=== PATIENT | male | born 1980 | race Caucasian/White ===

== ENCOUNTER 2017-08-28 11:52 | Emergency (ER) | payer SELFPAY ==
[2017-08-28 11:53] VITALS: BP 143/107; PULSE 115; RESP 20; TEMP 36.5; O2SAT 99; BMI 20.9
--- NOTE | 2017-08-28 12:17 | CT_ITS ---
STUDY: CT FACIAL BONES WITHOUT CONTRAST REASON FOR EXAM: Male, 36 years old. Right-sided facial pain for 3 weeks. No history of injury. RADIATION DOSAGE (If Supplied By Facility): CTDIvol = ( 29.38 ) mGy, DLP = ( 628.26 ) mGycm TECHNIQUE: The patient was scanned in a multi detector CT scanner. Sagittal and coronal images were reconstructed. Individualized dose optimization techniques were used for this CT. COMPARISON: None. FINDINGS: Normal soft tissue structures. Normal orbital lockwood and orbital contents. Normal nasal bones and anterior nasal spine. Normal facial bones. There is no demonstrated fracture. There is mucosal thickening of the left frontal, ethmoids and right maxillary sinuses. The right ostiomeatal complex appears to be occluded. There is hypertrophy of the right middle nasal turbinate. There is mild deviation of the nasal septum to the right side. CT/Sinus/Facial Bone IMPRESSION: Sinus disease as described above. No demonstrated drainable abscess. Electronically Signed: Tato German MD at 13:05 EDT Tel , Service support ,
[2017-08-28] MEDS: morphine 8 MG/ML Syringe SC (12:34)
[2017-08-28] MEDS: carBAMazepine 200 MG Tablet PO (12:34)
[2017-08-28] MEDS: Ketorolac 60 MG/2 ML Vial IM (12:34)
--- NOTE | 2017-08-28 13:54 | ED.VISSUMM ---
- ER Visit Summary Date of Service: 08/28/17 Chief Complaint: [] Right facial pain for years no evaluation History of Present Illness: The patient is a 36 M [] that complaint for years he reports that things got so bad that he actually had a full mouth extraction as there was concern suspect related to his teeth however after doing a full mouth extraction is persisted in having right facial pain he denies trauma, denies history of logic conditions that cause facial pain, trigeminal neuralgia or others, no sinus issues no headache no trauma no fever no cough he takes his hand and basically points to the right maxillary sinus region as the focus of his pain, but again he denies cough runny nose sore throat or fever no change in vision he denies any past history otherwise other than report he had pulmonary blebs that caused pneumothoraces and he had surgery for that Physical Examination: [] And he takes his hand and puts the right over the right maxillary sinus palpation of this area causes some mild discomfort his vital signs are unremarkable he is afebrile he has had no fevers at home his extraocular movements are full his nose seems congested the throat is clear the neck is supple the lungs are clear heart tones are normal the TMs and HEENT exam are entirely unremarkable movement of his head causes no pain his neurologic exam is normal again is cardiac pulmonary GI extremity skin exam normal everything is normal Test Results: [] Emergency Department Course and Treatment: [] His complaints CT maxillofacial was obtained and shows extensive sinusitis see that report no abscess there is also concerned about the right maxillary ostium may be blocked, the patient was treated with Rocephin 1 g IM he will be discharged on Augmentin Mucinex Flonase is given the referral to a primary care physician and also to ENT and return for change in symptoms Treatment Plan: [] Disposition: [] Home stable Impression: [] Right facial pain related to pansinusitis This note was generated with [employer] dictation software. It may contain incorrect words, spelling, and punctuation that were not noted in review of the chart prior to signing ED Disposition - Plan for ED Patient: Chief Complaint: Other, Pain/Inj Referrals: Phillip Vazquez MD [Primary Care Provider] -
--- NOTE | 2017-08-28 13:56 | ED.DEP ---
ED Disposition - Plan for ED Patient: Chief Complaint: Other, Pain/Inj Instructions: Acute Sinusitis Prescriptions: Amox/Clavulanate Tablet [Augmentin Tablet] 875 mg PO Q12H #20 tab Naproxen [Naprosyn] 500 mg PO BID PRN #20 tab Fluticasone Propionate [Flonase Allergy Relief] 15.8 ml NS BID #1 spray.susp Guaifenesin [Mucinex] 1,200 mg PO BID #14 tbmp.12hr Referrals: Phillip Vazquez MD [Primary Care Provider] - Orlando Nunez MD [STAFF PHYSICIAN] -
[2017-08-28 15:19] VITALS: RESP 18
== END 2017-08-28 15:19 | disposition home or self-care (01) ==
PROVIDERS: Emergency Provider Emergency Medicine; Family Provider Family Medicine; PCP Family Medicine
DX: J32.4 Chronic pansinusitis (principal)
CPT/HCPCS: 70486; 96365; 96372; 99283; J7030; A4216

== ENCOUNTER 2018-10-18 18:55 | Emergency (ER) | payer OTHER, SELFPAY ==
[2018-10-18 18:56] VITALS: BP 133/85; PULSE 96; RESP 16; TEMP 36.7; O2SAT 99; BMI 19.3
--- NOTE | 2018-10-18 19:46 | ED.DCSUM_ITS ---
- ER Visit Summary Date of Service: 10/18/18 Chief Complaint: [Insect bites] History of Present Illness: The patient is a 37 M [resents to the emergency department with insect bites that he first noticed 5 days ago. Patient states he was bitten by something while he slept on his right leg he thinks it may be a spider possibly. Initially was a red lump that then kind of popped open. The redness is started to spread. Several days later he got 2 more lesions on his left lower extremity and calf. He denies any fevers although he has had some chills. She has no medical history.] Physical Examination: [HEENT-PERRLA, EOMI. Cranial nerves II through XII grossly intact. TMs clear. Mucous membranes moist. No adenopathy. Cardiovascular-regular rate and rhythm without murmur or ectopy Lungs-clear to auscultation, chest wall stable without crepitus or subcu emphysema Abdomen-normoactive bowel sounds, soft, nontender, no rebound or rigidity, no peritoneal signs. Skin exam-patient has a circular lesion on his right lateral calf as well as 2 circular lesions on his left lower leg with surrounding erythema and central section that is excoriated. Areas are slightly tender to palpation. Patient also has an excoriated area just above the right eyebrow. Extremities-intact ?4, normal range of motion, normal pulses, atraumatic] Test Results: [None indicated] Emergency Department Course and Treatment: [Patient was started on Keflex] Treatment Plan: [Patient will be treated with Keflex and referred to primary care physician for follow-up in 3 to 5 days.] Disposition: [Discharged home in stable condition] Impression: [Infected insect bites/cellulitis] This note was generated with [employer] dictation software. It may contain incorrect words, spelling, and punctuation that were not noted in review of the chart prior to signing ED Disposition - Plan for ED Patient: Referrals: Care Physician,No Primary [Primary Care Provider] -
--- NOTE | 2018-10-18 19:46 | ED.DEP ---
ED Disposition - Plan for ED Patient: Instructions: ED Sting Bite Insect Infec Prescriptions: Cephalexin [Keflex] 500 mg PO Q6 #40 cap Referrals: Care Physician,No Primary [Primary Care Provider] - Hipolito Murcia DO [STAFF PHYSICIAN] - 3-5 Days
--- NOTE | 2018-10-18 19:53 | ED.DEP ---
ED Disposition - Plan for ED Patient: Instructions: ED Sting Bite Insect Infec Prescriptions: Cephalexin [Keflex] 500 mg PO Q6 #40 cap Cephalexin [Keflex] 500 mg PO Q6 #40 cap Referrals: Hipolito Murcia DO [STAFF PHYSICIAN] - 3-5 Days Care Physician,No Primary [Primary Care Provider] -
[2018-10-18] MEDS: Cephalexin 250 MG Capsule 500 MG PO (19:54)
[2018-10-18 19:56] VITALS: PULSE 92; RESP 20; O2SAT 99
--- NOTE | 2018-10-18 19:56 | ED.RN ---
THIS NURSE REVIEWED D/C INSTRUCTIONS WITH PT. PT VERBALIZED UNDERSTANDING OF INSTRUCTIONS. PT DENIES FURTHER NEEDS OR QUESTIONS AT THIS TIME. PT AMBULATES FROM ROOM ON OWN WITHOUT ASSISTANCE FROM STAFF
== END 2018-10-18 19:57 | disposition home or self-care (01) ==
PROVIDERS: Emergency Provider Emergency Medicine
DX: S80.861A Insect bite (nonvenomous), right lower leg, initial encounter (principal); L03.115 Cellulitis of right lower limb; W57.XXXA Bitten or stung by nonvenomous insect and other nonvenomous arthropods, initial encounter
CPT/HCPCS: 99283

== ENCOUNTER 2020-11-22 23:44 | Emergency (ER) | payer MEDICAID, SELFPAY ==
[2020-11-22 23:45] VITALS: BP 129/85; PULSE 105; RESP 16; TEMP 36.3; O2SAT 99; BMI 20.7
--- NOTE | 2020-11-23 00:15 | EKG12_ITS ---
Test Reason : CP Blood Pressure : / mmHG Vent. Rate : 091 BPM Atrial Rate : 091 BPM P-R Int : 146 ms QRS Dur : 096 ms QT Int : 348 ms P-R-T Axes : 074 -11 076 degrees QTc Int : 428 ms Normal sinus rhythm Low voltage QRS Right atrial enlargement Incomplete right bundle branch block Borderline ECG Confirmed by JORGE ADORNO, CHIP ([id number]), film or videotape editor VIRGILIO JAIME ([id number]) on 11/26/2020 1:12:14 PM Referred By: WM Confirmed By:CHIP PATEL MD
--- NOTE | 2020-11-23 00:15 | RAD_ITS ---
STUDY: X-RAY CHEST REASON FOR EXAM: Male, 39 years old. chest pain TECHNIQUE: Single AP portable view of the chest. COMPARISON: 05/20/2017. FINDINGS: The lungs are clear and expanded. There is no demonstrated pleural abnormality. Normal size heart. Normal mediastinum and buzz. Normal visualized pulmonary arteries. Normal visualized aortic arch and descending thoracic aorta. Normal visualized thoracic spine. Normal visualized ribs, clavicles, and shoulders. There is no demonstrated abnormality of the visualized soft tissue structures of the upper abdomen. RAD/Chest 1 View (Portable) IMPRESSION: No acute cardiopulmonary disease. Electronically Signed: Lilly Randle MD at 0:38 EDT , Service support ,
[2020-11-23 00:34] LABS: Absolute Lymphocyte Count 2.22 X10^3/uL (0.83-4.51); Absolute Neutrophil Count 5.9 X10^3/uL (2.0-7.7); Basophil# 0.03 X10^3/uL; Basophil% 0.3 % (0-1); Eosinophils% 2.2 % (0-5); Hemoglobin 14.1 g/dL (13.0-16.5); Lymphocyte # 2.22 X10^3/ul (0.83-4.51); Lymphocyte % 24.8 % (19-41); Mean Corp Hgb Conc 33.6 g/dL (32-36); Mean Corpuscular Hgb 30.6 pg (27.0-32.0); Mean Corpuscular Volume 91.1 fL (80-94); Mean Platelet Vol. 8.5 fl (6.2-12.0); Monocyte# 0.62 X10^3/uL; Monocyte% 6.9 % (0-10); NRBC Flagged by Analyzer 0 % (0-5); Neutrophil # 5.86 X10^3/uL (2.7-7.7); Neutrophil % 65.5 % (47-70); Platelet Count 404 K/mm3 (150-450); RBC Distribution Width CV 13.2 % (11.6-14.6); Red Blood Count 4.61 M/mm3 (4.6-6.2)
[2020-11-23 00:48] LABS: D-Dimer Quantitative (DVT/PE) 0.37 FEU/ug/m (0.27-0.49)
[2020-11-23 00:49] LABS: Anion Gap 6 (5-15); BUN 9 mg/dL (7-18); BUN/Creat Ratio 12.4 RATIO (10-20); Calcium,Total 8.8 mg/dL (8.5-10.1); Chloride 103 mmol/L (98-107); Creatinine, Serum 0.73 mg/dL (0.70-1.30); EST Glomerular Filtration Rate 127 mL/min (>60); Est Glom Filt Rate - Afr Amer 154 mL/min (>60); Glucose 118 mg/dL (74-106); Potassium 3.9 mmol/L (3.5-5.1); Sodium Level 138 mmol/L (136-145); Troponin-I HS < 3.0 pg/mL (3.0-78.5)
[2020-11-23 02:16] VITALS: BP 110/75; PULSE 80; RESP 12; O2SAT 98
--- NOTE | 2020-11-23 06:14 | ED.VIS.CHEST ---
HPI History of Present Illness Chief Complaint: Chest Pain Informant: patient Onset/Context/Timing Onset: Days (2 days) Activity at onset: gradual Timing: Waxes and wanes Quality: Positive for Sharp and Stabbing Location: Left Chest Current Severity: Mild Maximum Severity: Moderate Narrative Narrative: Patient presents secondary to chest pain. For the past day and a half he has had pain in the left upper chest that goes through to the left flank area. Patient's primary concern is for possible pneumothorax as he has had multiple pneumothoraces in the past. He has had bilateral VATS procedures and has not had a pneumothorax since his surgery. [facility] Medical History (Updated 11/24/20 @ 23:[address] Annemarie Wong MD) Pneumothorax Home Medications gabapentin 300 mg PO TID 11/23/20 [History Last Taken Unknown] Allergy/AdvReac Type Severity Reaction Status Date / Time No Known Allergies Allergy Verified 10/18/18 18:57 Social History Smoking Status: Current every day smoker tobacco type: cigarettes ROS ROS ED Constitutional Constitutional ED: Denies chills or fever(s) Eyes Eyes: Denies change in vision ENT ENT ED: Denies sore throat Cardiovascular Cardiovascular: Reports chest pain Respiratory/Chest Respiratory/Chest: Denies cough or dyspnea Gastrointestinal Gastrointestinal: Denies abdominal pain, diarrhea, nausea or vomiting Genitourinary Genitourinary ED: Denies dysuria Musculoskeletal Musculoskeletal: Reports back pain Integumentary Denies rash Neurologic Neurologic: Denies headache(s) or weakness Psychiatric Psychiatric: Denies anxiety or depression Endocrine Endocrinology: Denies polydipsia or polyuria Allergic/Immunologic Allergic/Immunologic ED: Denies urticaria EXAM Physical Exam Const Vital Signs: 11/22/20 23:45 11/23/20 00:45 11/23/20 02:16 Temperature 97.4 F L Temperature Source Temporal Pulse Rate 105 H 80 Respiratory Rate 16 12 Respiratory Effort Non-Labored Blood Pressure 129/85 H 110/75 Blood Pressure Mean 99 Pulse Ox 99 98 Oxygen Delivery Method Room Air Positive well nourished and well developed General Appearance ED: well developed HEENT Reports normocephalic and head/scalp atraumatic Eyes PERRL and EOMs intact bilaterally Neck supple Chest Wall inspection of chest normal and palpation of chest normal Resp normal respiratory effort and clear to auscultation bilaterally Cardio regular rate and regular rhythm GI normal to inspection, nondistended, normoactive bowel sounds Palpation: soft Extremity normal to inspection Neuro oriented x3 and no sensory deficits noted Sensorium / Orientation: alert Motor Exam: strength 5/5 throughout Psych mental status grossly normal Skin no rashes or lesions noted Heart Score History: Slightly/Non-Suspicious ECG: Normal Age: </= 45 years Risk Factors: No Risk Factors Troponin: </= Normal Limit Score: 0 MDM MDM MDM Narrative Medical decision making narrative: Lab work, EKG, chest x-ray obtained. Lab Data Attestation: I reviewed the patient's lab results. Labs: Laboratory Results - last 24 hr 11/23/20 11/23/20 11/23/20 00:22 00:22 00:22 WBC 9.0 RBC 4.61 Hgb 14.1 Hct 42.0 MCV 91.1 MCH 30.6 MCHC 33.6 RDW Std Deviation 44.0 H RDW Coeff of Larisa 13.2 Plt Count 404 MPV 8.5 Immature Gran % (Auto) 0.300 Neut % (Auto) 65.5 Lymph % (Auto) 24.8 Boyd % (Auto) 6.9 Eos % (Auto) 2.2 Baso % (Auto) 0.3 Absolute Neuts (auto) 5.9 Absolute Lymphs (auto) 2.22 Nucleated RBC % 0 D-Dimer Quant (PE/DVT) 0.37 Sodium 138 Potassium 3.9 Chloride 103 Carbon Dioxide 29.0 Anion Gap 6 BUN 9 Creatinine 0.73 Estim Creat Clear Calc 129.90 Est GFR (MDRD) Af Amer 154 Est GFR (MDRD) Non-Af 127 BUN/Creatinine Ratio 12.4 Glucose 118 H Calcium 8.8 Troponin I High Sens < 3.0 L Radiography Chest X-Ray - ED: 1 View, Read by ED Physician and Chronic Changes Diagnostic Testing: Radiology Impression Chest X-Ray 11/23/20 00:15 IMPRESSION: No acute cardiopulmonary disease. Electronically Signed: Lilly Randle MD at 0:38 EDT , Service support , EKG Initial EKG: Attestation: I personally reviewed and interpreted this EKG as follows: Interpretation: Sinus Rhythm (Sinus at 91 with incomplete right bundle. No acute ST change.) Treatment and Re-Evaluation Comments:: Chest x-ray per my interpretation reveals no evidence of pneumothorax. No acute findings noted. Radiologist interpretation is reviewed. EKG and lab work is unremarkable including a negative D-dimer. On repeat evaluation patient is resting comfortably. He is updated with test results and is reassured with this. He is referred to local PCP to establish primary care. Discharge Plan Triage Chief Complaint: Chest Pain ED Provider: Annemarie Wong Dx/Rx/DC Orders Instructions: ED Chest Pain, Noncardiac Prescriptions: No Action gabapentin 300 mg Capsule 300 mg PO TID RF: 0 Primary Care Provider: Care Physician,No Primary Referrals: Tommy Villagomez MD [STAFF PHYSICIAN] - As Needed Care Physician,No Primary [Primary Care Provider] - Disposition Disposition: Home, Self Care Discharge Date/Time: 11/23/20 02:27
== END 2020-11-23 02:27 | disposition home or self-care (01) ==
PROVIDERS: Emergency Provider Emergency Medicine
DX: R07.9 Chest pain, unspecified (principal); F17.210 Nicotine dependence, cigarettes, uncomplicated; Z79.899 Other long term (current) drug therapy
CPT/HCPCS: 71045; 80048; 84484; 85025; 85379; 93005; 99284

== ENCOUNTER 2021-06-04 03:42 | Emergency (ER) | payer MEDICAID, SELFPAY ==
[2021-06-04 03:43] VITALS: BP 135/112; PULSE 105; RESP 18; TEMP 37.6; O2SAT 99; BMI 23.1
--- NOTE | 2021-06-04 03:54 | EDS_ITS ---
HPI History of Present Illness Chief Complaint: Other, Pain/Inj Detail of Chief Complaint: Facial pain worse over the last 3 days Informant: patient Narrative Narrative: Patient presents to the ER with complaint of facial pain that has been going on off and on over the last 7 months. Patient was diagnosed with trigeminal neuralgia by neurologist at [facility] Dr. Velez. Patient on Tegretol as well as amitriptyline. Over the last 3 days has had worsening pain and is having hard time sleeping. He denies trauma to his face. He is edentulous. He denies fever or recent illness. Patient's work-up has included MRA and MRI. Prior similar symptoms: Yes PFSH [facility] Medical History (Updated 06/04/21 @ 03:[address] Kwasi Mccauley, ) Pneumothorax Trigeminal neuralgia Home Medications amitriptyline 50 mg PO DAILY 06/04/21 [History Last Taken Unknown] carbamazepine 200 mg PO BID 06/04/21 [History Last Taken Unknown] hydrocodone-acetaminophen 1 tab PO Q4H PRN PRN 2 Days #10 tablet 06/04/21 [Rx Last Taken Unknown] Allergy/AdvReac Type Severity Reaction Status Date / Time No Known Allergies Allergy Verified 06/04/21 03:47 Social History Smoking Status: Current every day smoker tobacco type: cigarettes ROS ROS ED Constitutional Constitutional ED: Reports systems reviewed and no addt'l complaints, except as documented; Denies body ache(s), change in weight or chills Eyes Eyes: Denies acute decrease in peripheral vision, change in vision, double vision or loss of vision ENT ENT ED: Reports none and other Details: Facial pain ; Denies ear pain, lip swelling, loss taste/smell, neck pain, otalgia or sore throat Cardiovascular Cardiovascular: Reports none; Denies abdominal pain, chest pain with activity, leg edema, lightheadedness, palpitations, rapid heart rate or syncope Respiratory/Chest Respiratory/Chest: Reports none; Denies change in mental status, dry cough, dyspnea, hemoptysis, shortness of breath at rest or shortness of breath with exertion Gastrointestinal Gastrointestinal: Reports none; Denies abdominal pain, change in stool rubi acter, diarrhea, hematemesis, hematochezia, melena, rectal bleeding or vomiting Genitourinary Genitourinary ED: Reports none; Denies abdominal discomfort, anuria, dysuria, genital pain or polyuria Musculoskeletal Musculoskeletal: Reports none; Denies arthralgias, back pain, difficulty walking, extremity pain, muscle weakness or myalgias Integumentary Reports none; Denies abscess or rash Neurologic Neurologic: Reports none; Denies abnormal gait, confusion, focal weakness, frequent falls, headache(s), loss of vision, numbness, paresthesias, radicular pain, vertigo or weakness Psychiatric Psychiatric: Reports systems reviewed and no addt'l complaints, except as documented and none; Denies behavioral changes, confusion, difficulty co ncentrating, hallucinations, suicidal ideation, tactile hallucinations or visual hallucinations Endocrine Endocrinology: Denies none, cold intolerance, excessive sweating, fatigue or heat intolerance Hematologic/Lymphatic Hematologic/Lymphatic: Reports none; Denies anemia, easy bleeding or easy bruising Allergic/Immunologic Allergic/Immunologic ED: Denies as per HPI, none, lip swelling, mouth swelling, throat swelling, tongue swelling or hives EXAM Physical Exam Const Vital Signs: 06/04/21 03:43 06/04/21 03:48 Temperature 99.6 F H Temperature Source Oral Pulse Rate 105 H Respiratory Rate 18 Respiratory Effort Normal Respiratory Pattern Normal Blood Pressure 135/112 H Blood Pressure Mean 119 Pulse Ox 99 Oxygen Delivery Method Room Air Positive well nourished and well developed General Appearance ED: well developed and NAD HEENT Reports TM's clear and moist mucous membranes HEENT Narrative: Patient has diffuse tenderness palpation of the right face as well as the left face over the area of the facial nerve. Patient is edentulous. No facial erythema or cellulitis noted. normocephalic and atraumatic; Negative for trauma or tenderness Tympanic Membrane ED: Yes TM's clear Eyes PERRL and EOMs intact bilaterally General Eye ED: Negative for pale conjunctiva or scleral icterus Neck no lymphadenopathy, supple and no JVD General: Negative for tenderness Chest Wall inspection of chest normal and palpation of chest normal Chest: Negative for tenderness Resp normal respiratory effort and clear to auscultation bilaterally Effort and Inspection: Negative for respiratory distress or pain with movement Auscultation: Negative for rhonchi, wheezes or diminished lung sounds Cardio regular rate, regular rhythm, S1 normal heart sound, S2 normal heart sound and no murmurs Peripheral Pulses: pulses 2+ throughout GI normal to inspection, nondistended, normoactive bowel sounds, soft to palpation, non-tender, non-distended and no masses Back/Spine no CVA tenderness and no thoracic nor lumbar tenderness Extremity normal to inspection General Extremety ED: Negative for edema General Extremity: Negative for edema Neuro oriented x3, CN's II-XII intact bilaterally, no sensory deficits noted and gait normal Sensorium / Orientation: awake, alert, oriented to person, oriented to place and oriented to time Motor Exam: strength 5/5 throughout and strength abnormal Psych mental status grossly normal Skin no rashes or lesions noted and no wounds MDM MDM MDM Narrative Medical decision making narrative: Patient was given a shot of Toradol as well as a milligram of Dilaudid IM. He will be given a prescription for [place] for pain. Patient advised to follow-up with his neurologist and I will also refer him to pain management. Discharge Plan Triage Chief Complaint: Other, Pain/Inj ED Provider: Kwasi Mccauley Dx/Rx/DC Orders Clinical Impression: Acute facial pain, History of trigeminal neuralgia Instructions: ED Trigeminal Neuralgia Prescriptions: New hydrocodone-acetaminophen [hydrocodone-acetaminophen] 1 TABLET tablet 1 tab PO Q4H PRN PRN (Reason: Pain) 2 Days Qty: 10 RF: 0 No Action carbamazepine 100 mg tablet extended release 12 hr 200 mg PO BID RF: 0 amitriptyline 50 mg tablet 50 mg PO DAILY RF: 0 Primary Care Provider: Care Physician,No Primary Referrals: Andres Urrutia MD [STAFF PHYSICIAN] - 3-5 Days Care Physician,No Primary [Primary Care Provider] - Disposition Disposition: Home, Self Care
[2021-06-04] MEDS: HYDROmorphone 1 MG/ML Syringe IM ×2 (04:00→04:55)
[2021-06-04] MEDS: Ketorolac 60 MG/2 ML Vial IM (04:02)
== END 2021-06-04 05:17 | disposition home or self-care (01) ==
LOC: ED 04:22
PROVIDERS: Emergency Provider Emergency Medicine; Visit Provider Emergency Medicine
DX: R51.9 Headache, unspecified (principal); G50.0 Trigeminal neuralgia; F17.210 Nicotine dependence, cigarettes, uncomplicated; Z79.899 Other long term (current) drug therapy
CPT/HCPCS: 96372; 99282; A4216

== ENCOUNTER 2022-02-11 16:30 | Outpatient (RCR) | payer MEDICAID, SELFPAY ==
--- NOTE | 2021-12-28 18:00 | HP.PTEVAL_ITS ---
Patient's Visit Information ANAMIKA JUAREZ is a 41 year old M referred to Physical Therapy by Dr. Kylah Mckeon MD with a diagnosis of LBP. Date of Evaluation: 12/28/21 Physical Therapist: Stefanie Sheikh PT, Cert MDT - Visit Plan Frequency: 2x /Week Duration: 4-6 Weeks Plan: HEP INSTRUCTION. POSTURE CORRECTION/STRENGTHENING, INSTRUCTION IN APPROPRIATE BODY MECHANICS AND ACTIVITY MODIFICATIONS. DLS STARTING WITH A NEUTRAL SPINE PROGRESSING ROM TOLERATED. SHLOMO LE ROM, STRETCHING AND STRENGTHENING. 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 Disability: NO. Present symptoms: NO SYMPTOMS CURRENTLY. RECENTLY HAD LBP AND LLE INTERMITTENT PAIN. Present since: ABOUT 3 WKS AGO. Pain Scale: UP TO 8-9/10 PAIN LEADING TO ED VISIT A FEW WKS AGO. Currently: 0/10. Commenced as a result of: JUST STARTED HURTING AT WORK FOR NO APPARENT REASON AND KEPT GETTING WORSE. Symptoms at onset: LOW BACK PAIN. Worse: NOTHING. Better: N/A. Disturbed sleep: NO. Previous history/Previous treatment: NO BACK SURGERY. NO GRACE'S. NO PHYSICAL THERAPY. ABOUT 15 YEARS AGO DID GO TO [facility] FOR ABOUT 3 VISITS AND SX'S RESOLVED. Treatment this episode: WENT TO ED AND REC'D STEROID AND MUSCLE RELAXER. WAS BETTER WITHIN A FEW DAYS AND GONE WITHIN A WEEK. Coughing/sneezing/straining: NO. Gait: NORMAL. Bowel or Bladder Dysfunction: NO. Accidents: NO. Unexplained weight loss: NO. Imaging: RECENT LUMBAR X-RAYS THAT PATIENT REPORTS DR. MCKEON SAID SHOWED SOME PELVIC SHIFT BUT OTHERWISE NORMAL. PMH/Recent major surgery: SMOKER. TRIGEMINAL NEURALGIA - SPEECH CONSULT PENDING. SX FOR COLLAPSED LUNG - MOST RECENT 2017 OR 2018. SHLOMO HERNIA REPAIRS. H/O MULTIPLE FX'S - PATIENT NOT SPECIFIC. - Objective Sitting/Standing Posture: POOR. VERT SLOUCHED. FH. RS'S. DECREASED LUMBAR LORDOSIS BUT NO RELEVENT LATERAL SHIFT. INCREASED KYPHOSIS. Active Correction of posture: NE. Other Observations: INDEP GAIT AND TRANSFERS. Sensory deficit: SHLOMO LE LIGHT TOUCH SENSATION IS GROSSLY INTACT AND SYMMETRICAL. ROM deficit: TIGHT SHLOMO HIP FLEXORS, HS'S AND GASTROC SOLEUS COMPLEX'S. Motor deficit: SHLOMO LE'S 5/5 WITH MMT'ING. Dural Signs: NEGATIVE SHLOMO LE'S. Lumbar mvmt loss: flex - NIL. ext - MIN. R SG - NIL. L SG - NIL. Core strength: POOR. Palpation: NO ACUTE TENDERNESS. TREATMENT: NEUROMUSCULAR REEDUCATION - RETRAINING OF MVMT AND POSTURE FOR SITTING, LYING AND STANDING ACTIVITIES. - Balance/Special Test Scores Oswestry Low Back Score: 0 - Goals Goal 1:: PT CONSULT AND HOME INSTRUCTIONS FOR BACK CARE Goal Time Frame: 4-6 Weeks Goal 2:: IMPROVE CORE STRENGTH Goal Time Frame: 4-6 Weeks Goal 3:: INDEP HEP Goal Time Frame: 4-6 Weeks - Anticipated Interventions Patient/Client Instruction: Educate patient on: Condition, Plan of Care, Risk Factors For the Purpose of:: To improve self management Therapeutic Exercise to Include: Strength training, Body mechanics, Postural training, Flexibilty training, Dynamic Lumbar Stabilization For the Purpose of:: To improve muscle performance and motor function, To improve ability of physical actions for home/community/work/leisure Thank you for the opportunity to evaluate your patient. For Medicare and Medicare HMO plans, please review the plan of care and approve it. It will need to be FAXED BACK to us at [phone] for Medicare purposes. For Medicare only, by signing this I certify the plan of care. Please let me know if there are questions or concerns regarding this plan of care. Physician Signature: Date:
--- NOTE | 2022-02-11 16:52 | HP.PTDCSUM ---
It has been my pleasure to treat ANAMIKA JUAREZ referred by Dr. Kylah Mckeon MD, with the diagnosis of LBP for a total of 8 visit(s). Discharge Date: 02/11/22 Please see the following information for a summary of their discharge status. Subjective: Patient doing well % Improvement: 50 Objective/Function: POSTURE: mild forward posture. GAIT: reciprocal pattern. MMT: 5/5. LUMBAR ROM: flexion/extension/side glides WNL Goal 1:: PT CONSULT AND HOME INSTRUCTIONS FOR BACK CARE Goal Progress: Goal Met Goal 2:: IMPROVE CORE STRENGTH Goal Progress: Goal Met Goal 3:: INDEP HEP Goal Progress: Goal Met Plan: D/C Discharge Comments: HEP If there are questions or concerns regarding this patient's physical therapy, please feel free to call me at [phone]. Thank you for the referral of this patient. Sincerely, Derrek oK, PT, Cert MDT, OCS Balance/Gait/Functional tests - Balance/Special Test Scores Oswestry Low Back Score: 0
== END 2022-02-11 19:00 | disposition home or self-care (01) ==
LOC: PT 16:30
PROVIDERS: PCP Internal Medicine; Referring Provider Internal Medicine; Visit Provider Internal Medicine
DX: M54.50 Low back pain, unspecified (principal); G50.0 Trigeminal neuralgia
CPT/HCPCS: 97110; 97112; 97162; 97530

== ENCOUNTER → 2022-07-05 | Outpatient (CLI) | payer MEDICAID, SELFPAY ==
[2022-07-05 12:11] LABS: Erythrocyte Sedimentation Rate 15 mm/hr (0-20)
[2022-07-05 12:13] LABS: Absolute Lymphocyte Count 2.05 X10^3/uL (0.83-4.51); Absolute Neutrophil Count 4.4 X10^3/uL (2.0-7.7); Basophil# 0.04 X10^3/uL; Basophil% 0.5 % (0-1); Eosinophil# 0.24 X10^3/uL; Eosinophils% 3.2 % (0-5); Hematocrit 46.9 % (40-54); Hemoglobin 16.3 g/dL (13.0-16.5); Lymphocyte # 2.05 X10^3/ul (0.83-4.51); Lymphocyte % 27.1 % (19-41); Mean Corp Hgb Conc 34.8 g/dL (32-36); Mean Corpuscular Hgb 33.2 pg (27.0-32.0); Mean Corpuscular Volume 95.5 fL (80-94); Mean Platelet Vol. 9.7 fl (6.2-12.0); Monocyte# 0.77 X10^3/uL; Monocyte% 10.2 % (0-10); NRBC Flagged by Analyzer 0 % (0-5); Neutrophil % 58.2 % (47-70); Platelet Count 357 K/mm3 (150-450); RBC Distribution Width CV 12.6 % (11.6-14.6); RBC Distribution Width SD 44.7 fl (35.1-43.9); Red Blood Count 4.91 M/mm3 (4.6-6.2); White Blood Count 7.6 K/mm3 (4.4-11.0)
[2022-07-05 12:28] LABS: AST(SGOT) 16 U/L (15-37); Alanine Aminotransfer ALT/SGPT 31 U/L (16-61); Albumin, Serum 3.7 g/dL (3.2-5.0); Alkaline Phosphatase 56 U/L (45-117); Anion Gap 8 (5-15); BUN 7 mg/dL (7-18); Calcium,Total 9.2 mg/dL (8.5-10.1); Chloride 105 mmol/L (98-107); Cholesterol 240 mg/dL (200); Creatinine, Serum 0.78 mg/dL (0.70-1.30); EST Glomerular Filtration Rate 116 mL/min (>60); Est Glom Filt Rate - Afr Amer 141 mL/min (>60); Globulin 3.6 g/dL (2.2-4.2); Glucose 94 mg/dL (74-106); High Density Lipoprotein 40 mg/dL; Potassium 3.9 mmol/L (3.5-5.1); Protein, Total 7.3 g/dL (6.4-8.2); Sodium Level 138 mmol/L (136-145); Triglycerides 195 mg/dL; Very Low Density Lipoprotein 39 mg/dL (5-40)
== END | disposition home or self-care (01) ==
PROVIDERS: PCP Internal Medicine; Referring Provider Internal Medicine; Visit Provider Internal Medicine
DX: Z13.6 Encounter for screening for cardiovascular disorders (principal); R51.9 Headache, unspecified
CPT/HCPCS: 36415; 80053; 80061; 85025; 85652

== ENCOUNTER 2022-09-20 07:25 | Emergency (ER) | payer MEDICAID, SELFPAY ==
[2022-09-20 07:26] VITALS: BP 143/103; PULSE 64; RESP 18; TEMP 36.6; O2SAT 100; BMI 23.6
--- NOTE | 2022-09-20 07:47 | EDS_ITS ---
HPI History of Present Illness Chief Complaint: Headache Narrative Narrative: 41-year-old male with history of migraine presenting with headache. He states it started yesterday and he felt more like it was a tension headache and he felt a strain in his muscles in his neck. He had his significant other of his neck and shoulders and he states that headache pain did start to ease up and he was pain-free at about 430 this morning. When he got up to drink coffee he noted the headache returned. It was more severe. He now has light sensitivity. He denies sound sensitivity. Denies any head trauma. Patient has had imaging of his brain in the past which includes MRI and MRA. He notes that these were been normal. Patient does have a history of trigeminal neuralgia as well. He is not complaining of facial pain today. [facility] Medical History Bone fracture Headache, migraine History of pneumonia Pneumothorax Trigeminal neuralgia Home Medications TENS units #1 ea 12/16/21 [Rx Last Taken Unknown] arm brace (Wrist Brace) #1 ea 12/16/21 [Rx Last Taken Unknown] atorvastatin 10 mg tablet (Lipitor) 10 mg PO QHS #30 tabs 07/05/22 [Rx Last Taken Unknown] Allergy/AdvReac Type Severity Reaction Status Date / Time No Known Allergies Allergy Verified 09/20/22 07:25 Family History Mother Arthritis Heart disease Hypertension Severe allergy Grandmother Colon cancer Surgical History H/O hernia repair History of lung surgery History of tonsillectomy Social History household members: spouse current occupational status: employed current occupation: works at [employer] Smoking Status: Current every day smoker tobacco type: cigarettes Electronic Cigarette Use: not used alcohol intake: current alcohol intake frequency: holidays/special occasions only Alcohol type: wine and hard liquor substance use type: does not use what type of physical activity do you participate in: none do you feel safe at home: Yes ROS ROS ED Constitutional Constitutional ED: Denies chills, fever(s) or sweats Eyes Eyes: Denies blurry vision or change in vision ENT ENT ED: Denies ear pain or sore throat Cardiovascular Cardiovascular: Denies chest pain, palpitations or racing heartbeat Respiratory/Chest Respiratory/Chest: Denies cough, dyspnea or sputum Gastrointestinal Gastrointestinal: Denies abdominal pain, constipation, diarrhea, nausea or vomiting Genitourinary Genitourinary ED: Denies dysuria, hematuria or urinary frequency Musculoskeletal Musculoskeletal: Denies arthralgias, myalgias or neck pain Integumentary Denies abscess, Abrasions or rash Neurologic Neurologic: Reports headache(s); Denies paresthesias or weakness Psychiatric Psychiatric: Denies anxiety, depression, suicidal ideation or suicidal thoughts Endocrine Endocrinology: Denies polydipsia or polyuria EXAM Physical Exam Const Vital Signs: 09/20/22 07:26 Temperature 97.8 F Temperature Source Temporal Pulse Rate 64 Respiratory Rate 18 Blood Pressure 143/103 H Blood Pressure Mean 116 Pulse Ox 100 Oxygen Delivery Method Room Air Positive well nourished General Appearance ED: NAD; Negative for pallor HEENT Reports normocephalic Eyes PERRL and EOMs intact bilaterally Neck no lymphadenopathy and supple Neck Narrative: Left-sided tenderness to palpation in the left paraspinal musculature of the cervical spine. no midline deformity or step-off. Resp normal respiratory effort Effort and Inspection: Negative for retractions Cardio regular rate and regular rhythm Neuro oriented x3 and CN's II-XII intact bilaterally Sensorium / Orientation: awake and alert Speech: speech normal Motor Exam: strength 5/5 throughout Psych mental status grossly normal Skin General Skin Exam: Negative for jaundice or pallor MDM MDM MDM Narrative Medical decision making narrative: Patient presenting with headache. He has history of migraine headaches. He had imaging in the past. No bleeding is edematous today. Patient was given Reglan, Benadryl, Toradol. Was given a liter normal saline. Will reevaluate. 9:32 AM the patient was reevaluated. He states he feels much better. He request to be discharged home. Return precautions were discussed. Impression: 1. Headache Discharge Plan Triage Chief Complaint: Headache ED Provider: Juan David Vicente Dx/Rx/DC Orders Instructions: ED Headache Unspecified Prescriptions: No Action (DME) TENS units Device See Rx Instructions .Route Qty: 1 0RF Rx Instructions: As directed (DME) Wrist Brace Misc See Rx Instructions .Route Qty: 1 0RF Rx Instructions: As directed atorvastatin [Lipitor] 10 mg tablet 10 mg PO QHS Qty: 30 5RF Primary Care Provider: Kylah Mckeon Referrals: Kylah Mckeon MD [Primary Care Provider] - Disposition Disposition: Home, Self Care
[2022-09-20] MEDS: 0.9% Normal Saline 1,000 ML 999 ML IV (08:02)
[2022-09-20] MEDS: DiphenhydrAMINE 50 MG/ML Syringe 25 MG IV (08:02)
[2022-09-20] MEDS: Metoclopramide 10 MG/2 ML Vial IV (08:03)
[2022-09-20] MEDS: Ketorolac 15 MG/ML Vial IV (08:04)
[2022-09-20 09:30] VITALS: RESP 14
== END 2022-09-20 09:53 | disposition home or self-care (01) ==
PROVIDERS: Emergency Provider Student in an Organized Health Care Education/Training Program; PCP Internal Medicine; Visit Provider Student in an Organized Health Care Education/Training Program
DX: R51.9 Headache, unspecified (principal); F17.210 Nicotine dependence, cigarettes, uncomplicated
CPT/HCPCS: 99282; J7030; A4216

== ENCOUNTER 2022-10-08 14:00 | Emergency (ER) | payer MEDICAID, SELFPAY ==
[2022-10-08 14:01] VITALS: BP 143/102; PULSE 84; RESP 16; TEMP 37; O2SAT 97; BMI 50.8
--- NOTE | 2022-10-08 14:15 | RAD_ITS ---
STUDY: X-RAY CHEST REASON FOR EXAM: Male, 41 years old. Shortness of breath and cough for several days. TECHNIQUE: PA and lateral views of the chest. COMPARISON: Comparison is made with prior study November 23, 2020. FINDINGS: Hyperinflation. Stable mild increased markings at the lung apices suggestive of scarring. There is no demonstrated pleural abnormality. Normal size heart. Normal mediastinum and buzz. Normal visualized pulmonary arteries. Normal visualized aortic arch and descending thoracic aorta. Normal visualized thoracic spine. Normal visualized ribs, clavicles, and shoulders. There is no demonstrated abnormality of the visualized soft tissue structures of the upper abdomen. RAD/Chest PA and Lateral IMPRESSION: No acute abnormality is seen. Electronically Signed: Bertram Sánchez MD at 15:02 EDT ,
--- NOTE | 2022-10-08 14:16 | EKG12_ITS ---
Test Reason : CP/SOB Blood Pressure : / mmHG Vent. Rate : 077 BPM Atrial Rate : 077 BPM P-R Int : 142 ms QRS Dur : 102 ms QT Int : 384 ms P-R-T Axes : 068 034 048 degrees QTc Int : 434 ms Normal sinus rhythm Incomplete right bundle branch block Borderline ECG Confirmed by SYDNEE ADORNO, ROSALIND ([id number]), graphic editor POLLY HAWTHORNE ([id number]) on 10/11/2022 10:30:20 AM Referred By: CRISTOFER Confirmed By:ROSALIND RANDHAWA MD
--- NOTE | 2022-10-08 14:16 | ED.VIS.DYS ---
HPI History of Present Illness Chief Complaint: Shortness of Breath Narrative Narrative: 41-year-old male, smoker, presents with 3 to 4 days of shortness of breath, coughing, with white phlegm production. He states he has been more short of breath over the last few days. He is having chest pain after coughing. He is concerned because he has had history of 4 pneumothoraces with surgery at [facility] for his multiple pneumothoraces. He wants to make sure that he does not have another one. He denies any fevers or chills, no nausea or vomiting, no other symptoms except for maybe decreased appetite according to his . [facility] Medical History Abrasion of right thumb Bone fracture Cellulitis of right thumb Headache, migraine History of pneumonia Pneumothorax Trigeminal neuralgia Home Medications TENS units #1 ea 12/16/21 [Rx Last Taken Unknown] atorvastatin 10 mg tablet (Lipitor) 10 mg PO QHS #30 tabs 07/05/22 [Rx Last Taken Unknown] Ventolin HFA 90 mcg/actuation aerosol inhaler (albuterol sulfate) 1 - 2 puff inhalation Q4H PRN PRN Wheezing #18 grams 10/08/22 [Rx Last Taken Unknown] Allergy/AdvReac Type Severity Reaction Status Date / Time No Known Allergies Allergy Verified 10/08/22 14:03 Family History Mother Arthritis Heart disease Hypertension Severe allergy Grandmother Colon cancer Surgical History H/O hernia repair History of lung surgery History of tonsillectomy Social History household members: spouse current occupational status: employed current occupation: works at [employer] Smoking Status: Current every day smoker tobacco type: cigarettes Electronic Cigarette Use: not used alcohol intake: current alcohol intake frequency: holidays/special occasions only Alcohol type: wine and hard liquor substance use type: does not use what type of physical activity do you participate in: none do you feel safe at home: Yes ROS ROS ED ROS Narrative Constitutional: No fever, no chills. HEENT: No sore throat. No neck pain. No loss of vision. No rhinorrhea. Cardiovascular: Chest soreness/chest pain. No palpitations. No pedal edema. Respiratory: Positive cough, positive shortness of breath. Abdominal: No abdominal pain. No nausea. No vomiting. Genitourinary: No dysuria. No hematuria. Musculoskeletal: No myalgias. No arthralgias. Neurologic: No headaches. No dizziness. No lightheadedness. Skin: No rash. No change in color. Psychiatric: No depression. No anxiety. EXAM Physical Exam Narrative Exam Narrative: Afebrile. Vital signs noted. HEENT: Normocephalic. Atraumatic. PERRL, EOMI. Neck soft and supple. No point tenderness or step off. Cardiovascular: Regular rate and rhythm. No murmurs, rubs, or gallops appreciated. Respiratory: No tachypnea. Lungs clear to auscultation bilaterally. Equal breath sounds auscultated bilaterally. No accessory muscle use. Gastrointestinal: Abdomen soft, nontender, with normoactive bowel sounds. No rebound or guarding. Neurological: Awake. Alert. Nonfocal, nonlateralizing. Skin: No rash. Normal color. No pallor. Musculoskeletal: No pedal edema. Full range of motion extremities. Const Vital Signs: 10/08/22 14:01 10/08/22 14:31 Temperature 98.6 F Temperature Source Temporal Pulse Rate 84 Respiratory Rate 16 Respiratory Effort Short of Breath Respiratory Depth Normal Respiratory Pattern Normal Blood Pressure 143/102 H Blood Pressure Mean 115 Pulse Ox 97 Oxygen Delivery Method Room Air Room Air MDM MDM MDM Narrative Medical decision making narrative: His pulse ox is 97% on room air without evidence of hypoxia. I have lower suspicion for pneumothorax as he has equal breath sounds, and a normal pulse ox. Smoking cessation was discussed. However, to help rule out pneumothorax, two-view chest x-ray will be obtained and interpreted by myself. I will obtain basic laboratory work to look for signs of anemia as a cause to his shortness of breath over the last few days, but this is less likely because he denies any bleeding diathesis. I will check his electrolytes as well. I have lower suspicion for pulmonary embolism as he is not tachycardic and is essentially PERC negative. EKG was obtained and interpreted by myself independently which demonstrates normal sinus rhythm at 77 bpm without ectopy or acute ST changes. No STEMI. I reviewed his laboratory work and he has a normal white count of 8.4, hemoglobin slightly hemoconcentrated at 17.8 with a normal hematocrit of 49.3. Platelet count normal at 253. He may be slightly dehydrated with a sodium of 132 and potassium low at 3.1 which was replaced orally with 60 mEq. Glucose is appropriately elevated at 122 with a normal anion gap of 9. High-sensitivity troponin is 3. I do feel that this is greater than a 6-hour troponin. Of most significance, my interpretation of his two-view chest x-ray shows no acute process, no pneumonia or pneumothorax. I do not feel that antibiotics are indicated. Smoking cessation was discussed with the patient. I do not feel that he requires admission, he had been bolused normal saline 1 L intravenously. He was written a prescription for an albuterol inhaler to use 1 to 2 puffs every 4-6 hours as needed for shortness of breath. At this point in time, I feel he be discharged safely home with follow-up. Return instructions to the emergency department were reviewed. Disposition is discharged home in stable condition. History & Record Review Discussion w/independent historian: Patient Additional record(s) reviewed:: Prior ED visit Lab Data Attestation: I reviewed the patient's lab results. Labs: Laboratory Results - last 24 hr 10/08/22 10/08/22 14:25 14:25 WBC 8.4 RBC 5.38 Hgb 17.8 H Hct 49.3 MCV 91.6 MCH 33.1 H MCHC 36.1 H RDW Std Deviation 44.5 H RDW Coeff of Larisa 13.2 Plt Count 253 MPV 9.0 Immature Gran % (Auto) 0.400 Neut % (Auto) 65.9 Lymph % (Auto) 19.8 [place] % (Auto) 12.9 H Eos % (Auto) 0.5 Baso % (Auto) 0.5 Absolute Neuts (auto) 5.5 Absolute Lymphs (auto) 1.66 Nucleated RBC % 0 Sodium 132 L Potassium 3.1 L Chloride 101 Carbon Dioxide 22.0 Anion Gap 9 BUN 9 Creatinine 0.76 Estim Creat Clear Calc 136.23 Est GFR (MDRD) Af Amer 145 Est GFR (MDRD) Non-Af 120 BUN/Creatinine Ratio 11.9 Glucose 122 H Calcium 9.3 Troponin I High Sens 3 Radiography Diagnostic Testing: Clinical Impression(s) from Imaging Studies Chest X-Ray 10/08/22 14:15 IMPRESSION: No acute abnormality is seen. Electronically Signed: Bertram Sánchez MD at 15:02 EDT , Discharge Plan Triage Chief Complaint: Shortness of Breath ED Provider: Shaq Arrieta Dx/Rx/DC Orders Clinical Impression: SOB (shortness of breath), Bronchitis, Chest pain, Hypokalemia Instructions: ED Bronchitis, No Antibiotic (Adult), ED Chest Pain, Uncertain Cause, ED Dyspnea, ED Hypokalemia Prescriptions: New albuterol sulfate [Ventolin HFA] 90 mcg/actuation HFA aerosol inhaler 1 - 2 puff inhalation Q4H PRN PRN (Reason: Wheezing) Qty: 18 0RF No Action (DME) TENS units Device See Rx Instructions .Route Qty: 1 0RF Rx Instructions: As directed atorvastatin [Lipitor] 10 mg tablet 10 mg PO QHS Qty: 30 5RF Primary Care Provider: Kylah Mckeon Referrals: Kylah Mckeon MD [Primary Care Provider] - As soon as possible Activity Restrictions/Additional Instructions: Stop smoking. Use your albuterol inhaler every 4-6 hours 1 to 2 puffs inhaled as needed for shortness of breath. Return with new or worsening symptoms. Disposition Disposition: Home, Self Care
[2022-10-08] MEDS: 0.9% Normal Saline 1,000 ML 999 ML IV (14:34)
[2022-10-08 14:36] LABS: Absolute Lymphocyte Count 1.66 X10^3/uL (0.83-4.51); Absolute Neutrophil Count 5.5 X10^3/uL (2.0-7.7); Basophil# 0.04 X10^3/uL; Basophil% 0.5 % (0-1); Eosinophil# 0.04 X10^3/uL; Eosinophils% 0.5 % (0-5); Hematocrit 49.3 % (40-54); Hemoglobin 17.8 g/dL (13.0-16.5); Lymphocyte # 1.66 X10^3/ul (0.83-4.51); Lymphocyte % 19.8 % (19-41); Mean Corp Hgb Conc 36.1 g/dL (32-36); Mean Corpuscular Hgb 33.1 pg (27.0-32.0); Mean Corpuscular Volume 91.6 fL (80-94); Monocyte# 1.08 X10^3/uL; Monocyte% 12.9 % (0-10); NRBC Flagged by Analyzer 0 % (0-5); Neutrophil # 5.54 X10^3/uL (2.7-7.7); Neutrophil % 65.9 % (47-70); Platelet Count 253 K/mm3 (150-450); RBC Distribution Width CV 13.2 % (11.6-14.6); RBC Distribution Width SD 44.5 fl (35.1-43.9); Red Blood Count 5.38 M/mm3 (4.6-6.2); White Blood Count 8.4 K/mm3 (4.4-11.0)
[2022-10-08 14:52] LABS: Anion Gap 9 (5-15); BUN 9 mg/dL (7-18); BUN/Creat Ratio 11.9 RATIO (10-20); Calcium,Total 9.3 mg/dL (8.5-10.1); Chloride 101 mmol/L (98-107); Creatinine, Serum 0.76 mg/dL (0.70-1.30); EST Glomerular Filtration Rate 120 mL/min (>60); Est Glom Filt Rate - Afr Amer 145 mL/min (>60); Estimated Creatinine Clearance 136.23 ml/min; Glucose 122 mg/dL (74-106); Potassium 3.1 mmol/L (3.5-5.1); Sodium Level 132 mmol/L (136-145); Troponin-I HS 3 pg/mL (3.0-78.0)
[2022-10-08 15:01] VITALS: BP 137/94
[2022-10-08] MEDS: Potassium Chloride Oral Tablet 20 MEQ 60 MEQ PO (15:53)
== END 2022-10-08 16:00 | disposition home or self-care (01) ==
PROVIDERS: Emergency Provider Emergency Medicine; PCP Internal Medicine; Visit Provider Emergency Medicine
DX: J40 Bronchitis, not specified as acute or chronic (principal); E87.6 Hypokalemia; R06.02 Shortness of breath; R07.9 Chest pain, unspecified; G50.0 Trigeminal neuralgia; F17.210 Nicotine dependence, cigarettes, uncomplicated; Z79.899 Other long term (current) drug therapy
CPT/HCPCS: 71046; 80048; 84484; 85025; 93005; 96360; 99285; J7030; A4216

== ENCOUNTER 2023-05-20 08:46 | Emergency (ER) | payer SELFPAY ==
[2023-05-20 08:48] VITALS: BP 156/97; PULSE 70; RESP 14; TEMP 36.8; O2SAT 100; BMI 29.2
--- NOTE | 2023-05-20 09:22 | CT_ITS ---
EXAM: CT ABDOMEN AND PELVIS WITH INTRAVENOUS CONTRAST CLINICAL INDICATION: LLQ pain TECHNIQUE: Helically acquired images were obtained of the abdomen and pelvis with intravenous contrast. This CT exam was performed using one or more of the following dose reduction techniques: automated exposure control, adjustment of the mA and/or kV according to patient size, and/or use of iterative reconstruction technique. CONTRAST: IV 100mL Isovue-300 RADIATION DOSE: CTDIvol = 11.72 mGy, DLP = 888.29 mGy-cm COMPARISON: No relevant prior studies available. FINDINGS: LOWER THORAX: Unremarkable. Lung bases are clear. No cardiomegaly. No significant pericardial effusion. ABDOMEN: LIVER: Small nonenhancing hypodense lesion underneath the surface of segment 4 of the liver is too small to confirm cystic or solid. A much smaller nonenhancing hypodense lesion near the anterior surface of segment 4 of the liver is also too small to confirm cystic or solid. GALLBLADDER AND BILE DUCTS: Unremarkable. No calcified gallstones. No gallbladder distention or wall edema. No intra- or extrahepatic biliary ductal dilation. PANCREAS: Unremarkable. No focal cystic or solid mass. SPLEEN: Unremarkable. Normal size without focal cystic or solid mass. ADRENALS: Unremarkable. No nodules. KIDNEYS AND URETERS: Unremarkable. Normal renal size and position. No hydronephrosis. STOMACH AND BOWEL: Unremarkable. No stomach or bowel distention. No focal inflammatory change. PELVIS: APPENDIX: Normal. BLADDER: Unremarkable. REPRODUCTIVE: Unremarkable as visualized. No mass. ABDOMEN and PELVIS: INTRAPERITONEAL SPACE: Unremarkable. No ascites or other fluid collection. No free air. BONES/JOINTS: Bilateral L5 pars defects without associated spondylolisthesis. No lytic or blastic lesions. SOFT TISSUES: Unremarkable. No discrete abdominal or pelvic wall hernia. VASCULATURE: Unremarkable. Abdominal aorta is non-dilated. LYMPH NODES: Unremarkable. No enlarged lymph nodes. CT/Abdomen/Pelvis W IV Cont ONLY IMPRESSION: 1. No CT evidence of acute abnormality in the abdomen and pelvis. 2. 2 small hypodense lesions in segment 4 the liver are too small to confirm cystic or solid. ACR White Paper guidelines (Jackson, et al. JACR 2017; 14(11):5502-9440.) suggest the following. For patients with a low risk of malignancy, no further follow-up is necessary. For patients with high risk of malignancy (known malignancy with a propensity to metastasize to the liver, cirrhosis, and/or other hepatic risk factors), recommend follow-up abdominal CT or MR in 6 months. 3. 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 Electronically Signed: Shaq Cifuentes MD at 10:10 EST ,
--- NOTE | 2023-05-20 09:23 | EDS_ITS ---
HPI History of Present Illness Chief Complaint: Abd Pain Informant: patient Narrative Narrative: Patient presents with left lower quadrant and some left flank pain. Patient states that he is been ill for about a week. He has had all of it. He has had a cough had a sore throat he had nausea vomiting diarrhea muscle aches and fevers. His significant other was diagnosed with influenza A so he figured that is what was causing it. He states he felt like he was getting better but then last night he started to get pain on the left flank and left lower quadrant. No change in nausea. His last vomiting episode was last night. Diarrhea is improving somewhat. Never had blood in vomitus or stool. No history of kidney stones. No known diverticulitis. Nothing really makes symptoms better or worse. He has had bilateral hernias but he has no inguinal pain or swelling. [facility] Medical History Abrasion of right thumb Bone fracture Cellulitis of right thumb Headache, migraine History of pneumonia Pneumothorax Trigeminal neuralgia Home Medications TENS units #1 ea 12/16/21 [Rx Last Taken Unknown] atorvastatin 10 mg tablet (Lipitor) 10 mg PO QHS #30 tabs 07/05/22 [Rx Last Taken Unknown] Ventolin HFA 90 mcg/actuation aerosol inhaler (albuterol sulfate) 1 - 2 puff i nhalation Q4H PRN PRN Wheezing #18 grams 10/08/22 [Rx Last Taken Unknown] dicyclomine 20 mg tablet 20 mg PO TID PRN abdominal pain #14 tabs 05/20/23 [Rx Last Taken Unknown] ondansetron 4 mg disintegrating tablet 4 mg PO Q8H PRN PRN Nausea #10 tabs 05/20/23 [Rx Last Taken Unknown] Allergy/AdvReac Type Severity Reaction Status Date / Time No Known Allergies Allergy Verified 05/20/23 08:47 Family History Mother Arthritis Heart disease Hypertension Severe allergy Grandmother Colon cancer Surgical History H/O hernia repair History of lung surgery History of tonsillectomy Social History household members: spouse current occupational status: employed current occupation: works at [employer] Smoking Status: Current every day smoker tobacco type: cigarettes Electronic Cigarette Use: not used alcohol intake: current alcohol intake frequency: holidays/special occasions only Alcohol type: wine and hard liquor substance use type: does not use what type of physical activity do you participate in: none do you feel safe at home: Yes ROS ROS ED ROS Narrative A complete review of systems was performed and is negative except as documented in the history of present illness. Some specific details below. Constitutional: Subjective fevers recently. EYE: No visual complaints or pain. ENT: No difficulty swallowing. He had a sore throat but that is gone. CV: No chest pain or palpitations. Respiratory: No dyspnea. But he did have a lot of nonproductive coughing. That is also improving. He does not feel short of breath. GI: Please see history of present illness. : No frequency dysuria or hematuria. He does note that his urine is darker but does not think it had blood. Musculoskeletal: No recent trauma. No pains. Skin: No rash. Nondiaphoretic. Neuro: No weakness or numbness. Endocrine: No polyuria or polydipsia. EXAM Physical Exam Narrative Exam Narrative: CONSTITUTIONAL: Patient is nontoxic in appearance. The patient looks comfortable. HEENT: No notable trauma. Mucous membranes dry I. No sinus tenderness. No exudate EYES: No icterus CARDIOVASCULAR: Regular rate. Regular rhythm. No notable murmur. No JVD. RESPIRATORY: No respiratory distress. Breathing is unlabored. No wheezes. No rhonchi. No rales. No pain with a deep breath. Patient has had pneumothoraces before but has normal exam. He did have pleurodesis on both sides. GASTROINTESTINAL: Not distended. Bowel sounds are normal. Minimal tenderness on the left lower quadrant and slight left CVA tenderness. GENITOURINARY: No tenderness over the bladder. Mild left-sided CVA tenderness. No rash or skin changes MUSCULOSKELETAL: Atraumatic. No peripheral edema. No cord. No tenderness along the deep venous system. No asymmetry. NEUROLOGICAL: Patient is alert and appropriate. No focal deficit noted. SKIN: No noted rashes. No diaphoresis. PSYCHIATRIC: Patient is calm. Mood is appropriate. Const Vital Signs: 05/20/23 08:48 05/20/23 11:39 Temperature 98.3 F Temperature Source Temporal Pulse Rate 70 59 L Respiratory Rate 14 16 Blood Pressure 156/97 H 128/86 H Blood Pressure Mean 116 100 Pulse Ox 100 98 Oxygen Delivery Method Room Air Room Air MDM MDM MDM Narrative Medical decision making narrative: My independent interpretation of the CT of the abdomen shows no acute intra- abdominal process. Appendix is seen retrocecal without inflammation. Final reading does show some other changes but these appear more to be chronic and not related to his acute complaints. There was no CT evidence of acute abnormality. Patient's CBC is normal other than mildly high hemoglobin that might be due to a bit of hemoconcentration. Patient's electrolytes show some mildly low potassium we will replace that orally here. We discussed dietary changes to help. Patient's glucose is mildly high at 124 but this should self-correct. Patient's urine is normal. Patient is feeling better. His viral studies were negative. But his significant other had influenza A and he has had symptoms for a week. I think this is likely related to this. This should resolve. I will write for some Zofran and Bentyl to be used as a as needed basis. We discussed reasons to return. Lab Data Attestation: I reviewed the patient's lab results. Labs: Laboratory Results - last 24 hr 05/20/23 05/20/23 09:25 10:20 WBC 6.2 RBC 4.89 Hgb 16.7 H Hct 45.3 MCV 92.6 MCH 34.2 H MCHC 36.9 H RDW Std Deviation 43.8 RDW Coeff of Larisa 12.7 Plt Count 189 MPV 10.3 Immature Gran % (Auto) 0.500 Neut % (Auto) 65.6 Lymph % (Auto) 25.2 [place] % (Auto) 7.0 Eos % (Auto) 1.5 Baso % (Auto) 0.2 Absolute Neuts (auto) 4.1 Absolute Lymphs (auto) 1.56 Nucleated RBC % 0 Sodium 138 Potassium 3.0 L Chloride 102 Carbon Dioxide 26.0 Anion Gap 10 BUN 8 Creatinine 0.58 L Estim Creat Clear Calc 144.32 Est GFR (MDRD) Af Amer 195 Est GFR (MDRD) Non-Af 161 BUN/Creatinine Ratio 13.7 Glucose 124 H Calcium 8.2 L Urine Color Yellow Urine Clarity Clear Urine pH 8.0 Ur Specific [place] 1.010 Urine Protein 15 H Urine Glucose (UA) Normal Urine Ketones Negative Urine Occult Blood 10 H Urine Nitrite Negative Urine Bilirubin Negative Urine Urobilinogen 1 H Ur Leukocyte Esterase 25 H Urine RBC 0-5 SEEN Urine WBC 0-5 SEEN Ur Squamous Epith Cells 0 SEEN Urine Bacteria 0 SEEN Urine Mucus 0 SEEN Radiography Diagnostic Testing: Clinical Impression(s) from Imaging Studies Abdomen/Pelvis CT 05/20/23 09:22 IMPRESSION: 1. No CT evidence of acute abnormality in the abdomen and pelvis. 2. 2 small hypodense lesions in segment 4 the liver are too small to confirm cystic or solid. ACR White Paper guidelines (Jackson, et al. JACR 2017; 14(11):8228-4196.) suggest the following. For patients with a low risk of malignancy, no further follow-up is necessary. For patients with high risk of malignancy (known malignancy with a propensity to metastasize to the liver, cirrhosis, and/or other hepatic risk factors), recommend follow-up abdominal CT or MR in 6 months. 3. 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 Electronically Signed: Shaq Cifuentes MD at 10:10 EST , Discharge Plan Triage Chief Complaint: Abd Pain ED Provider: Gurdeep Andrade Dx/Rx/DC Orders Clinical Impression: Influenza-like illness, Exposure to influenza, Abdominal pain Instructions: ED Abdominal Pain Unkn Cause Male... Prescriptions: New dicyclomine 20 mg tablet 20 mg PO TID PRN (Reason: abdominal pain) Qty: 14 0RF ondansetron [ondansetron] 4 mg tablet,disintegrating 4 mg PO Q8H PRN PRN (Reason: Nausea) Qty: 10 0RF No Action (DME) TENS units Device See Rx Instructions .Route Qty: 1 0RF Rx Instructions: As directed albuterol sulfate [Ventolin HFA] 90 mcg/actuation HFA aerosol inhaler 1 - 2 puff inhalation Q4H PRN PRN (Reason: Wheezing) Qty: 18 0RF atorvastatin [Lipitor] 10 mg tablet 10 mg PO QHS Qty: 30 5RF Primary Care Provider: Kylah Mckeon Referrals: Kylah Mckeon MD [Primary Care Provider] - 3-5 Days if not improving Disposition Disposition: Home, Self Care
[2023-05-20] MEDS: 0.9% Normal Saline (1000mL) 1,000 ML 1000 ML IV (09:32)
[2023-05-20] MEDS: Ondansetron 4 MG/2 ML Vial IV (09:32)
--- OUTSIDE RECORDS SUMMARY | 2023-05-20 09:42 | XMS RPT_ITS | CCD ---
Author Name Unknown Address [address] [place] [address] Organization [facility] Care Team Providers Care Sand Cutter Name Role Phone ERI, DIANNA Tijerina Unavailable Unavailable ERI, DIANNA Tijerina Unavailable Unavailable ERI, DAINNA Tijerina Unavailable Unavailable [facility] Unavailable Unavailable ERI, DIANNA Tijerina Unavailable Unavailable [facility] Unavailable Unavailable ERI, DIANNA BURNHAM Unavailable Unavaila ANNEMARIE Ward Unavailable Unav ailable ERI, DIANNA BURNHAM Unavailable Unavaila ble ERI, DIANNA BURNHAM Unavailable Unavaila ble ERI, DIANNA BURNHAM Unavailable Unavaila ble PHYSICIAN, NONE Primary Care Physician Annemarie Rowan Primary Care Provider Unavailable Primary Care Provider UnavailELBERT Miller Referring Unavailable Medications Current Medications Medication Drug Class(es) Dates Sig (Normalized) Sig (Original) acetaminophen 325 mg oral tablet (2 sources) Start: 05-28-2017 End: 07-28-2022 take 2 tablets by mouth every six hours acetaminophen (TYLENOL) 325 mg tablet Take 2 tablets by mouth every 6 hours. 0 05/28/2017 07/28/2022 Discontinued Completed/Discontinued Medications Medication Drug Class(es) Dates Sig (Normalized) Sig (Original) [id number] 200 actuat albuterol 0.09 mg/actuat metered dose inhaler (1 source) beta2-Adrenergic Agonist Start: 02-22-2023 take 2 puff(s) by inhalation every four hours as needed for wheezing albuterol HFA (PROVENTIL HFA, VENTOLIN HFA) 90 mcg/actuation inhaler Indications: Wheeze Inhale 2 Puffs as instructed every 4 hours as needed for wheezing/shortnes s of breath. 1 Each 0 02/22/2023 Active Problems Active Problems Problem Classification Problem Date Documented Da te Episodic/Chronic Diseases of mouth; excluding dental (1 source) Oral lesion; Translations: [Unspecified lesions of oral mucosa] Episodic Headache; including migraine (10 sources) Chronic cluster headache; Translations: [Chronic cluster headache, intractable] Onset: 09-24-2020 09-24-2020 Chronic Influenza (1 source) Influenza-like illness; Translations: [Influenza due to unidentified influenza virus with other respiratory manifestations] Episodic Other lower respiratory disease (1 source) Cough; Translations: [Acute cough] Episodic Other upper respiratory infections (1 source) Chronic sinusitis; Translations: [Chronic sinusitis, unspecified] Chronic Pleurisy; pneumothorax; pulmonary collapse (7 sources) Pneumothorax, unspecified; Translations: [Secondary spontaneous pneumothorax] Onset: 06-09-2017 11-25-2015 Episodic Spondylosis; intervertebral disc disorders; other back problems (2 sources) Backache; Translations: [Dorsalgia, unspecified] Onset: 12-14-2021 Episodic Unclassified (1 source) Unknown / UNK(Unknown) Onset: 05-20-2017 Viral infection (1 source) Viral disease; Translations: [Viral infection, unspecified] Episodic Past or Other Problems Problem Classification Problem Date Documented Da te Episodic/Chronic Headache; including migraine (10 sources) Trigeminal autonomic cephalalgia; 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), not intractable] Onset: 09-24-2020 09-24-2020 Episodic Other aftercare (1 source) Encounter for follow-up examination after completed treatment for conditions other than malignant neoplasm; Translations: [Encounter for follow-up examination after completed treatment for conditions other than malignant neoplasm] Onset: 06-09-2017 Episodic Other nervous system disorders (5 sources) Trigeminal neuralgia; Translations: [Trigeminal neuralgia] Onset: 09-24-2020 09-24-2020 Episodic Other nervous system disorders (5 sources) Atypical facial pain; Translations: [Atypical facial pain] Onset: 09-24-2020 09-24-2020 Episodic Other nervous system disorders (5 sources) Trigeminal nerve disorder; Translations: [Disorder of trigeminal nerve, unspecified] Onset: 10-30-2020 10-30-2020 Episodic Other nervous system disorders (5 sources) Right trigeminal neuralgia; Translations: [Trigeminal neuralgia] Onset: 12-16-2021 12-16-2021 Episodic Pleurisy; pneumothorax; pulmonary collapse (1 source) Pleurisy; pneumothorax; pulmonary collapse Onset: 05-20-2017 Results Test Name Value Interpretation Reference Range Facil ity Vital Signs Date Time Vital Sign Value Performing Clinician Facility 08-03-2022 13:49-0400 Body temperature 98.1 [degF] Elbert King VIRTUAL REALITY SPECIALIST.DRIVER RETRAINING INSTRUCTOR Work Phone: [facility] 08-03-2022 13:49-0400 Body weight 76.93 kg Elbert King VIRTUAL REALITY SPECIALIST.DRIVER RETRAINING INSTRUCTOR Work Phone: [facility] 08-03-2022 13:49-0400 Diastolic blood pressure 68 mm[Hg] Elbert King VIRTUAL REALITY SPECIALIST.DRIVER RETRAINING INSTRUCTOR Work Phone: [facility] 08-03-2022 13:49-0400 Heart rate 89 /min Elbert King VIRTUAL REALITY SPECIALIST.DRIVER RETRAINING INSTRUCTOR Work Phone: [facility] 08-03-2022 13:49-0400 Respiratory rate 18 /min Elbert King VIRTUAL REALITY SPECIALIST.DRIVER RETRAINING INSTRUCTOR Work Phone: [facility] 08-03-2022 13:49-0400 SaO2% (BldA) [Mass fraction] 97 % Elbert King VIRTUAL REALITY SPECIALIST.DRIVER RETRAINING INSTRUCTOR Work Phone: [facility] 08-03-2022 13:49-0400 Systolic blood pressure 112 mm[Hg] Elbert Galdamez VIRTUAL REALITY SPECIALIST.DRIVER RETRAINING INSTRUCTOR Work Phone: [facility] 07-28-2022 07:15-0500 Body temperature 100 [degF] Orlando Ryan MD Work Phone: [facility] 07-28-2022 07:15-0500 Body weight 77.56 kg Orlando Ryan MD Work Phone: [facility] 07-28-2022 07:15-0500 Diastolic blood pressure 80 mm[Hg] Orlando Ryan MD Work Phone: [facility] 07-28-2022 07:15-0500 Heart rate 93 /min Orlando Ryan MD Work Phone: [facility] 03-08-2023 07:15-0500 Respiratory rate 18 /min Orlando Ryan MD Work Phone: [facility] 07-28-2022 07:15-0500 SaO2% (BldA) [Mass fraction] 97 % Orlando Ryan MD Work Phone: [facility] 07-28-2022 07:15-0500 Systolic blood pressure 122 mm[Hg] Orlando Ryan MD Work Phone: [facility] 01-12-2022 07:41-0400 Body temperature 97.39 [degF] Valeriano Pendlebury VIRTUAL REALITY SPECIALIST.DRIVER RETRAINING INSTRUCTOR Work Phone: [facility] 01-12-2022 07:41-0400 Body weight 75.48 kg Valeriano Pendlejennifer VIRTUAL REALITY SPECIALIST.DRIVER RETRAINING INSTRUCTOR Work Phone: [facility] 01-12-2022 07:41-0400 Diastolic blood pressure 62 mm[Hg] Valeriano Pendlebury VIRTUAL REALITY SPECIALIST.DRIVER RETRAINING INSTRUCTOR Work Phone: [facility] 01-12-2022 07:41-0400 Heart rate 84 /min Valeriano Pendlebury VIRTUAL REALITY SPECIALIST.DRIVER RETRAINING INSTRUCTOR Work Phone: [facility] 01-12-2022 07:41-0400 Respiratory rate 16 /min Valeriano Pendlebury VIRTUAL REALITY SPECIALIST.DRIVER RETRAINING INSTRUCTOR Work Phone: [facility] 01-12-2022 07:41-0400 SaO2% (BldA) [Mass fraction] 99 % Valeriano Pendlejennifer VIRTUAL REALITY SPECIALIST.DRIVER RETRAINING INSTRUCTOR Work Phone: [facility] 01-12-2022 07:41-0400 Systolic blood pressure 108 mm[Hg] Valeriano Pendlebury VIRTUAL REALITY SPECIALIST.DRIVER RETRAINING INSTRUCTOR Work Phone: [facility] 12-14-2021 10:34-0400 Diastolic blood pressure 89 mm[Hg] SOFY SALAZAR DO [facility] 12-14-2021 10:34-0400 Heart rate 60 /min SOFY SALAZAR DO [facility] 12-14-2021 10:34-0400 Mean blood pressure 106 mm[Hg] SOFY SALAZAR DO [facility] 12-14-2021 10:34-0400 Respiratory rate 16 /min SOFY SALAZAR DO [facility] 12-14-2021 10:34-0400 Systolic blood pressure 139 mm[Hg] SOFY SALAZAR DO [facility] 12-14-2021 09:04-0400 Body temperature 97.7 [degF] SOFY SALAZAR DO [facility] 12-14-2021 09:04-0400 Body weight 68.2 kg SOFY SALAZAR DO [facility] 12-14-2021 09:04-0400 Diastolic blood pressure 91 mm[Hg] SOFY SALAZAR DO [facility] 12-14-2021 09:04-0400 Heart rate 75 /min SOFY SALAZAR DO [facility] 12-14-2021 09:04-0400 Mean blood pressure 111 mm[Hg] SOFY SALAZAR DO [facility] 12-14-2021 09:04-0400 Respiratory rate 18 /min SOFY SALAZAR DO [facility] 12-14-2021 09:04-0400 Systolic blood pressure 150 mm[Hg] SOFY SALAZAR DO [facility] Encounters Encounter Date Encounter Type Care Provider Facility Start: 02-24-2023 Telephone encounter Elbert aldana APRN.DRIVER RETRAINING INSTRUCTOR Work Phone: [facility] Care Procedures Date Procedure Procedure Detail Performing Clinician Start: 08-03-2022 Radiologic exam ches t 2 views Elbert Galdamez APRN.DRIVER RETRAINING INSTRUCTOR Work Phone: Start: 08-27-2020 Adult depression screening assessment Valeriano Burnett APRN.DRIVER RETRAINING INSTRUCTOR Work Phone: Plan of Treatment Date Care Activity Detail Author Start: 01-21-2023 Influenza vaccination Influenza Vaccine (#1) [facility] Start: 07-28-2022 End: 08-11-2022 Influenza virus A and B RNA and SARS-CoV-2 (COVID-19) N gene panel - Respiratory specimen by SAUL with probe detection COVID WITH FLUA+B, ROUTINE Microbiology Routine Influenza-like illness Expected: 07/28/2022, Expires: 08/11/[address] [facility] Work Phone: Payers Date Payer Category Payer Medicaid [id number] 2020 Medicaid [id number] Social History Date Type Detail Facility Start: 08-27-2020 Tobacco smoking status Heavy t obacco smoker (finding) [facility] Sex Assigned At Male [facility] Start: 01-12-2022 [facility] Work Phone: History of tobacco use Cigarette Smoker [facility] Work Phone: Start: 04-30-2020 End: 01-12-2022 Cigarettes smoked current (pack per day) - Reported 0.5 [facility] Start: 01-12-2022 Tobacco use and exposure Former smokeless tobacco user [facility] Work Phone: End: 08-22-2015 History of tobacco use User of smokeless tobacco [facility] Work Phone: Start: 01-12-2022 End: 02-22-2023 Alcohol intake Current drinker of alcohol (finding) [facility] Start: 11-25-2015 History SDOH Alcohol Comment occassional [facility] Start: 1980 Sex Assigned At Not on file [facility] Start: 01-02-2022 End: 01-12-2022 Exposure to SARS-CoV-2 (event) Yes [facility] Work Phone: Start: 04-30-2020 End: 02-22-2023 Tobacco use panel [facility] National Score (1-10 0), lower number is lower risk Not on file [facility] Functional Status Date Assessment Result Facility 12-14-2021 Functional Status Independent [place] [facility] whiting [facility] 12-14-2021 Functional Status Standard Safet y ID band on, Call device within reach, Bed in low position, Wheels locked, Upper/Half-Length side-rails up, Phone within reach, personal items within reach, Bedside Cart Locked, Visitor at bedside [facility] Mental Status Date Assessment Result Facility 12-14-2021 Mental Status Orientation Oriented x 4 [facility] 12-14-2021 Mental Status [facility] Clinical Notes 05-20-2017 to 02-24-2023 Telephone Encounter - Mariluz Howard MA - 02/24/2023 11:48 AM EDTTelephone Encounter - Elbert Galdamez APRN.CNP - 02/24/2023 11:07 AM EDTJomarleny Galdamez APRN.CNP - 08/03/2022 2:56 PM EDT Note Date & Type Note Facility 02-24-2023 Miscellaneous Notes Pt was notified of the results. Pt verbalized understanding. Mariluz Howard MA Message sent, if needs any additional paperwork needs to see pcp. Patient calls to report that his employer needs an actual return to work date on the letter that was given to patient in for illness on 02/22/2023 . Patient is asking to return on Tuesday02/28/23 and asking for date to be added to letter and uploaded to . Johana Eugene RN documented in this encounter [facility] 02-22-2023 Note HNO ID: [id number] Author: Elbert Galdamez APRN.DRIVER RETRAINING INSTRUCTOR Service: ? Author Type: Nurse Practitioner Type: Progress Notes Filed: 02/22/2023 2:06 PM Note Text: Subjective HPI HPI Vincenzo Dove is a 42 year old male who presents today for CC of cough, congestion, sob, runny nose, body aches. This started 2 days ago. Has tried otc medication for relief. Symptoms are worsened by nothing. Risk factors no known sick exposures. smoker. .Patient presents with: Cough: Congestion, SOB, chills, runny nose, body aches x 2days PAST MEDICAL HISTORY Diagnosis Date History of lung surgery 05/24/2017 right VATS surgery with resection of apical blebs, right upper lobe, mechanical pleurodesis, and insertion pain ball. Hyperlipidemia Pneumothorax Trigeminal neuralgia PAST SURGICAL HISTORY Procedure Laterality Date INGUINAL HERNIA REPAIR HX THORACOSCOPY SURG W PLEURODESIS Left 10/29/2015 L VATS with bleb resection, AND mechanical pleurodesis at [facility] by Dr. Garcia THORACOSCOPY SURG W PLEURODESIS Right 05/24/2017 surgery with resection of apical blebs, right upper lobe, mechanical pleurodesis, and insertion pain ball. ALLERGIES Patient has no known allergies. MEDICATIONS atorvastatin (LIPITOR) 10 mg tablet Take 10 mg by mouth once daily. predniSONE (DELTASONE) 20 mg tablet Take 2 tablets by mouth once daily for 5 days. albuterol HFA (PROVENTIL HFA, VENTOLIN HFA) 90 mcg/actuation inhaler Inhale 2 Puffs as instructed every 4 hours as needed for wheezing/shortness of breath. lamoTRIgine orally disintegrating (LAMICTAL ODT) 50 mg disintegrating tablet Take 50 mg by mouth twice daily. (Patient not taking: Reported on 02/22/2023) FAMILY HISTORY Problem Relation Age of Onset Diabetes Other Social History Tobacco Use Smoking status: Every Day Packs/day: .5 Types: Cigarettes Smokeless tobacco: Former Quit date: 08/22/2015 Substance Use Topics Alcohol use: Yes Comment: occassional Drug use: No Review of Systems Constitutional: Negative for fever. HENT: Positive for congestion and sore throat. Negative for ear pain and nosebleeds. Respiratory: Positive for cough and sputum production. Negative for shortness of breath and wheezing. Cardiovascular: Negative for chest pain. Gastrointestinal: Negative for diarrhea and vomiting. Musculoskeletal: Negative for neck pain. Skin: Negative for itching and rash. Objective Blood pressure 136/83, pulse 83, temperature 36.8 ?C (98.3 ?F), resp. rate 22, weight 74.7 kg (164 lb 9.6 oz), SpO2 99 %. Physical Exam Constitutional: General: He is not in acute distress. Appearance: He is not toxic-appearing or diaphoretic. HENT: Head: Normocephalic and atraumatic. Cardiovascular: Rate and Rhythm: Normal rate and regular rhythm. Heart sounds: Normal heart sounds, S1 normal and S2 normal. Pulmonary: Effort: Pulmonary effort is normal. Breath sounds: Wheezing (scattered bilat) and rhonchi (scattered bilat) present. No decreased breath sounds or rales. Lymphadenopathy: Cervical: No cervical adenopathy. Right cervical: No superficial cervical adenopathy. Left cervical: No superficial cervical adenopathy. Neurological: Mental Status: He is alert and oriented to person, place, and time. Gait: Gait is intact. ASSESSMENT/PLAN: 1. URI, acute - ICD9: 465.9, ICD10: J06.9 (primary diagnosis) - Discussed viral etiology and rationale for treatment. - Symptomatic treatment with prn analgesia - Supportive care with fluids and rest - Follow up in 3-5 days if symptoms persist or sooner if worsening of symptoms - COVID AND INFLUENZA A/B NAAT, ROUTINE 2. Wheeze - ICD9: 786.07, ICD10: R06.2 - XR CHEST 2V FRONTAL/LAT IMPRESSION: Overall findings unchanged. Dictated by : STEPHEN OCONNOR MD - PREDNISONE 20 MG TABLET - ALBUTEROL SULFATE HFA 90 MCG/ACTUATION AEROSOL INHALER Elbert Galdamez APRN.[facility] 02-22-2023 Note HNO ID: [id number] Author: Dolores Gonzalez RT(R) Service: Radiology Author Type: Technologist Type: Progress Notes Filed: 02/22/2023 12:51 PM Note Text: Radiology Service Progress Note PATIENT NAME: Vincenzo Dove DATE OF SERVICE: February 22, 2023 TIME: 12:44 PM PATIENT IDENTITY VERIFICATION COMPLETED USING TWO (2) IDENTIFIERS: Name and Date of confirmed by patient verbally. FALL SCREENING: Has the patient had 2 falls in the last year or 1 fall with injury or currently using an Ambulatory Assistive Device (Walker, Cane, Wheelchair, Crutches, etc.)? No PATIENT GENDER DATA: Male PATIENT RELEVANT IMPLANT DATA REVIEWED: Yes RADIOLOGY DEPARTMENT: General X-ray: Exam(s) Completed: Chest X-Ray PERIPHERAL IV DATA: Not applicable SIGNED BY: Dolores Gonzalez RT(R) February 22, 2023 12:44 PM [facility] 08-03-2022 Note HNO ID: [id number] Author: Elbert Galdamez APRN.DRIVER RETRAINING INSTRUCTOR Service: ? Author Type: Nurse Practitioner Type: Progress Notes Filed: 08/03/2022 2:58 PM Note Text: Subjective HPI HPI Vincenzo Dove is a 41 year old male who presents today for CC of cough, congestion, sob. This started over 1 week ago/tx pos for covid. Has tried otc medication for relief. Symptoms are worsened by nothing. Risk factors hx of copd, multiple pneumothorax. smoker. .Patient presents with: Cough: Chest congestion, + Covid Dx 07/28/2022. PAST MEDICAL HISTORY Diagnosis Date History of lung surgery 05/24/2017 right VATS surgery with resection of apical blebs, right upper lobe, mechanical pleurodesis, and insertion pain ball. Hyperlipidemia Pneumothorax Trigeminal neuralgia PAST SURGICAL HISTORY Procedure Laterality Date INGUINAL HERNIA REPAIR HX THORACOSCOPY SURG W PLEURODESIS Left 10/29/2015 L VATS with bleb resection, AND mechanical pleurodesis at [facility] by Dr. Garcia THORACOSCOPY SURG W PLEURODESIS Right 05/24/2017 surgery with resection of apical blebs, right upper lobe, mechanical pleurodesis, and insertion pain ball. ALLERGIES Patient has no known allergies. MEDICATIONS lamoTRIgine orally disintegrating (LAMICTAL ODT) 50 mg disintegrating tablet Take 50 mg by mouth twice daily. atorvastatin (LIPITOR) 10 mg tablet Take 10 mg by mouth once daily. doxycycline monohydrate 100 mg tablet Take 1 tablet by mouth twice daily for 7 days. FAMILY HISTORY Problem Relation Age of Onset Diabetes Other Social History Tobacco Use Smoking status: Every Day Packs/day: 0.50 Types: Cigarettes Smokeless tobacco: Former Quit date: 08/22/2015 Substance Use Topics Alcohol use: Yes Comment: occassional Drug use: No Review of Systems Constitutional: Negative for fever. HENT: Positive for congestion. Negative for ear pain, nosebleeds and sore throat. Respiratory: Positive for cough and shortness of breath. Negative for wheezing. Cardiovascular: Negative for chest pain. Musculoskeletal: Negative for neck pain. Objective Blood pressure 112/68, pulse 89, temperature 36.7 ?C (98.1 ?F), temperature source Tympanic, resp. rate 18, weight 76.9 kg (169 lb 9.6 oz), SpO2 97 %. Physical Exam Constitutional: General: He is not in acute distress. Appearance: He is not toxic-appearing or diaphoretic. HENT: Head: Normocephalic and atraumatic. Cardiovascular: Rate and Rhythm: Normal rate and regular rhythm. Heart sounds: Normal heart sounds, S1 normal and S2 normal. Pulmonary: Effort: Pulmonary effort is normal. Tachypnea (slight) present. Breath sounds: Normal breath sounds. No decreased breath sounds, wheezing, rhonchi or rales. Lymphadenopathy: Cervical: No cervical adenopathy. Right cervical: No superficial cervical adenopathy. Left cervical: No superficial cervical adenopathy. Neurological: Mental Status: He is alert and oriented to person, place, and time. Gait: Gait is intact. ASSESSMENT/PLAN: 1. Sinobronchitis - ICD9: 473.9, 490, ICD10: J32.9, J40 (primary diagnosis) - Will begin treatment with as per antibiotic as written, see orders - Supportive care with plenty of fluids, rest, and analgesia prn. - Follow up in 3-5 days if symptoms persist or worsen. - DOXYCYCLINE MONOHYDRATE 100 MG TABLET 2. Acute cough - ICD9: 786.2, ICD10: R05.1 Xray neg - XR CHEST 2V FRONTAL/LAT IMPRESSION: Hyperinflation/COPD. No acute findings in the chest. Dictated by : MD Elbert CABRERA APRN.[facility] 08-03-2022 Note HNO ID: [id number] Author: Dolores Gonzalez RT(R) Service: Radiology Author Type: Technologist Type: Progress Notes Filed: 08/03/2022 2:33 PM Note Text: Radiology Service Progress Note PATIENT NAME: Vincenzo Dove DATE OF SERVICE: August 03, 2022 TIME: 2:19 PM PATIENT IDENTITY VERIFICATION COMPLETED USING TWO (2) IDENTIFIERS: Name and Date of confirmed by patient verbally. FALL SCREENING: Has the patient had 2 falls in the last year or 1 fall with injury or currently using an Ambulatory Assistive Device (Walker, Cane, Wheelchair, Crutches, etc.)? No PATIENT GENDER DATA: Male PATIENT RELEVANT IMPLANT DATA REVIEWED: Yes RADIOLOGY DEPARTMENT: General X-ray: Exam(s) Completed: Chest X-Ray PERIPHERAL IV DATA: Not applicable SIGNED BY: Dolores Gonzalez, RT(R) August 03, 2022 2:19 PM [facility] 08-03-2022 History of Present illness Narrative Subjective HPI HPI Vincenzo Dove is a 41 year old male who presents today for CC of cough, congestion, sob. This started over 1 week ago/tx pos for covid. Has tried otc medication for relief. Symptoms are worsened by nothing. Risk factors hx of copd, multiple pneumothorax. smoker. .Patient presents with: Cough: Chest congestion, + Covid Dx 07/28/2022. PAST MEDICAL HISTORY Diagnosis Date History of lung surgery 05/24/2017 right VATS surgery with resection of apical blebs, right upper lobe, mechanical pleurodesis, and insertion pain ball. Hyperlipidemia Pneumothorax Trigeminal neuralgia PAST SURGICAL HISTORY Procedure Laterality Date INGUINAL HERNIA REPAIR HX THORACOSCOPY SURG W PLEURODESIS Left 10/29/2015 L VATS with bleb resection, & mechanical pleurodesis at [facility] by Dr. Garcia THORACOSCOPY SURG W PLEURODESIS Right 05/24/2017 surgery with resection of apical blebs, right upper lobe, mechanical pleurodesis, and insertion pain ball. ALLERGIES Patient has no known allergies. MEDICATIONS lamoTRIgine orally disintegrating (LAMICTAL ODT) 50 mg disintegrating tablet Take 50 mg by mouth twice daily. atorvastatin (LIPITOR) 10 mg tablet Take 10 mg by mouth once daily. doxycycline monohydrate 100 mg tablet Take 1 tablet by mouth twice daily for 7 days. FAMILY HISTORY Problem Relation Age of Onset Diabetes Other Social History Tobacco Use Smoking status: Every Day Packs/day: 0.50 Types: Cigarettes Smokeless tobacco: Former Quit date: 08/22/2015 Substance Use Topics Alcohol use: Yes Comment: occassional Drug use: No Review of Systems Constitutional: Negative for fever. HENT: Positive for congestion. Negative for ear pain, nosebleeds and sore throat. Respiratory: Positive for cough and shortness of breath. Negative for wheezing. Cardiovascular: Negative for chest pain. Musculoskeletal: Negative for neck pain. Objective Blood pressure 112/68, pulse 89, temperature 36.7 C (98.1 F), temperature source Tympanic, resp. rate 18, weight 76.9 kg (169 lb 9.6 oz), SpO2 97 %. Physical Exam Constitutional: General: He is not in acute distress. Appearance: He is not toxic-appearing or diaphoretic. HENT: Head: Normocephalic and atraumatic. Cardiovascular: Rate and Rhythm: Normal rate and regular rhythm. Heart sounds: Normal heart sounds, S1 normal and S2 normal. Pulmonary: Effort: Pulmonary effort is normal. Tachypnea (slight) present. Breath sounds: Normal breath sounds. No decreased breath sounds, wheezing, rhonchi or rales. Lymphadenopathy: Cervical: No cervical adenopathy. Right cervical: No superficial cervical adenopathy. Left cervical: No superficial cervical adenopathy. Neurological: Mental Status: He is alert and oriented to person, place, and time. Gait: Gait is intact. ASSESSMENT/PLAN: 1. Sinobronchitis - ICD9: 473.9, 490, ICD10: J32.9, J40 (primary diagnosis) - Will begin treatment with as per antibiotic as written, see orders - Supportive care with plenty of fluids, rest, and analgesia prn. - Follow up in 3-5 days if symptoms persist or worsen. - DOXYCYCLINE MONOHYDRATE 100 MG TABLET 2. Acute cough - ICD9: 786.2, ICD10: R05.1 Xray neg - XR CHEST 2V FRONTAL/LAT IMPRESSION: Hyperinflation/COPD. No acute findings in the chest. Dictated by : MD Elbert CABRERA APRN.DRIVER [employer]INING [employer]STRUCTOR documented in this encounter [facility] 07-29-2022 Miscellaneous Notes Patient notified and verbalized understanding of instructions given.Migdalia Howard LPN You tested positive for COVID-19. Follow the CDC guidelines for isolation: 1. Everyone, regardless of vaccination status, should stay home for 5 days. 2. If you have no symptoms or your symptoms are resolving after 5 days, you can leave your house. 3. Continue to wear a mask around others for 5 additional days. If you have a fever, continue to stay home until your fever resolves, even if it is longer than 5 days. documented in this encounter [facility] 07-28-2022 Note HNO ID: [id number] Author: Orlando Ryan MD Service: ? Author Type: Physician Type: Progress Notes Filed: 07/28/2022 7:41 AM Note Text: Patient presents with: Cough: Congestion, ST, APARICIO, bodyaches, chills, fever x last night HPI: Feeling sick since last night. Positive symptoms: Cough, Nasal Congestion, Rhinorrhea, Fever, Chills, Headache, Nausea, Vomiting, Body Aches, Diarrhea, little Sore throat Negative symptoms: , OTC: aspirin. Prescription medications changed last month. He has not started liptor yet. PAST MEDICAL HISTORY Diagnosis Date History of lung surgery 05/24/2017 right VATS surgery with resection of apical blebs, right upper lobe, mechanical pleurodesis, and insertion pain ball. Pneumothorax Trigeminal neuralgia MEDICATIONS: Current Outpatient Medications Medication Sig lamoTRIgine orally disintegrating (LAMICTAL ODT) 50 mg disintegrating tablet Take 50 mg by mouth twice daily. atorvastatin (LIPITOR) 10 mg tablet Take 10 mg by mouth once daily. No current facility-administered medications for this visit. ALLERGIES: ALLERGIES No Known Allergies VITALS: BP 122/80 Pulse 93 Temp 37.8 ?C (100 ?F) Resp 18 Wt 77.6 kg (171 lb) SpO2 97% BMI 24.54 kg/m? PHYSICAL EXAM: GEN: ill appearing HEENT: PERRL, EOMI, conjunctiva clear Ears: canals clear. TMs without erythema, bulge, or effusion Sinuses: non-tender frontal sinus, non-tender maxillary sinuses, chronic right trigeminal pain Throat: moist mucous membranes, mild erythema, no exudate; 4mm raised lesion left soft palate near the tonsillar pillars Neck: supple, no thyromegaly, no lymphadenopathy HEART: regular rate and rhythm, no murmurs LUNGS: clear to auscultation, no wheezes or crackles, no increased WOB ABD: Soft, non-distended, non-tender, no masses ASSESSMENT/PLAN: 1. Influenza-like illness - ICD9: 487.1, ICD10: J11.1 (primary diagnosis) - suspect viral syndrome, differential includes COVID-19. - Discussed supportive care treatment with home isolation, rest, cold medicine, and analgesia. - Red flags to seek further treatment include chest pain, shortness of breath, and lethargy; in the ER if severe. - COVID WITH FLUA+B, ROUTINE 2. Oral lesion - ICD9: 528.9, ICD10: K13.70 Acute lesion from vomiting or illness vs neoplasm or lymphoid aggregate. Advised to have the lesion rechecked once feeling better; he expresses understanding. Orlando Ryan MD [facility] 07-28-2022 History of Present illness Narrative Patient presents with: Cough: Congestion, ST, APARICIO, bodyaches, chills, fever x last night HPI: Feeling sick since last night. Positive symptoms: Cough, Nasal Congestion, Rhinorrhea, Fever, Chills, Headache, Nausea, Vomiting, Body Aches, Diarrhea, little Sore throat Negative symptoms: , OTC: aspirin. Prescription medications changed last month. He has not started liptor yet. PAST MEDICAL HISTORY Diagnosis Date History of lung surgery 05/24/2017 right VATS surgery with resection of apical blebs, right upper lobe, mechanical pleurodesis, and insertion pain ball. Pneumothorax Trigeminal neuralgia MEDICATIONS: Current Outpatient Medications Medication Sig lamoTRIgine orally disintegrating (LAMICTAL ODT) 50 mg disintegrating tablet Take 50 mg by mouth twice daily. atorvastatin (LIPITOR) 10 mg tablet Take 10 mg by mouth once daily. No current facility-administered medications for this visit. ALLERGIES: ALLERGIES No Known Allergies VITALS: BP 122/80 Pulse 93 Temp 37.8 C (100 F) Resp 18 Wt 77.6 kg (171 lb) SpO2 97% BMI 24.54 kg/m PHYSICAL EXAM: GEN: ill appearing HEENT: PERRL, EOMI, conjunctiva clear Ears: canals clear. TMs without erythema, bulge, or effusion Sinuses: non-tender frontal sinus, non-tender maxillary sinuses, chronic right trigeminal pain Throat: moist mucous membranes, mild erythema, no exudate; 4mm raised lesion left soft palate near the tonsillar pillars Neck: supple, no thyromegaly, no lymphadenopathy HEART: regular rate and rhythm, no murmurs LUNGS: clear to auscultation, no wheezes or crackles, no increased WOB ABD: Soft, non-distended, non-tender, no masses ASSESSMENT/PLAN: 1. Influenza-like illness - ICD9: 487.1, ICD10: J11.1 (primary diagnosis) - suspect viral syndrome, differential includes COVID-19. - Discussed supportive care treatment with home isolation, rest, cold medicine, and analgesia. - Red flags to seek further treatment include chest pain, shortness of breath, and lethargy; in the ER if severe. - COVID WITH FLUA+B, ROUTINE 2. Oral lesion - ICD9: 528.9, ICD10: K13.70 Acute lesion from vomiting or illness vs neoplasm or lymphoid aggregate. Advised to have the lesion rechecked once feeling better; he expresses understanding. Orlando Ryan MD documented in this encounter [facility] 01-12-2022 Instructions Valeriano Burnett APRN.[facility] - 01/12/2022 7:51 AM EDT How to Manage Common Symptoms Associated with COVID for Adults Fever- Fever is a temperature over 100.4 F and can occur when the body is fighting an infection. To help treat a fever: Drink plenty of fluids and stay well hydrated. Eat small amounts of easy to digest food. Rest. Your body needs rest to recover, but getting up and moving around the house frequently is a good idea. You should try to continue doing your normal daily activities (bathing, toileting, grooming, cooking), though you will probably feel tired, and need to rest often. Avoid any heavy activity or exercise, as this will increase your body temperature. Dress in light clothing and stay covered in a light sheet. Keep the room temperature cool. Take a slightly warm (not cold or cool) bath, or apply damp washcloths to the forehead and wrists. Cough- Cough is a common symptom associated with COVID and can be bothersome. To help treat a cough: Stay well hydrated. Try warm water or tea with lemon and/or honey to help soothe the cough. Use a humidifier to add moisture to the air. Try a product with menthol, like a cough drop or a rub for your chest such as Vicks, which can help reduce cough. Try cough drops. Avoid smoking and other strong odors or perfumes. Try breathing exercises to keep your lungs open and clear. Take a big deep breath through your nose and hold for 5 seconds before slowly releasing. Repeat frequently, while you are awake. Congestion- Runny nose or nasal congestion can occur with COVID. Treatment can help relieve symptoms: Try OTC nasal saline spray, or nasal saline rinse to relieve mucus congestion. Nasal strips can help keep nasal passages open, to increase airflow. Elevating your head with an extra pillow in bed can help reduce congestion. Using a humidifier can increase moisture in the air, and make breathing easier. Sore Throat- Another common symptom with COVID, can be managed at home by: Stay well hydrated. Gargle with salt water - mix teaspoon salt with 1 cup of warm water and gargle. This helps to loosen mucus in the back of the throat and may reduce discomfort. Try ice chips, popsicles or lozenges to soothe the throat. Nausea/Vomiting/Diarrhea- These are common symptoms, and staying hydrated is most important. If you are nauseous or vomiting, start with small sips of water every 10-15 minutes and increase as tolerated. You can try sucking an ice cube too. If tolerating, you can try pedialyte or Gatorade, or flat sprite or reid-paulino. Start slowly and increase as you are able to. Instead of meals, try smaller, more frequent snacks. Try eating bland foods like crackers, toast, rice, and applesauce. Avoid spicy, greasy or fried foods and dairy containing foods. Even if you aren't feeling hungry due to lack of smell or taste, it is important to try to take in some food when you are able. After drinking and eating, rest in an upright position for up to two hours as needed to help decrease nauseous feelings. Try closing your eyes, avoid moving and watching TV. Avoid strong odors that can make you feel more nauseated. When to seek emergency medical attention Look for emergency warning signs for COVID-19. If having any of these symptoms, seek emergency medical care immediately: Trouble breathing Persistent pain or pressure in the chest New confusion Inability to wake or stay awake Bluish lips or face *This list is not all possible symptoms. Please call your medical provider for any other symptoms that are severe or concerning to you. documented in this encounter [facility] 01-12-2022 History of Present illness Narrative Subjective HPI Nontoxic-appearing male presents urgent care chief complaint COVID-19 concerns. Patient states he woke up this morning with headache chills cough respiratory congestion nasal congestion fatigue. 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 He has been in close contact with these individuals. States he has not had COVID-19 in the last 90 days. Denies any OTC medications. Denies any fevers productive cough chest pain shortness of breath pleuritic pain hemoptysis nausea vomiting abdominal pain or rashes. Past medical history prescription medication use allergies reviewed. .Patient presents with: Head Congestion: cough and bodyaches x this am PAST MEDICAL HISTORY Diagnosis Date History of lung surgery 05/24/2017 right VATS surgery with resection of apical blebs, right upper lobe, mechanical pleurodesis, and insertion pain ball. Pneumothorax PAST SURGICAL HISTORY Procedure Laterality Date INGUINAL HERNIA REPAIR HX THORACOSCOPY SURG W PLEURODESIS Left 10/29/2015 L VATS with bleb resection, & mechanical pleurodesis at [facility] by Dr. Garcia THORACOSCOPY SURG W PLEURODESIS Right 05/24/2017 surgery with resection of apical blebs, right upper lobe, mechanical pleurodesis, and insertion pain ball. ALLERGIES Patient has no known allergies. MEDICATIONS baclofen (LIORESAL) 10 mg tablet Take 1 tablet by mouth three times daily as needed (trigeminal neuralgia). (Patient not taking: Reported on 01/12/2022) carBAMazepine XR (TEGRETOL XR) 100 mg 12 hr tablet Take 2 tablets by mouth twice daily. (Patient not taking: Reported on 01/12/2022) amitriptyline (ELAVIL) 50 mg tablet Take 1 tablet by mouth daily at bedtime. (Patient not taking: Reported on 01/12/2022) Omeprazole 20 mg TbEC 1 tab daily while taking Indomethacin. (Patient not taking: Reported on 01/12/2022) acetaminophen (TYLENOL) 325 mg tablet Take 2 tablets by mouth every 6 hours. FAMILY HISTORY Problem Relation Age of Onset Diabetes Other Social History Tobacco Use Smoking status: Every Day Packs/day: 0.50 Types: Cigarettes Smokeless tobacco: Former Quit date: 08/22/2015 Substance Use Topics Alcohol use: Yes Comment: occassional Drug use: No BP 108/62 Pulse 84 Temp 36.3 C (97.4 F) Resp 16 Wt 75.5 kg (166 lb 6.4 oz) SpO2 99% BMI 23.88 kg/m Review of Systems Constitutional: Positive for chills and malaise/fatigue. Negative for fever. HENT: Positive for congestion. Negative for ear discharge, ear pain, sinus pain and sore throat. Eyes: Negative for blurred vision, pain, discharge and redness. Respiratory: Positive for cough. Negative for hemoptysis, sputum production, shortness of breath, wheezing and stridor. Cardiovascular: Negative for chest pain. Gastrointestinal: Negative for abdominal pain, diarrhea, nausea and vomiting. Musculoskeletal: Positive for myalgias. Skin: Negative for itching and rash. Neurological: Positive for headaches. Negative for dizziness. Objective Physical Exam Constitutional: General: He is not in acute distress. Appearance: He is not diaphoretic. HENT: Head: Normocephalic. Nose: Congestion present. Mouth/Throat: Mouth: Mucous membranes are moist. Pharynx: Oropharynx is clear. No oropharyngeal exudate or posterior oropharyngeal erythema. Eyes: Conjunctiva/sclera: Conjunctivae normal. Pupils: Pupils are equal, round, and reactive to light. Cardiovascular: Rate and Rhythm: Normal rate and regular rhythm. Heart sounds: Normal heart sounds. Pulmonary: Effort: Pulmonary effort is normal. No tachypnea, accessory muscle usage or respiratory distress. Breath sounds: Normal breath sounds. No stridor. No wheezing, rhonchi or rales. Abdominal: Palpations: Abdomen is soft. Tenderness: There is no abdominal tenderness. Musculoskeletal: Cervical back: Normal range of motion and neck supple. No rigidity or tenderness. Lymphadenopathy: Cervical: No cervical adenopathy. Skin: General: Skin is warm and dry. Neurological: Mental Status: He is alert and oriented to person, place, and time. ASSESSMENT/PLAN: 1. Viral illness - ICD9: 079.99, ICD10: B34.9 - COVID WITH FLUA+B, ROUTINE COVID-19 test ordered. Results pending. Alternative diagnosis discussed. Home quarantine recommended work note provided. Patient was educated on supportive therapies. Patient will follow up with primary care provider as needed. Patient was instructed to immediately proceed to emergency room for any new, worsening, or symptoms lasting longer than anticipated. The patient's clinical presentation is otherwise unremarkable at this time. Based on exam and clinical finding, the patient is stable for discharge. Plan of care was discussed with patient. Patient verbalizes understanding and agrees to plan of care. This note was generated using [employer] software. It may contain errors in wording, punctuation, or spelling. Valeriano Burnett APRN.RAJANI documented in this encounter [facility] 12-14-2021 Hospital Discharge instructions Patient Education 12/14/2021 10:02:43 Back and Neck Pain, General General Neck and Back Pain Both neck and back pain are usually caused by injury to the muscles or ligaments of the spine. Sometimes the disks that separate each bone of the spine may cause pain by pressing on a nearby nerve. Back and neck pain may appear after a sudden twisting or bending force (such as in a car accident), or sometimes after a simple awkward movement. In either case, muscle spasm is often present and adds to the pain. Acute neck and back pain usually gets better in 1 to 2 weeks. Pain related to disk disease, arthritis in the spinal joints or spinal stenosis (narrowing of the spinal canal) can become chronic and last for months or years. Back and neck pain are common problems. Most people feel better in 1 or 2 weeks, and most of the rest in 1 to 2 months. Most people can remain active. People have and describe pain differently. Pain can be sharp, stabbing, shooting, aching, cramping, or burning Movement, standing, bending, lifting, sitting, or walking may worsen the pain Pain can be localized to one spot or area, or it can be more generalized Pain can spread or radiate upwards, downwards, to the front, or go down your arms Muscle spasm may occur. Most of the time mechanical problems with the muscles or spine cause the pain. it is usually caused by an injury, whether known or not, to the muscles or ligaments. While illnesses can cause back pain, it is usually not caused by a serious illness. Pain is usually related to physical activity, whether sports, exercise, work, or normal activity. Sometimes it can occur without an identifiable cause. This can happen simply by stretching or moving wrong, without noting pain at the time. Other causes include: Overexertion, lifting, pushing, pulling incorrectly or too aggressively. Sudden twisting, bending or stretching from an accident (car or fall), or accidental movement. Poor posture Poor conditioning, lack of regular exercise Spinal disc disease or arthritis Stress , or illness like appendicitis, bladder or kidney infection, pelvic infections Home care For neck pain: Use a comfortable pillow that supports the head and keeps the spine in a neutral position. The position of the head should not be tilted forward or backward. When in bed, try to find a position of comfort. A firm mattress is best. Try lying flat on your back with pillows under your knees. You can also try lying on your side with your knees bent up towards your chest and a pillow between your knees. At first, do not try to stretch out the sore spots. If there is a strain, it is not like the good soreness you get after exercising without an injury. In this case, stretching may make it worse. Don't sit for long periods, as in long car rides or other travel. This puts more stress on the lower back than standing or walking. During the first 24 to 72 hours after an injury, apply an ice pack to the painful area for 20 minutes and then remove it for 20 minutes over a period of 60 to 90 minutes or several times a day. You can alternate ice and heat therapies. Talk with your healthcare provider about the best treatment for your back or neck pain. As a safety precaution, do not use a heating pad at bedtime. Sleeping with a heating pad can lead to skin gonzalez or tissue damage. Therapeutic massage can help relax the back and neck muscles without stretching them. Be aware of safe lifting methods and do not lift anything over 15 pounds until all the pain is gone. Medicines Talk to your healthcare provider before using medicine, especially if you have other medical problems or are taking other medicines. You may use [id number] medicine to control pain, unless another pain medicine was prescribed. If you have chronic conditions like diabetes, liver or kidney disease, stomach ulcers, gastrointestinal bleeding, or are taking blood thinner medicines. Be careful if you are given pain medicines, narcotics, or medicine for muscle spasm. They can cause drowsiness, and can affect your coordination, reflexes, and judgment. Do not drive or operate heavy machinery. Follow-up care Follow up with your healthcare provider, or as advised. Physical therapy or further tests may be needed. If X-rays were taken, you will be notified of any new findings that may affect your care. Call 911 Call 911 if any of the following occur: Trouble breathing Confusion Very drowsy or trouble awakening Fainting or loss of consciousness Rapid or very slow heart rate Loss of bowel or bladder control When to seek medical advice Call your healthcare provider right away if any of these occur: Pain becomes worse or spreads into your arms or legs Weakness, numbness or pain in one or both arms or legs Numbness in the groin area Difficulty walking Fever of 100.4 F (38 C) or higher, or as directed by your healthcare provider [id number] [employer]. [address] [place] [address]. All rights reserved. This information is not intended as a substitute for professional medical care. Always follow your healthcare professional's instructions. Follow Up Care 12/14/2021 08:56:22 With:PATRICIA SARAVIA DO Address: [address] [facility] [place] [address] [phone] When:2-4 days With:Follow up with primary care provider Address:Unknown When:2-4 days [facility] 12-14-2021 Note Discharge Instructions Thank you for allowing [facility] to assist you with your healthcare needs. The following is important discharge information regarding your hospital visit. Diagnosis from Today's Visit Back pain, Back pain Back pain What to Do Next Instructions from Your Care Team Discharge Return to Work, School, or Sports - Ordered -- 12/14/21, 12/16/21, May return to: work, 12/14/21 10:24:00 EDT Post Acute Orders No qualifying data available. You Need to Schedule the Following Appointments Follow Up with PATRICIA SARAVIA DO When Within 2-4 days Where: [address] [facility] [place] [address] [phone] Follow Up with Follow up with primary care provider When Within 2-4 days Allergies NKA Medications Please ask your primary doctor or pharmacist before taking any other medication not listed, including over the counter drugs, herbal medications, vitamins and or supplements as they may interact with your home medications. What How Much When Why Instructions Last Dose New acetaminophen-hydrocodone ([place] 325- 5 mg oral tablet) 1 tab(s) by mouth Every 6 hours as needed for for pain Back pain Duration: 2 Days Printed Prescription New methylPREDNISolone (Medrol Dosepak 4 mg oral tablet) 1 Packet(s) by mouth Once a day Duration: 6 Days as directed on package labeling Printed Prescription New tiZANidine (tiZANidine 2 mg oral capsule) 1 cap by mouth Three (3) times a day as needed for as needed for muscle spasm Duration: 5 Days Printed Prescription Please take this list to your next doctor s visit. Bring all medications you take, including over the counter medications, herbals and other supplements with you to your doctor s visit. Patients and families are reminded to discard old lists and to update any records with all medication providers or retail pharmacies. Education Materials General Neck and Back Pain Both neck and back pain are usually caused by injury to the muscles or ligaments of the spine. Sometimes the disks that separate each bone of the spine may cause pain by pressing on a nearby nerve. Back and neck pain may appear after a sudden twisting or bending force (such as in a car accident), or sometimes after a simple awkward movement. In either case, muscle spasm is often present and adds to the pain. Acute neck and back pain usually gets better in 1 to 2 weeks. Pain related to disk disease, arthritis in the spinal joints or spinal stenosis (narrowing of the spinal canal) can become chronic and last for months or years. Back and neck pain are common problems. Most people feel better in 1 or 2 weeks, and most of the rest in 1 to 2 months. Most people can remain active. People have and describe pain differently. Pain can be sharp, stabbing, shooting, aching, cramping, or burning Movement, standing, bending, lifting, sitting, or walking may worsen the pain Pain can be localized to one spot or area, or it can be more generalized Pain can spread or radiate upwards, downwards, to the front, or go down your arms Muscle spasm may occur. Most of the time mechanical problems with the muscles or spine cause the pain. it is usually caused by an injury, whether known or not, to the muscles or ligaments. While illnesses can cause back pain, it is usually not caused by a serious illness. Pain is usually related to physical activity, whether sports, exercise, work, or normal activity. Sometimes it can occur without an identifiable cause. This can happen simply by stretching or moving wrong, without noting pain at the time. Other causes include: Overexertion, lifting, pushing, pulling incorrectly or too aggressively. Sudden twisting, bending or stretching from an accident (car or fall), or accidental movement. Poor posture Poor conditioning, lack of regular exercise Spinal disc disease or arthritis Stress , or illness like appendicitis, bladder or kidney infection, pelvic infections Home care For neck pain: Use a comfortable pillow that supports the head and keeps the spine in a neutral position. The position of the head should not be tilted forward or backward. When in bed, try to find a position of comfort. A firm mattress is best. Try lying flat on your back with pillows under your knees. You can also try lying on your side with your knees bent up towards your chest and a pillow between your knees. At first, do not try to stretch out the sore spots. If there is a strain, it is not like the good soreness you get after exercising without an injury. In this case, stretching may make it worse. Don't sit for long periods, as in long car rides or other travel. This puts more stress on the lower back than standing or walking. During the first 24 to 72 hours after an injury, apply an ice pack to the painful area for 20 minutes and then remove it for 20 minutes over a period of 60 to 90 minutes or several times a day. You can alternate ice and heat therapies. Talk with your healthcare provider about the best treatment for your back or neck pain. As a safety precaution, do not use a heating pad at bedtime. Sleeping with a heating pad can lead to skin gonzalez or tissue damage. Therapeutic massage can help relax the back and neck muscles without stretching them. Be aware of safe lifting methods and do not lift anything over 15 pounds until all the pain is gone. Medicines Talk to your healthcare provider before using medicine, especially if you have other medical problems or are taking other medicines. You may use [id number] medicine to control pain, unless another pain medicine was prescribed. If you have chronic conditions like diabetes, liver or kidney disease, stomach ulcers, gastrointestinal bleeding, or are taking blood thinner medicines. Be careful if you are given pain medicines, narcotics, or medicine for muscle spasm. They can cause drowsiness, and can affect your coordination, reflexes, and judgment. Do not drive or operate heavy machinery. Follow-up care Follow up with your healthcare provider, or as advised. Physical therapy or further tests may be needed. If X-rays were taken, you will be notified of any new findings that may affect your care. Call 911 Call 911 if any of the following occur: Trouble breathing Confusion Very drowsy or trouble awakening Fainting or loss of consciousness Rapid or very slow heart rate Loss of bowel or bladder control When to seek medical advice Call your healthcare provider right away if any of these occur: Pain becomes worse or spreads into your arms or legs Weakness, numbness or pain in one or both arms or legs Numbness in the groin area Difficulty walking Fever of 100.4 F (38 C) or higher, or as directed by your healthcare provider 1133-4389 [employer]. [address] [place] [address]. All rights reserved. This information is not intended as a substitute for professional medical care. Always follow your healthcare professional's instructions. Additional Information VACCINATE! IT SAVES LIVES! Members of the community who have not yet received the COVID-19 vaccine and would like to receive it can visit one of [facility] vaccine clinics. There are many vaccine clinic locations within the [facility]. For locations and available times, please visit [email or web address]. It is important to note that some COVID mobile vaccine clinics are held outdoors and may be canceled in rainy or stormy conditions. To learn more about pediatric vaccinations (ages 5-11), we invite you to visit the [facility] webpage. [email or web address] [email or web address] [email or web address] To learn more about the COVID-19 vaccine, we invite you to visit the [facility] website for a list of frequently asked questions. [email or web address] [email or web address] [facility] Patient Portal Access Instructions: Stay connected with your healthcare team and access your personal medical information anytime with the [facility] Patient Portal. If you would like a full copy of your medical records please contact the [facility] Medical Records Department Tuesday through Tuesday between 8a.m. and 4:30p.m. Please follow the directions below to access the portal: 1.Access the email account you provided upon registration to the [facility].2.Look for an invitation email from [facility].3.Open the email and access the invitation link: Accept Invitation to [facility]4.Fill in the required nowak to create your account. Sign into [email or web address] with your username and password that you created in the above steps to stay up to date. You can then view a summary of results, a summary of your visits, and the ability to download your summaries to your computer or send the information securely to a physician. Remember that your healthcare information is confidential, so carefully consider who you will allow to register on the [facility] Patient Portal for access to your information. You can also access the [facility] Patient Portal on the [employer]Stage johnnie. Simply click on Health Records under Health Data and then click on the [facility] logo. HOW TO SAFELY DISPOSE OF PRESCRIPTION MEDICATIONS Please use one of the following methods to safely dispose of your unused medications. 1.Use a drug disposal kit: the drug disposal pouch allows you to safely discard your old and unused drugs. Ask your nurse to give you one when you are discharged.2.Visit a local take-back location: Many local pharmacies and police departments have programs that collect old and unwanted prescription drugs. Call your local pharmacy or go to http://wildcraft.EnergyChest/5W2Qk8o to find one close to you.3.Make use of household items: Use cat litter or old coffee grounds to dispose medications if other options are not available. Mix your drugs with these household products, seal them in an airtight container and throw it into the garbage. Call [facility]: [phone] to be sure your drugs can be disposed of in this way. Some medicines may require a different approach.4.Never flush your medications down the toilet. IF YOU HAVE BEEN PRESCRIBED AN OPIOIDS FOR PAIN If you have been prescribed an opioid (such as hydrocodone, oxycodone or morphine), it is critical to understand the possible side effects and risks of opioid pain medications. Even when taken as directed, opioids can have several side effects including: Tolerance, meaning you might need to take more of a medication for the same pain relief. Nausea, vomiting and/or constipation. Sleepiness, dizziness, dry mouth, confusion, depression or itching. Physical dependence, meaning you have withdrawal symptoms when a medication is stopped ? this can develop within a few days. KNOW YOUR RESPONSIBILITIES It is important to know exactly how much and how often to take the opioid pain medications you are prescribed. Never take opioids in higher amounts or more often than prescribed. Do not combine opioids with alcohol or other drugs that cause drowsiness, such as benzodiazepines, also known as benzos, including diazepam and alprazolam, muscle relaxants or sleep aids. Never sell or share prescription opioids. This is illegal. Store opioids in a secure place and out of reach of others (including children, family, friends and visitors). The last page(s) of this document has been signed and retained as a CHART COPY Signatures Patient Education Materials Back and Neck Pain, General Medication Leaflets My discharge plan and instructions have been reviewed and explained to me and ILARRY MORRIS E understand my current condition and have read and understand these discharge instructions. I have received a written copy of the plan/instructions. If I have questions, I am aware that I should contact my doctor. 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 Alignment elsewhere is normal. Mild facet arthropathy at L4-5. No significant disc space narrowing or spondylosis throughout the lumbar spine. Symmetric normal SI joints. No obvious sacral lesion. IMPRESSION: Chronic L5 spondylolysis with minimal L4-5 anterolisthesis. No acute process. Interpreted by: Aleksandar Barrera MD Preliminary Report By: Aleksandar Barrera MD Electronically signed By Aleksandar Barrera MD Dictated Date: 12/14/2021 10:08:50 AM Prelim Date: 12/14/2021 10:10:21 AM Sign Date: 12/14/2021 10:10:21 AM Ordering Provider: SOFY SALAZAR [facility] 12-14-2021 Note ORIGINAL EXAMINATION: AP lateral obliques 5 XRAY VIEWS OF THE LUMBAR SPINE12/14/2021 9:49 am COMPARISON: None HISTORY: ORDERING SYSTEM PROVIDED HISTORY: Reason for Exam: BACK PAIN FINDINGS: There are chronic bilateral L5 pars defects with minimal L5-S1 anterolisthesis without disc space narrowing. Alignment elsewhere is normal. Mild facet arthropathy at L4-5. No significant disc space narrowing or spondylosis throughout the lumbar spine. Symmetric normal SI joints. No obvious sacral lesion. IMPRESSION: Chronic L5 spondylolysis with minimal L4-5 anterolisthesis. No acute process. Interpreted by: Aleksandar Barrera MD Preliminary Report By: Aleksandar Barrera MD Electronically signed By Aleksandar Barrera MD Dictated Date: 12/14/2021 10:08:50 AM Prelim Date: 12/14/2021 10:10:21 AM Sign Date: 12/14/2021 10:10:21 AM Ordering Provider: SOFY SALAZAR [facility] documented as of this encounter (statuses as of 01/12/2022) [facility]12[facility] History of Past illness Narrative* Problem Noted Date Resolved Date Spontaneous pneumothorax 05/20/2017 018 documented as of this encounter (statuses as of 07/28/2022) [facility]12[facility] History of Past illness Narrative* Problem Noted Date Resolved Date Spontaneous pneumothorax 05/20/2017 018 documented as of this encounter (statuses as of 07/29/2022) [facility] History of Past illness Narrative* Problem Noted Date Resolved Date Spontaneous pneumothorax 05/20/2017 018 documented as of this encounter (statuses as of 08/03/2022) [facility] History of Past illness Narrative* Problem Noted Date Diagnosed Date Resolved Date Spontaneous pneumothorax 05/20/201710/2017 documented as of this encounter (statuses as of 02/25/2023) [facility] No data available for this section [facility] Evaluation note* Diagnosis Viral illness- Primary Unspecified viral infection, in conditions classified elsewhere and of unspecified site [facility] this [facility] Diagnosis Influenza-like illness- Primary Influenza with other respiratory manifestations Oral lesion Other and unspecified diseases of the oral soft tissues [facility] Diagnosis Sinobronchitis- Primary Unspecified sinusitis (chronic) Acute cough documented in this encounter [facility] Summary Purpose Family History No Family History Records FoundNo Family History Records FoundNo Family History Records FoundNo Family History Records Found Advance Directives No Advanced Directives Records FoundNo Advanced Directives Records FoundNo Advanced Directives Records FoundNo Advanced Directives Records Found Health Concerns Infection Onset Date Last Indicated Resolved Time COVID-19 Rule-Out 07/28/2022 07/28/2022 Infection Onset Date Last Indicated Resolved Time COVID-19 Confirmed 07/28/2022 07/28/2022 Additional Source Comments (unrecognized sect ion and content) No Status Records FoundNo Status Records FoundNo Status Records FoundNo Status Records Found INFORMATION SOURCE (unrecogn ized section and content) DATE CREATED AUTHOR AUTHOR'S ORGANIZ ATION 11/14/2017 [facility] DATE CREATED AUTHOR AUTHOR'S ORGANIZ ATION 01/15/2022 [facility] ([place]) DATE CREATED AUTHOR AUTHOR'S ORGANIZ ATION 02/26/2023 [facility]unes Care Team (unrecognized sect ion and content) Care Team Personnel Name: PHYSICIAN, NONE Position: Physician Member Role: Primary Care Physician Care Team Related Persons Name: CARO DOVE Address: Home [address] [place] [address] Source Comments (unrecognize d section and content) In the event this informatio n is protected by the Federal Confidentiality of Alcohol and Drug Abuse Patient Records regulations: The Federal rules restrict any use of the information to criminally investigate or prosecute any alcohol or drug abuse patient.[facility] the event this information is protected by the Federal Confidentiality of Alcohol and Drug Abuse Patient Records regulations: The Federal rules restrict any use of the information to criminally investigate or prosecute any alcohol or drug abuse patient.[facility] the event this information is protected by the Federal Confidentiality of Alcohol and Drug Abuse Patient Records regulations: The Federal rules restrict any use of the information to criminally investigate or prosecute any alcohol or drug abuse patient.[facility] the event this information is protected by the Federal Confidentiality of Alcohol and Drug Abuse Patient Records regulations: The Federal rules restrict any use of the information to criminally investigate or prosecute any alcohol or drug abuse patient.[facility] the event this information is protected by the Federal Confidentiality of Alcohol and Drug Abuse Patient Records regulations: The Federal rules restrict any use of the information to criminally investigate or prosecute any alcohol or drug abuse patient.[facility] Reason for Visit (unrecogniz ed section and content) Reason Comments Cough Congestion, ST, APARICIO, bodyaches, chills, fever x last night Reason Comments Results Reason Comments Cough Chest congestion, + Covid Dx 07/28/2022. Reason Comments Return To Work Letter Care Teams (unrecognized sec tion and content) FOR RECORDS PERTAINING TO PATIENTS WHO ARE OR HAVE BEEN ENROLLED IN A CHEMICAL DEPENDENCY/SUBSTANCEABUSE PROGRAM, SOME INFORMATION MAY BE OMITTED. This clinical summary was aggregated from multiple sources. Caution should be exercised in using it in the provision of clinical care. This summary normalizes information from multiple sources, and as a consequence, information in this document may materially change the coding, format and clinical context of patient data. In addition, data may be omitted in some cases. CLINICAL DECISIONS SHOULD BE BASED ON THE PRIMARY CLINICAL RECORDS. [employer] [facility]. provides no warranty or guarantee of the accuracy or completeness of information in this document.
[2023-05-20 09:45] LABS: Absolute Lymphocyte Count 1.56 X10^3/uL (0.83-4.51); Absolute Neutrophil Count 4.1 X10^3/uL (2.0-7.7); Basophil# 0.01 X10^3/uL; Basophil% 0.2 % (0-1); Eosinophil# 0.09 X10^3/uL; Eosinophils% 1.5 % (0-5); Hematocrit 45.3 % (40-54); Hemoglobin 16.7 g/dL (13.0-16.5); Lymphocyte # 1.56 X10^3/ul (0.83-4.51); Lymphocyte % 25.2 % (19-41); Mean Corp Hgb Conc 36.9 g/dL (32-36); Mean Corpuscular Hgb 34.2 pg (27.0-32.0); Mean Corpuscular Volume 92.6 fL (80-94); Mean Platelet Vol. 10.3 fl (6.2-12.0); Monocyte# 0.43 X10^3/uL; NRBC Flagged by Analyzer 0 % (0-5); Neutrophil # 4.06 X10^3/uL (2.7-7.7); Neutrophil % 65.6 % (47-70); Platelet Count 189 K/mm3 (150-450); RBC Distribution Width CV 12.7 % (11.6-14.6); RBC Distribution Width SD 43.8 fl (35.1-43.9); Red Blood Count 4.89 M/mm3 (4.6-6.2); White Blood Count 6.2 K/mm3 (4.4-11.0)
[2023-05-20 09:53] LABS: Anion Gap 10 (5-15); BUN 8 mg/dL (7-18); BUN/Creat Ratio 13.7 RATIO (10-20); Calcium,Total 8.2 mg/dL (8.5-10.1); Chloride 102 mmol/L (98-107); Creatinine, Serum 0.58 mg/dL (0.70-1.30); EST Glomerular Filtration Rate 161 mL/min (>60); Est Glom Filt Rate - Afr Amer 195 mL/min (>60); Estimated Creatinine Clearance 144.32 ml/min; Glucose 124 mg/dL (74-106); Sodium Level 138 mmol/L (136-145)
[2023-05-20 10:22] LABS: Bacteria 0 SEEN /hpf (None Seen); Mucous, Urine 0 SEEN /hpf (<or=2+); Squamous Epithelial Cells - UA 0 SEEN /hpf (0-5)
[2023-05-20 10:24] LABS: Color, Urine Yellow (Yellow); Glucose, Dipstick Normal (Normal); Ketone-Dipstick Negative (Negative); Leukocyte Esterase-Dipstick 25 /ul (Negative); Nitrite-Dipstick Negative (Negative); Occult Blood-Urine 10 /ul (Negative); Protein-Dipstick 15 mg/dl (Negative); Urine Bilirubin Dipstick Negative (Negative); Urine Clarity Clear (Clear); Urine Urobilinogen 1 mg/dl (Normal)
[2023-05-20 10:33] LABS: Red Blood Cells-Urine 0-5 SEEN /hpf (0-5); White Blood Cells 0-5 SEEN /hpf (0-5)
[2023-05-20 11:39] VITALS: BP 128/86; PULSE 59; RESP 16; O2SAT 98
[2023-05-20 12:21] VITALS: BP 128/86; PULSE 59; RESP 16; O2SAT 98
[2023-05-20] MEDS: Potassium Chloride Oral Tablet 20 MEQ 40 MEQ PO (12:34)
[2023-05-20] MEDS: Dicyclomine 10 MG Capsule 20 MG PO (12:34)
== END 2023-05-20 12:37 | disposition home or self-care (01) ==
PROVIDERS: Emergency Provider Emergency Medicine; PCP Internal Medicine; Visit Provider Emergency Medicine
DX: Z20.828 Contact with and (suspected) exposure to other viral communicable diseases (principal); R11.0 Nausea; F17.210 Nicotine dependence, cigarettes, uncomplicated; R10.9 Unspecified abdominal pain; E87.6 Hypokalemia
CPT/HCPCS: 74177; 80048; 81001; 85025; 87631; 96361; 96374; 99283; J7030; Q9967; A4216; J2405

== ENCOUNTER 2024-03-19 02:58 | Emergency (ER) | payer SELFPAY ==
[2024-03-19 02:58] VITALS: BP 164/97; PULSE 80; RESP 22; TEMP 36.7; O2SAT 99; BMI 23.2
--- NOTE | 2024-03-19 03:03 | EDS_ITS ---
HPI History of Present Illness Chief Complaint: Other, Pain/Inj Detail of Chief Complaint: I think I broke my ribs Informant: patient Onset/Context/Timing Onset: Yesterday Context: Sudden Onset Timing: Continuous Quality: Pain Location: Left seventh, eighth and ninth rib anterior axillary line to posterior axil Current Severity: Mild Maximum Severity: Severe Worsened by: Breathing, movement and palpation Relieved by: Nothing Associated Symptoms Associated Symptoms: Nothing Narrative Narrative: Patient is a 43-year-old male with past medical history of fractured ribs and spontaneous pneumothorax right and left. Patient had a VATS procedure in the remote past. Patient denies fever, chills night sweats. Patient states he awoke from sleep on the floor and thinks he broke his ribs on the left. He presents because of increasing pain and shortness of breath because he cannot take a deep breath. He denies leg pain, swelling discoloration. He denies history of VTE. He has no risk factors for VTE. There is no history to his knowledge of direct or indirect trauma. He denies fever, chills night sweats. He is a smoker. He does have a cough. It hurts to cough. He has not noted a rash or any bruising. Prior similar symptoms: Yes (Fractured ribs. He denies history of osteogenesis imperfecta) Recent Illness/Hospitalization: No PFSH PFSH Medical History Cellulitis of right thumb Abrasion of right thumb History of pneumonia Bone fracture Headache, migraine Trigeminal neuralgia Pneumothorax Home Medications ?Medication ?Instructions ?Recorded ?Last Taken ?Type TENS units #1 ea 12/16/21 Unknown Rx naproxen 500 mg tablet 500 mg PO BID #14 tabs 03/19/24 Unknown Rx Allergy/AdvReac Type Severity Reaction Status Date / Time No Known Allergies Allergy Verified 05/20/23 08:47 Family History Mother Arthritis Heart disease Hypertension Severe allergy Grandmother Colon cancer Surgical History History of lung surgery H/O hernia repair History of tonsillectomy Social History household members: spouse current occupational status: employed current occupation: works at [employer] Smoking Status: Current every day smoker tobacco type: cigarettes Electronic Cigarette Use: not used alcohol intake: current alcohol intake frequency: holidays/special occasions only Alcohol type: wine and hard liquor substance use type: does not use what type of physical activity do you participate in: none do you feel safe at home: Yes ROS ROS ED Constitutional Constitutional ED: Denies chills, fever(s) or subjective ENT ENT ED: Denies ear pain, rhinorrhea or sore throat Cardiovascular Cardiovascular: Reports chest pain; Denies orthopnea, palpitations, paroxysmal nocturnal dyspnea or racing heartbeat Respiratory/Chest Respiratory/Chest: Reports cough, dyspnea and dyspnea on exertion; Denies orthopnea, paroxysmal nocturnal dyspnea or sputum Gastrointestinal Gastrointestinal: Denies abdominal pain, melena, nausea or vomiting Genitourinary Genitourinary ED: Denies dysuria, hematuria or urinary frequency Musculoskeletal Musculoskeletal: Denies arthralgias, back pain, myalgias or neck pain Integumentary Denies rash Hematologic/Lymphatic Hematologic/Lymphatic: Reports systems reviewed and no addt'l complaints, except as documented EXAM Physical Exam Const Vital Signs: 03/19/24 02:58 03/19/24 03:02 Temperature 98.0 F Temperature Source Oral Pulse Rate 80 Respiratory Rate 22 H Respiratory Effort Normal Non-Labored Respiratory Pattern Normal Blood Pressure 164/97 H Blood Pressure Mean 119 Pulse Ox 99 Oxygen Delivery Method Room Air Positive well nourished, well developed and unkempt Constitutional Narrative: Patient appears uncomfortable. General Appearance ED: unkempt and well developed; Negative for cyanotic, diaphoretic or pallor HEENT Reports moist mucous membranes HEENT Narrative: Head is atraumatic normocephalic. Ears normal. Nares patent. Posterior pharynx is normal. Eyes PERRL and EOMs intact bilaterally General Eye ED: Negative for pale conjunctiva or scleral icterus Neck no lymphadenopathy, supple and no JVD Chest Wall inspection of chest normal and palpation of chest normal Chest Narrative: Patient complains of pain left anterior axillary line over ribs 7 8 and possibly 9. Resp normal respiratory effort and clear to auscultation bilaterally Effort and Inspection: pain with movement; Negative for retractions Auscultation: Negative for rales, rhonchi, wheezes or diminished lung sounds Cardio regular rate, regular rhythm, S1 normal heart sound, S2 normal heart sound and no murmurs GI normal to inspection, nondistended, normoactive bowel sounds, non-tender, non- distended and no masses; Negative for hepatosplenomegaly Back/Spine no CVA tenderness Thoracic Spine / Upper Back: Negative for thoracic spinal tenderness Lumbar Spine / Lower Back: Negative for lumbar spinal tenderness Extremity normal to inspection Extremity Narrative: There is no asymmetry, swelling, discoloration, leg vein distention, palpable cords or tenderness along the distribution of the deep venous system. Neuro oriented x3, CN's II-XII intact bilaterally and no sensory deficits noted Sensorium / Orientation: alert Motor Exam: strength 5/5 throughout Psych mental status grossly normal Appearance: unkempt Skin no rashes or lesions noted and no wounds General Skin Exam: Negative for jaundice or pallor MDM MDM MDM Narrative Medical decision making narrative: Patient is a 43-year-old male who is a smoker. Differential diagnosis would be muscular pain, spontaneous pneumothorax, pathologic rib fractures, pleurisy, pneumonia. History is not consistent with pulmonary embolus. At this point will obtain chest x-ray to assess for pneumothorax, infiltrate and pathologic fracture of the ribs. Vital signs were remarkable for elevated blood pressure and he is not tachypneic on my exam however respiratory rate was reported at 22. He is not hypoxic. Radiography Chest X-Ray - ED: 2 View and Read by ED Physician (Independently reviewed interpreted by me as negative for pneumothorax, hemothorax, fractured ribs. Cardiac silhouette and size normal. Hilum is normal. The dorsal vertebral bodies reveal spurring and compression at multiple levels. Age indeterminant. Most likely chronic.) Treatment and Re-Evaluation :: Patient was informed of chest x-ray results. Treatment is NSAIDs (he has no contraindication) and ice ice. Discharge Plan Triage Chief Complaint: Other, Pain/Inj ED Provider: Roger Perez Dx/Rx/DC Orders Clinical Impression: Left-sided chest wall pain, Degenerative joint disease of thoracic spine Instructions: ED Degenerative Disk Disease, ED Chest Wall Strain Prescriptions: New naproxen 500 mg tablet 500 mg PO BID Qty: 14 0RF No Action (DME) TENS units Device See Rx Instructions .Route Qty: 1 0RF Rx Instructions: As directed Primary Care Provider: Kylah Mckeon Referrals: Kylah Mckeon MD [Primary Care Provider] - 3-5 Days if not improving Print Language: French Disposition Disposition: Home, Self Care
[2024-03-19] MEDS: Naproxen 500 MG Tablet PO (03:05)
--- OUTSIDE RECORDS SUMMARY | 2024-03-19 03:12 | XMS RPT_ITS | CCD ---
Author Organization [facility] Care Team Providers Care Diabetes Physician Name Role Phone ERIDIANNA Unavailable Unavailable ERI, DIANNA Tijerina Unavailable Unavailable ERI, DIANNA Tijerina Unavailable Unavailable IMCA Unavailable Unavailable ERI, DIANNA Tijerina Unavailable Unavailable IMCA Unavailable Unavailable ERI, DIANNA ONEIL Unavailable Unavaila ble ANNEMARIE POPE Unavailable Unav ailable ERI, DIANNA ONEIL Unavailable Unavaila ble ERI, DIANNA ONEIL Unavailable Unavaila ble ERI, DIANNA ONEIL Unavailable Unavaila ble PHYSICIAN, NONE Primary Care Physician UnavailAnnemarie Bourne Primary Care Provider Unavailable Primary Care Provider Unavailabl ELBERT aBrone Referring Unavailable Unavailable Primary Care Provider Unavailtiara e Medications Current Medications Medication Drug Class(es) Dates Sig (Normalized) Sig (Original) acetaminophen 325 mg oral tablet (2 sources) Start: 8 End: 3 take 2 tablets by mouth every six hours acetaminophen (TYLENOL) 325 mg tablet Take 2 tablets by mouth every 6 hours. 0 05/28/2017 07/28/2022 Discontinued Comment on above: Take 2 tablets by [facility] every 6 hours. acetaminophen 325 mg / HYDROcodone bitartrate 5 mg oral tablet (1 source) Opioid Agonist Start: 2 End: 2 take 1 tablet by mouth every six hours as needed for pain Mcdonald 325- 5 mg oral tablet Dose = 1 tab(s), Oral, q6h, PRN for pain, X 2 day(s), # 8 tab(s), 0 Refill(s), Back pain, 68.2 Start Date: 12/14/21 Stop Date: 12/16/21 Status: Ordered amitriptyline hydrochloride 50 mg oral tablet (2 sources) Tricyclic Antidepressant Start: 1 End: 3 take 1 tablet by mouth once daily at bedtime amitriptyline (ELAVIL) 50 mg tablet Take 1 tablet by mouth daily at bedtime. 30 tablet 11 03/20/2021 07/28/2022 Discontinued Comment on above: Take 1 tablet by shaquille th daily at bedtime. atorvastatin 10 mg oral tablet (6 sources) HMG-CoA Reductase Inhibitor take 1 tablet by mouth once daily atorvastatin (LIPITOR) 10 mg tablet Take 10 mg by mouth once daily. Active Comment on above: Take 10 mg by mouth once daily. baclofen 10 mg oral tablet (1 source) gamma-Aminobutyric Acid-ergic Agonist Start: 2 End: 3 take 1 tablet by mouth every eight hours as needed baclofen (LIORESAL) 10 mg tablet Take 1 tablet by mouth three times daily as needed (trigeminal neuralgia). 90 tablet 5 06/18/2021 06/18/2022 Active Comment on above: Take 1 tablet by shaquille th three times daily as needed (trigeminal neuralgia). 12 hr carBAMazepine 100 mg extended release oral tablet (2 sources) Mood Stabilizer Start: 1 End: 3 take 2 tablets by mouth twice daily carBAMazepine XR (TEGRETOL XR) 100 mg 12 hr tablet Take 2 tablets by mouth twice daily. 120 tablet 11 05/07/2021 07/28/2022 Discontinued Comment on above: Take 2 tablets by [facility] twice daily. doxycycline monohydrate 100 mg oral tablet (1 source) Tetracycline-class Drug Start: 3 End: 3 take 1 tablet by mouth twice daily doxycycline monohydrate 100 mg tablet Indications: Sinobronchitis Take 1 tablet by mouth twice daily for 7 days. 14 tablet 0 08/03/2022 08/10/2022 Active Comment on above: Take 1 tablet by [place] twice daily for 7 days. lamoTRIgine 50 mg disintegrating oral tablet (6 sources) Mood Stabilizer, Anti-epileptic Agent take 1 tablet by mouth twice daily lamoTRIgine orally disintegrating (LAMICTAL ODT) 50 mg disintegrating tablet Take 50 mg by mouth twice daily. Active Comment on above: Take 50 mg by mouth twice daily. methylPREDNISolone 4 mg oral tablet (1 source) Corticosteroid Start: 2 End: 2 Medrol Dosepak 4 mg oral tablet 1 packet(s), Oral, qDay, as directed on package labeling, X 6 day(s), # 21 tab(s), 0 Refill(s), 12/20/21 10:02:00 EDT Start Date: 12/14/21 Stop Date: 12/20/21 Status: Ordered omeprazole 20 mg delayed release oral tablet (2 sources) Proton Pump Inhibitor Start: 1 End: 3 Omeprazole 20 mg TbEC 1 tab daily while taking Indomethacin. 15 tablet 1 09/24/2020 07/28/2022 Discontinued Comment on above: 1 tab daily while ta rudolph Indomethacin. predniSONE 20 mg oral tablet (1 source) Start: 3 End: 3 take 2 tablets by mouth once daily predniSONE (DELTASONE) 20 mg tablet Indications: Wheeze Take 2 tablets by mouth once daily for 5 days. 10 tablet 0 02/22/2023 02/27/2023 Active Comment on above: Take 2 tablets by [facility] once daily for 5 days. tiZANidine 2 mg oral capsule (1 source) Central alpha-2 Adrenergic Agonist Start: 2 End: 2 tiZANidine 2 mg oral capsule Dose : 2 mg = 1 cap(s), Oral, TID, PRN as needed for muscle spasm, # 15 cap(s), 0 Refill(s) Start Date: 12/14/21 Stop Date: 12/19/21 Status: Ordered Completed/Discontinued Medications Medication Drug Class(es) Dates Sig (Normalized) Sig (Original) [id number] 200 actuat albuterol 0.09 mg/actuat metered dose inhaler (1 source) beta2-Adrenergic Agonist Start: 02-22-2023 take 2 puff(s) by inhalation every four hours as needed for wheezing albuterol HFA (PROVENTIL HFA, VENTOLIN HFA) 90 mcg/actuation inhaler Indications: Wheeze Inhale 2 Puffs as instructed every 4 hours as needed for wheezing/shortnes s of breath. 1 Each 0 02/22/2023 Active Comment on above: Inhale 2 Puffs as in structed every 4 hours as needed for wheezing/shortness of breath. Problems Active Problems Problem Classification Problem Date Documented Da te Episodic/Chronic Diseases of mouth; excluding dental (1 source) Oral lesion; Translations: [Unspecified lesions of oral mucosa] Episodic Headache; including migraine (14 sources) Chronic cluster headache; Translations: [Chronic cluster headache, intractable] Onset: 09-24-2020 09-24-2020 Chronic Influenza (1 source) Influenza-like illness; Translations: [Influenza due to unidentified influenza virus with other respiratory manifestations] Episodic Other lower respiratory disease (1 source) Cough; Translations: [Acute cough] Episodic Other upper respiratory infections (1 source) Chronic sinusitis; Translations: [Chronic sinusitis, unspecified] Chronic Pleurisy; pneumothorax; pulmonary collapse (11 sources) Pneumothorax, unspecified; Translations: [Secondary spontaneous pneumothorax] Onset: 05-20-2017 Resolved: 05-28-2017 11-25-2015 Episodic Spondylosis; intervertebral disc disorders; other back problems (2 sources) Backache; Translations: [Dorsalgia, unspecified] Onset: 12-14-2021 Episodic Unclassified (1 source) Unknown / UNK(Unknown) Onset: 05-20-2017 Viral infection (1 source) Viral disease; Translations: [Viral infection, unspecified] Episodic Past or Other Problems Problem Classification Problem Date Documented Da te Episodic/Chronic Headache; including migraine (14 sources) Trigeminal autonomic cephalalgia; 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), not intractable] Onset: 09-24-2020 09-24-2020 Episodic Other aftercare (1 source) Encounter for follow-up examination after completed treatment for conditions other than malignant neoplasm; Translations: [Encounter for follow-up examination after completed treatment for conditions other than malignant neoplasm] Onset: 06-09-2017 Episodic Other nervous system disorders (7 sources) Trigeminal neuralgia; Translations: [Trigeminal neuralgia] Onset: 09-24-2020 09-24-2020 Episodic Other nervous system disorders (7 sources) Atypical facial pain; Translations: [Atypical facial pain] Onset: 09-24-2020 09-24-2020 Episodic Other nervous system disorders (7 sources) Trigeminal nerve disorder; Translations: [Disorder of trigeminal nerve, unspecified] Onset: 10-30-2020 10-30-2020 Episodic Other nervous system disorders (7 sources) Right trigeminal neuralgia; Translations: [Trigeminal neuralgia] Onset: 05-07-2021 05-07-2021 Episodic Pleurisy; pneumothorax; pulmonary collapse (1 source) Pleurisy; pneumothorax; pulmonary collapse Onset: 05-20-2017 Results Test Name Value Interpretation Reference Range Facility [facility] ANAMIKA JUAREZ ([id number]) 1980 M Date Time Provider Department 02/24/[address] [facility] During your visit today, we recorded the following information about you: Johana Eugene RN 02/24/2023 9:00 AM Signed Patient calls to report that his employer needs an actual return to work date on the letter that was given to patient in for illness on 02/22/2023 . Patient is asking to return on Tuesday02/28/23 and asking for date to be added to letter and uploaded to . KIRILL Meyer Jonathan, APRN.[facility] 02/24/2023 11:07 AM Signed Message sent, if needs any additional paperwork needs to see pcp. Lucinda Perez MA 02/24/2023 11:49 AM Signed Pt was notified of the results. Pt verbalized understanding. Lucinda Preez MA Allergies As of Date: 02/24/2023 (No Known Allergies) Date Reviewed: 02/22/2023 Reviewed by: Elbert Galdamez APRN.[facility] - Fully Assessed Reason for Visit: Return To Work Letter [[id number]] Prescriptions as of 02/24/2023 - predniSONE (DELTASONE) 20 mg tablet Take 2 tablets by mouth once daily for 5 days. - albuterol HFA (PROVENTIL HFA, VENTOLIN HFA) 90 mcg/actuation inhaler Inhale 2 Puffs as instructed every 4 hours as needed for wheezing/shortness of breath. - lamoTRIgine orally disintegrating (LAMICTAL ODT) 50 mg disintegrating tablet Take 50 mg by mouth twice daily. - atorvastatin (LIPITOR) 10 mg tablet Take 10 mg by mouth once daily. 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 During your visit today, we recorded the following information about you: Temperature Pulse Respiration Blood pressure 98.3 degrees 83/minute 22/minute 136/83 Weight 74.7 kg Elbert Galdamez APRN.[employer] 02/22/2023 2:06 PM Signed Subjective HPI HPI Anamika Bridgette Juarez is a 42 year old male who [...] with bleb resection, AND mechanical pleurodesis at [facility] by Dr. Hwang THORACOSCOPY SURG W PLEURODESIS Right 05/24/2017 surgery [...] HFA 90 MCG/ACTUATION AEROSOL INHALER Elbert Galdamez APRN.[employer] WORK[employer] Allergies As of Date: 02/22/2023 (No Known Allergies) Date Reviewed: 02/22/2023 Reviewed by: Elbert Galdamez APRN.[employer] - Fully Assessed Reason for Visit: Cough [28] Cmt: Congestion, SOB, chills, runny nose, body aches x 2days Primary Visit Diagnosis:URI, acute [J06.9] Other Visit Diagnosis:Wheeze [R06.2] Order(s):XR CHEST 2V FRONTAL/LAT [[id number]] Order #: [id number]. #:[id number] 1-CCF predniSONE (DELTASONE) 20 mg tabletTake 2 tablets by mouth once daily for 5 days.Disp: 10 tabletRfl: 0 albuterol HFA (PROVENTIL HFA, VENTOLIN HFA) 90 mcg/actuation inhalerInhale 2 Puffs as instructed every 4 hours as needed for wheezing/shortness of breath.Disp: 1 EachRfl: 0 COVID AND INFLUENZA A/B NAAT, ROUTINE [SQCOVFLU] Order #: [id number] (more content not included)... Normal [facility] FLUABV + SARS-CoV-2 Pnl Resp SAUL+prbon 02-22-2023 Influenza virus A and B RNA and SARS-CoV-2 (COVID-19) N gene panel SAUL+probe (Resp) COVID 19 RESULT: Not detected The method used is RT-PCR or an equivalent NAAT method. Reference Range (the expected result in uninfected individuals): Not detected INFLUENZA A PCR: Not detected INFLUENZA B PCR: Not detected Normal [facility] Comment on above: Performed By: #### 9 [id number] #### [facility] CLIA [id number] [address] [place] [address] [facility] XR CHEST 2V FRONTAL/LATon XR CHEST 2V FRONTAL/LAT * * *Final Report* * * DATE OF EXAM: Feb 22 2023 12:51PM WOX [id number] - XR CHEST 2V FRONTAL/LAT / PROCEDURE REASON: Wheeze * * * * Physician Interpretation * * * * EXAMINATION: CHEST RADIOGRAPH (2 VIEW FRONTAL and LATERAL) CLINICAL HISTORY: Wheeze MQ: XC2_6 EXAM DATE/TIME: 02/22/2023 12:51 PM COMPARISON: Chest x-ray on 08/03/2022 RESULT: Lines, tubes, and devices: None. Lungs and pleura: The lungs are overexpanded. Reticular opacities in the left upper lung appear unchanged. No consolidation. No lung mass. No pleural effusion. No pneumothorax. Cardiomediastinal silhouette: Normal cardiomediastinal silhouette. Bones and soft tissues: The spine shows degenerative changes. IMPRESSION: Overall findings unchanged. Dramatic Director: PSCB Transcribe Date/Time: Feb 22 2023 12:51P Dictated by : STEPHEN OCONNOR MD This examination was interpreted and the report reviewed and electronically signed by: STEPHEN OCONNOR MD on Feb 22 2023 12:52PM EST [id number] Normal [facility] XR Chest PA and Lateralon IMPRESSION: Overall findings unchanged. Dramatic Director: ANGEL Transcribe Date/Time: Feb 22 2023 12:51P Dictated by : STEPHEN OCONNOR MD This examination was interpreted and the report reviewed and electronically signed by: STEPHEN OCONNOR MD on Feb 22 2023 12:52PM [facility] DIVISION OF RADIOLOGY * * *Final Report* * * DATE OF EXAM: Feb 22 2023 12:51PM WOX 5291 - XR CHEST 2V FRONTAL/LAT / PROCEDURE REASON: Wheeze * * * * Physician Interpretation * * * * EXAMINATION: CHEST RADIOGRAPH (2 VIEW FRONTAL & LATERAL) CLINICAL HISTORY: Wheeze MQ: XC2_6 EXAM DATE/TIME: 02/22/2023 12:51 PM COMPARISON: Chest x-ray on 08/03/2022 RESULT: Lines, tubes, and devices: None. Lungs and pleura: The lungs are overexpanded. Reticular opacities in the left upper lung appear unchanged. No consolidation. No lung mass. No pleural effusion. No pneumothorax. Cardiomediastinal silhouette: Normal cardiomediastinal silhouette. Bones and soft tissues: The spine shows degenerative changes. DIVISION OF RADIOLOGY Provider, [facility] - 02/22/2023 * * *Final Report* * * DATE OF EXAM: Feb 22 2023 12:51PM WOX 5291 - XR CHEST 2V FRONTAL/LAT / PROCEDURE REASON: Wheeze * * * * Physician Interpretation * * * * EXAMINATION: CHEST RADIOGRAPH (2 VIEW FRONTAL & LATERAL) CLINICAL HISTORY: Wheeze MQ: XC2_6 EXAM DATE/TIME: 02/22/2023 12:51 PM COMPARISON: Chest x-ray on 08/03/2022 RESULT: Lines, tubes, and devices: None. Lungs and pleura: The lungs are overexpanded. Reticular opacities in the left upper lung appear unchanged. No consolidation. No lung mass. No pleural effusion. No pneumothorax. Cardiomediastinal silhouette: Normal cardiomediastinal silhouette. Bones and soft tissues: The spine shows degenerative changes. IMPRESSION IMPRESSION: Overall findings unchanged. Dramatic Director: [facility] Transcribe Date/Time: Feb 22 2023 12:51P Dictated by : STEPHEN OCONNOR MD This examination was interpreted and the report reviewed and electronically signed by: STEPHEN OCONNOR MD on Feb 22 2023 12:52PM EST [facility] Radiology Study observation (narrative) [facility] XR Chest PA and LateralOrder ed By: Ccf Provider on 02-22-2023 [facility] CNOVon 08-03-2022 CNOV Office Visit (UCWSTR ) LARRYANAMIKA Angeles ([id number]) 1980 M Date Time Provider Department 08/03/22 1:45 PM ELBERT GALDAMEZ [facility] During your visit today, we recorded the following information about you: Temperature Pulse Respiration Blood pressure 98.1 degrees 89/minute 18/minute 112/68 Weight 76.9 kg Elbert Galdamez APRN.[employer]LE [employer] WORKER 08/03/2022 2:58 PM Signed Subjective HPI HPI Anamika Bridgette Juarez is a 41 year old male who [...] with bleb resection, AND mechanical pleurodesis at [facility] by Dr. Hwang THORACOSCOPY SURG W PLEURODESIS Right 05/24/2017 surgery [...] the chest. Dictated by : MD Elbert CABRERA, ASSISTANT ART DIRECTOR.BOTTLE LINE WORKER Allergies As of Date: 08/03/2022 (No Known Allergies) Date Reviewed: 08/03/2022 Reviewed by: Elbert Galdamez APRN.[employer] - Fully Assessed Reason for Visit: Cough [28] Cmt: Chest congestion, + Covid Dx 07/28/2022. Primary Visit Diagnosis:Sinobronchitis [J32.9, J40] Other Visit Diagnosis:Acute cough [R05.1] Order(s):XR CHEST 2V FRONTAL/LAT [[id number]] Order #: [id number]. #:[id number] 1-CCF doxycycline monohydrate 100 mg tabletTake 1 tablet by mouth twice daily for 7 days.Disp: 14 tabletRfl: 0 Prescriptions as of 08/03/2022 - doxycycline monohydrate 100 mg tablet Take 1 tablet by mouth twice daily for 7 days. - lamoTRIgine orally disintegrating (LAMICTAL ODT) 50 mg disintegrating tablet Take 50 mg by mouth twice daily. - atorvastatin (LIPITOR) 10 mg tablet Take 10 mg by mouth once daily. Meds Comments as of 05/20/2017: Patient is current not taking any medications Problem List As Of Date 08/03/2022 Noted Resolved Pneumothorax [J93.9] Spontaneous pneumothorax [J93.83] 05/20/2017 05/28/2017 Intractable chronic cluster headache [G44.021] 09/24/2020 Hemicrania c (more content not included)... Normal [facility] XR CHEST 2V FRONTAL/LATon XR CHEST 2V FRONTAL/LAT * * *Final Report* * * DATE OF EXAM: Aug 03 2022 2:33PM WOX 5291 - XR CHEST 2V FRONTAL/LAT / PROCEDURE REASON: Acute cough * * * * Physician Interpretation * * * * CHEST X-RAY CLINICAL HISTORY: Acute cough TECHNIQUE: Upright frontal and lateral views. COMPARISON: 06/09/2017 RESULT: Heart/mediastinum: Within normal limits. Lungs/pleura: Hyperinflation. Lungs are clear. No pleural fluid. Bones/soft tissues: Unremarkable. Lines/tubes/devices: None visualized. IMPRESSION: Hyperinflation/COPD. No acute findings in the chest. Dramatic Director: ANGEL Transcribe Date/Time: Aug 03 2022 2:41P Dictated by : RODOLFO CASTELAN MD This examination was interpreted and the report reviewed and electronically signed by: RODOLFO CASTELAN MD on Aug 03 2022 2:42PM EST [id number] Normal [facility] XR Chest PA and Lateralon IMPRESSION: Hyperinflation/COPD. No acute findings in the chest. Dramatic Director: PSCB Transcribe Date/Time: Aug 03 2022 2:41P Dictated by : RODOLFO CASTELAN MD This examination was interpreted and the report reviewed and electronically signed by: RODOLFO CASTELAN MD on Aug 03 2022 2:42PM EST DIVISION OF RADIOLOGY * * *Final Report* * * DATE OF EXAM: Aug 03 2022 2:33PM WOX 5291 - XR CHEST 2V FRONTAL/LAT / PROCEDURE REASON: Acute cough * * * * Physician Interpretation * * * * CHEST X-RAY CLINICAL HISTORY: Acute cough TECHNIQUE: Upright frontal and lateral views. COMPARISON: 06/09/2017 RESULT: Heart/mediastinum: Within normal limits. Lungs/pleura: Hyperinflation. Lungs are clear. No pleural fluid. Bones/soft tissues: Unremarkable. Lines/tubes/devices: None visualized. DIVISION OF RADIOLOGY Provider, [facility] - 08/03/2022 * * *Final Report* * * DATE OF EXAM: Aug 03 2022 2:33PM WOX 5291 - XR CHEST 2V FRONTAL/LAT / PROCEDURE REASON: Acute cough * * * * Physician Interpretation * * * * CHEST X-RAY CLINICAL HISTORY: Acute cough TECHNIQUE: Upright frontal and lateral views. COMPARISON: 06/09/2017 RESULT: Heart/mediastinum: Within normal limits. Lungs/pleura: Hyperinflation. Lungs are clear. No pleural fluid. Bones/soft tissues: Unremarkable. Lines/tubes/devices: None visualized. IMPRESSION IMPRESSION: Hyperinflation/COPD. No acute findings in the chest. Dramatic Director: PSCB Transcribe Date/Time: Aug 03 2022 2:41P Dictated by : RODOLFO CASTELAN MD This examination was interpreted and the report reviewed and electronically signed by: RODOLFO CASTELAN MD on Aug 03 2022 2:42PM EST [facility] Radiology Study observation (narrative) [facility] XR Chest PA and LateralOrder ed By: Ccf Provider on 08-03-2022 [facility] RAJANINon 07-29-2022 KRISTIN Telephone (UCWSTR) ANAMIKA JUAREZ ([id number]) 1980 M Date Time Provider Department 07/29/22 ELBERT GALDAMEZ During your visit today, we recorded the following information about you: Elbert Galdamez APRN.BOTTLE LINE WORKER 07/29/2022 8:12 AM Signed You tested positive for COVID-19. Follow the [...] if it is longer than 5 days. Migdalia Howard LPN 07/29/2022 8:50 AM Signed Patient notified and verbalized understanding of instructions given.Migdalia Howard LPN Allergies As of Date: 07/29/2022 (No Known Allergies) Date Reviewed: 07/28/2022 Reviewed by: Beckie Torres MA - Fully Assessed Reason for Visit: Results [95] Prescriptions as of 07/29/2022 - lamoTRIgine orally disintegrating (LAMICTAL ODT) 50 mg disintegrating tablet Take 50 mg by mouth twice daily. - atorvastatin (LIPITOR) 10 mg tablet Take 10 mg by mouth once daily. 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 During your visit today, we recorded the following information about you: Temperature Pulse Respiration Blood pressure 100 degrees 93/minute 18/minute 122/80 Weight 77.6 kg Orlando May MD 07/28/2022 7:41 AM Signed Patient presents with: Cough: Congestion, ST, APARICIO, [...] once feeling better; he expresses understanding. Orlando May MD Allergies As of Date: 07/28/2022 (No Known Allergies) Date Reviewed: 07/28/2022 Reviewed by: Beckie Torres MA - Fully Assessed Reason for Visit: Cough [28] Cmt: Congestion, ST, APARICIO, bodyaches, chills, fever x last night Primary Visit Diagnosis:Influenza-like illness [J11.1] Other Visit Diagnosis:Oral lesion [K13.70] Order(s):COVID WITH FLUA+B, ROUTINE [SQCOVFLU] Order #: [id number] FUTURE COVID WITH FLUA+B, ROUTINE [SQCOVFLU] Order #: [id number]. #:[id number] Prescriptions as of 07/28/2022 - lamoTRIgine orally disintegrating (LAMICTAL ODT) 50 mg disintegrating tablet Take 50 mg by mouth twice daily. - atorvastatin (LIPITOR) 10 mg tablet Take 10 mg by mouth once daily. 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] 09/24/2020 Chronic daily headache [R51.9] 09/24/2020 Trigeminal neuralgia [G50.0] 09/24/2020 Atypical facial pain [G50.1] 09/24/2020 Trigeminal neuropathy [G50.9] 10/30/2020 Trigeminal neuralgia of right side of face [G50*05/07/2021 Medications Discontinued During This Encounter Prescriptions - Omeprazole 20 mg TbEC (Discontinued) Reported on 01/12/2022 - carBAMazepine XR (TEGRETOL XR) 100 mg 12 hr tablet (Discontinued) Reported on 01/12/2022 - amitriptyline (ELAVIL) 50 mg tablet (Discontinued) Reported on 01/12/2022 - acetaminophen (TYLENOL) 325 mg tablet (Discontinued) Take 2 tablets by mouth every 6 hours. Letter Text Encounter Status:Closed by ORLANDO MAY on 07/28/22 Normal [facility] FLUABV + SARS-CoV-2 Pnl Resp SAUL+prbon 07-28-2022 Influenza virus A and B RNA and SARS-CoV-2 (COVID-19) N gene panel SAUL+probe (Resp) COVID 19 RESULT: Detected The method used is RT-PCR or an equivalent NAAT method. Reference Range (the expected result in uninfected individuals): Not detected INFLUENZA A PCR: Not detected INFLUENZA B PCR: Not detected Abnormal [facility] Comment on above: Performed By: #### 9 5422-2 #### [facility] CLIA [id number] [address] [address] [place] XR SPINE LUMBOSACRAL MINIMUM 4 VIEWSon 12-14-2021 XR SPINE LUMBOSACRAL MINIMUM 4 VIEWS ORIGINAL EXAMINATION: AP lateral obliques 5 XRAY [...] 12/14/2021 10:10:21 AM Ordering Provider: SOFY SALAZAR [facility] (MD) XR TOES GREAT 3 VIEWS RIGHTo n 01-16-2021 XR TOES GREAT 3 VIEWS RIGHT ORIGINAL EXAMINATION: THREE XRAY VIEWS OF THE RIGHT TOE(S) 01/15/2021 11:07 pm COMPARISON: None. HISTORY: ORDERING SYSTEM PROVIDED HISTORY: Reason for Exam: pain. Patient kicked wall today. FINDINGS: Nondisplaced fracture at the medial base of the 1st proximal phalanx with intra-articular extension. Remaining osseous structures and joint spaces are intact. Mild soft tissue swelling at the fracture site. No radiopaque foreign body. IMPRESSION: Nondisplaced fracture at the medial base of the 1st proximal phalanx with intra-articular extension. I have personally reviewed the images of this examination and agree with the resident's findings and interpretation. Interpreted by: Claude De La Vega Preliminary Report By: Huseyin Gallardo Electronically signed By Claude De La Vega Dictated Date: 01/15/2021 11:11:24 PM Prelim Date: 01/15/2021 11:13:11 PM Sign Date: 01/16/2021 12:07:56 AM Ordering Provider: DWAINE BOWENS [facility] (MD) CHEST 2 VIEWSon 06-09-2017 CHEST 2 VIEWS Performed at [place] APPROVED BY: Robby Olvera MD EXAMINATION: CHEST RADIOGRAPH (2 VIEW FRONTAL & LATERAL) Clinical History: Follow-up right-sided pneumothorax.M: XC2_3Comparison: 05/28/2017 at 1357. RESULT: Lines, tubes, and devices: None. Lungs and pleura: The lungs are clear. No infiltrates, effusions, or pneumothorax. Surgical suture line seen in the right lung apex. Cardiomediastinal silhouette: Normal cardiomediastinal silhouette. Other: No significant additional findings. IMPRESSION: The lungs are now clear with no pneumothorax. Normal [facility] CNCOon 06-09-2017 CNCO Letter Text Dianna Hwang [facility] [place], [place] [address]Ijncs: [facility].orgJanuar y 2017 Re: Anamika Juarez : 1980 To Whom It May Concern:This letter is to certify that Mr. Juarez has been under my professional careand may return to work on 06/12/17 with the following restrictions:Lightduty only 5-10 lbs lifting for the next 4 weeks.If you have further questions regarding this patient's health status, pleasecontact my office at [phone].Best Regards,Dianna Hwang MD(Signed electronically to expedite mailing) [facility] CNOVon 06-09-2017 CNOV Office Visit (AGVASACC) ANAMIKA JUAREZ ([id number]) 1980 MDate Time Provider Department06/09/17 1:00 PM DIANNA HWANG During your visit today, we recorded the following information about you: Pulse Respiration Blood pressure Weight 76/minute 16/minute 120/68 68.9 kg Height 1.778 Jose Hwang MD 06/09/2017 2:05 PM SignedMorrkaleb Juarez is a 36 year old male here for postoperative follow-up after aright VATS with bleb resection and mechanical pleurodesis performed May for 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 Disp: 28tablet Rfl: 0acetaminophen (TYLENOL) 325 mg tablet Take 2 tablets by mouth every 6 hours.Disp: Rfl:No current facility-administered medications for this visit.ALLERGIESNo Known AllergiesBP 120/68 Pulse 76 Resp 16 Ht 5' 10ANDquot; (1.78m) Wt 152 lb (68.9kg) SpO2 99% BMI 21.81 kg/(m2).PHYSICAL EXAM:Well-developed well-nourished very thin male in no acute distress. Chest tubesite suture was removed in the office today. The other small incisions arehealing well.Chest x-ray performed prior to the visit shows good expansion of the right lungand resolution of the postoperative changes. Overall looks good at this point.ASSESSMENT:ImprovingPLAN :May lift 5-10 pounds with the right upper extremity. May lift whatever iscomfortable with the left upper extremity. Was given a return to work slip onlight duty less than 10 pounds for an additional 4 weeks beginning Tuesday06/12/17. He was advised not to fly for another 4 weeks.FOLLOW UP:As needed.Mariaa Matias Provider: ANNEMARIE POPE [[id number]]Allergies As of Date: 06/09/2017(No Known Allergies)Date Reviewed: 06/09/2017Reviewed by: Dianna Hwang - Fully AssessedReason for Visit: Post Op [174] Cmt: 05/24/17 Rt vats with mechanichal pleurodesis. /chest xray done todayPrimary Visit Diagnosis:Pneumothorax, unspecified type [J93.9]Order(s):oxyCODONE-acet aminophen (PERCOCET) 5-325 mg tabletTake 1 tablet by mouth every 6 hours as needed (acute postoperative pain J93.12) for up to 7 days.Disp: 28 tabletRfl: 0Prescriptions as of 06/09/2017 Sig: IBUPROFEN 200 MG TABLET Take 400 mg by mouth every 6 * OXYCODONE-ACETAMINOPHEN 5 MG-* Take 1 tablet by mouth every * ACETAMINOPHEN 325 MG TABLET Take 2 tablets by mouth every*Medication notes this encounter ACETAMINOPHEN 325 MG TABLET >> Jamar Belle LPN 06/09/2017 1:33 PM >> JAMAR BELLE LPN [facility] Jun 09, 2017 1:33 PM Not takingProblem List As Of Date 06/09/2017 Noted Resolved Pneumothorax [J93.9] Spontaneous pneumothorax [J93.83] INVALID FOR*05/28/2017Prescriptions ordered this encounter Disp Refills Start End OXYCODONE-ACETAMINOPHEN 5 MG-325 MG * 28 t* 0 06/09/2017 06/16/2017 Class: Print RX Route: ORAL Sig: Take 1 tablet by mouth every 6 hours as needed (acute postoperative pain J93.12) for up to 7 days.Medications Discontinued During This Encounter oxyCODONE IR (ROXICODONE) 5 mg immed* 05/28/2017 06/09/2017 Class: Historical Med Sig: Disc: Course of therapy completed oxyCODONE-acetaminophen (PERCOCET) 5* 05/31/2017 06/09/2017 Class: Historical Med Sig: Disc: Reason for discontinue is not on file.Disposition: Return as needed.Follow-up and Disposition History RecordedLetter TextEncounter Number: [id number] Status:Closed by DIANNA HWANG MD on 06/09/17 [facility] PROGRESSon 06-09-2017 PROGRESS HNO ID: [id number] thor: Dianna Kunzervice: (none)Author Type: PhysicianType: Progress NotesFiled: 06/09/2017 2:05 PMNote Text:Anamika Juarez is a 36 year old male here for postoperative follow-upafter a right VATS with bleb resection and mechanical pleurodesisperformed May 24, 2017 for recurrent spontaneous pneumothorax on theright in a cigarette smoker.HPI:The patient continues to have some pain and multiple complaints asexpected. Overall though he is improving.MEDICATIONS:Current Outpatient Prescriptions:ibuprofen (MOTRIN) 200 mg tablet Take 400 mg by mouth every 6 hours asneeded. Disp: Rfl:oxyCODONE-acetaminophen (PERCOCET) 5-325 mg tablet Take 1 tablet by mouthevery 6 hours as needed (acute postoperative pain J93.12) for up to 7days. Disp: 28 tablet Rfl: 0acetaminophen (TYLENOL) 325 mg tablet Take 2 tablets by mouth every 6hours. Disp: Rfl:No current facility-administered medications for this visit.ALLERGIESNo Known AllergiesBP 120/68 Pulse 76 Resp 16 Ht 5' 10 (1.78m) Wt 152 lb (68.9kg) SpO2 99% BMI 21.81 kg/(m2).PHYSICAL EXAM:Well-developed well-nourished very thin male in no acute distress. Chesttube site suture was removed in the office today. The other smallincisions are healing well.Chest x-ray performed prior to the visit shows good expansion of the rightlung and resolution of the postoperative changes. Overall looks good atthis point.ASSESSMENT:ImprovingPLAN :May lift 5-10 pounds with the right upper extremity. May lift whatever iscomfortable with the left upper extremity. Was given a return to workslip on light duty less than 10 pounds for an additional 4 weeks beginningSunday 06/12/17. He was advised not to fly for another 4 weeks.FOLLOW UP:As needed.Dianna Hwang MD [facility] Jackelyn 06-06-2017 KRISTIN Telephone (NUZHAT) ANAMIKA JUAREZ ([id number]) 1980 MDate Time Provider Department06/06/17 DIANNA HWANG During your visit today, we recorded the following information about you:David ChanJOANA 06/06/2017 10:02 AM SignedLeft message for Mr. Juarez to have CXR 1 hour prior to his 06/09/18 postoperative visit.Allergies As of Date: 06/06/2017(No Known Allergies)Date Reviewed: 05/27/2017Reviewed by: An WilkesRn) KIRILL Bailey - Fully AssessedReason for Visit: Orders [681]Primary Visit Diagnosis:Secondary spontaneous pneumothorax [J93.12] Other Visit Diagnosis:S/P lung surgery, follow-up exam [Z09]Order(s):XR CHEST 2V FRONTAL/LAT [1343144] Order #: [id number] FUTUREPrescriptions as of 06/06/2017 Sig: ACETAMINOPHEN 325 MG TABLET Take 2 tablets by mouth every*Problem List As Of Date 06/06/2017 Noted Resolved Pneumothorax [J93.9] Spontaneous pneumothorax [J93.83] INVALID FOR*05/28/2017Encounter Number: [id number] Status:Closed by DIANNA HWANG MD on 06/06/17 Normal [facility] ALLIED HEALTHon 05-28-2017 ALLIED HEALTH HNO ID: [id number] thor: Caro WilkesRn) IRIS Haqueervice: Home Care ServicesAuthor Type: Registered NurseType: Allied HealthFiled: 05/30/2017 2:13 PMNote Text:ADVANCE AGENT NOTESERVICE DATE: 05/30/2017SERVICE TIME: 2:13 PMDischarge:Aware of Discharge home 05/28/17Physician order placed for Home Care ServicesHome Care Agency: [facility] VNSStart of care date: 05/31 or 06/01/17Patient/Family agree to discharge plan: [facility] VNS for skilled careSIGNATURE: Caro Haque RN PATIENT NAME: Anamika JuarezDATE: May 30, 2017 : 2:13 PM Normal [facility] CHEST 1 VIEWon 05-28-2017 CHEST 1 VIEW Performed at [place] APPROVED BY: Alexey Merino MD EXAMINATION: CHEST RADIOGRAPH (SINGLE VIEW AP OR PA) Clinical History: Chest tube removalM: XC1_3Comparison: Previous studies with the most recent performed earlier today RESULT: Lines, tubes, and devices: Interval removal of previously noted right-sided thoracostomy tube. Lungs and pleura: No pneumothorax. Surgical sutures again seen at each lung apex. Again noted is ill-defined opacity at the left lung base suspicious for pneumonia or atelectasis. Persistent lucency projecting over the periphery of the mid right lung which may be related to soft tissue emphysema secondary to the thoracostomy tube. Cardiomediastinal silhouette: Normal cardiomediastinal silhouette. Other: None IMPRESSION: No pneumothorax following right chest tube removal. Otherwise, no significant change. Normal [facility] CHEST 1 VIEW Performed at [place] APPROVED BY: Fidencio Akers MD EXAMINATION: CHEST RADIOGRAPH (SINGLE VIEW AP OR PA) Clinical History: Spontaneous pneumothoraxM: XC1_3Comparison: 05/27/2017 RESULT: Lines, tubes, and devices: Right thoracostomy tube is stable. Lungs and pleura: There is no evidence for pneumothorax. Surgical sutures are noted at both lung apices. There is continued ill-defined opacity at left base which could represent infiltrate or atelectasis. This has remained relatively stable. Cardiomediastinal silhouette: Normal cardiomediastinal silhouette. Other: IMPRESSION: Stable infiltrate or atelectasis at the left base. No evidence for pneumothorax. Normal [facility] CNDSon 05-28-2017 CNDS HNO ID: [id number] thor: Dianna Kunzervice: Thoracic SurgeryAuthor Type: PhysicianType: Discharge SummariesFiled: 05/30/2017 9:51 AMNote Text:DISCHARGE SUMMARYPATIENT NAME: Anamika Juarez ADMISSION DATE: 05/20/2017MRN: [id number] DISCHARGE DATE: 05/28/2017Attending Physician: Dianna Saabeasmedina for Hospitalization:Principal Problem (Resolved): Spontaneous pneumothoraxActive Problems: * No active hospital problems. *Operations During Hospitalization: Right VATSProcedures During Hospitalization: No procedures performedHospital Course:Active Problems: * No active hospital problems. *Labs and Procedures Pending at Discharge: Pathology Results (Blebectomy)Consulting Teams During Hospitalization: NonePatient Condition @ Discharge: GoodDischarge Disposition: Home/Self CareInformation Provided to Patient:no heavy lifting >15lbs, May shower, may leave wound open to airDischarge Medications: There are no discharge medications for thispatient.Future Appointments:Follow Up with PCP: Annette Bejarano Up with Dr. Hwang in 2 weeks.TIME OF CARE: Discharge Management: I personally spent greater than 30minutes involved in the discharge management of this patient.SIGNATURE: Kiel Bell MD PAGER: [phone]: May 28, 2017TIME: 10:09 AMNoted. Radha covering at the time. [facility] PROGRESSon 05-28-2017 PROGRESS HNO ID: [id number] thor: Kiel (Res) Luciervice: Thoracic SurgeryAuthor Type: ResidentType: Progress NotesFiled: 05/28/2017 8:58 AMNote Text: Attes tation signed by Thad Garcia at 06/16/2017 5:12 PMAttending NoteI evaluated the patient and personally participated in the cabezas components. Iagree with the resident's findings and plan as documented and have discussedthe case and management of the patient's care with the resident.Signature: Thad Garcia MDDate: 06/16/2017Time: 5:12 PM Thoracic Surgery Progress NoteSERVICE DATE: 05/28/2017SUBJECTIVESUBJECTIVE:F eeling well, no new issuesDenies N/V/CP/SOBDiet: DIET REGULAROBJECTIVEOBJECTIVE:Maria Elena ls:Temp (24hrs), Av.7 ?C (98 ?F), Min:36.4 ?C (97.5 ?F), Max:36.9 ?C(98.5 ?F)BP 131/81 Pulse 73 Temp 36.7 ?C (98.1 ?F) (Oral) Resp 18 Ht 177.8cm (5' 10 ) Wt 68 kg (150 lb) SpO2 100% BMI 21.52 kg/m2O2 Therapy: Room AirIANDO:Date 05/27/17699 - 05/28/17 0659 05/28/17699 - 05/29/17 0659Shift 1696-9516 5698-5208 5670-7884 24 Hour Total 0915-4878 [id number] 24 Hour TotalINTAKE Shift TotalOUTPUT Urine 330 271 8003 Void (ml) 884 645 6403 Chest Tube 5 15 20 Chest Tube Output (Chest Tube 05/24/17 1410 Right Lateral Pleural 32 FrTube #1) 5 15 20 # of BMs Number of BMs 1 x 1 x Shift Total 405 715 1120Weight (kg) 68 68 68 68 68 68 68 68MEDICATIONSCurrent Facility-Administered Medications:bupivacaine (PF) (SENSORCAINE MPF) 0.25 % (2.5 mg/mL) 675 mg in empty bagTotal Volume (ON-Q) reservoir 270 mL INJECTION(UNSPECIFIED PARENTERALROUTES) CONTINUOUSoxyCODONE IR 5-10 mg tab(s) (ROXICODONE) 5-10 mg ORAL q 4 H PRNHYDROmorphone 0.5 mg injection (DILAUDID) 0.5 mg INTRAVENOUS q 4 H PRNsenna-docusate 8.6-50 mg 1 tablet (SENNA-S) 1 tablet ORAL BIDpolyethylene glycol 3350 17 g packet (MIRALAX, GLYCOLAX) 17 g ORAL DAILYenoxaparin 40 mg injection (LOVENOX) 40 mg SUBCUTANEOUS q 24 HRacetaminophen 650 mg tab(s) (TYLENOL) 650 mg ORAL q 6 Hondansetron 4 mg tab(s) (ZOFRAN) 4 mg ORAL q 6 H PRNOrondansetron (PF) 4 mg injection (ZOFRAN) 4 mg INTRAVENOUS q 6 H PRNLabs:Recent Labs 05/26/1803NA 139 137K 3.5 3.5CHLOR 105 105CO2 25 28BUN 10 13CREAT 0.49* 0.42*GLUC 97 104*ANION 13 8CA 8.2* 7.9*MG -- 1.8P -- 3.0WBC 9.80* 9.11*HB 11.9* 11.6*HCT 34.7* 34.7*PLT 358 289Exam:GENERAL: No distress, AlertNEURO: AANDOx3, CN II-XII grossly intactHEENT: normocephalic, atraumaticLUNGS: Unlabored breathing O2 Therapy: Room Air, Right CT to WS No Leak,Inc c/d/iCARDIAC: Regular rate and rhythm as aboveABDOMEN: Soft, non-tender, non-distendedEXTREMITIES: QUINTANILLA, No deformities, No edemaSKIN: Skin color, texture, turgor normal, No rashes or lesionsASSESSMENT AND PLAN:Active Hospital Problems Diagnosis Date Noted- Spontaneous pneumothorax 05/20/201736 year old male s/p Right VATS, Blebectomy, Pleurodesis for recurrentspontaneous PTX on 05/24/17?- pain control- reg diet- CXR stable- R CT to WS, will d/c and recheck CXR in 4-5 hrs- possible DC home today if rpt CXR stableAssessment and plan discussed with attending: Dr. JoeATURE: Kiel Bell MD PATIENT NAME: Anamika JuarezDATE: May 28, 2017 : 6:22 AM Pager: [phone] [facility] ALLIED HEALTHon 05-27-2017 ALLIED HEALTH HNO ID: [id number] thor: Bri Zurita Office CoordService: (none)Author Type: (none)Type: Allied HealthFiled: 05/27/2017 2:02 PMNote Text:ADVANCE AGENT NOTESERVICE DATE: 05/27/2017SERVICE TIME: 1401Referral:Home Care referral received by: Niko continue to follow for physician ordersSIGNATURE: Bri Zurita Office Coord PATIENT NAME: Anamika JuarezDATE: May 27, 2017 : 2:01 PM Normal [facility] Basic Panelon 05-27-2017 Creatinine 0.49 mg/dL Low 0.67-1.17 [facility] Comment on above: Performed By: #### P 8 ####[facility] [place], [place] [address] Glucose mass conc 97 mg/dL Normal 70-99 [facility] Comment on above: Performed By: #### P 8 ####[facility] [place], [place] [address] Anion gap 13 mmol/L Normal 8-16 [facility] Comment on above: Performed By: #### P 8 ####[address] [address] CO2 25 mmol/L Normal 21-32 [facility] Comment on above: Performed By: #### P 8 ####[address] [address] Urea nitrogen 10 mg/dL Normal 7-18 [facility] Comment on above: Performed By: #### P 8 ####[address] [address] Calcium 8.2 mg/dL Low 8.5-10.1 [facility] Comment on above: Performed By: #### P 8 ####[address] [address] Chloride 105 mmol/L Normal 98-107 [facility] Comment on above: Performed By: #### P 8 ####[address] [address] Potassium molar conc 3.5 mmol/L Normal 3.5-5.1 [facility] Comment on above: Performed By: #### P 8 ####[address] [address] Sodium 139 mmol/L Normal 136-145 [facility] Comment on above: Performed By: #### P 8 ####[address] [address] CASE MANAGEMon 05-27-2017 CASE MANAGEM HNO ID: [id number] thor: Nneka WilkesRn) IRIS Urbinaervice: Care ManagementAuthor Type: Registered NurseType: Care Mgt Progress NoteFiled: 05/27/2017 1:04 PMNote Text:CARE MANAGEMENT PROGRESS NOTESERVICE DATE: 05/27/2017SERVICE TIME: 1:03 PM LOS: 7 daysNotes reviewed. Patient s/p R VATS POD #3. CT to H2O seal. Discharge planis for patient to return home when medically stable. [facility] referral made.SIGNATURE: Nneka Urbina RN PATIENT NAME: Anamika JuarezDATE: May 27, 2017 : 1:03 PM PAGER/CONTACT #: [phone] Normal [facility] CHEST 1 VIEWon 05-27-2017 CHEST 1 VIEW Performed at [place] APPROVED BY: Robby Olvera MD EXAMINATION: CHEST RADIOGRAPH (SINGLE VIEW AP OR PA) Clinical History: Follow-up right-sided chest tube.M: XC1_3Comparison: 05/26/2017 at 0600 RESULT: Lines, tubes, and devices: Right-sided chest tube seen along the lateral and apical region of the right chest. quality assurance monitor leads. Lungs and pleura: No residual right-sided pneumothorax or pleural effusion. Suspected atelectasis at the left lung base. Cardiomediastinal silhouette: Normal cardiomediastinal silhouette. Other: None. IMPRESSION: Right-sided chest tube. No residual pneumothorax. Density at the left lung base most likely represents atelectasis. Recommend attention to this area on follow-up chest x-rays to assess for resolution and rule out the possibility of developing pneumonia. Normal [facility] Hemogram/Diffon 05-27-2017 Abs Immature Grans 0.05 thou/cmm Normal 0.00-0.05 [facility] Comment on above: Performed By: #### C BCD1 ####[place] [address] Abs. Baso 0.02 thou/cmm Normal 0.01-0.08 [facility] Comment on above: Performed By: #### C BCD1 ####[place] [address] Abs. Mingo 1.01 thou/cmm High 0.30-0.82 [facility] Comment on above: Performed By: #### C BCD1 ####[facility] [place] [address] Abs. Neut 6.63 thou/cmm High 1.78-5.38 [facility] Comment on above: Performed By: #### C BCD1 ####[place] [address] Basophils/100 WBC Auto (Bld) 0.2 % Normal [facility] Comment on above: Performed By: #### C BCD1 ####[place] [address] Eosinophils 0.14 thou/cmm Normal 0.04-0.54 [facility] Comment on above: Performed By: #### C BCD1 ####[place] [address] Eosinophils/100 leukocytes 1.4 % Normal [facility] Comment on above: Performed By: #### C BCD1 ####[place] [address] Erythrocyte distribution width Auto Ratio (RBC) 12.8 % Normal 11.6-14.4 [facility] Comment on above: Performed By: #### C BCD1 ####[place] [address] Erythrocytes (RBC) 3.94 mil/cmm Low 4.63-6.08 [facility] Comment on above: Performed By: #### C BCD1 ####[place] [address] Hematocrit (HCT) 34.7 % Low 40.1-51.0 [facility] Comment on above: Performed By: #### C BCD1 ####[place] [address] Hemoglobin mass conc (Bld) 11.9 g/dL Low 13.7-17.5 [facility] Comment on above: Performed By: #### C BCD1 ####[place] [address] Immature Grans 0.50 % Normal [facility] Comment on above: Performed By: #### C BCD1 ####[facility] [place], [place] [address] Lymphocytes 1.95 thou/cmm Normal 0.84-2.85 [facility] Comment on above: Performed By: #### C BCD1 ####[facility] [place], [place] [address] Lymphocytes/100 leukocytes 19.9 % Normal [facility] Comment on above: Performed By: #### C BCD1 ####[facility] [place], [place] [address] MCH 30.2 pg Normal 25.7-32.2 [facility] Comment on above: Performed By: #### C BCD1 ####[address] [address] MCHC mass conc (RBC) 34.3 % Normal 32.3-36.5 [facility] Comment on above: Performed By: #### C BCD1 ####[address] [address] MCV 88.1 fL Normal 83.2-95.6 [facility] Comment on above: Performed By: #### C BCD1 ####[address] [address] Monocytes/100 leukocytes 10.3 % Normal [facility] Comment on above: Performed By: #### C BCD1 ####[address] [address] Platelet mean volume (PMV) 9.8 fL Normal 8.7-12.0 [facility] Comment on above: Performed By: #### C BCD1 ####[address] [address] Platelets 358 thou/cmm Normal 141-365 [facility] Comment on above: Performed By: #### C BCD1 ####[address] [address] RDW SD 40.9 fl Normal 36.1-45.8 [facility] Comment on above: Performed By: #### C BCD1 ####[address], [place] [address] Seg Neutrophil 67.7 % Normal [facility] Comment on above: Performed By: #### C BCD1 ####[facility] [place], [place] [address] WBC (Leukocytes) 9.80 thou/cmm High 4.23-9.07 [facility] Comment on above: Performed By: #### C BCD1 ####[address] [address] MDRD GFRon 05-27-2017 eGFR (non-black) mL/min/{1.73_m2} Normal >60mL/m in/1 .73m2 [facility] Comment on above: Result Comment: If t he patient is , multiply the result by 1.210. Performed By: #### G FR ####[address] [address] NURSING PROGon 05-27-2017 NURSING PROG HNO ID: [id number] thor: An (Rn) Lynn, IRIService: (none)Author Type: Registered NurseType: Nursing Progress NoteFiled: 05/27/2017 12:43 AMNote Text: Nursing Progress NotePatient Name: Anamika JuarezMRN: [id number] Location: [place] [address]/[place] [address]* ___Spoke with surgical services asst (pager [phone]) regarding pain ball order. Hestated that it will be addressed in the morning upon rounds. No new ordersat this time.This note was completed by: An Bailey RN Normal [facility] PROGRESSon 05-27-2017 PROGRESS HNO ID: [id number] thor: Dianna Kunzervice: Thoracic SurgeryAuthor Type: PhysicianType: Progress NotesFiled: 05/27/2017 10:31 AMNote Text:MEDICAL STUDENT PROGRESS NOTESURGICAL SERVICESSERVICE DATE: 05/27/2017SERVICE TIME: 0650Attending Note This note was generated by a MEDICAL STUDENT working under the supervisionof an Attending Physician and is not authenticated until addended andcosigned by the Attending Physician at the beginning of this note.POD #3SUBJECTIVECHIEF COMPLAINT: Recurrent right spontaneous pneumothoraxINTERVAL HISTORY OF PRESENT ILLNESS: 36 year old male with rightspontaneous pneumothorax underwent resection of right upper lobe apicalblebs on 05/24.Today, he states his pain is well controlled with the addition ofdilaudid. He states he has some pain when breathing deep and has beentolerating his diet. He denies fevers, chills, nausea, vomiting,abdominal pain.MEDICATIONS:Current hospital medications:oxyCODONE IR 5-10 mg tab(s) (ROXICODONE) 5-10 mg ORAL q 4 H PRNHYDROmorphone 0.5 mg injection (DILAUDID) 0.5 mg INTRAVENOUS q 4 H PRNsenna-docusate 8.6-50 mg 1 tablet (SENNA-S) 1 tablet ORAL BIDpolyethylene glycol 3350 17 g packet (MIRALAX, GLYCOLAX) 17 g ORAL DAILYenoxaparin 40 mg injection (LOVENOX) 40 mg SUBCUTANEOUS q 24 HRacetaminophen 650 mg tab(s) (TYLENOL) 650 mg ORAL q 6 Hondansetron 4 mg tab(s) (ZOFRAN) 4 mg ORAL q 6 H PRNondansetron (PF) 4 mg injection (ZOFRAN) 4 mg INTRAVENOUS q 6 H PRNOBJECTIVEPHYSICAL EXAM:BP 117/76 Pulse 79 Temp 36.7 ?C (98.1 ?F) (Oral) Resp 16 Ht 177.8cm (5' 10 ) Wt 68 kg (150 lb) SpO2 97% BMI 21.52 kg/m2Body mass index is 21.52 kg/(m2).GENERAL: Alert, no distress, cooperativeLUNGS: Lungs clear to auscultation, Good diaphragmatic excursionCARDIAC: Normal S1 and S2; no rubs, murmurs, or gallopsABDOMEN: Abdomen soft, non-tender, BS normal, No masses or organomegalyWOUND: Clean, dry and intactThe remainder of the physical exam is noncontributory.DATA:Diagnosti c tests reviewed for today's visit:WBC (thou/cmm)Date Value05/27/2017 9.80 (H)RBC (mil/cmm)Date Value05/27/2017 3.94 (L)Hemoglobin (g/dL)Date Value08/27/2015 14.7HGB (g/dL)Date Value05/27/2017 11.9 (L)Hematocrit (%)Date Value05/27/2017 34.7 (L)MCV (fl)Date Value05/27/2017 88.1MCH (pg)Date Value05/27/2017 30.2MCHC (%)Date Value05/27/2017 34.3Platelet Count (thou/cmm)Date Value05/27/2017 358MPV (fl)Date Value05/27/2017 9.8Glucose (mg/dL)Date Value05/27/2017 97BUN (mg/dL)Date Value05/27/2017 10Creatinine (mg/dL)Date Value05/27/2017 0.49 (L)Sodium (mEq/L)Date Value05/27/2017 139Potassium (mEq/L)Date Value05/27/2017 3.5Chloride (mEq/L)Date Value05/27/2017 105CO2 (mEq/L)Date Value05/27/2017 25Calcium (mg/dL)Date Value05/27/2017 8.2 (L)Intake/Output Detail ReportDate 05/25/17 07 - 05/26/17 0659 05/26/17 07 - 05/27/17 0659 700 - 05/28/17 0659Shift 8229-6666 4214-5105 3717-4436 Total 7370-7035 4554-3906 2300-0659Total 9399-3979 3385-6886 1977-1395 TotalINTAKE PO 620 005 551 7032 120 120 IV 200 475 675 Shift Total 820 2646 929 7435 120 120OUTPUT Urine 650 081 50 6494 700 700 Chest Tube 10 20 10 40 40 0 5 45 Shift Total 660 697 51 8764 740 0 5 745NET 160 180 320 660 -620 0 -5 -625ASSESSMENT AND PLAN:36 year old male with right spontaneous pneumothorax underwent resectionof right upper lobe apical blebs on 05/24.Patient is tolerating diet, his chest tube does not appear to have anyleaks-followup CXR-continue chest tube-incentive spirometry, out of bed as tolerated-pain controlFoley: No Continued Need For Benson CatheterizationDVT Prophylaxis: With Lovenox and Intermittent pneumatic compressiondevice (IPCD)Reason for Continuing Antibiotics: There is no need to continueantibioticsSIGNATURE: Ap Spence Ms PATIENT NAME: Anamika JuarezDATE: May 27, 2017 : 6:54 AM PAGER/CONTACT #: [phone] and noted.P-chest tube to waterseal today. Normal [facility] PROGRESS HNO ID: [id number] thor: Dianna Kunzervice: Thoracic SurgeryAuthor Type: PhysicianType: Progress NotesFiled: 05/27/2017 10:33 AMNote Text:Thoracic Surgery Progress NoteSERVICE DATE: 05/27/2017SUBJECTIVESUBJECTIVE:N AEON, pain unchanged, no SOBDenies N/V/CP/SOBDiet: DIET REGULAROBJECTIVEOBJECTIVE:Maria Elena ls:Temp (24hrs), Av.8 ?C (98.2 ?F), Min:36.4 ?C (97.5 ?F), Max:37.2 ?C(99 ?F)BP 117/76 Pulse 79 Temp 36.7 ?C (98.1 ?F) (Oral) Resp 16 Ht 177.8cm (5' 10 ) Wt 68 kg (150 lb) SpO2 97% BMI 21.52 kg/m2O2 Therapy: Room AirIANDO:Date 05/26/17699 - 05/27/17 0659 05/27/17 07 - 05/28/17 0659Shift 4563-4014 0587-0556 1123-3815 24 Hour Total 6572-9819 2796-83684791-8069 24 Hour TotalINTAKE PO 120 120 PO 120 120 Shift Total 120 120OUTPUT Urine 700 700 Void (ml) 700 700 Urine Incontinence/Not Saved 1 x 1 x Chest Tube 40 0 5 45 Chest Tube Output (Chest Tube 05/24/17 1410 Right Lateral Pleural 32 FrTube #1) 40 0 5 45 Shift Total 740 0 5 745Weight (kg) 68 68 68 68 68 68 68 68MEDICATIONSCurrent Facility-Administered Medications:oxyCODONE IR 5-10 mg tab(s) (ROXICODONE) 5-10 mg ORAL q 4 H PRNHYDROmorphone 0.5 mg injection (DILAUDID) 0.5 mg INTRAVENOUS q 4 H PRNsenna-docusate 8.6-50 mg 1 tablet (SENNA-S) 1 tablet ORAL BIDpolyethylene glycol 3350 17 g packet (MIRALAX, GLYCOLAX) 17 g ORAL DAILYenoxaparin 40 mg injection (LOVENOX) 40 mg SUBCUTANEOUS q 24 HRacetaminophen 650 mg tab(s) (TYLENOL) 650 mg ORAL q 6 Hondansetron 4 mg tab(s) (ZOFRAN) 4 mg ORAL q 6 H PRNOrondansetron (PF) 4 mg injection (ZOFRAN) 4 mg INTRAVENOUS q 6 H PRNLabs:Recent Labs 05/26/180352121NA -- 137 135* -- --K -- 3.5 3.7 -- --CHLOR -- 105 105 -- --CO2 -- 28 26 -- --BUN -- 13 7 -- --CREAT -- 0.42* 0.30* -- --GLUC -- 104* 130* -- --ANION -- 8 8 -- --CA -- 7.9* 7.9* -- --MG -- 1.8 2.0 -- --P -- 3.0 3.3 -- --WBC 9.80* 9.11* 8.89 < > --HB 11.9* 11.6* 11.4* < > --HCT 34.7* 34.7* 33.5* < > --PLT 358 289 291 < > --INR -- -- -- -- 0.96< > = values in this interval not displayed.Exam:GENERAL: No distress, AlertNEURO: AANDOx3, CN II-XII grossly intactHEENT: normocephalic, atraumaticLUNGS: Unlabored breathing O2 Therapy: Room Air, Right CT to -20sxn, noleakCARDIAC: Regular rate and rhythm as aboveABDOMEN: Soft, non-tender, non-distendedEXTREMITIES: QUINTANILLA, No deformities, No edemaSKIN: Skin color, texture, turgor normal, No rashes or lesionsASSESSMENT AND PLAN:Active Hospital Problems Diagnosis Date Noted- Spontaneous pneumothorax 05/20/201736 year old male s/p Right VATS, Blebectomy, Pleurodesis for recurrentspontaneous PTX- pain control- reg diet- follow up am CXR- cont right CT to sxn, no leak --> may place to today?Assessment and plan discussed with attending: Dr. HerediaATURE: Kiel Bell MD PATIENT NAME: Anamika JuarezDATE: May 27, 2017 : 6:09 AM Pager: [phone] seen, labs, cxr, and careplan reviewed with residentsP-OK for chest tube to waterseal today/ Plans for weekend and possdischarge d/w patient. Normal [facility] Basic Panelon 05-26-2017 Creatinine 0.42 mg/dL Low 0.67-1.17 [facility] Comment on above: Performed By: #### G FR ####[facility] [place] [address] Glucose mass conc 104 mg/dL High 70-99 [facility] Comment on above: Performed By: #### G FR ####[facility] [place] [address] Anion gap 8 mmol/L Normal 8-16 [facility] Comment on above: Performed By: #### G FR ####[facility] [place] [address] Calcium 7.9 mg/dL Low 8.5-10.1 [facility] Comment on above: Performed By: #### G FR ####[facility] [place], [place] [address] CO2 28 mmol/L Normal 21-32 [facility] Comment on above: Performed By: #### G FR ####[facility] [place], [place] [address] Urea nitrogen 13 mg/dL Normal 7-18 [facility] Comment on above: Performed By: #### G FR ####[facility] [place], [place] [address] Chloride 105 mmol/L Normal 98-107 [facility] Comment on above: Performed By: #### G FR ####[facility] [place], [place] [address] Potassium molar conc 3.5 mmol/L Normal 3.5-5.1 [facility] Comment on above: Performed By: #### G FR ####[facility] [place], [place] [address] Sodium 137 mmol/L Normal 136-145 [facility] Comment on above: Performed By: #### G FR ####[facility] [place], [place] [address] CASE MANAGEMon 05-26-2017 CASE MANAGEM HNO ID: [id number] thor: Nneka (Rn) IRIS Chavezervice: Care ManagementAuthor Type: Registered NurseType: Care Mgt Progress NoteFiled: 05/26/2017 9:11 AMNote Text:Recently started new job but not covered by insurance at this time,ineligible for Medicaid per [facility], approved at $4.00 per dc meds byCSW, cont. to follow for possible dc needs. Normal [facility] CHEST 1 VIEWon 05-26-2017 CHEST 1 VIEW Performed at [place] APPROVED BY: CLAY STEINBERG MD EXAMINATION: CHEST RADIOGRAPH (SINGLE VIEW AP OR PA) Clinical History: Shortness of breathM: XC1_3Comparison: 05/25/2017 RESULT: Lines, tubes, and devices: Right thoracostomy tube is in stable position with the tip at the right apex. Lungs and pleura: Suture lines are present within the upper lungs on both sides. No pneumothorax identified. No airspace consolidation or pleural effusion. Mild elevation of left hemidiaphragm. Cardiomediastinal silhouette: Normal cardiomediastinal silhouette. IMPRESSION:Right thoracostomy tube is in stable position without pneumothorax. Mild elevation of the left hemidiaphragm. Lungs appear clear. Normal [facility] Hemogram/Diffon 05-26-2017 Abs Immature Grans 0.05 thou/cmm Normal 0.00-0.05 [facility] Comment on above: Performed By: #### G FR ####[facility] [place] [address] Abs. Baso 0.01 thou/cmm Normal 0.01-0.08 [facility] Comment on above: Performed By: #### G FR ####[place] [address] Abs. Mingo 0.81 thou/cmm Normal 0.30-0.82 [facility] Comment on above: Performed By: #### G FR ####[place] [address] Abs. Neut 6.16 thou/cmm High 1.78-5.38 [facility] Comment on above: Performed By: #### G FR ####[place] [address] Basophils/100 WBC Auto (Bld) 0.1 % Normal [facility] Comment on above: Performed By: #### G FR ####[place] [address] Eosinophils 0.14 thou/cmm Normal 0.04-0.54 [facility] Comment on above: Performed By: #### G FR ####[place] [address] Eosinophils/100 leukocytes 1.5 % Normal [facility] Comment on above: Performed By: #### G FR ####[place] [address] Erythrocyte distribution width Auto Ratio (RBC) 13.1 % Normal 11.6-14.4 [facility] Comment on above: Performed By: #### G FR ####[address], [place] [address] Erythrocytes (RBC) 3.83 mil/cmm Low 4.63-6.08 [facility] Comment on above: Performed By: #### G FR ####[facility] [place] [address] Hematocrit (HCT) 34.7 % Low 40.1-51.0 [facility] Comment on above: Performed By: #### G FR ####[facility] [place] [address] Hemoglobin mass conc (Bld) 11.6 g/dL Low 13.7-17.5 [facility] Comment on above: Performed By: #### G FR ####[place] [address] Immature Grans 0.50 % Normal [facility] Comment on above: Performed By: #### G FR ####[place] [address] Lymphocytes 1.95 thou/cmm Normal 0.84-2.85 [facility] Comment on above: Performed By: #### G FR ####[address] [address] Lymphocytes/100 leukocytes 21.4 % Normal [facility] Comment on above: Performed By: #### G FR ####[place] [address] MCH 30.3 pg Normal 25.7-32.2 [facility] Comment on above: Performed By: #### G FR ####[place] [address] MCHC mass conc (RBC) 33.4 % Normal 32.3-36.5 [facility] Comment on above: Performed By: #### G FR ####[place] [address] MCV 90.6 fL Normal 83.2-95.6 [facility] Comment on above: Performed By: #### G FR ####[address] [address] Monocytes/100 leukocytes 8.9 % Normal [facility] Comment on above: Performed By: #### G FR ####[facility] [place], [place] [address] Platelet mean volume (PMV) 9.4 fL Normal 8.7-12.0 [facility] Comment on above: Performed By: #### G FR ####[facility] [place], [place] [address] Platelets 289 thou/cmm Normal 141-365 [facility] Comment on above: Performed By: #### G FR ####[facility] [place], [place] [address] RDW SD 42.7 fl Normal 36.1-45.8 [facility] Comment on above: Performed By: #### G FR ####[address] [address] Seg Neutrophil 67.6 % Normal [facility] Comment on above: Performed By: #### G FR ####[address] [address] WBC (Leukocytes) 9.11 thou/cmm High 4.23-9.07 [facility] Comment on above: Performed By: #### G FR ####[address] [address] MDRD GFRon 05-26-2017 eGFR (non-black) mL/min/{1.73_m2} Normal >60mL/m in/1 .73m2 [facility] Comment on above: Result Comment: If t he patient is , multiply the result by 1.210. Performed By: #### G FR ####[address] [address] Magnesium Bloodon 05-26-2017 Magnesium 1.8 mg/dL Normal 1.6-2.6 [facility] Comment on above: Performed By: #### G FR ####[address] [address] PROGRESSon 05-26-2017 PROGRESS HNO ID: [id number] thor: Dianna Kunzervice: Vascular SurgeryAuthor Type: PhysicianType: Progress NotesFiled: 05/26/2017 3:23 PMNote Text:Thoracic Surgery Progress NoteSERVICE DATE: 05/26/2017SUBJECTIVESUBJECTIVE:P atient complais of pain at his surgical site, however it is tolerable.Using incentive spirometer.Denies N/V/CP/SOBDiet: DIET REGULAROBJECTIVEOBJECTIVE:Maria Elena ls:Temp (24hrs), Av.7 ?C (98 ?F), Min:36.4 ?C (97.5 ?F), Max:36.8 ?C(98.2 ?F)BP 131/79 Pulse 87 Temp (P) 36.4 ?C (97.5 ?F) Resp 18 Ht 177.8 cm(5' 10 ) Wt 68 kg (150 lb) SpO2 100% BMI 21.52 kg/m2O2 Therapy: Nasal CannulaIANDO:Date 05/25/17 0700 - 05/26/17 0659 05/26/17 0700 - 05/27/17 0659Shift 4376-8148 2660-4578 8542-1601 24 Hour Total 0038-7372 9009-91017772-5342 24 Hour TotalINTAKE PO 620 038 556 3805 PO 620 300 835 0357 IV 200 475 675 D5 0.45%NS 350 350 Cefazolin IV 200 125 325 Shift Total 820 1075 360 2255OUTPUT Urine 650 615 16 1381 Void (ml) 650 757 27 7908 Chest Tube 10 20 10 40 Chest Tube Output (Chest Tube 05/24/17 1410 Right Lateral Pleural 32 FrTube #1) 10 20 10 40 Shift Total 660 895 40 1595Weight (kg) 68 68 68 68 68 68 68 68MEDICATIONSCurrent Facility-Administered Medications:senna-docusate 8.6-50 mg 1 tablet (SENNA-S) 1 tablet ORAL BIDpolyethylene glycol 3350 17 g packet (MIRALAX, GLYCOLAX) 17 g ORAL DAILYenoxaparin 40 mg injection (LOVENOX) 40 mg SUBCUTANEOUS q 24 HRHYDROmorphone 0.5-1 mg injection (DILAUDID) 0.5-1 mg INTRAVENOUS q 3 H PRNoxyCODONE IR 5-10 mg tab(s) (ROXICODONE) 5-10 mg ORAL q 6 H PRNacetaminophen 650 mg tab(s) (TYLENOL) 650 mg ORAL q 6 Hondansetron 4 mg tab(s) (ZOFRAN) 4 mg ORAL q 6 H PRNOrondansetron (PF) 4 mg injection (ZOFRAN) 4 mg INTRAVENOUS q 6 H PRNLabs:Recent Labs 05/25/1804NA 137 135* --K 3.5 3.7 --CHLOR 105 105 --CO2 28 26 --BUN 13 7 --CREAT 0.42* 0.30* --GLUC 104* 130* --ANION 8 8 --CA 7.9* 7.9* --MG 1.8 2.0 --P 3.0 3.3 --WBC 9.11* 8.89 --HB 11.6* 11.4* --HCT 34.7* 33.5* --PLT 289 291 --INR -- -- 0.96Exam:GENERAL: No distress, AlertNEURO: AANDOx3, CN II-XII grossly intactHEENT: normocephalic, atraumaticLUNGS: Unlabored breathing O2 Therapy: Nasal Cannula, Right CT -20, +airleak however now intermittent. Output serosangCARDIAC: Regular rate and rhythm as aboveABDOMEN: Soft, non-tender, non-distendedEXTREMITIES: QUINTANILLA, No deformities, No edemaSKIN: Skin color, texture, turgor normal, No rashes or lesionsASSESSMENT AND PLAN:Active Hospital Problems Diagnosis Date Noted- Spontaneous pneumothorax 05/20/201736 year old male recurrent right spontaneous PTX- Regular diet- chest tube to -20 suction- follow up chest XR- Possible transfer to the floor todayAssessment and plan discussed with attending: Dr. Annia Dodge MDGeneral Surgery PGY-4January 2017 8:52 [facility] #: Pager: [phone] seen, cxr , data, and labs reviewed with residentAs well as careplan. Air leak notably decreased. OK forDec suction to 15cm H2O and transfer to 4200. Normal [facility] PROGRESS HNO ID: [id number] thor: Dianna Kunzervice: Thoracic SurgeryAuthor Type: PhysicianType: Progress NotesFiled: 05/26/2017 3:26 PMNote Text:MEDICAL STUDENT PROGRESS NOTESURGICAL SERVICESSERVICE DATE: 05/26/2017SERVICE TIME: 619Attending Note This note was generated by a MEDICAL STUDENT working under the supervisionof an Attending Physician and is not authenticated until addended andcosigned by the Attending Physician at the beginning of this note.POD #2SUBJECTIVECHIEF COMPLAINT: Recurrent right spontaneous pneumothoraxINTERVAL HISTORY OF PRESENT ILLNESS: 36 year old male with rightspontaneous pneumothorax underwent resection of right upper lobe apicalblebs on 05/24.Today, he complains of 8/10 pain in his right chest. He states he hasbeen tolerating his diet, and has been passing gas. He states he has someshortness of breath that he attributes to the pain from deep breathing.He denies being out of bed. He denies fevers, chills, cough, nausea,vomiting, abdominal pain.MEDICATIONS:Current hospital medications:senna-docusate 8.6-50 mg 1 tablet (SENNA-S) 1 tablet ORAL BIDpolyethylene glycol 3350 17 g packet (MIRALAX, GLYCOLAX) 17 g ORAL DAILYenoxaparin 40 mg injection (LOVENOX) 40 mg SUBCUTANEOUS q 24 HRHYDROmorphone 0.5-1 mg injection (DILAUDID) 0.5-1 mg INTRAVENOUS q 3 H PRNoxyCODONE IR 5-10 mg tab(s) (ROXICODONE) 5-10 mg ORAL q 6 H PRNacetaminophen 650 mg tab(s) (TYLENOL) 650 mg ORAL q 6 Hondansetron 4 mg tab(s) (ZOFRAN) 4 mg ORAL q 6 H PRNondansetron (PF) 4 mg injection (ZOFRAN) 4 mg INTRAVENOUS q 6 H PRNOBJECTIVEPHYSICAL EXAM:BP 131/79 Pulse 60 Temp 36.7 ?C (98.1 ?F) Resp 16 Ht 177.8 cm (5'10 ) Wt 68 kg (150 lb) SpO2 96% BMI 21.52 kg/m2Body mass index is 21.52 kg/(m2).GENERAL: Mild DistressLUNGS: Lungs clear to auscultation, Good diaphragmatic excursionCARDIAC: Normal S1 and S2; no rubs, murmurs, or gallopsABDOMEN: Abdomen soft, non-tender, BS normal, No masses or organomegalyWOUND: Clean, dry and intactThe remainder of the physical exam is noncontributory.DATA:Diagnosti c tests reviewed for today's visit:WBC (thou/cmm)Date Value05/26/2017 9.11 (H)RBC (mil/cmm)Date Value05/26/2017 3.83 (L)Hemoglobin (g/dL)Date Value08/27/2015 14.7HGB (g/dL)Date Value05/26/2017 11.6 (L)Hematocrit (%)Date Value05/26/2017 34.7 (L)MCV (fl)Date Value05/26/2017 90.6MCH (pg)Date Value05/26/2017 30.3MCHC (%)Date Value05/26/2017 33.4Platelet Count (thou/cmm)Date Value05/26/2017 289MPV (fl)Date Value05/26/2017 9.4Glucose (mg/dL)Date Value05/26/2017 104 (H)BUN (mg/dL)Date Value05/26/2017 13Creatinine (mg/dL)Date Value05/26/2017 0.42 (L)Sodium (mEq/L)Date Value05/26/2017 137Potassium (mEq/L)Date Value05/26/2017 3.5Chloride (mEq/L)Date Value05/26/2017 105CO2 (mEq/L)Date Value05/26/2017 28Calcium (mg/dL)Date Value05/26/2017 7.9 (L)Intake/Output Detail ReportDate 05/24/17 07 - 05/25/17 0659 05/25/17 07 - 05/26/17 0659 700 - 05/27/17 0659Shift 8817-9855 3364-5842 2825-4038 Total 3718-6683 4994-9763 2300-0659Total 0017-3626 9396-1250 0094-0907 TotalINTAKE PO 380 149 4538 620 050 762 4277 IV 908 908 200 475 675 Shift Total 460 1708 2168 820 1075 360 2255OUTPUT Urine 500 1050 1550 650 227 23 6015 Chest Tube 80 45 125 10 20 10 40 Shift Total 580 1095 1675 660 895 40 1595NET -120 613 493 160 180 320 660ASSESSMENT AND PLAN:36 year old male with right spontaneous pneumothorax underwent resectionof right upper lobe apical blebs on 05/24.Patient is tolerating regular diet. Vitals stable. Lungs clear toauscultation.-follow up CXR-pain control-incentive spirometry, out of bed as tolerated-transfer to floor when appropriateFoley: No Continued Need For Benson CatheterizationDVT Prophylaxis: With Lovenox and Intermittent pneumatic compressiondevice (IPCD)Reason for Continuing Antibiotics: There is no need to continueantibioticsSIGNATURE: Ap Spence Ms PATIENT NAME: Anamika JuarezDATE: May 26, 2017 : 6:27 AM PAGER/CONTACT #: [phone]. See also my /resid progress note. Normal [facility] Phosphorus Bloodon 8 Phosphate 3.0 mg/dL Normal 2.5-4.9 [facility] Comment on above: Performed By: #### G FR ####[facility] [place], [place] [address] Basic Panelon 05-25-2017 Creatinine 0.30 mg/dL Low 0.67-1.17 [facility] Comment on above: Performed By: #### G FR ####[facility] [place], [place] [address] Calcium 7.9 mg/dL Low 8.5-10.1 [facility] Comment on above: Performed By: #### G FR ####[facility] [place], [place] [address] Glucose mass conc 130 mg/dL High 70-99 [facility] Comment on above: Performed By: #### G FR ####[facility] [place], [place] [address] Urea nitrogen 7 mg/dL Normal 7-18 [facility] Comment on above: Performed By: #### G FR ####[facility] [place], [place] [address] Anion gap 8 mmol/L Normal 8-16 [facility] Comment on above: Performed By: #### G FR ####[facility] [place], [place] [address] CO2 26 mmol/L Normal 21-32 [facility] Comment on above: Performed By: #### G FR ####[facility] [place], [place] [address] Chloride 105 mmol/L Normal 98-107 [facility] Comment on above: Performed By: #### G FR ####[facility] [place], [place] [address] Potassium molar conc 3.7 mmol/L Normal 3.5-5.1 [facility] Comment on above: Performed By: #### G FR ####[facility] [place], [place] [address] Sodium 135 mmol/L Low 136-145 [facility] Comment on above: Performed By: #### G FR ####[facility] [place], [place] [address] CHEST SINGLE VIEWon 05-25-19 18 CHEST SINGLE VIEW Performed at [place] APPROVED BY: Medardo Cui MD EXAMINATION: CHEST RADIOGRAPH (SINGLE VIEW AP OR PA) Clinical History: Spontaneous pneumothorax.M: XC1_3Comparison: 05/24/2017 RESULT: Lines, tubes, and devices: Right apical chest tube is unchanged in position. Multiple leads and wires overlie the chest. Lungs and pleura: There is no confluent infiltrate, pneumothorax, or pleural effusion. Suture lines are present within the bilateral lung apical regions. Cardiomediastinal silhouette: Normal cardiomediastinal silhouette. Other: No acute bony abnormalities seen. IMPRESSION: Stable positioning right-sided chest tube without radiographic evidence of pneumothorax. Normal [facility] Hemogram/Diffon 05-25-2017 Abs Immature Grans 0.03 thou/cmm Normal 0.00-0.05 [facility] Comment on above: Performed By: #### P 8 ####[facility] [place] [address] Abs. Baso 0.01 thou/cmm Normal 0.01-0.08 [facility] Comment on above: Performed By: #### P 8 ####[facility] [place] [address] Abs. Mingo 0.68 thou/cmm Normal 0.30-0.82 [facility] Comment on above: Performed By: #### P 8 ####[place] [address] Abs. Neut 6.60 thou/cmm High 1.78-5.38 [facility] Comment on above: Performed By: #### P 8 ####[place] [address] Basophils/100 WBC Auto (Bld) 0.1 % Normal [facility] Comment on above: Performed By: #### P 8 ####[place] [address] Eosinophils 0.03 thou/cmm Low 0.04-0.54 [facility] Comment on above: Performed By: #### P 8 ####[place] [address] Eosinophils/100 leukocytes 0.3 % Normal [facility] Comment on above: Performed By: #### P 8 ####[place] [address] Erythrocyte distribution width Auto Ratio (RBC) 12.8 % Normal 11.6-14.4 [facility] [facility] Comment on above: Performed By: #### P 8 ####[place] [address] Erythrocytes (RBC) 3.70 mil/cmm Low 4.63-6.08 [facility] Comment on above: Performed By: #### P 8 ####[place] [address] Hematocrit (HCT) 33.5 % Low 40.1-51.0 [facility] Comment on above: Performed By: #### P 8 ####[facility] [place] [address] Hemoglobin mass conc (Bld) 11.4 g/dL Low 13.7-17.5 [facility] Comment on above: Performed By: #### P 8 ####[place] [address] Immature Grans 0.30 % Normal [facility] Comment on above: Performed By: #### P 8 ####[place] [address] Lymphocytes 1.56 thou/cmm Normal 0.84-2.85 [facility] Comment on above: Performed By: #### P 8 ####[place] [address] Lymphocytes/100 leukocytes 17.5 % Normal [facility] Comment on above: Performed By: #### P 8 ####[place] [address] MCH 30.8 pg Normal 25.7-32.2 [facility] Comment on above: Performed By: #### P 8 ####[place] [address] MCHC mass conc (RBC) 34.0 % Normal 32.3-36.5 [facility] Comment on above: Performed By: #### P 8 ####[place] [address] MCV 90.5 fL Normal 83.2-95.6 [facility] Comment on above: Performed By: #### P 8 ####[place] [address] Monocytes/100 leukocytes 7.6 % Normal [facility] Comment on above: Performed By: #### P 8 ####[place] [address] Platelet mean volume (PMV) 9.8 fL Normal 8.7-12.0 [facility] Comment on above: Performed By: #### P 8 ####[facility] [place], [place] [address] Platelets 291 thou/cmm Normal 141-365 [facility] Comment on above: Performed By: #### P 8 ####[facility] [place], [place] [address] RDW SD 42.2 fl Normal 36.1-45.8 [facility] Comment on above: Performed By: #### P 8 ####[address] [address] Seg Neutrophil 74.2 % Normal [facility] Comment on above: Performed By: #### P 8 ####[address] [address] WBC (Leukocytes) 8.89 thou/cmm Normal 4.23-9.07 [facility] Comment on above: Performed By: #### P 8 ####[address] [address] MDRD GFRon 05-25-2017 eGFR (non-black) mL/min/{1.73_m2} Normal >60mL/m in/1 .73m2 [facility] Comment on above: Result Comment: If t he patient is , multiply the result by 1.210. Performed By: #### G FR ####[address] [address] Magnesium Bloodon 05-25-2017 Magnesium 2.0 mg/dL Normal 1.6-2.6 [facility] Comment on above: Performed By: #### G FR ####[address] [address] PROGRESSon 05-25-2017 PROGRESS HNO ID: [id number] thor: Dianna Kunzervice: Vascular SurgeryAuthor Type: PhysicianType: Progress NotesFiled: 05/25/2017 9:45 AMNote Text:Thoracic Surgery Progress NoteSERVICE DATE: [id number]:Antonio martinez developed air leak from his right chest tube overnight withcrepitus per nursing notes. Air leak is present however crepitus seems tohave resolved. Patient tolerating clear liquids. Pain controlled.Denies N/V/CP/SOBDiet: DIET REGULAROBJECTIVEOBJECTIVE:Maria Elena ls:Temp (24hrs), Av.8 ?C (98.2 ?F), Min:36.5 ?C (97.7 ?F), Max:37 ?C(98.6 ?F)BP 131/79 Pulse (!) 49 Temp 36.5 ?C (97.7 ?F) Resp 12 Ht 177.8 cm(5' 10 ) Wt 68 kg (150 lb) SpO2 98% BMI 21.52 kg/m2O2 Therapy: Nasal CannulaIANDO:Date 05/24/17 07 - 05/25/17 0659 05/25/17 07 - 05/26/17 0659Shift 8989-5829 5627-2545 1277-9638 24 Hour Total 0017-0165 [id number] 24 Hour TotalINTAKE PO 617 299 0302 PO 443 958 8334 IV 908 908 D5 0.45%NS 908 908 Shift Total 460 1708 2168OUTPUT Urine 500 1050 1550 Void (ml) 500 1050 1550 Chest Tube 80 45 125 Chest Tube Output (Chest Tube 05/24/17 1410 Right Lateral Pleural 32 FrTube #1) 80 45 125 Shift Total 580 1095 1675Weight (kg) 68 68 68 68 68 68 68 68MEDICATIONSCurrent Facility-Administered Medications:senna-docusate 8.6-50 mg 1 tablet (SENNA-S) 1 tablet ORAL BIDpolyethylene glycol 3350 17 g packet (MIRALAX, GLYCOLAX) 17 g ORAL DAILYenoxaparin 40 mg injection (LOVENOX) 40 mg SUBCUTANEOUS q 24 HRdextrose 5% in NaCl 0.45% iv infusion 90 mL/hr INTRAVENOUS CONTINUOUSceFAZolin 2 g in dextrose (iso-osmotic) 100 mL (ANCEF, KEFZOL) 2 gINTRAVENOUS q 6 HRketorolac 15 mg injection (TORADOL) 15 mg INTRAVENOUS q 6 HHYDROmorphone 0.5-1 mg injection (DILAUDID) 0.5-1 mg INTRAVENOUS q 3 H PRNoxyCODONE IR 5-10 mg tab(s) (ROXICODONE) 5-10 mg ORAL q 6 H PRNacetaminophen 650 mg tab(s) (TYLENOL) 650 mg ORAL q 6 Hondansetron 4 mg tab(s) (ZOFRAN) 4 mg ORAL q 6 H PRNOrondansetron (PF) 4 mg injection (ZOFRAN) 4 mg INTRAVENOUS q 6 H PRNLabs:Recent Labs 9 05/24/1803NA 135* -- 137K 3.7 -- 3.8CHLOR 105 -- 107CO2 26 -- 27BUN 7 -- 12CREAT 0.30* -- 0.58*GLUC 130* -- 100*ANION 8 -- 7*CA 7.9* -- 8.1*MG 2.0 -- --P 3.3 -- --WBC 8.89 -- 5.36HB 11.4* -- 12.0*HCT 33.5* -- 35.9*PLT 291 -- 233INR -- 0.96 --Exam:GENERAL: No distress, AlertNEURO: AANDOx3, CN II-XII grossly intactHEENT: normocephalic, atraumaticLUNGS: Unlabored breathing O2 Therapy: Nasal Cannula, Right CT -20, +airleak. Output serosangCARDIAC: Regular rate and rhythm as aboveABDOMEN: Soft, non-tender, non-distendedEXTREMITIES: QUINTANILLA, No deformities, No edemaSKIN: Skin color, texture, turgor normal, No rashes or lesionsASSESSMENT AND PLAN:Active Hospital Problems Diagnosis Date Noted- Spontaneous pneumothorax 05/20/201736 year old male recurrent right spontaneous PTX- Advance to regular diet- discontinue arterial line- chest tube to -20 suction- follow up chest XR- Patient to remain in CVICU today for continued close monitoringAssessment and plan discussed with attending: Dr. Annia Dodge MDGeneral Surgery PGY-4January 2017 9:44 [facility] #: Pager: [phone] my note of today. Case and careplan reviewed w resident today. Normal [facility] PROGRESS HNO ID: [id number] thor: Dianna Kunzervice: Thoracic SurgeryAuthor Type: PhysicianType: Progress NotesFiled: 05/25/2017 8:11 AMNote Text:Patient seen, cxr and labs reviewed.Has large air leak not present at end of case or on arrival toCVICU. CXR shows lung up.A-stable w air leakP-keep in unit and on suction. Start diet and lovenox. Normal [facility] Phosphorus Bloodon 8 Phosphate 3.3 mg/dL Normal 2.5-4.9 [facility] Comment on above: Performed By: #### G FR ####[facility] [place] [address] SOCIAL WORKon 05-25-2017 SOCIAL WORK HNO ID: [id number] thor: Tana Suresh (Sw)ice: Social WorkAuthor Type: Social WorkerType: Social WorkFiled: 05/25/2017 4:37 PMNote Text:SOCIAL WORK CONSULT NOTESERVICE DATE: 05/25/2017SERVICE TIME: 4:32 PMReferred by: Care ManagerReason for visit:Medication IssuesLiving Arrangement: HomeLives With: SpouseFinancial Resources: Employed: Recently started a new jobPrimary Contact:Extended Emergency Contact InformationPrimary Emergency Contact: Ronn Juarez Zcgmmrjt: SpouseSupportive: Yes, Unable to assess at this timeOther Important Patient Contacts: NoneHealth Insurance: NoneMorris Larry is a 36 year old male who was referred re: self pay status.Met with pt. 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 Will approve 30 days of d/c meds at $4.00 charge per med thruoutpt. pharmacy.Outcome/Recommendatio ns:Indigent Medications AssistanceTime spent (minutes): 15SIGNATURE: JOSE Ware PATIENT NAME: Anamika JuarezDATE: May 25, 2017 : 4:32 PM PAGER/CONTACT#: [phone] Normal [facility] ANES Justyna 05-24-2017 ANES POST HNO ID: [id number] thor: Ab Caoervice: AnesthesiologyAuthor Type: PhysicianType: Anesthesia PostOpFiled: 05/25/2017 11:02 AMNote Text:POST ANESTHESIA EVALUATION NOTESERVICE DATE: 05/25/2017SERVICE TIME: 11:00 AMDOB: 1980Vitals: 511 017 300 [id number]: 37 ?C (98.6 ?F) 37 ?C (98.6 ?F) 36.6 ?C (97.9 ?F) 36.5 ?C (97.7 ?F) 090608 457088 191510 313274Fpgkrzcc BP 1: 122/70 130/75 121/70 142/85BP: 723975 681788 863750 182390Cnqex: (!) 48 (!) 59 (!) 49 61 982751 027633 760486 761744Rxdh: 15 19 12 24 717607 498335 468152 180541DxK3: 100% 100% 98% 97%Validated Vital Signs: YesPOST ANES STATUS: PACU/ICU Patient Condition: StableNeurological Status: Awake AND alert.Pulmonary Status: Breathing comfortably on supplemental oxygen.Airway Control: Returned to baseline unsupported.Cardiovascular Status: StablePain: Adequately controlledPostoperative Nausea/Vomiting: No significant post operative nausea orvomitingPostoperative Hydration Status: Adequate.Anesthetic Complications: NoneRecommendation: Continue current plan of careOther Remarks:SIGNATURE: Ab Valencia MD PATIENT NAME: Anamika AtwoodDATE: May 25, 2017 : 11:00 AM PAGER/CONTACT #: [facility] ANES PREOPon 05-24-2017 ANES PREOP HNO ID: [id number] thor: Ab Caoervice: AnesthesiologyAuthor Type: PhysicianType: Anesthesia PreOpFiled: 05/24/2017 11:48 AMNote Text: ANESTHESIOLOGY DAY OF SURGERY NOTESERVICE DATE: 05/24/2017SERVICE TIME: 11:47 AMDOB: 1980Procedure(s) (LRB):VIDEO ASSISTED THORASCOPIC PLICATION OF DIAPHRAGM (N/A)THORACOTOMY RESECTION BLEBS (N/A)Surgeon(s):Dianna Morsetimdidier body mass index is 21.52 kg/(m2) as calculated from thefollowing: Height as of this encounter: 177.8 cm (5' 10 ). Weight as of this encounter: 68 kg (150 lb).Most recent hematocrit and potassium results:Hematocrit 35.9 05/24/2017Potassium 3.8 05/24/2017ANES DOS/PREOP NOTE:Vitals: [id number]: 119/77 124/80 125/81 131/79Pulse: 73 60 (!) 55 66Resp: 18 18 18 16Temp: 36.4 ?C (97.5 ?F) 36.6 ?C (97.9 ?F) 36.7 ?C (98.1 ?F) 36.9 ?C (98.4?F)TempSrc: Oral Oral Oral Temporal ArterySpO2: 96% 99% 99% 98%Weight:Height:ACTIVE PROBLEM LISTPneumothoraxSpontaneous PneumothoraxPAST MEDICAL HISTORYDiagnosis Date- PneumothoraxPAST SURGICAL HISTORYProcedure Laterality Date- INGUINAL HERNIA REPAIR HX- THORACOSCOPY SURG W PLEURODESIS Left 10/29/2015 L VATS with bleb resection, AND mechanical [facility] at [facility] by HISTORYProblem Relation Age of Onset- DiabetesSocial History:Social HistorySubstance Use Topics- Smoking status: Former Smoker Packs/day: 0.50 Types: Cigarettes- Smokeless tobacco: Former User Quit date: 08/22/2015- Alcohol use Yes Comment: occassionalNo current facility-administered medications on file prior to encounter.No current outpatient prescriptions on file prior to encounter.Current Facility-Administered Medications:[MAR Hold due to Transfer] dextrose 5% in NaCl 0.45% iv infusion 75 mL/hrINTRAVENOUS CONTINUOUS Thad Garcia Last Rate: 75 mL/hr at 05/24/179901 75 mL/hr at 05/24/17 0001[MAR Hold due to Transfer] oxyCODONE IR 5-10 mg tab(s) (ROXICODONE) 5-10mg ORAL q 6 H PRN Sweta (Res) Shi 10 mg at 05/24/17 0639[MAR Hold due to Transfer] acetaminophen 650 mg tab(s) (TYLENOL) 650 mgORAL q 6 H Swtea (Res) Shi 650 mg at 05/24/17 0638[MAR Hold due to Transfer] HYDROmorphone 0.2-0.5 mg injection (DILAUDID)0.2-0.5 mg INTRAVENOUS q 3 H PRN Sweta (Res) Shi 0.5 mg at05/24/17 1042[MAR Hold due to Transfer] ondansetron 4 mg tab(s) (ZOFRAN) 4 mg ORAL q 6H PRN Kiel (Res) IbrahimOr[MAR Hold due to Transfer] ondansetron (PF) 4 mg injection (ZOFRAN) 4 mgINTRAVENOUS q 6 H PRN Kiel (Res) Bell[MAR Hold due to Transfer] docusate sodium 100 mg cap(s) (COLACE) 100 mgORAL BID Kiel (Res) Bell 100 mg at 05/24/17 1043Allergies: ALLERGIESNo Known AllergiesDOS EXAM: Adequate NPO Status: YesAnesthetic Risks, Benefits, Alternatives, Personnel and Consent Discussed:YesPatient agrees to proceed: YesPrevious Anesthesia: No history of adverse eventAirway Assessment: MP 1; Neck ROM: Full ROM without neurologic symptoms;Airway Evaluation: No significant abnormalitiesSymptoms of Sleep Apnea: Male genderDentition: EdentulousAdditional Physical Exam:Lungs: Patient health status unchanged since recent history and physical.See history and physical for exam findings.Cardiac: Patient health status unchanged since recent history andphysical. See history and physical for exam findings.Additional Pertinent Findings: N/ABlood Products: Will accept Blood/Blood ProductsAnesthetic Plan: GeneralAnesthetic Monitoring: Standard ASA Monitors and Invasive HemodynamicMonitoring Arterial linePain Management Plan: Parenteral or OralASA Class: 3Other Medical Problems: Type and screen with negative antibodiesChronic Beta Eyal medication administered within 24 hours: N/AI have interviewed and examined the patient. I have reviewed the medicalrecord and/or the pre-anesthesia evaluation, pertinent labs, and testresults.Significant changes in the patient's condition since the History andPhysical, not otherwise documented in primary service progress notes: NoThis contains updated information obtained within 48 hours ofSurgery/Procedure.SIGNATURE: Ab Valencia MD PATIENT NAME: Anamika JuarezDATE: May 24, 2017 : 11:47 AM CSN: [id number] [facility] BRIEF OP NOTon 05-24-2017 BRIEF OP NOT HNO ID: [id number] thor: Dianna Kunzervice: Vascular SurgeryAuthor Type: PhysicianType: Brief Op NoteFiled: 05/24/2017 4:36 PMNote Text:BRIEF OPERATIVE / PROCEDURE NOTELOG ID: [id number]/Procedure Date: 05/24/2017Incision/Procedure Start Time: 1:33 PMIncision Close/Procedure End Time:Surgeon(s)/Proceduralist( s) and Mica Plate Layer Hand(s):Surgeon(s) and Role: * Dianna Hwang - Primary * Niharika (Jerrell Dodge - Resident - AssistingSurgical Mica Plate Layer Hand: ROEL Ramachandran Sarocedure(s): Right VATS with bleb resection RULobe and mechanicalpleurodesis;Insertio n pain-ballAnesthesia: GeneralFindings: Small area of concentrated blebs at right upper lobe apexEstimated Blood Loss: <50 mlsSpecimens: Apical bleb right upper lobeComplications: NonePre-Op/Pre-Procedure Diagnosis: Recurrent spontaneous pneumothoraxPost-Op/Post-Proce dure Diagnosis: Recurrent spontaneous pneumothorax[J93.83]SIGNATURE: Niharika Dodge MD PATIENT NAME: Anamika JuarezDATE: May 24, 2017 : 2:42 PM PAGER/CONTACT #: [phone] [facility] Basic Panelon 05-24-2017 Creatinine 0.58 mg/dL Low 0.67-1.17 [facility] Comment on above: Performed By: #### P 8 ####[place] [address] Anion gap 7 mmol/L Low 8-16 [facility] Comment on above: Performed By: #### P 8 ####[facility] [place] [address] CO2 27 mmol/L Normal 21-32 [facility] Comment on above: Performed By: #### P 8 ####[place] [address] Glucose mass conc 100 mg/dL High 70-99 [facility] Comment on above: Performed By: #### P 8 ####[place] [address] Urea nitrogen 12 mg/dL Normal 7-18 [facility] Comment on above: Performed By: #### P 8 ####[place] [address] Calcium 8.1 mg/dL Low 8.5-10.1 [facility] Comment on above: Performed By: #### P 8 ####[place] [address] Chloride 107 mmol/L Normal 98-107 [facility] Comment on above: Performed By: #### P 8 ####[place] [address] Potassium molar conc 3.8 mmol/L Normal 3.5-5.1 [facility] Comment on above: Performed By: #### P 8 ####[place] [address] Sodium 137 mmol/L Normal 136-145 [facility] Comment on above: Performed By: #### P 8 ####[place] [address] CASE MGT INIT VIRIDIANAon 2017 CASE MGT INIT VIRIDIANA HNO ID: [id number]: Sandra (Rn) IRIS Torreservice: Care ManagementAuthor Type: Registered NurseType: Pati Mgt Initial AssessmentFiled: 05/24/2017 10:54 AMNote Text:CARE MANAGEMENT: ASSESSMENT AND DISCHARGE PLANSERVICE DATE: 05/24/2017SERVICE TIME: 10:43 [facility]PR[facility]GR[facility] CARE PHYSICIAN:Annemarei River, ODPhone: FLCHPADES STATUS: InpatientPOTENTIAL DISCHARGE PLANSHomeTo Be DeterminedPatient/Representati ve Stated Goals: homeHealth Insurance: NoneLiving Arrangement: HomeLives With: SpouseFinancial Resources: UnemployedPrimary Contact:Extended Emergency Contact InformationPrimary Emergency Contact: Ronn Juarez Ypjjuwzy: SpouseSupportive: YesOther Important Patient Contacts: NoneCAREGIVER ASSESSMENT:Caregiver is ready, willing and able to meet the patient's needs asrecommended by the inter-professional team? No Caregiver NeededPatient's transition needs and plan for meeting these needs: tbdDoes the patient have an acute stroke diagnosis, or has the patient had astroke during this admission? NoADVANCE DIRECTIVES:Does Patient Have Advance Directives? N/ADoes Patient Have Concerns About Advance Directives? NoPRIOR TO ADMISSION:Baseline Mental Status: Alert AND Oriented, Person, Place , Time andSituationFunctional Status: IndependentDoes Patient Currently Receive Any Community Services or Home Care? NoneEquipment Prior to Admission: NoneHEALTH:Health Issues Impacting Discharge Plan: NoneHealth Literacy Issues: NoPSYCHOSOCIAL:Is the Patient Psychosocially Complex? NoFamily/Patient Understanding of Illness/Diagnosis: yesMedication Adherence:Do you forget to take your medications? I do not forget to take mymedicationHave you ever stopped taking medications because you felt worse? None ofthe timeHave you ever taken less of your medication than what was prescribed byyour doctor? None of the timeIn the past 3 months, have you had issues obtaining one or more of yourmedications? None of the timeAre you interested in bedside delivery of your medications? NoFood Concerns:In the Last Month, Have You had Trouble Getting Food? No trouble gettingfoodDuring the Last Month, Have You Worried Whether Your Food Would Run OutBefore You Had Enough Money to Buy More? NoPsychosocial Needs: NoneUTILIZATION:Last Admission Date: noneIs this Within the Past 30 days? NoHas the Patient Been in a Senior Living Facility in the Past 30 days? NoFREEDOM OF CHOICE EXPLAINED:N/ANASTACIO COMMUNICATION:Dr. 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 Probable VATS this week. Noinsurance coverage. I spoke with Lisa from [employer]. She states pt willbe ineligible for Medicaid. SW consulted for indigent medsSIGNATURE: Sandra Torres RN PATIENT NAME: Anamika JuarezDATE: May 24, 2017 : 10:43 AM PAGER/CONTACT #: [phone] Normal [facility] CHEST SINGLE VIEWon 05-24-19 CHEST SINGLE VIEW Performed at [place] APPROVED BY: Valeriano Mata MD EXAMINATION: CHEST RADIOGRAPH (SINGLE VIEW AP OR PA) Clinical History: Follow-up spontaneous pneumothorax.M: XC1_3Comparison: Daily prior chest radiographs. RESULT: Lines, tubes, and devices: Multiple EKG leads overlie the chest. A right-sided pleural drain has been replaced by a thoracostomy tube. The thoracostomy tube extends along the lateral right upper lung terminating at the medial lung apex. Lungs and pleura: There is a suture line at the medial right lung apex. This appears new. There is a suture line redemonstrated at the medial left lung apex. There is no definitive pneumothorax. There is cephalization of pulmonary blood flow. There is no parenchymal consolidation. There is no sizable pleural effusion. Cardiomediastinal silhouette: Stable midline cardiac and mediastinal silhouette. Other: None. IMPRESSION: New right-sided thoracostomy tube without evidence of pneumothorax. A wet reading is made available at time of dictation as requested. Normal [facility] CHEST SINGLE VIEW Performed at [place] APPROVED BY: Medardo Cui MD EXAMINATION: CHEST RADIOGRAPH (SINGLE VIEW AP OR PA) Clinical History: Spontaneous pneumothorax.M: XC1_3Comparison: 05/23/2017 RESULT: Lines, tubes, and devices: Small-caliber bore right-sided chest tube unchanged. Lungs and pleura: No consolidation. No lung mass. No sizable pleural effusion. No current pneumothorax identified radiographically. Surgical staple line left lung apex. Cardiomediastinal silhouette: Normal cardiomediastinal silhouette. Other: No acute bony abnormality is seen. IMPRESSION: Stable positioning right-sided chest tube. No radiographic evidence of pneumothorax currently. Normal [facility] Hemogram/Diffon 05-24-2017 Abs Immature Grans 0.01 thou/cmm Normal 0.00-0.05 [facility] Comment on above: Performed By: #### P 8 ####[place] [address] Abs. Baso 0.01 thou/cmm Normal 0.01-0.08 [facility] Comment on above: Result Comment: Smea r scanned; tech agrees with automated differential Performed By: #### P 8 ####[place] [address] Abs. Mingo 0.38 thou/cmm Normal 0.30-0.82 [facility] Comment on above: Performed By: #### P 8 ####[place] [address] Abs. Neut 3.11 thou/cmm Normal 1.78-5.38 [facility] Comment on above: Performed By: #### P 8 ####[place] [address] Basophils/100 WBC Auto (Bld) 0.2 % Normal [facility] Comment on above: Performed By: #### P 8 ####[place] [address] Eosinophils 0.27 thou/cmm Normal 0.04-0.54 [facility] Comment on above: Performed By: #### P 8 ####[place] [address] Eosinophils/100 leukocytes 5.0 % Normal [facility] Comment on above: Performed By: #### P 8 ####[place] [address] Immature Grans 0.20 % Normal [facility] Comment on above: Performed By: #### P 8 ####[place] [address] Lymphocytes 1.58 thou/cmm Normal 0.84-2.85 [facility] Comment on above: Performed By: #### P 8 ####[address] [place] [address] Lymphocytes/100 leukocytes 29.5 % Normal [facility] Comment on above: Performed By: #### P 8 ####[facility] [place] [address] Monocytes/100 leukocytes 7.1 % Normal [facility] Comment on above: Performed By: #### P 8 ####[facility] [place] [address] Seg Neutrophil 58.0 % Normal [facility] Comment on above: Performed By: #### P 8 ####[place] [address] Erythrocyte distribution width Auto Ratio (RBC) 12.8 % Normal 11.6-14.4 [facility] Comment on above: Performed By: #### P 8 ####[place] [address] Erythrocytes (RBC) 3.97 mil/cmm Low 4.63-6.08 [facility] Comment on above: Performed By: #### P 8 ####[place] [address] Hematocrit (HCT) 35.9 % Low 40.1-51.0 [facility] Comment on above: Performed By: #### P 8 ####[place] [address] Hemoglobin mass conc (Bld) 12.0 g/dL Low 13.7-17.5 [facility] Comment on above: Performed By: #### P 8 ####[place] [address] MCH 30.2 pg Normal 25.7-32.2 [facility] Comment on above: Performed By: #### P 8 ####[place] [address] MCHC mass conc (RBC) 33.4 % Normal 32.3-36.5 [facility] Comment on above: Performed By: #### P 8 ####[place] [address] MCV 90.4 fL Normal 83.2-95.6 [facility] Comment on above: Performed By: #### P 8 ####[facility] [place], [place] [address] Platelet mean volume (PMV) 9.9 fL Normal 8.7-12.0 [facility] Comment on above: Performed By: #### P 8 ####[facility] [place], [place] [address] Platelets 233 thou/cmm Normal 141-365 [facility] Comment on above: Performed By: #### P 8 ####[facility] [place], [place] [address] RDW SD 42.8 fl Normal 36.1-45.8 [facility] Comment on above: Performed By: #### P 8 ####[facility] [place], [place] [address] WBC (Leukocytes) 5.36 thou/cmm Normal 4.23-9.07 [facility] Comment on above: Performed By: #### P 8 ####[address] [address] MDRD GFRon 05-24-2017 eGFR (non-black) mL/min/{1.73_m2} Normal >60mL/m in/1 .73m2 [facility] Comment on above: Result Comment: If t he patient is , multiply the result by 1.210. Performed By: #### P 8 ####[address] [address] NURSING PROGon 05-24-2017 NURSING PROG HNO ID: [id number] thor: Matilda (Rn) IRIS Oliveiraervice: NursingAuthor Type: Registered NurseType: Nursing Progress NoteFiled: 05/24/2017 8:20 PMNote Text:On doing rounds with shift boss nurse on checking chest tube noted airleak louder and more pronounced. Patient had just sat on dise of bed withassistance of assistant manager to void 500 cc. And the went back to bed.Checked site. Positive crepititous which wasnot present earlier. Residentpaged and notified Normal [facility] OPERATIVE NOon 05-24-2017 OPERATIVE NO HNO ID: [id number] thor: Dianna Oneil Joaquinaervice: Thoracic SurgeryAuthor Type: PhysicianType: Operative ReportFiled: 05/25/2017 5:35 PMNote Text:[facility] - Operative ReportSURGEON: Dianna CHEKO HwangATIENT NAME: ANAMIKA JUAREZMRN: [id number] CSN: [id number] OF SURGERY: 05/24/2017DATE OF : 1980 SEX/AGE: M/36PATIENT TYPE: I HOSP SVC: ORCA LOCATION: [id number] signed by accident.DATE OF SURGERY: 05/24/2017SURGEON: CHEKO MatiasREOPERATIVE DIAGNOSIS: Recurrent pneumothorax on the right.POSTOPERATIVE DIAGNOSIS: Recurrent pneumothorax on the right with somescarred apical blebs noted.OPERATION PERFORMED: Right video-assisted thoracoscopic surgery withresection of apical blebs, right upper lobe, mechanical pleurodesis, andinsertion pain ball.CO-SURGEON: Heather Dodge, General Surgery resident.CORPORATE COUNSELOR: Salas Duffy SA.ANESTHESIA: General endotracheal with a dual-lumen endotracheal tube.INDICATIONS AND FINDINGS: This patient is a 36-year-old male whoapparently presented down in the [place] area with recurrent shortness ofbreath and right shoulder pain. He had a small drainage catheter placedin [place] apparently and was transferred here for further management.Ultimately, the patient's right lung did re-expand, air leak hadgradually sealed. This was the patient's, at least, second occurrenceon the right side and he wished to pursue surgical treatment at thistime. He underwent preoperative evaluation and preparation while in thehospital and was taken to Surgery today for this.Findings at the time of surgery showed the patient to have some apicalblebs noted with some scarring. The fissures were incomplete. He didhave significant pigment in the surface of the lungs consistent with hislongstanding history of cigarette smoking. At the conclusion of theprocedure, the staple lines were intact, and good mechanical pleurodesishad been achieved on the parietal pleura and the visceral pleura,concentrating on the upper 2/3rd of the chest and lung.DETAILS OF PROCEDURE: The patient was brought to the operating room andplaced on the operative table in supine position. Intravenous access wasobtained. Intra-arterial access was obtained. General endotrachealanesthesia was induced with double-lumen endotracheal tube. OnceAnesthesia was satisfied with their lines, tubes, and monitors, thepatient was placed in left lateral decubitus position with the right sideup. All the usual positioning and padding precautions were taken. Thesmall drainage catheter from [place] was removed by cutting the suturesand removing it intact. The right chest was prepped and draped insurgical fashion. After the surgical time-out, a camera port was placedin the usual fashion in the usual location for my VATS case. It wascarried out with a 10-blade knife and a Bovie unit. The parietal pleurawas entered. The lung became atelectatic, though not completely. Theanterior and posterior working incisions were then placed under directvisual control from within based on the internal anatomy and the plannedsurgery. After placing the anterior and posterior working incisions, saji grasped the upper lobe, explored, and were able to identify blebs.A couple of firings of a 45-purple loaded covBoyibangen stapler was used toexcisethe apex of RUL. The final remnant was taken with a 30 vascular.It was submitted for permanent section. We explored the superior segmentof the lower lobe as well. No other blebs or notable bullae were found.We then used 2 Bovie pads; 1 thru the anterior and 1 thru the posterior,to carry out an aggressive mechanical pleurodesis over the upper 1/2 to2/3rd of the parietal pleura and the upper lobe, and limited portions ofthe superior segment lower lobe and middle lobe. After completing themechanical pleurodesis, both on the visceral pleura and parietalpleura--the Bovie pads were removed. Again, checked our staple lines andeverything was intact with no bleeding. There was no significantbleeding from our anterior and posterior working incisions. The soakercatheters for the pain ball were then positioned in the usual manner inthe usual fashion through the posterior working incision. The cameraport was moved to the anterior working incision. The camera port wasconverted to a chest tube site. A single 32-Persian chest tube was thenplaced apically posteriorly under direct visual control from within. Theright lung was re-expanded. The camera was removed. The manager technical sales cathetersfor the pain ball were secured to the skin with facing Steri-Strips and2-0 silk. These were later primed and connected to the pain ball. Chesttube was secured to the skin with heavy Tevdek suture and connected towater-seal suction drainage device. The anterior and posterior workingincisions were irrigated and closed in layers with absorbable suture.Dermabond was placed. The patient was returned to the supine position.The patient was then awakened, extubated at Anesthesia's discretion, andtransferred to the CVICU after correct sponge, needle, and instrumentcount. Little to no air leak at conclusion of procedure.Dianna Hwang, [facility] ENIDardiothoracic SurgeryPS:modlD: 05/24/2017 15:44:30T: 05/25/2017 00:03:06Job #: [id number] [facility] PROGRESSon 05-24-2017 PROGRESS HNO ID: [id number] thor: Dianna Kunzervice: Thoracic SurgeryAuthor Type: PhysicianType: Progress NotesFiled: 05/24/2017 10:47 AMNote Text:Thoracic Surgery Progress NoteSERVICE DATE: 05/24/2017SUBJECTIVESUBJECTIVE:N AEON, pain control improving, no SOBDenies N/V/CP/SOBDiet: DIET NPOOBJECTIVEOBJECTIVE:Vitals:T emp (24hrs), Av.6 ?C (97.8 ?F), Min:36.4 ?C (97.5 ?F), Max:36.8 ?C(98.2 ?F)BP 124/80 Pulse 60 Temp 36.6 ?C (97.9 ?F) (Oral) Resp 18 Ht 177.8cm (5' 10 ) Wt 68 kg (150 lb) SpO2 99% BMI 21.52 kg/m2O2 Therapy: Room AirIANDO:Date 05/23/17699 - 05/24/1765805/24/17699 - 05/25/17 0659Shift 8003-0700 0155-7323 4006-5201 24 Hour Total 5077-5893 [id number] 24 Hour TotalINTAKE Shift TotalOUTPUT # of BMs Number of BMs 1 x 1 x Shift TotalWeight (kg) 68 68 68 68 68 68 68 68MEDICATIONSCurrent Facility-Administered Medications:dextrose 5% in NaCl 0.45% iv infusion 75 mL/hr INTRAVENOUS CONTINUOUSoxyCODONE IR 5-10 mg tab(s) (ROXICODONE) 5-10 mg ORAL q 6 H PRNacetaminophen 650 mg tab(s) (TYLENOL) 650 mg ORAL q 6 HHYDROmorphone 0.2-0.5 mg injection (DILAUDID) 0.2-0.5 mg INTRAVENOUS q 3 HPRNondansetron 4 mg tab(s) (ZOFRAN) 4 mg ORAL q 6 H PRNOrondansetron (PF) 4 mg injection (ZOFRAN) 4 mg INTRAVENOUS q 6 H PRNdocusate sodium 100 mg cap(s) (COLACE) 100 mg ORAL BIDenoxaparin 40 mg injection (LOVENOX) 40 mg SUBCUTANEOUS DAILYLabs:Recent Labs 0 300NA 137 136K 3.8 3.9CHLOR 107 103CO2 27 25BUN 12 15CREAT 0.58* 0.61*GLUC 100* 89ANION 7* 12CA 8.1* 8.1*WBC 5.36 5.22HB 12.0* 11.8*HCT 35.9* 34.7*PLT 233 229Exam:GENERAL: No distress, AlertNEURO: AANDOx3, CN II-XII grossly intactHEENT: normocephalic, atraumaticLUNGS: Unlabored breathing O2 Therapy: Room Air, Right CT -20, no leakCARDIAC: Regular rate and rhythm as aboveABDOMEN: Soft, non-tender, non-distendedEXTREMITIES: QUINTANILLA, No deformities, No edemaSKIN: Skin color, texture, turgor normal, No rashes or lesionsASSESSMENT AND PLAN:Active Hospital Problems Diagnosis Date Noted- Spontaneous pneumothorax 05/20/201736 year old male recurrent right spontaneous PTX- NPO/IVF pending discussion with Dr Hwang regarding Surgery- CXR stable yesterday, pending this morningAssessment and plan discussed with attending: Dr. KunzIGNATURE: Kiel Bell MD PATIENT NAME: Anamika JuarezDATE: May 24, 2017 : 6:26 AM Pager: [phone] seen, cxr reviewed, and situation d/w patient andFamily. Patient wishes to proceed with surgical treatment at this timeas this is 2nd occurrence on R.I have discussed the benefits, risks, indications and alternatives to R VATS, blebresection, and mechanical pleurodesis withPatient and family. He had the same on left October 2015 and isFamiliar with it. Again advised to quit smoking permanently.Surgical Discussion: I have discussed the benefits, risks, indications,and alternatives to surgery with the patient. Risks discussed include butare not limited to infection, bleeding, cardiac dysrhythmias, myocardialinfarction, blood clots, pulmonary emboli, prolonged air, blood or fluidrequiring reoperation, pneumonia, wound complications, wound infection,rarely , and uncommonly blood transfusion with associated risks ofAIDS or Hepatitis. Expected OR, ICU, hospitalization, and home recoverytimes were discussed. Normal [facility] Protimeon 05-24-2017 INR Coag RelTime (PPP) 0.96 {INR} Normal [facility] Comment on above: Result Comment: Roberto dard Therapy 2.0-3.0High Dose 2.5-3.5 Performed By: #### P 8 ####[place] [address] Prothrombin time (PT) Coag time (PPP) 10.5 s Normal 9.3-11.9 [facility] Comment on above: Performed By: #### P 8 ####[place] [address] Surgical Tissue Examon 05-24 Surgical Tissue Exam Test performed at [place] [address]NAME: ANAMIKA JUAREZ [id number] REQUESTING: DIANNA HWANG M.D.FINAL DIAGNOSIS:WEDGE BIOPSY OF RIGHT UPPER LOBE OF LUNG - BENIGN LUNG PARENCHYMA WITHSUBPLEURAL EMPHYSEMATOUS BLEBS. ASSOCIATED CHRONIC PLEURITIS WITHSUBPLEURAL FIBROSIS. FOREIGN BODY GIANT CELL GRANULOMAS.OPERATIVE PROCEDURE: Video assisted thorascopic plication of diaphragm, Thoracotomyresection blebsCLINICAL INFORMATION: Recurrent spontaneous pneumothoraxGROSS DESCRIPTION:Apical bleb right upper lobeReceived in formalin labeled apical bleb, right upper lobe, is a wedgeof lung parenchyma with one stapled margin measuring 8.0 x 3.0 x 2.0cm. The specimen weighs 6 gm. The pleural surface shows slightadhesion and a valenzuela to pink pigmentation. The beckie are removed andthe specimen is serially sectioned to reveal several smooth-wallparenchymal cysts ranging in size from 0.5 to 1.0 cm in greatestdimension. The parenchyma surrounding the cyst appears slightlyconsolidated. No other gross abnormalities are seen. No involvementby neoplasm is present. Legal Recruiter sections are submitted asfollows: 1-5 - sections of parenchyma with cysts; 6 - random crosssection. ARH:brian LAFLEUR M.D.(Electronic signature on file)Signed out: 05/30/2017 14:03PRINTED: 05/30/2017 Page 1 of 1 Normal [facility] Comment on above: Performed By: #### S URG ####[place] [address] Type and Screenon 05-24-2017 ABO group A Normal [facility] Comment on above: Performed By: #### P 8 ####[place] [address] Antibody Screen Negative Normal [facility] Comment on above: Performed By: #### P 8 ####[place] [address] Comment See Below [facility] Comment on above: Result Comment: Scre en &/or Xmatch expires in 3 days at 12 midnight. Redrawpatient at that time. Performed By: #### P 8 ####[place] [address] RH Type Positive Normal [facility] Comment on above: Performed By: #### P 8 ####[place] [address] Basic Panelon 05-23-2017 Creatinine 0.61 mg/dL Low 0.67-1.17 [facility] Comment on above: Performed By: #### P 8 ####[place] [address] Anion gap 12 mmol/L Normal 8-16 [facility] Comment on above: Performed By: #### P 8 ####[facility] [place] [address] CO2 25 mmol/L Normal 21-32 [facility] Comment on above: Performed By: #### P 8 ####[facility] [place], [place] [address] Glucose mass conc 89 mg/dL Normal 70-99 [facility] Comment on above: Performed By: #### P 8 ####[facility] [place] [address] Urea nitrogen 15 mg/dL Normal 7-18 [facility] Comment on above: Performed By: #### P 8 ####[facility] [place] [address] Calcium 8.1 mg/dL Low 8.5-10.1 [facility] Comment on above: Performed By: #### P 8 ####[facility] [place] [address] Chloride 103 mmol/L Normal 98-107 [facility] Comment on above: Performed By: #### P 8 ####[facility] [place] [address] Potassium molar conc 3.9 mmol/L Normal 3.5-5.1 [facility] Comment on above: Performed By: #### P 8 ####[place] [address] Sodium 136 mmol/L Normal 136-145 [facility] Comment on above: Performed By: #### P 8 ####[address] [address] CHEST SINGLE VIEWon 05-23-19 CHEST SINGLE VIEW Performed at [place] APPROVED BY: JUSTIN MOREJON MD EXAMINATION: CHEST RADIOGRAPH (SINGLE VIEW AP OR PA) Clinical History: Spontaneous pneumothorax.M: XC1_3Comparison: 05/22/2017 RESULT: Lines, tubes, and devices: Again demonstrated is small caliber right-sided chest tube, tip overlying the lateral aspect of right upper lung zone, essentially unchanged in orientation and position. Lungs and pleura: Interval decrease in size of right-sided pneumothorax, currently no discrete pneumothorax is noted. No discrete effusion or new focal airspace consolidation. Surgical anastomotic material at the medial aspect of left upper lung zone, likely related to previous lung resection, unchanged. Cardiomediastinal silhouette: Normal cardiomediastinal silhouette. Other: Osseous structures and soft tissues grossly intact. IMPRESSION: Interval decrease in size of right-sided pneumothorax, currently no discrete pneumothorax is present. No discrete effusion or new focal airspace consolidation. Normal [facility] Hemogram/Diffon 05-23-2017 Abs Immature Grans 0.01 thou/cmm Normal 0.00-0.05 [facility] Comment on above: Performed By: #### C BCD1 ####[place] [address] Abs. Baso 0.01 thou/cmm Normal 0.01-0.08 [facility] Comment on above: Result Comment: Smea r scanned; tech agrees with automated differential Performed By: #### C BCD1 ####[place] [address] Abs. Mingo 0.41 thou/cmm Normal 0.30-0.82 [facility] Comment on above: Performed By: #### C BCD1 ####[place] [address] Abs. Neut 2.64 thou/cmm Normal 1.78-5.38 [facility] Comment on above: Performed By: #### C BCD1 ####[place] [address] Basophils/100 WBC Auto (Bld) 0.2 % Normal [facility] Comment on above: Performed By: #### C BCD1 ####[place] [address] Eosinophils 0.30 thou/cmm Normal 0.04-0.54 [facility] Comment on above: Performed By: #### C BCD1 ####[place] [address] Eosinophils/100 leukocytes 5.7 % Normal [facility] Comment on above: Performed By: #### C BCD1 ####[address] [address] Immature Grans 0.20 % Normal [facility] Comment on above: Performed By: #### C BCD1 ####[address] [address] Lymphocytes 1.85 thou/cmm Normal 0.84-2.85 [facility] Comment on above: Performed By: #### C BCD1 ####[address] [address] Lymphocytes/100 leukocytes 35.4 % Normal [facility] Comment on above: Performed By: #### C BCD1 ####[address] [address] Monocytes/100 leukocytes 7.9 % Normal [facility] Comment on above: Performed By: #### C BCD1 ####[place] [address] Seg Neutrophil 50.6 % Normal [facility] Comment on above: Performed By: #### C BCD1 ####[place] [address] Erythrocyte distribution width Auto Ratio (RBC) 13.2 % Normal 11.6-14.4 [facility] Comment on above: Performed By: #### C BCD1 ####[address] [address] Erythrocytes (RBC) 3.92 mil/cmm Low 4.63-6.08 [facility] Comment on above: Performed By: #### C BCD1 ####[place] [address] Hematocrit (HCT) 34.7 % Low 40.1-51.0 [facility] Comment on above: Performed By: #### C BCD1 ####[place] [address] Hemoglobin mass conc (Bld) 11.8 g/dL Low 13.7-17.5 [facility] Comment on above: Performed By: #### C BCD1 ####[place] [address] MCH 30.1 pg Normal 25.7-32.2 [facility] Comment on above: Performed By: #### C BCD1 ####[place] [address] MCHC mass conc (RBC) 34.0 % Normal 32.3-36.5 [facility] Comment on above: Performed By: #### C BCD1 ####[place] [address] MCV 88.5 fL Normal 83.2-95.6 [facility] Comment on above: Performed By: #### C BCD1 ####[place] [address] Platelet mean volume (PMV) 9.8 fL Normal 8.7-12.0 [facility] Comment on above: Performed By: #### C BCD1 ####[place] [address] Platelets 229 thou/cmm Normal 141-365 [facility] Comment on above: Performed By: #### C BCD1 ####[place] [address] RDW SD 42.5 fl Normal 36.1-45.8 [facility] Comment on above: Performed By: #### C BCD1 ####[place] [address] WBC (Leukocytes) 5.22 thou/cmm Normal 4.23-9.07 [facility] Comment on above: Performed By: #### C BCD1 ####[place] [address] MDRD GFRon 05-23-2017 eGFR (non-black) mL/min/{1.73_m2} Normal >60mL/m in/1 .73m2 [facility] Comment on above: Result Comment: If t he patient is , multiply the result by 1.210. Performed By: #### P 8 ####[place] [address] PROGRESSon 05-23-2017 PROGRESS HNO ID: [id number] thor: Sweta (Res) Chesterrvice: Thoracic SurgeryAuthor Type: ResidentType: Progress NotesFiled: 05/23/2017 9:31 AMNote Text: Attes xi signed by Thad Garcia at 05/25/2017 10:12 AMAttending NoteI evaluated the patient and personally participated in the cabezas components. Iagree with the resident's findings and plan as documented and have discussedthe case and management of the patient's care with the resident.Signature: Thad Garcia, MDDate: 05/25/2017Time: 10:12 AM Thoracic Surgery Progress NoteSERVICE DATE: 05/23/2017SUBJECTIVENAEON. Pt reports he's doing well. Hopes to know if he'll need surgery.Denies N/V/CP/SOBDiet: DIET REGULAROBJECTIVEVitals:Temp (24hrs), Av.7 ?C (98.1 ?F), Min:36.6 ?C (97.9 ?F), Max:36.8 ?C(98.2 ?F)BP 114/66 Pulse 64 Temp 36.8 ?C (98.2 ?F) (Oral) Resp 18 Ht 177.8cm (5' 10 ) Wt 68 kg (150 lb) SpO2 100% BMI 21.52 kg/m2O2 Therapy: Room [facility]:Date 05/22/176[address] - 05/23/17 0659 05/23/176[address] - 05/24/17 59[facility] 0963-0803 4434-8132 5427-4195 24 Hour Total 5862-0745 [id number] 24 Hour TotalINTAKE PO 480 360 840 PO 480 360 840 Shift Total 480 360 840OUTPUT Urine 300 300 Void (ml) 300 300 Shift Total 300 300Weight (kg) 68 68 68 68 68 68 68 68MEDICATIONSCurrent Facility-Administered Medications:oxyCODONE IR 5-10 mg tab(s) (ROXICODONE) 5-10 mg ORAL q 6 H PRNacetaminophen 650 mg tab(s) (TYLENOL) 650 mg ORAL q 6 HHYDROmorphone 0.2-0.5 mg injection (DILAUDID) 0.2-0.5 mg INTRAVENOUS q 3 HPRNondansetron 4 mg tab(s) (ZOFRAN) 4 mg ORAL q 6 H PRNOrondansetron (PF) 4 mg injection (ZOFRAN) 4 mg INTRAVENOUS q 6 H PRNdocusate sodium 100 mg cap(s) (COLACE) 100 mg ORAL BIDenoxaparin 40 mg injection (LOVENOX) 40 mg SUBCUTANEOUS DAILYketorolac 30 mg injection (TORADOL) 30 mg INTRAVENOUS q 6 HLabs:Recent Labs 357909 NA 136 134*K 3.9 3.8CHLOR 103 101CO2 25 27BUN 15 16CREAT 0.61* 0.52*GLUC 89 97ANION 12 10CA 8.1* 8.0*WBC 5.22 4.40HB 11.8* 12.5*HCT 34.7* 37.0*PLT 229 223Exam:GENERAL: No distress, AlertNEURO: AANDOx3, CN II-XII grossly intactHEENT: normocephalic, atraumaticLUNGS: Unlabored breathing O2 Therapy: Room Air, R CT in place to -20 sxn,no air leakCARDIAC: Regular rate and rhythm as aboveABDOMEN: Soft, non-tender, non-distendedEXTREMITIES: QUINTANILLA, No deformitiesSKIN: Skin color, texture, turgor normal, No rashes or lesionsASSESSMENT AND PLAN:Active Hospital Problems Diagnosis Date Noted- Spontaneous pneumothorax 05/20/201736 year old male with recurrent right spontaneous pneumothorax?- continue R CT to -20 suction- daily AM CXR, pneumothorax resolved- will likely need R VATS this weekAssessment and plan discussed with attending: Dr JoeATURE: Sweta Osullivan MD PATIENT NAME: Anamika JuarezDATE: May 23, 2017 : 9:24 AM Pager: [phone] Normal [facility] Basic Panelon 05-22-2017 Creatinine 0.52 mg/dL Low 0.67-1.17 [facility] Comment on above: Performed By: #### P 8 ####[facility] [place], [place] [address] Anion gap 10 mmol/L Normal 8-16 [facility] Comment on above: Performed By: #### P 8 ####[address] [address] Calcium 8.0 mg/dL Low 8.5-10.1 [facility] Comment on above: Performed By: #### P 8 ####[place] [address] CO2 27 mmol/L Normal 21-32 [facility] Comment on above: Performed By: #### P 8 ####[address] [address] Glucose mass conc 97 mg/dL Normal 70-99 [facility] Comment on above: Performed By: #### P 8 ####[address] [address] Urea nitrogen 16 mg/dL Normal 7-18 [facility] Comment on above: Performed By: #### P 8 ####[address] [address] Chloride 101 mmol/L Normal 98-107 [facility] Comment on above: Performed By: #### P 8 ####[address] [address] Potassium molar conc 3.8 mmol/L Normal 3.5-5.1 [facility] Comment on above: Performed By: #### P 8 ####[address] [address] Sodium 134 mmol/L Low 136-145 [facility] Comment on above: Performed By: #### P 8 ####[place] [address] CHEST SINGLE VIEWon 05-22-20 17 CHEST SINGLE VIEW Performed at [place] APPROVED BY: Elbert Mcdonald MD EXAMINATION: CHEST RADIOGRAPH (SINGLE VIEW AP OR PA) Clinical History: Spontaneous pneumothorax.M: XC1_3Comparison: AP chest 05/21/2017 05:27. RESULT: Lines, tubes, and devices: There is a small caliber catheter again projecting over the lateral right lung. Lungs and pleura: There is a small right pneumothorax that does not appear significant changed in size. No left pneumothorax. No pleural effusion. No focal pulmonary consolidation. Cardiomediastinal silhouette: Within normal limits and unchanged. Other: IMPRESSION: Stable small right pneumothorax with small caliber chest tube in place. Normal [facility] Hemogram/Diffon 05-22-2017 Abs Immature Grans 0.02 thou/cmm Normal 0.00-0.05 [facility] Comment on above: Performed By: #### C BCD1 ####[place] [address] Abs. Baso 0.02 thou/cmm Normal 0.01-0.08 [facility] Comment on above: Performed By: #### C BCD1 ####[place] [address] Abs. Mingo 0.38 thou/cmm Normal 0.30-0.82 [facility] Comment on above: Performed By: #### C BCD1 ####[place] [address] Abs. Neut 1.91 thou/cmm Normal 1.78-5.38 [facility] Comment on above: Performed By: #### C BCD1 ####[place] [address] Basophils/100 WBC Auto (Bld) 0.5 % Normal [facility] Comment on above: Performed By: #### C BCD1 ####[place] [address] Eosinophils 0.27 thou/cmm Normal 0.04-0.54 [facility] Comment on above: Performed By: #### C BCD1 ####[address] [address] Eosinophils/100 leukocytes 6.1 % Normal [facility] Comment on above: Performed By: #### C BCD1 ####[address] [address] Erythrocyte distribution width Auto Ratio (RBC) 13.2 % Normal 11.6-14.4 [facility] Comment on above: Performed By: #### C BCD1 ####[address] [address] Erythrocytes (RBC) 4.09 mil/cmm Low 4.63-6.08 [facility] Comment on above: Performed By: #### C BCD1 ####[address] [address] Hematocrit (HCT) 37.0 % Low 40.1-51.0 [facility] Comment on above: Performed By: #### C BCD1 ####[address] [address] Hemoglobin mass conc (Bld) 12.5 g/dL Low 13.7-17.5 [facility] Comment on above: Performed By: #### C BCD1 ####[address] [address] Immature Grans 0.50 % Normal [facility] Comment on above: Performed By: #### C BCD1 ####[address] [address] Lymphocytes 1.80 thou/cmm Normal 0.84-2.85 [facility] Comment on above: Performed By: #### C BCD1 ####[address] [address] Lymphocytes/100 leukocytes 40.9 % Normal [facility] Comment on above: Performed By: #### C BCD1 ####[address] [address] MCH 30.6 pg Normal 25.7-32.2 [facility] Comment on above: Performed By: #### C BCD1 ####[facility]1 [place], [place] [address] MCHC mass conc (RBC) 33.8 % Normal 32.3-36.5 [facility] Comment on above: Performed By: #### C BCD1 ####[facility]1 [place], [place] [address] MCV 90.5 fL Normal 83.2-95.6 [facility] Comment on above: Performed By: #### C BCD1 ####[address] [address] Monocytes/100 leukocytes 8.6 % Normal [facility] Comment on above: Performed By: #### C BCD1 ####[address] [address] Platelet mean volume (PMV) 9.8 fL Normal 8.7-12.0 [facility] Comment on above: Performed By: #### C BCD1 ####[address] [address] Platelets 223 thou/cmm Normal 141-365 [facility] Comment on above: Performed By: #### C BCD1 ####[address] [address] RDW SD 43.4 fl Normal 36.1-45.8 [facility] Comment on above: Performed By: #### C BCD1 ####[address] [address] Seg Neutrophil 43.4 % Normal [facility] Comment on above: Performed By: #### C BCD1 ####[address] [address] WBC (Leukocytes) 4.40 thou/cmm Normal 4.23-9.07 [facility] Comment on above: Performed By: #### C BCD1 ####[address] [address] MDRD GFRon 05-22-2017 eGFR (non-black) mL/min/{1.73_m2} Normal >60mL/m in/1 .73m2 [facility] Comment on above: Result Comment: If t he patient is , multiply the result by 1.210. Performed By: #### G FR ####[place] [address] PROGRESSon 05-22-2017 PROGRESS HNO ID: [id number] thor: Thad Delgadoe: Thoracic SurgeryAuthor Type: PhysicianType: Progress NotesFiled: 05/22/2017 11:39 AMNote Text:Thoracic Surgery Progress NoteSERVICE DATE: 05/22/2017SUBJECTIVENAEON. Pt still complaining of some R rib pain. No difficulty breathing.Denies N/V/CP/SOBDiet: DIET REGULAROBJECTIVEVitals:Temp (24hrs), Av.8 ?C (98.3 ?F), Min:36.5 ?C (97.7 ?F), Max:37.1 ?C(98.8 ?F)BP 104/65 Pulse 71 Temp 36.9 ?C (98.4 ?F) (Oral) Resp 18 Ht 177.8cm (5' 10 ) Wt 68 kg (150 lb) SpO2 94% BMI 21.52 kg/m2O2 Therapy: Room AirIANDO:Date 05/21/17 07 - 05/22/17 0659 05/22/17 07 - 05/23/17 0659Shift 7317-4224 8646-3132 5142-7959 24 Hour Total 5560-4255 [id number] 24 Hour TotalINTAKE Shift TotalOUTPUT Chest Tube 0 0 Chest Tube Output (Chest Tube Admission to Hospital Right LateralPleural Tube #1) 0 0 Shift Total 0 0Weight (kg) 68 68 68 68 68 68 68 68MEDICATIONSCurrent Facility-Administered Medications:acetaminophen 975 mg tab(s) (TYLENOL) 975 mg ORAL q 6 Hondansetron 4 mg tab(s) (ZOFRAN) 4 mg ORAL q 6 H PRNOrondansetron (PF) 4 mg injection (ZOFRAN) 4 mg INTRAVENOUS q 6 H PRNdocusate sodium 100 mg cap(s) (COLACE) 100 mg ORAL BIDmorphine 4 mg injection 4 mg INTRAVENOUS q 2 H PRNenoxaparin 40 mg injection (LOVENOX) 40 mg SUBCUTANEOUS DAILYoxyCODONE IR 5-10 mg tab(s) (ROXICODONE) 5-10 mg ORAL q 4 H PRNketorolac 30 mg injection (TORADOL) 30 mg INTRAVENOUS q 6 HLabs:Recent Labs 0NA 134*K 3.6CHLOR 100CO2 26BUN 13CREAT 0.54*GLUC 107*ANION 12CA 7.7*WBC 4.82HB 14.1HCT 41.4PLT 250Exam:GENERAL: No distress, AlertNEURO: AANDOx3, CN II-XII grossly intactHEENT: normocephalic, atraumaticLUNGS: Unlabored breathing O2 Therapy: Room Air, R CT in place to -20 sxn,stable air leak presentCARDIAC: Regular rate and rhythm as aboveABDOMEN: Soft, non-tender, non-distendedEXTREMITIES: QUINTANILLA, No deformitiesSKIN: Skin color, texture, turgor normal, No rashes or lesionsASSESSMENT AND PLAN:Active Hospital Problems Diagnosis Date Noted- Spontaneous pneumothorax 05/20/201736 year old male with recurrent right spontaneous pneumothorax- continue R CT to -20 suction- daily AM CXR, small pneumothorax stable compared to yesterday- will likely need R VATS this weekAssessment and plan discussed with attending: Dr JoeATURE: Sweta Osullivan MD PATIENT NAME: Anamika uJarezDATE: May 22, 2017 : 6:01 AM Pager: [phone] Surgery Attending - Patrizia NoteI evaluated the patient and personally participated in the cabezas components. I agree with the resident's findings and plan as documented and havediscussed the case and management of the patient's care with the resident.Likley VATS this week if air leak persists.Signature: Thad Garcia, MDDate: 05/22/2017Time: 11:38 AM Normal [facility] Basic Panelon 05-21-2017 Creatinine 0.54 mg/dL Low 0.67-1.17 [facility] Comment on above: Performed By: #### P 8 ####[place] [id number] Anion gap 12 mmol/L Normal 8-16 [facility] Comment on above: Performed By: #### P 8 ####[facility] [place] [address] Calcium 7.7 mg/dL Low 8.5-10.1 [facility] Comment on above: Performed By: #### P 8 ####[facility] [place] [address] CO2 26 mmol/L Normal 21-32 [facility] Comment on above: Performed By: #### P 8 ####[facility] [place] [address] Glucose mass conc 107 mg/dL High 70-99 [facility] Comment on above: Performed By: #### P 8 ####[facility] [place] [address] Urea nitrogen 13 mg/dL Normal 7-18 [facility] Comment on above: Performed By: #### P 8 ####[facility] [place] [address] Chloride 100 mmol/L Normal 98-107 [facility] Comment on above: Performed By: #### P 8 ####[facility] [place] [address] Potassium molar conc 3.6 mmol/L Normal 3.5-5.1 [facility] Comment on above: Performed By: #### P 8 ####[place] [address] Sodium 134 mmol/L Low 136-145 [facility] Comment on above: Performed By: #### P 8 ####[place] [address] CHEST SINGLE VIEWon 05-21-20 CHEST SINGLE VIEW Performed at [place] APPROVED BY: Hipolito Flores MD EXAMINATION: CHEST RADIOGRAPH (SINGLE VIEW AP OR PA) Clinical History: Spontaneous pneumothoraxM: XC1_3Comparison: Chest x-ray 11/26/2015 RESULT: Lines, tubes, and devices: There is a right pleural chest tube. Lungs and pleura: Small right pneumothorax measuring 4 to 5 mm. No consolidation or pleural effusion. Cardiomediastinal silhouette: Normal cardiomediastinal silhouette. Other: Osseous structures are unremarkable. IMPRESSION: Right pleural chest tube. Small right pneumothorax measuring approximately 5 to 6 mm from the lung surface to the chest wall. Normal [facility] Hemogram/Diffon 05-21-2017 Abs Immature Grans 0.02 thou/cmm Normal 0.00-0.05 [facility] Comment on above: Performed By: #### C BCD1 ####[place] [address] Abs. Baso 0.02 thou/cmm Normal 0.01-0.08 [facility] Comment on above: Performed By: #### C BCD1 ####[place] [address] Abs. Mingo 0.46 thou/cmm Normal 0.30-0.82 [facility] Comment on above: Performed By: #### C BCD1 ####[place] [address] Abs. Neut 2.53 thou/cmm Normal 1.78-5.38 [facility] Comment on above: Performed By: #### C BCD1 ####[place] [address] Basophils/100 WBC Auto (Bld) 0.4 % Normal [facility] Comment on above: Performed By: #### C BCD1 ####[place] [address] Eosinophils 0.18 thou/cmm Normal 0.04-0.54 [facility] Comment on above: Performed By: #### C BCD1 ####[place] [address] Eosinophils/100 leukocytes 3.7 % Normal [facility] Comment on above: Performed By: #### C BCD1 ####[place] [address] Erythrocyte distribution width Auto Ratio (RBC) 13.2 % Normal 11.6-14.4 [facility] Comment on above: Performed By: #### C BCD1 ####[place] [address] Erythrocytes (RBC) 4.59 mil/cmm Low 4.63-6.08 [facility] Comment on above: Performed By: #### C BCD1 ####[place] [address] Hematocrit (HCT) 41.4 % Normal 40.1-51.0 [facility] Comment on above: Performed By: #### C BCD1 ####[place] [address] Hemoglobin mass conc (Bld) 14.1 g/dL Normal 13.7-17.5 [facility] Comment on above: Performed By: #### C BCD1 ####[place] [address] Immature Grans 0.40 % Normal [facility] Comment on above: Performed By: #### C BCJuan ####[place] [address] Lymphocytes 1.62 thou/cmm Normal 0.84-2.85 [facility] Comment on above: Performed By: #### C BCD1 ####[place] [address] Lymphocytes/100 leukocytes 33.6 % Normal [facility] Comment on above: Performed By: #### C BCJuan ####[place] [address] MCH 30.7 pg Normal 25.7-32.2 [facility] Comment on above: Performed By: #### C BCD1 ####[place] [address] MCHC mass conc (RBC) 34.1 % Normal 32.3-36.5 [facility] Comment on above: Performed By: #### C BCD1 ####[place] [address] MCV 90.2 fL Normal 83.2-95.6 [facility] Comment on above: Performed By: #### C BCD1 ####[place] [address] Monocytes/100 leukocytes 9.5 % Normal [facility] Comment on above: Performed By: #### C BCD1 ####[facility]1 [place], [place] [address] Platelet mean volume (PMV) 9.1 fL Normal 8.7-12.0 [facility] Comment on above: Performed By: #### C BCD1 ####[address] [address] Platelets 250 thou/cmm Normal 141-365 [facility] Comment on above: Performed By: #### C BCD1 ####[address] [address] RDW SD 43.6 fl Normal 36.1-45.8 [facility] Comment on above: Performed By: #### C BCD1 ####[address] [address] Seg Neutrophil 52.4 % Normal [facility] Comment on above: Performed By: #### C BCD1 ####[address] [address] WBC (Leukocytes) 4.82 thou/cmm Normal 4.23-9.07 [facility] Comment on above: Performed By: #### C BCD1 ####[address] [address] MDRD GFRon 05-21-2017 eGFR (non-black) mL/min/{1.73_m2} Normal >60mL/m in/1 .73m2 [facility] Comment on above: Result Comment: If t he patient is , multiply the result by 1.210. Performed By: #### G FR ####[address] [address] NURSING PROGon 05-21-2017 NURSING PROG HNO ID: [id number] thor: Jaelyn (Rn) IRIS Hayeservice: NursingAuthor Type: Registered NurseType: Nursing Progress NoteFiled: 05/21/2017 11:36 PMNote Text:Pt and RN noticed +1 lower extremity edema. Pt notified RN that this edemahas happened with his past pneumos. RN elevated pts feet. SCDs remain on.Pt. also notified RN that he had heard a squeek sound coming from hischest tube. RN listened and it sounded like an air leak. RN auscultatedand heard crackles around site with otherwise clear breath sounds. Nocrepitus felt. Will notify AM RN to keep MD notified. [facility] ED NOTEon 05-20-2017 ED NOTE HNO ID: [id number] thor: Elizabet García ([employer])Service: (none)Author Type: TechnicianType: ED NotesFiled: 05/20/2017 4:18 PMNote Text:MEDICATION HISTORYPatient Name:Cheyanne JuarezMRN: [id number]: 1980Source of history:Pharmacy records: [facility] [phone] Nonadherence Identified: No barriers notedThe above information represents the best possible medication history: YesAdditional comments: N/AAllergies: ALLERGIESNo Known AllergiesPreferred Pharmacy: [facility] [phone] CUT PRESS OPERATOR Medications:Prior to Admission medications as of 05/20/17 1616Not on Anisa García ([employer]) [id number] 2016 4:18 PM [facility] ED NOTE HNO ID: [id number] thor: Monique WilkesRn) IRIS Purcellervice: Emergency MedicineAuthor Type: Registered NurseType: ED NotesFiled: 05/20/2017 1:26 PMNote Text:Pt [facility] for surgery consult. Pt with hx ofpneaumothorax after coughing. Pt states he was coughing this AM when hefelt his lung pop Pt went to [place] ED and had 8fr pigtail chest tubeinserted to the right side of chest. Pt presents to [facility] ED with chesttube in place. Dr. Reagan at bedside. Pt with c/o pain in chest tubeinsertion site. [facility] ED NOTE HNO ID: [id number] Author: Olivia WilkesRn) KIRILL Allred Service: (none) Author Type: Registered Nurse Type: ED Notes Filed: 05/20/2017 1:24 PM Note Text: Bed: ED-04 Expected date: 05/20/17 Expected time: 1:04 PM Means of arrival: Comments: Erick transfer Normal [facility] ED PROV NOTEon 05-20-2017 ED PROV NOTE HNO ID: [id number] thor: AGUSTIN Ulloa Reservice: Emergency MedicineAuthor Type: ResidentType: ED Provider NotesFiled: 05/20/2017 3:07 PMNote Text: Attes tation signed by Robby Harris MD at 05/20/2017 3:49 PMAttending NoteI evaluated the patient and personally participated in the cabezas components. Iagree with the resident's findings and plan as documented and have discussedthe case and management of the patient's care with the resident.ED CourseThomas Isaac Harris's DocumentationComment TimePAtient presents for evaluation and pneumothorax. He was seen at an [facility] and a pigtail catheter was placed. He is resting comfortably he's inno distress and is not short of breath. His lungs are clear and equal at timeof examination the pigtail catheter is functioning well. Will obtain asurgical consult. 05/20 1427Signature: Robby Harris, MDDate: 05/20/2017Time: 3:48 PM ED Provider NotePatient Name: Anamika JuarezMRN: [id number] DATE: 05/20/17HistoryPatient presents with:Shortness of BreathHPI Comments: Patient is a 36-year-old male presenting today for a surgeryconsult. He has a previous history of multiple spontaneous PTX in the pastthat he has seen Dr. Hwang for. Patient notes that this AM he had acoughing spell when he suddenly felt a pop in his chest followed byassociated shortness of breath. At that time, [place] with a spontaneous PTX. An 8 Fr pigtail catheter wasplaced and the patient was transferred to the [facility] ED for surgicalconsultation. On arrival, the patient reports that his shortness of breathhas improved; however, he is complaining of pain surrounding his chesttube insertion site. He has no other active complaints at this time.PAST MEDICAL HISTORYDiagnosis Date- PneumothoraxPAST SURGICAL HISTORYProcedure Laterality Date- INGUINAL HERNIA REPAIR HX- THORACOSCOPY SURG W PLEURODESIS Left 10/29/2015 L VATS with bleb resection, AND mechanical pleurodesis at [facility] by MIINDU HISTORYProblem Relation Age of Onset- DiabetesSocial HistorySocial History Main Topics- Smoking status: Former Smoker Packs/day: 0.50 Types: Cigarettes- Smokeless tobacco: Former User Quit date: 08/22/2015- Alcohol use Yes Comment: occassional- Drug use: No- Sexual activity: Not on fileALLERGIESNo Known AllergiesReview of SystemsConstitutional: Negative for chills and fever.HENT: Negative for congestion, rhinorrhea and sore throat.Eyes: Negative for pain and redness.Respiratory: Positive for cough and shortness of breath.Cardiovascular: Negative for chest pain and palpitations.Gastrointestinal: Negative for abdominal pain, diarrhea, nausea andvomiting.Genitourinary: Negative for dysuria, frequency and hematuria.Musculoskeletal: Negative for back pain and neck pain.Skin: Negative for rash.Neurological: Negative for light-headedness and headaches.Physical ExamBP 130/87 Pulse 101 Temp 99 Resp 20 Ht 5' 10 (1.78m) Wt 150 lb(68.0kg) SpO2 98% BMI 21.52 kg/(m2).Physical ExamConstitutional: He is oriented to person, place, and time. He appearswell-developed and well-nourished. No distress.HENT:Head: Normocephalic and atraumatic.Mouth/Throat: Oropharynx is clear and moist. No oropharyngeal exudate.Eyes: Conjunctivae and EOM are normal. Pupils are equal, round, andreactive to light. Right eye exhibits no discharge. Left eye exhibits nodischarge.Neck: Normal range of motion. No tracheal deviation present.Cardiovascular: Normal rate, regular rhythm and normal heart sounds. Examreveals no gallop and no friction rub.No murmur heard.Pulmonary/Chest: Effort normal and breath sounds normal. He has nowheezes. He has no rales.Abdominal: Soft. Bowel sounds are normal. He exhibits no distension. Thereis no tenderness. There is no rebound and no guarding.Musculoskeletal: Normal range of motion. He exhibits no deformity.Neurological: He is alert and oriented to person, place, and time. Nocranial nerve deficit.Skin: Skin is warm and dry. No rash noted. He is not diaphoretic.Nursing note and vitals reviewed.Diagnostic TestingED Labs Ordered and Reviewed - No data to displayProceduresMedical Decision Making / ED CourseED CourseOthers' DocumentationComment By TimePAtient presents for evaluation and pneumothorax. [facility]. He is restingcomfortably he's in no distress and is not short of breath. His lungs areclear and equal at time of examination the pigtail catheter is functioningwell. Will obtain a surgical consult. Robby Harris MD 05/20 1427Patient was seen and evaluated by myself and the attending physician. Heis a 36-year-old male presenting today for a surgery consult. Generalsurgery consulted on the patient's arrival and he was given zofran andmorphine. At this time, general surgery did make the decision to admit thepatient for further management. He did have worsening of his pain againand was given a dose of fentanyl as well. Patient admitted.Encounter Diagnosis ICD-10-CM1. Secondary spontaneous pneumothorax J93.12PlanThe Patient was ADMITTED TO: Regular nursing floor.Condition at time of disposition: stableSIGNATURE: Rosemarie Ulloa (Res) Merary, ATXbodbudl02/29/17 1507Thomas Isaac Harris MD05/20/17 1549 Normal [facility] HISTORY PHYSICALon HISTORY PHYSICAL HNO ID: [id number] thor: Thad Guillen: Thoracic SurgeryAuthor Type: PhysicianType: HANDPFiled: 05/21/2017 6:04 PMNote Text:THORACIC SURGICAL SERVICES HANDPSERVICE DATE: 05/20/2017SERVICE TIME: 2:52 [facility] PH[facility]IAN: Annemarie River, AFSANEHCHICAMIL[place] COMPLAINT: Right PTXHISTORY OF PRESENT ILLNESS: Mr. Juarez is a 36 year old male who developedacute onset of sharp right chest pain this morning similar to prior PTX.Patient has had multiple B PTX s/p L VATS, Blebectomy, Pleurodesis, nowwith second spontaneous PTX on right. Was seen in [place] ER and had 8F RCT placed prior to transfer.ROS otherwise negativePAST MEDICAL HISTORYDiagnosis Date- PneumothoraxPAST SURGICAL HISTORYProcedure Laterality Date- INGUINAL HERNIA REPAIR HX- THORACOSCOPY SURG W PLEURODESIS Left 10/29/2015 L VATS with bleb resection, AND mechanical pleurodesis at [facility] by HISTORYProblem Relation Age of Onset- DiabetesSocial HistorySubstance Use Topics- Smoking status: Former Smoker Packs/day: 0.50 Types: Cigarettes- Smokeless tobacco: Former User Quit date: 08/22/2015- Alcohol use Yes Comment: occassional(Not in a hospital admission)No current hospital medications on file.ALLERGIESNo Known AllergiesCOMPLETE REVIEW OF SYSTEMS:PAIN ASSESSMENT: CURRENTLY HAVING PAIN; see HPIGENERAL: No weight loss, malaise or feversHEENT: Negative for frequent or significant headaches, No changes inhearing or vision, no nose bleeds or other nasal problemsNECK: Negative for lumps, goiter, pain and significant neck swellingRESPIRATORY: Negative for cough, hemoptysis, wheezing, COPD, dyspnea orshortness of breathCARDIOVASCULAR: Negative for chest pain, leg swelling, hypertension, CHFor palpitationsGI: No nausea, vomiting, or diarrheaGU: No history of dysuria, frequency or incontinenceMUSCULOSKELETAL: Negative for joint pain or swelling, back pain or musclepainSKIN: Negative for lesions, rash, and itchingPSYCH: Negative for sleep disturbance, mood disorder and recentpsychosocial stressorsHEMATOLOGY/LYMPHOLOGY : Negative for prolonged bleeding, bruising easily orswollen nodesENDOCRINE: Negative for cold or heat intolerance, polyuria, polydipsia andgoiterNEURO: No history of headaches, syncope, paralysis, seizures or tremorsOBJECTIVEPHYSICAL EXAM:GENERAL: Alert, no distress, cooperativeSKIN: Skin color, texture, turgor normal. No rashes or lesions.LUNGS: no resp distress on room air, right CT to -20 sxn no leakCARDIAC: sinus tachycardia, normotensiveABDOMEN: Abdomen soft, non-tender, BS normal, No masses or organomegalyEXTREMITIES: Extremities normal, no deformities, edema, clubbing or skindiscoloration. Good capillary refill., No ulcersNEURO: Grossly normal cognition, motor function, and cranial nervesIII-XIIThe remainder of the physical exam is noncontributory.Patient Vitals for the past 24 hrs: BP Temp Pulse Resp SpO2 Height Rilyrq62/29/17 1425 130/87 - (!) 101 20 98 % - -05/20/17 1321 139/87 37.2 ?C (99 ?F) (!) 105 22 96 % 177.8 cm (5' 10 ) 68kg (150 lb)Body mass index is 21.52 kg/(m2).DATA:Diagnostic tests reviewed for today's visit:[facility]. and unremarkableCXR showed 70% right PTX with near complete resolution s/p CT placement.ASSESSMENT/PLAN36 yoM with recurrent Right Spontaneous PTX- Admit to 4200- Right CT to -20 sxn- Daily CXRs- will likely need R VATS next weekD/W Dr. JoeATURE: Kiel Bell MD PATIENT NAME: Anamika JuarezDATE: May 20, 2017 : 2:51 PM PAGER/CONTACT #: [phone] Surgery Attending - Patrizia CatesI evaluated the patient and personally participated in the cabezas components. I agree with the resident's findings and plan as documented and havediscussed the case and management of the patient's care with the resident.Recurrent secondary spontaneous pneumothorax on right in setting ofhistory of recurrent left pneumothoraces, s/p left VATS with blebresection/pleuradhesis, and ongoing tobacco abuse. Right lung wellexpanded after pleural catheter placement at outside hospital. +air leak.Plan continued chest tube drainage of right pleural space. If air leakpersists, will recommend VATS.Signature: ELZBIETA Fritzate: 05/21/2017Time: 6:02 PM Normal [facility] HOSPon 05-20-2017 HOSP Patient:George Juarez sMRN: Height:5' 10 (1.778 m)Weight:150 lb (68.04 kg)Outpatient Medications as of 05/24/17:Patient has no current outpatient medications.Admission/Clinic Administered Medications as of 05/24/17:dextrose 5% in NaCl 0.45% iv infusionoxyCODONE IR 5-10 mg tab(s) (ROXICODONE)acetaminophen 650 mg tab(s) (TYLENOL)HYDROmorphone 0.2-0.5 mg injection (DILAUDID)ondansetron 4 mg tab(s) (ZOFRAN)ondansetron (PF) 4 mg injection (ZOFRAN)docusate sodium 100 mg cap(s) (COLACE)Problem List:Pneumothorax [J93.9]Spontaneous pneumothorax [J93.83]Allergies:No Known AllergiesDate Verified:05/24/17Lab ValuesLab Value Units Date High LowPOTA* 3.8 mEq/L 05/24/2017 5.1 3.5HEMA* 35.9 % 05/24/2017 51.0 40.1Progress Notes ():Olivia Allred RN, RN 05/20/2017 1:24 PM SignedBed: ED-04Expected date: 05/20/17Expected time: 1:04 PMMeans of arrival:Comments:[place] Subha Purcell RN, RN 05/20/2017 1:26 PM Signed[facility]. Pt with hx of pneaumothoraxafter coughing. Pt states he was coughing this AM when he felt his lung pop Ptwent to [place] and had 8fr pigtail chest tube inserted to the right side ofchest. Pt presents to [facility] ED with chest tube in place. Dr. Reagan at bedside. Ptwith c/o pain in chest tube insertion site.Daryl Reagan MD, MD 05/20/2017 3:07 PM Attested At testation signed by Robby Harris MD at 05/20/2017 3:49 PMAttending NoteI evaluated the patient and personally participated in the cabezas components. Iagree with the resident's findings and plan as documented and have discussedthe case and management of the patient's care with the resident.ED CourseThomas Isaac Harris's DocumentationComment TimePAtient presents for evaluation and pneumothorax. He was seen at an [facility] and a pigtail catheter was placed. He is resting comfortably he's inno distress and is not short of breath. His lungs are clear and equal at timeof examination the pigtail catheter is functioning well. Will obtain asurgical consult. 05/20 1427Signature: Robby Harris MDDate: 05/20/2017Time: 3:48 PM ED Provider NotePatient Name: Anamika JuarezMRN: [id number] DATE: 05/20/17HistoryPatient presents with:Shortness of BreathHPI Comments: Patient is a 36-year-old male presenting today for a surgeryconsult. He has a previous history of multiple spontaneous PTX in the past thathe has seen Dr. Hwang for. Patient notes that this AM he had a coughing spellwhen he suddenly felt a pop in his chest followed by associated shortness ofbreath. At that time, he went to the [place] ED and was diagnosed with aspontaneous PTX. An 8 Fr pigtail catheter was placed and the patient wastransferred to the [facility] ED for surgical consultation. On arrival, the patientreports that his shortness of breath has improved; however, he is complaining ofpain surrounding his chest tube insertion site. He has no other activecomplaints at this time.PAST MEDICAL HISTORYDiagnosis Date- PneumothoraxPAST SURGICAL HISTORYProcedure Laterality Date- INGUINAL HERNIA REPAIR HX- THORACOSCOPY SURG W PLEURODESIS Left 10/29/2015 L VATS with bleb resection, AND mechanical pleurodesis at [facility] by Dr. Burton HISTORYProblem Relation Age of Onset- DiabetesSocial HistorySocial History Main Topics- Smoking status: Former Smoker Packs/day: 0.50 Types: Cigarettes- Smokeless tobacco: Former User Quit date: 08/22/2015- Alcohol use Yes Comment: occassional- Drug use: No- Sexual activity: Not on fileALLERGIESNo Known AllergiesReview of SystemsConstitutional: Negative for chills and fever.HENT: Negative for congestion, rhinorrhea and sore throat.Eyes: Negative for pain and redness.Respiratory: Positive for cough and shortness of breath.Cardiovascular: Negative for chest pain and palpitations.Gastrointestinal: Negative for abdominal pain, diarrhea, nausea and vomiting.Genitourinary: Negative for dysuria, frequency and hematuria.Musculoskeletal: Negative for back pain and neck pain.Skin: Negative for rash.Neurological: Negative for light-headedness and headaches.Physical ExamBP 130/87 Pulse 101 Temp 99 Resp 20 Ht 5' 10 (1.78m) Wt 150 lb(68.0kg) SpO2 98% BMI 21.52 kg/(m2).Physical ExamConstitutional: He is oriented to person, place, and time. He appearswell-developed and well-nourished. No distress.HENT:Head: Normocephalic and atraumatic.Mouth/Throat: Oropharynx is clear and moist. No oropharyngeal exudate.Eyes: Conjunctivae and EOM are normal. Pupils are equal, round, and reactive tolight. Right eye exhibits no discharge. Left eye exhibits no discharge.Neck: Normal range of motion. No tracheal deviation present.Cardiovascular: Normal rate, regular rhythm and normal heart sounds. Examreveals no gallop and no friction rub.No murmur heard.Pulmonary/Chest: Effort normal and breath sounds normal. He has no wheezes. Hehas no rales.Abdominal: Soft. Bowel sounds are normal. He exhibits no distension. There is notenderness. There is no rebound and no guarding.Musculoskeletal: Normal range of motion. He exhibits no deformity.Neurological: He is alert and oriented to person, place, and time. No cranialnerve deficit.Skin: Skin is warm and dry. No rash noted. He is not diaphoretic.Nursing note and vitals reviewed.Diagnostic TestingED Labs Ordered and Reviewed - No data to displayProceduresMedical Decision Making / ED CourseED CourseOthers' DocumentationComment By TimePAtient presents for evaluation and pneumothorax. He was seen at an [facility] and a pigtail catheter was placed. He is resting comfortably he's inno distress and is not short of breath. His lungs are clear and equal at timeof examination the pigtail catheter is functioning well. Will obtain a surgicalconsult. Robby Harris MD 05/20 1427Patient was seen and evaluated by myself and the attending physician. He is [id number] male presenting today for a surgery consult. General surgeryconsulted on the patient's arrival and he was given zofran and morphine. At thistime, general surgery did make the decision to admit the patient for furthermanagement. He did have worsening of his pain again and was given a dose offentanyl as well. Patient admitted.Encounter Diagnosis ICD-10-CM1. Secondary spontaneous pneumothorax J93.12PlanThe Patient was ADMITTED TO: Regular nursing floor.Condition at time of disposition: stableSIGNATURE: Rosemarie Ulloa (Res) Dream, ISUyjptenk40/29/17 1507Thomas Isaac Harris MD05/20/17 1549Previous VersionJotian Garcia MD 05/21/2017 6:04 PM SignedTHORACIC SURGICAL SERVICES HANDPSERVICE DATE: 05/20/2017SERVICE TIME: 2:52 PMPRIVERDE VALLEY MEDICAL CENTERY CARE PHYSICIAN: AFSANEH BejaranoCHICAMILLE COMPLAINT: Right PTXHISTORY OF PRESENT ILLNESS: Mr. Juarez is a 36 year old male who developed acuteonset of sharp right chest pain this morning similar to prior PTX. Patient hashad multiple B PTX s/p L VATS, Blebectomy, Pleurodesis, now with secondspontaneous PTX on right. Was seen in [place] [facility] and [facility]ROS otherwise negativePAST MEDICAL HISTORYDiagnosis Date- PneumothoraxPAST SURGICAL HISTORYProcedure Laterality Date- INGUINAL HERNIA REPAIR HX- THORACOSCOPY SURG W PLEURODESIS Left 10/29/2015 L VATS with bleb resection, AND mechanical pleurodesis at [facility] by Dr. Burton HISTORYProblem Relation Age of Onset- DiabetesSocial HistorySubstance Use Topics- Smoking status: Former Smoker Packs/day: 0.50 Types: Cigarettes- Smokeless tobacco: Former User Quit date: 08/22/2015- Alcohol use Yes Comment: occassional(Not in a hospital admission)No current hospital medications on file.ALLERGIESNo Known AllergiesCOMPLETE REVIEW OF SYSTEMS:PAIN ASSESSMENT: CURRENTLY HAVING PAIN; see HPIGENERAL: No weight loss, malaise or feversHEENT: Negative for frequent or significant headaches, No changes in hearing orvision, no nose bleeds or other nasal problemsNECK: Negative for lumps, goiter, pain and significant neck swellingRESPIRATORY: Negative for cough, hemoptysis, wheezing, COPD, dyspnea orshortness of breathCARDIOVASCULAR: Negative for chest pain, leg swelling, hypertension, CHF orpalpitationsGI: No nausea, vomiting, or diarrheaGU: No history of dysuria, frequency or incontinenceMUSCULOSKELETAL: Negative for joint pain or swelling, back pain or muscle painSKIN: Negative for lesions, rash, and itchingPSYCH: Negative for sleep disturbance, mood disorder and recent psychosocialstressorsHEMATOLOG Y/LYMPHOLOGY: Negative for prolonged bleeding, bruising easily orswollen nodesENDOCRINE: Negative for cold or heat intolerance, polyuria, polydipsia andgoiterNEURO: No history of headaches, syncope, paralysis, seizures or tremorsOBJECTIVEPHYSICAL EXAM:GENERAL: Alert, no distress, cooperativeSKIN: Skin color, texture, turgor normal. No rashes or lesions.LUNGS: no resp distress on room air, right CT to -20 sxn no leakCARDIAC: sinus tachycardia, normotensiveABDOMEN: Abdomen soft, non-tender, BS normal, No masses or organomegalyEXTREMITIES: Extremities normal, no deformities, edema, clubbing or skindiscoloration. Good capillary refill., No ulcersNEURO: Grossly normal cognition, motor function, and cranial nerves III-XIIThe remainder of the physical exam is noncontributory.Patient Vitals for the past 24 hrs: BP Temp Pulse Resp SpO2 Height Zqcmad30/29/17 1425 130/87 - (!) 101 20 98 % - -05/20/17 1321 139/87 37.2 ?C (99 ?F) (!) 105 22 96 % 177.8 cm (5' 10 ) 68 kg(150 lb)Body mass index is 21.52 kg/(m2).DATA:Diagnostic tests reviewed for today's visit:[facility]. and unremarkableCXR showed 70% right PTX with near complete resolution s/p CT placement.ASSESSMENT/PLAN36 yoM with recurrent Right Spontaneous PTX- Admit to 4200- Right CT to -20 sxn- Daily CXRs- will likely need R VATS next weekD/W Dr. JoeATURE: Kiel Bell MD PATIENT NAME: Anamika JuarezDATE: May 20, 2017 : 2:51 PM PAGER/CONTACT #: [phone] Surgery Attending - Patrizia Alvarado evaluated the patient and personally participated in the cabezas components. 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 Right lung well expanded after pleural catheterplacement at outside hospital. +air leak.Plan continued chest tube drainage of right pleural space. If air leak persists,will recommend VATS.Signature: ELZBIETA Fritzate: 05/21/2017Time: 6:02 PMPrevious Sang García (Homicide Investigator) 05/20/2017 4:18 PM SignedMEDICATION HISTORYPatient Name:Cheyanne JuarezMRN: [id number]: 1980Source of history:[facility] [phone] Nonadherence Identified: No barriers notedThe above information represents the best possible medication history: YesAdditional comments: N/AAllergies: ALLERGIESNo Known AllergiesPreferred Pharmacy: [facility] [phone] CUT PRESS OPERATOR Medications:Prior to Admission medications as of 05/20/17 1616Not on Anisa García (Homicide Investigator) [id number] 2016 4:18 PMThad Garcia MD 05/21/2017 6:05 PM SignedVascular Surgery Progress NoteSERVICE DATE: 05/21/2017SUBJECTIVENAEON. Pt reports pain is the same as yesterday. No difficulty breathing.Denies N/V/CP/SOBDiet: DIET REGULAROBJECTIVEVitals:Temp (24hrs), Av.2 ?C (98.9 ?F), Min:36.3 ?C (97.3 ?F), Max:38.2 ?C (100.8?F)BP 99/66 Pulse 64 Temp 36.3 ?C (97.3 ?F) (Oral) Resp 18 Ht 177.8 cm (5'10 ) Wt 68 kg (150 lb) SpO2 95% BMI 21.52 kg/m2O2 Therapy: Room AirIANDO:Date 05/20/17 07 - 05/21/17 0659 05/21/17 07 - 05/22/17 0659Shift 4308-4068 6044-5851 4000-0066 24 Hour Total 2205-2119 3007-5078 2300-107951 Hour TotalINTAKE PO 240 600 840 PO 240 600 840 Shift Total 240 600 840OUTPUT Urine Urine Incontinence/Not Saved 1 x 1 x Chest Tube 0 0 Chest Tube Output (Chest Tube Admission to Hospital Right Lateral PleuralTube #1) 0 0 Shift Total 0 0Weight (kg) 68 68 68 68 68 68 68 68MEDICATIONSCurrent Facility-Administered Medications:acetaminophen 975 mg tab(s) (TYLENOL) 975 mg ORAL q 6 Hondansetron 4 mg tab(s) (ZOFRAN) 4 mg ORAL q 6 H PRNOrondansetron (PF) 4 mg injection (ZOFRAN) 4 mg INTRAVENOUS q 6 H PRNdocusate sodium 100 mg cap(s) (COLACE) 100 mg ORAL BIDmorphine 4 mg injection 4 mg INTRAVENOUS q 2 H PRNenoxaparin 40 mg injection (LOVENOX) 40 mg SUBCUTANEOUS DAILYoxyCODONE IR 5-10 mg tab(s) (ROXICODONE) 5-10 mg ORAL q 4 H PRNketorolac 30 mg injection (TORADOL) 30 mg INTRAVENOUS q 6 HLabs:Recent Labs 320NA 134*K 3.6CHLOR 100CO2 26BUN 13CREAT 0.54*GLUC 107*ANION 12CA 7.7*WBC 4.82HB 14.1HCT 41.4PLT 250Exam:GENERAL: No distress, AlertNEURO: AANDOx3, CN II-XII grossly intactHEENT: normocephalic, atraumaticLUNGS: Unlabored breathing O2 Therapy: Room Air, R CT in place, air leak presentCARDIAC: Regular rate and rhythm as aboveABDOMEN: Soft, non-tender, non-distendedEXTREMITIES: QUINTANILLA, No deformities, No edemaSKIN: Skin color, texture, turgor normal, No rashes or lesionsASSESSMENT AND PLAN:Active Hospital Problems Diagnosis Date Noted- Spontaneous pneumothorax 05/20/201736 year old male with recurrent right spontaneous pneumothorax- continue R CT to -20 suction- daily AM CXR, stable today- will likely need R VATS next weekAssessment and plan discussed with attending: Dr JoeATURE: Sweta Osullivan MD PATIENT NAME: Anamika JuarezDATE: May 21, 2017 : 6:44 AM Pager: [phone] Surgery Attending - Patrizia CatesI evaluated the patient and personally participated in the cabezas components. 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 Right lung well expanded after pleural catheterplacement at outside hospital. +air leak.Plan continued chest tube drainage of right pleural space. If air leak persists,will recommend VATS.Previous VersionBrittsera Hayes, RN, RN 05/21/2017 11:36 PM SignedPt and RN noticed +1 lower extremity edema. Pt notified RN that this edema hashappened with his past pneumos. RN elevated pts feet. SCDs remain on. Pt. alsonotified RN that he had heard a squeek sound coming from his chest tube. RNlistened and it sounded like an air leak. RN auscultated and heard cracklesaround site with otherwise clear breath sounds. No crepitus felt. Will notify AMRN to keep MD notified.Thad Garcia MD 05/22/2017 11:39 AM SignedThoracic Surgery Progress NoteSERVICE DATE: 05/22/2017SUBJECTIVENAEON. Pt still complaining of some R rib pain. No difficulty breathing.Denies N/V/CP/SOBDiet: DIET REGULAROBJECTIVEVitals:Temp (24hrs), Av.8 ?C (98.3 ?F), Min:36.5 ?C (97.7 ?F), Max:37.1 ?C (98.8?F)BP 104/65 Pulse 71 Temp 36.9 ?C (98.4 ?F) (Oral) Resp 18 Ht 177.8 cm (5'10 ) Wt 68 kg (150 lb) SpO2 94% BMI 21.52 kg/m2O2 Therapy: Room AirIANDO:Date 05/21/17 07 - 05/22/17 0659 05/22/17 07 - 05/23/17 0659Shift 7844-4201 5721-1215 3936-5885 24 Hour Total 5766-7890 7071-5095 2300-144930 Hour TotalINTAKE Shift TotalOUTPUT Chest Tube 0 0 Chest Tube Output (Chest Tube Admission to Hospital Right Lateral PleuralTube #1) 0 0 Shift Total 0 0Weight (kg) 68 68 68 68 68 68 68 68MEDICATIONSCurrent Facility-Administered Medications:acetaminophen 975 mg tab(s) (TYLENOL) 975 mg ORAL q 6 Hondansetron 4 mg tab(s) (ZOFRAN) 4 mg ORAL q 6 H PRNOrondansetron (PF) 4 mg injection (ZOFRAN) 4 mg INTRAVENOUS q 6 H PRNdocusate sodium 100 mg cap(s) (COLACE) 100 mg ORAL BIDmorphine 4 mg injection 4 mg INTRAVENOUS q 2 H PRNenoxaparin 40 mg injection (LOVENOX) 40 mg SUBCUTANEOUS DAILYoxyCODONE IR 5-10 mg tab(s) (ROXICODONE) 5-10 mg ORAL q 4 H PRNketorolac 30 mg injection (TORADOL) 30 mg INTRAVENOUS q 6 HLabs:Recent Labs 05/21/979692YH 134*K 3.6CHLOR 100CO2 26BUN 13CREAT 0.54*GLUC 107*ANION 12CA 7.7*WBC 4.82HB 14.1HCT 41.4PLT 250Exam:GENERAL: No distress, AlertNEURO: AANDOx3, CN II-XII grossly intactHEENT: normocephalic, atraumaticLUNGS: Unlabored breathing O2 Therapy: Room Air, R CT in place to -20 sxn,stable air leak presentCARDIAC: Regular rate and rhythm as aboveABDOMEN: Soft, non-tender, non-distendedEXTREMITIES: QUINTANILLA, No deformitiesSKIN: Skin color, texture, turgor normal, No rashes or lesionsASSESSMENT AND PLAN:Active Hospital Problems Diagnosis Date Noted- Spontaneous pneumothorax 05/20/201736 year old male with recurrent right spontaneous pneumothorax- continue R CT to -20 suction- daily AM CXR, small pneumothorax stable compared to yesterday- will likely need R VATS this weekAssessment and plan discussed with attending: Dr JoeATURE: Sweta Osullivan MD PATIENT NAME: Anamika AtjocelyneDATE: May 22, 2017 : 6:01 AM Pager: [phone] Surgery Attending - Patrizia CatesI evaluated the patient and personally participated in the cabezas components. Iagree with the resident's findings and plan as documented and have discussed thecase and management of the patient's care with the resident.Likley VATS this week if air leak persists.Signature: Thad Garcia MDDate: 05/22/2017Time: 11:38 AMPrevious Christian Osullivan MD 05/23/2017 9:31 AM Cosign NeededThoracic Surgery Progress NoteSERVICE DATE: 05/23/2017SUBJECTIVENAEON. Pt reports he's doing well. Hopes to know if he'll need surgery.Denies N/V/CP/SOBDiet: DIET REGULAROBJECTIVEVitals:Temp (24hrs), Av.7 ?C (98.1 ?F), Min:36.6 ?C (97.9 ?F), Max:36.8 ?C (98.2?F)BP 114/66 Pulse 64 Temp 36.8 ?C (98.2 ?F) (Oral) Resp 18 Ht 177.8 cm (5'10 ) Wt 68 kg (150 lb) SpO2 100% BMI 21.52 kg/m2O2 Therapy: Room AirIANDO:Date 05/22/17699 - 05/23/17 0659 05/23/17 07 - 05/24/17 0659Shift 9571-2449 3559-5320 6685-5602 24 Hour Total 7622-4892 5297-3572 2300-826362 Hour TotalINTAKE PO 480 360 840 PO 480 360 840 Shift Total 480 360 840OUTPUT Urine 300 300 Void (ml) 300 300 Shift Total 300 300Weight (kg) 68 68 68 68 68 68 68 68MEDICATIONSCurrent Facility-Administered Medications:oxyCODONE IR 5-10 mg tab(s) (ROXICODONE) 5-10 mg ORAL q 6 H PRNacetaminophen 650 mg tab(s) (TYLENOL) 650 mg ORAL q 6 HHYDROmorphone 0.2-0.5 mg injection (DILAUDID) 0.2-0.5 mg INTRAVENOUS q 3 H PRNondansetron 4 mg tab(s) (ZOFRAN) 4 mg ORAL q 6 H PRNOrondansetron (PF) 4 mg injection (ZOFRAN) 4 mg INTRAVENOUS q 6 H PRNdocusate sodium 100 mg cap(s) (COLACE) 100 mg ORAL BIDenoxaparin 40 mg injection (LOVENOX) 40 mg SUBCUTANEOUS DAILYketorolac 30 mg injection (TORADOL) 30 mg INTRAVENOUS q 6 HLabs:Recent Labs 05/22/1705NA 136 134*K 3.9 3.8CHLOR 103 101CO2 25 27BUN 15 16CREAT 0.61* 0.52*GLUC 89 97ANION 12 10CA 8.1* 8.0*WBC 5.22 4.40HB 11.8* 12.5*HCT 34.7* 37.0*PLT 229 223Exam:GENERAL: No distress, AlertNEURO: AANDOx3, CN II-XII grossly intactHEENT: normocephalic, atraumaticLUNGS: Unlabored breathing O2 Therapy: Room Air, R CT in place to -20 sxn, noair leakCARDIAC: Regular rate and rhythm as aboveABDOMEN: Soft, non-tender, non-distendedEXTREMITIES: QUINTANILLA, No deformitiesSKIN: Skin color, texture, turgor normal, No rashes or lesionsASSESSMENT AND PLAN:Active Hospital Problems Diagnosis Date Noted- Spontaneous pneumothorax 05/20/201736 year old male with recurrent right spontaneous pneumothorax?- continue R CT to -20 suction- daily AM CXR, pneumothorax resolved- will likely need R VATS this weekAssessment and plan discussed with attending: Dr JoeATURE: Sweta Osullivan MD PATIENT NAME: Anamika JuarezDATE: May 23, 2017 : 9:24 AM Pager: [phone] daniel Hwang MD 05/24/2017 10:47 AM SignedThoracic Surgery Progress NoteSERVICE DATE: 05/24/2017SUBJECTIVESUBJECTIVE:N AEON, pain control improving, no SOBDenies N/V/CP/SOBDiet: DIET NPOOBJECTIVEOBJECTIVE:Vitals:T emp (24hrs), Av.6 ?C (97.8 ?F), Min:36.4 ?C (97.5 ?F), Max:36.8 ?C (98.2?F)BP 124/80 Pulse 60 Temp 36.6 ?C (97.9 ?F) (Oral) Resp 18 Ht 177.8 cm (5'10 ) Wt 68 kg (150 lb) SpO2 99% BMI 21.52 kg/m2O2 Therapy: Room AirIANDO:Date 05/23/17699 - 05/24/17 0659 05/24/17 07 - 05/25/17 0659Shift 4966-3821 8081-3041 5912-0243 24 Hour Total 3692-5438 8830-6922 2300-902703 Hour TotalINTAKE Shift TotalOUTPUT # of BMs Number of BMs 1 x 1 x Shift TotalWeight (kg) 68 68 68 68 68 68 68 68MEDICATIONSCurrent Facility-Administered Medications:dextrose 5% in NaCl 0.45% iv infusion 75 mL/hr INTRAVENOUS CONTINUOUSoxyCODONE IR 5-10 mg tab(s) (ROXICODONE) 5-10 mg ORAL q 6 H PRNacetaminophen 650 mg tab(s) (TYLENOL) 650 mg ORAL q 6 HHYDROmorphone 0.2-0.5 mg injection (DILAUDID) 0.2-0.5 mg INTRAVENOUS q 3 H PRNondansetron 4 mg tab(s) (ZOFRAN) 4 mg ORAL q 6 H PRNOrondansetron (PF) 4 mg injection (ZOFRAN) 4 mg INTRAVENOUS q 6 H PRNdocusate sodium 100 mg cap(s) (COLACE) 100 mg ORAL BIDenoxaparin 40 mg injection (LOVENOX) 40 mg SUBCUTANEOUS DAILYLabs:Recent Labs 05/23/1802NA 137 136K 3.8 3.9CHLOR 107 103CO2 27 25BUN 12 15CREAT 0.58* 0.61*GLUC 100* 89ANION 7* 12CA 8.1* 8.1*WBC 5.36 5.22HB 12.0* 11.8*HCT 35.9* 34.7*PLT 233 229Exam:GENERAL: No distress, AlertNEURO: AANDOx3, CN II-XII grossly intactHEENT: normocephalic, atraumaticLUNGS: Unlabored breathing O2 Therapy: Room Air, Right CT -20, no leakCARDIAC: Regular rate and rhythm as aboveABDOMEN: Soft, non-tender, non-distendedEXTREMITIES: QUINTANILLA, No deformities, No edemaSKIN: Skin color, texture, turgor normal, No rashes or lesionsASSESSMENT AND PLAN:Active Hospital Problems Diagnosis Date Noted- Spontaneous pneumothorax 05/20/201736 year old male recurrent right spontaneous PTX- NPO/IVF pending discussion with Dr Hwang regarding Surgery- CXR stable yesterday, pending this morningAssessment and plan discussed with attending: Dr. KunzIGNATURE: Kiel Bell MD PATIENT NAME: Anamika Pena: May 24, 2017 : 6:26 AM Pager: [phone] seen, cxr reviewed, and situation d/w patient andFamily. Patient wishes to proceed with surgical treatment atthis time as this is 2nd occurrence on R.I have discussed the benefits, risks, indications and alternatives to RVATS, bleb resection, and mechanical pleurodesis withPatient and family. He had the same on left October 2015 and isFamiliar with it. Again advised to quit smoking permanently.Surgical Discussion: I have discussed the benefits, risks, indications, andalternatives to surgery with the patient. Risks discussed include but are notlimited to infection, bleeding, cardiac dysrhythmias, myocardial infarction,blood clots, pulmonary emboli, prolonged air, blood or fluid requiringreoperation, pneumonia, wound complications, wound infection, rarely , anduncommonly blood transfusion with associated risks of AIDS or Hepatitis.Expected OR, ICU, hospitalization, and home recovery times were discussed.Previous VersionSandra Torres RN, RN 05/24/2017 10:54 AM AddendumCARE MANAGEMENT: ASSESSMENT AND DISCHARGE PLANSERVICE DATE: 05/24/2017SERVICE TIME: 10:43 [facility] PHYSICIAN:Annemarie River ODPhone: FCUDRNAKE STATUS: InpatientPOTENTIAL DISCHARGE PLANSHomeTo Be DeterminedPatient/Representati ve Stated Goals: homeHealth Insurance: NoneLiving Arrangement: HomeLives With: SpouseFinancial Resources: UnemployedPrimary Contact:Extended Emergency Contact InformationPrimary Emergency Contact: Ronn Juarez Aqidtbdw: SpouseSupportive: YesOther Important Patient Contacts: NoneCAREGIVER ASSESSMENT:Caregiver is ready, willing and able to meet the patient's needs as recommendedby the inter-professional team? No Caregiver NeededPatient's transition needs and plan for meeting these needs: tbdDoes the patient have an acute stroke diagnosis, or has the patient had a strokeduring this admission? NoADVANCE DIRECTIVES:Does Patient Have Advance Directives? N/ADoes Patient Have Concerns About Advance Directives? NoPRIOR TO ADMISSION:Baseline Mental Status: Alert AND Oriented, Person, Place , Time and SituationFunctional Status: IndependentDoes Patient Currently Receive Any Community Services or Home Care? NoneEquipment Prior to Admission: NoneHEALTH:Health Issues Impacting Discharge Plan: NoneHealth Literacy Issues: NoPSYCHOSOCIAL:Is the Patient Psychosocially Complex? NoFamily/Patient Understanding of Illness/Diagnosis: yesMedication Adherence:Do you forget to take your medications? I do not forget to take my medicationHave you ever stopped taking medications because you felt worse? None of thetimeHave you ever taken less of your medication than what was prescribed byyour doctor? None of the timeIn the past 3 months, have you had issues obtaining one or more of yourmedications? None of the timeAre you interested in bedside delivery of your medications? NoFood Concerns:In the Last Month, Have You had Trouble Getting Food? No trouble getting foodDuring the Last Month, Have You Worried Whether Your Food Would Run Out BeforeYou Had Enough Money to Buy More? NoPsychosocial Needs: NoneUTILIZATION:Last Admission Date: noneIs this Within the Past 30 days? NoHas the Patient Been in a Senior Living Facility in the Past 30 days? NoFREEDOM OF CHOICE EXPLAINED:N/ANASTACIO COMMUNICATION:Dr. 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 Probable VATS this week. Noinsurance coverage. I spoke with Lisa from [employer]. She states pt will beineligible for Medicaid. SW consulted for indigent medsSIGNATURE: Sandra Torres RN PATIENT NAME: Anamika JuarezDATE: May 24, 2017 : 10:43 AM PAGER/CONTACT #: [phone] Earnest Valencia MD 05/24/2017 11:48 AM Signed ANESTHESIOLOGY DAY OF SURGERY NOTESERVICE DATE: 05/24/2017SERVICE TIME: 11:47 AMDOB: 1980Procedure(s) (LRB):VIDEO ASSISTED THORASCOPIC PLICATION OF DIAPHRAGM (N/A)THORACOTOMY RESECTION BLEBS (N/A)Surgeon(s):Dianna Morsetimated body mass index is 21.52 kg/(m2) as calculated from the following: Height as of this encounter: 177.8 cm (5' 10 ). Weight as of this encounter: 68 kg (150 lb).Most recent hematocrit and potassium results:Hematocrit 35.9 05/24/2017Potassium 3.8 05/24/2017ANES DOS/PREOP NOTE:Vitals: 05/24/18037 144BP: 119/77 124/80 125/81 131/79Pulse: 73 60 (!) 55 66Resp: 18 18 18 16Temp: 36.4 ?C (97.5 ?F) 36.6 ?C (97.9 ?F) 36.7 ?C (98.1 ?F) 36.9 ?C (98.4 ?F)TempSrc: Oral Oral Oral Temporal ArterySpO2: 96% 99% 99% 98%Weight:Height:ACTIVE PROBLEM LISTPneumothoraxSpontaneous PneumothoraxPAST MEDICAL HISTORYDiagnosis Date- PneumothoraxPAST SURGICAL HISTORYProcedure Laterality Date- INGUINAL HERNIA REPAIR HX- THORACOSCOPY SURG W PLEURODESIS Left 10/29/2015 L VATS with bleb resection, AND mechanical pleurodesis at [facility] by Dr. Burton HISTORYProblem Relation Age of Onset- DiabetesSocial History:Social HistorySubstance Use Topics- Smoking status: Former Smoker Packs/day: 0.50 Types: Cigarettes- Smokeless tobacco: Former User Quit date: 08/22/2015- Alcohol use Yes Comment: occassionalNo current facility-administered medications on file prior to encounter.No current outpatient prescriptions on file prior to encounter.Current Facility-Administered Medications:[MAR Hold due to Transfer] dextrose 5% in NaCl 0.45% iv infusion 75 mL/hrINTRAVENOUS CONTINUOUS Thad Garcia Last Rate: 75 mL/hr at 05/24/17 0001 75mL/hr at 05/24/17 0001[MAR Hold due to Transfer] oxyCODONE IR 5-10 mg tab(s) (ROXICODONE) 5-10 mg ORALq 6 H PRN Sweta (Res) Shi 10 mg at 05/24/17 0639[MAR Hold due to Transfer] acetaminophen 650 mg tab(s) (TYLENOL) 650 mg ORAL q 6H Sweta (Res) Shi 650 mg at 05/24/17 0638[MAR Hold due to Transfer] HYDROmorphone 0.2-0.5 mg injection (DILAUDID) 0.2-0.5mg INTRAVENOUS q 3 H PRN Sweta (Res) Shi 0.5 mg at 05/24/17 1042[MAR Hold due to Transfer] ondansetron 4 mg tab(s) (ZOFRAN) 4 mg ORAL q 6 H PRNJimmy (Res) IbrahimOr[MAR Hold due to Transfer] ondansetron (PF) 4 mg injection (ZOFRAN) 4 mgINTRAVENOUS q 6 H PRN Kiel (Res) Bell[MAR Hold due to Transfer] docusate sodium 100 mg cap(s) (COLACE) 100 mg ORALBID Kiel (Res) Bell 100 mg at 05/24/17 1043Allergies: ALLERGIESNo Known AllergiesDOS EXAM: Adequate NPO Status: YesAnesthetic Risks, Benefits, Alternatives, Personnel and Consent Discussed:YesPatient agrees to proceed: YesPrevious Anesthesia: No history of adverse eventAirway Assessment: MP 1; Neck ROM: Full ROM without neurologic symptoms; AirwayEvaluation: No significant abnormalitiesSymptoms of Sleep Apnea: Male genderDentition: EdentulousAdditional Physical Exam:Lungs: Patient health status unchanged since recent history and physical. Seehistory and physical for exam findings.Cardiac: Patient health status unchanged since recent history and physical. Seehistory and physical for exam findings.Additional Pertinent Findings: N/ABlood Products: Will accept Blood/Blood ProductsAnesthetic Plan: GeneralAnesthetic Monitoring: Standard ASA Monitors and Invasive Hemodynamic MonitoringArterial linePain Management Plan: Parenteral or OralASA Class: 3Other Medical Problems: Type and screen with negative antibodiesChronic Beta Eyal medication administered within 24 hours: N/AI have interviewed and examined the patient. I have reviewed the medical recordand/or the pre-anesthesia evaluation, pertinent labs, and test results.Significant changes in the patient's condition since the History and Physical,not otherwise documented in primary service progress notes: [facility] information obtained within 48 hours of Surgery/Procedure.SIGNATURE: Ab Valencia MD PATIENT NAME: Anamika JuarezDATE: May 24, 2017 : 11:47 AM CSN: [id number] Valencia MD 05/24/2017 11:49 AM Incomplete Normal [facility] PROGRESSon 05-20-2017 PROGRESS HNO ID: [id number] thor: Thad Guillen: Thoracic SurgeryAuthor Type: PhysicianType: Progress NotesFiled: 05/21/2017 6:05 PMNote Text:Vascular Surgery Progress NoteSERVICE DATE: 05/21/2017SUBJECTIVENAEON. Pt reports pain is the same as yesterday. No difficulty breathing.Denies N/V/CP/SOBDiet: DIET REGULAROBJECTIVEVitals:Temp (24hrs), Av.2 ?C (98.9 ?F), Min:36.3 ?C (97.3 ?F), Max:38.2 ?C(100.8 ?F)BP 99/66 Pulse 64 Temp 36.3 ?C (97.3 ?F) (Oral) Resp 18 Ht 177.8cm (5' 10 ) Wt 68 kg (150 lb) SpO2 95% BMI 21.52 kg/m2O2 Therapy: Room AirIANDO:Date 05/20/17699 - 05/21/17 0659 05/21/17699 - 05/22/17 0659Shift 7088-5831 6520-4651 7775-7149 24 Hour Total 8571-3417 2120-73018483-3477 24 Hour TotalINTAKE PO 240 600 840 PO 240 600 840 Shift Total 240 600 840OUTPUT Urine Urine Incontinence/Not Saved 1 x 1 x Chest Tube 0 0 Chest Tube Output (Chest Tube Admission to Hospital Right LateralPleural Tube #1) 0 0 Shift Total 0 0Weight (kg) 68 68 68 68 68 68 68 68MEDICATIONSCurrent Facility-Administered Medications:acetaminophen 975 mg tab(s) (TYLENOL) 975 mg ORAL q 6 Hondansetron 4 mg tab(s) (ZOFRAN) 4 mg ORAL q 6 H PRNOrondansetron (PF) 4 mg injection (ZOFRAN) 4 mg INTRAVENOUS q 6 H PRNdocusate sodium 100 mg cap(s) (COLACE) 100 mg ORAL BIDmorphine 4 mg injection 4 mg INTRAVENOUS q 2 H PRNenoxaparin 40 mg injection (LOVENOX) 40 mg SUBCUTANEOUS DAILYoxyCODONE IR 5-10 mg tab(s) (ROXICODONE) 5-10 mg ORAL q 4 H PRNketorolac 30 mg injection (TORADOL) 30 mg INTRAVENOUS q 6 HLabs:Recent Labs NA 134*K 3.6CHLOR 100CO2 26BUN 13CREAT 0.54*GLUC 107*ANION 12CA 7.7*WBC 4.82HB 14.1HCT 41.4PLT 250Exam:GENERAL: No distress, AlertNEURO: AANDOx3, CN II-XII grossly intactHEENT: normocephalic, atraumaticLUNGS: Unlabored breathing O2 Therapy: Room Air, R CT in place, air leakpresentCARDIAC: Regular rate and rhythm as aboveABDOMEN: Soft, non-tender, non-distendedEXTREMITIES: QUINTANILLA, No deformities, No edemaSKIN: Skin color, texture, turgor normal, No rashes or lesionsASSESSMENT AND PLAN:Active Hospital Problems Diagnosis Date Noted- Spontaneous pneumothorax 05/20/201736 year old male with recurrent right spontaneous pneumothorax- continue R CT to -20 suction- daily AM CXR, stable today- will likely need R VATS next weekAssessment and plan discussed with attending: Dr JoeATURE: Sweta Osullivan MD PATIENT NAME: Anamika JuarezDATE: May 21, 2017 : 6:44 AM Pager: [phone] Surgery Attending - Patrizia NoteI evaluated the patient and personally participated in the cabezas components. I agree with the resident's findings and plan as documented and havediscussed the case and management of the patient's care with the resident.Recurrent secondary spontaneous pneumothorax on right in setting ofhistory of recurrent left pneumothoraces, s/p left VATS with blebresection/pleuradhesis, and ongoing tobacco abuse. Right lung wellexpanded after pleural catheter placement at outside hospital. +air leak.Plan continued chest tube drainage of right pleural space. If air leakpersists, will recommend VATS. Normal [facility] Vital Signs Date Time Vital Sign Value Performing Clinician Facility 08-03-2022 13:49-0400 Body temperature 98.1 [degF] Elbert Rudolph ASSISTANT ART DIRECTOR.BOTTLE LINE WORKER Work Phone: [facility] 08-03-2022 13:49-0400 Body weight 76.93 kg Elbert Galdamez ASSISTANT ART DIRECTOR.BOTTLE LINE WORKER Work Phone: [facility] 08-03-2022 13:49-0400 Diastolic blood pressure 68 mm[Hg] Elbert Rudolph ASSISTANT ART DIRECTOR.BOTTLE LINE WORKER Work Phone: [facility] 08-03-2022 13:49-0400 Heart rate 89 /min Elbert Rudolph ASSISTANT ART DIRECTOR.BOTTLE LINE WORKER Work Phone: [facility] 08-03-2022 13:49-0400 Respiratory rate 18 /min Elbert Rudolph ASSISTANT ART DIRECTOR.BOTTLE LINE WORKER Work Phone: [facility] 08-03-2022 13:49-0400 SaO2% (BldA) [Mass fraction] 97 % Elbert Rudolph ASSISTANT ART DIRECTOR.BOTTLE LINE WORKER Work Phone: [facility] 08-03-2022 13:49-0400 Systolic blood pressure 112 mm[Hg] Elbert Galdamez ASSISTANT ART DIRECTOR.BOTTLE LINE WORKER Work Phone: [facility] 07-28-2022 07:15-0500 Body temperature 100 [degF] Orlando May MD Work Phone: [facility] 07-28-2022 07:15-0500 Body weight 77.56 kg Orlando May MD Work Phone: [facility] 07-28-2022 07:15-0500 Diastolic blood pressure 80 mm[Hg] Orlando May MD Work Phone: [facility] 07-28-2022 07:15-0500 Heart rate 93 /min Orlando May MD Work Phone: [facility] 07-28-2022 07:15-0500 Respiratory rate 18 /min Orlando May MD Work Phone: [facility] 07-28-2022 07:15-0500 SaO2% (BldA) [Mass fraction] 97 % Orlando May MD Work Phone: [facility] 07-28-2022 07:15-0500 Systolic blood pressure 122 mm[Hg] Orlando May MD Work Phone: [facility] 01-12-2022 07:41-0400 Body temperature 97.39 [degF] [facility] ASSISTANT ART DIRECTOR.BOTTLE LINE WORKER Work Phone: [facility] 01-12-2022 07:41-0400 Body weight 75.48 kg [facility] ASSISTANT ART DIRECTOR.BOTTLE LINE WORKER Work Phone: [facility] 01-12-2022 07:41-0400 Diastolic blood pressure 62 mm[Hg] [facility] ASSISTANT ART DIRECTOR.BOTTLE LINE WORKER Work Phone: [facility] 01-12-2022 07:41-0400 Heart rate 84 /min [facility] ASSISTANT ART DIRECTOR.BOTTLE LINE WORKER Work Phone: [facility] 01-12-2022 07:41-0400 Respiratory rate 16 /min [facility] ASSISTANT ART DIRECTOR.BOTTLE LINE WORKER Work Phone: [facility] 01-12-2022 07:41-0400 SaO2% (BldA) [Mass fraction] 99 % [facility] ASSISTANT ART DIRECTOR.BOTTLE LINE WORKER Work Phone: [facility] 01-12-2022 07:41-0400 Systolic blood pressure 108 mm[Hg] Valerianojoey [facility] ASSISTANT ART DIRECTOR.BOTTLE LINE WORKER Work Phone: [facility] 12-14-2021 10:34-0400 Diastolic blood pressure 89 mm[Hg] SOFY SALAZAR DO [facility] 12-14-2021 10:34-0400 Heart rate 60 /min SOFY SALAZAR DO [facility] 12-14-2021 10:34-0400 Mean blood pressure 106 mm[Hg] SOFY SALAZAR DO [facility] 12-14-2021 10:34-0400 Respiratory rate 16 /min SOFY SALAZAR DO [facility] 12-14-2021 10:34-0400 Systolic blood pressure 139 mm[Hg] SOFY SALAZAR DO [facility] 12-14-2021 09:04-0400 Body temperature 97.7 [degF] SOFY SALAZAR DO [facility] 12-14-2021 09:04-0400 Body weight 68.2 kg SOFY SALAZAR DO [facility] 12-14-2021 09:04-0400 Diastolic blood pressure 91 mm[Hg] SOFY SALAZAR DO [facility] 12-14-2021 09:04-0400 Heart rate 75 /min SOFY SALAZAR DO [facility] 12-14-2021 09:04-0400 Mean blood pressure 111 mm[Hg] SOFY SALAZAR DO [facility] 12-14-2021 09:04-0400 Respiratory rate 18 /min SOFY SALAZAR DO [facility] 12-14-2021 09:04-0400 Systolic blood pressure 150 mm[Hg] SOFY SALAZAR DO [facility] Encounters Encounter Date Encounter Type Care Provider Facility Start: 02-24-2023 Telephone encounter Elbert aldana APRN.BOTTLE LINE WORKER Work Phone: [facility] Comment on above: Return To Work Lette r Start: 02-22-2023 End: 02-22-2023 ambulatory [facility] Facility:[facility] Start: 02-22-2023 End: 02-22-2023 Subsequent hospital visit by physician [facility] [place] Work Phone: Radiology Comment on above: Wheeze [R06.2] Start: 08-03-2022 End: 08-03-2022 [facility] Facility:[facility] Start: 08-03-2022 End: 08-03-2022 Subsequent hospital visit by physician Orion [facility] [place] Work Phone: Radiology Comment on above: Acute cough [R05.1] Start: 08-03-2022 End: 08-03-2022 Patient encounter procedure Elbert Galdamez APRN.BOTTLE LINE WORKER Work Phone: [facility] Comment on above: Sinobronchitis (Prim narciso Dx); Acute cough Start: 07-29-2022 Telephone encounter Elbert aldana APRN.BOTTLE LINE WORKER Work Phone: [facility] Comment on above: Results Start: 07-28-2022 End: 07-28-2022 ambulatory ELBERT GALDAMEZ Facility:[facility] Start: 07-28-2022 End: 07-28-2022 Patient encounter procedure Orlando May MD Work Phone: [facility] Comment on above: Influenza-like illne ss (Primary Dx); Oral lesion Start: 01-12-2022 End: 01-12-2022 Patient encounter procedure Valeriano Burnett APRN.BOTTLE LINE WORKER Work Phone: [facility] Comment on above: Viral illness (Prima ry Dx) Start: 12-14-2021 End: 12-14-2021 Emergency department patient visit SOFY SALAZAR DO [facility] Start: 06-09-2017 End: 06-10-2017 Ambulatory [facility] Facility:[facility] Start: 05-20-2017 End: 05-28-2017 Evaluation and management of inpatient [facility] Facility:[facility] Procedures Date Procedure Procedure Detail Performing Clinician Start: 02-22-2023 Radiologic exam ches t 2 views Elbert Galdamez APRN.BOTTLE LINE WORKER Work Phone: Start: 08-03-2022 Radiologic exam ches t 2 views Elbert Galdamez APRN.BOTTLE LINE WORKER Work Phone: Start: 08-27-2020 Adult depression screening assessment Valeriano Burnett APRN.BOTTLE LINE WORKER Work Phone: Plan of Treatment Date Care Activity Detail Author Start: 01-22-2024 Covid-19 Vaccine ( season) Covid-19 Vaccine ( season) [facility] Start: 01-22-2024 Covid-19 Vaccine ( season) Covid-19 Vaccine ( season) [facility] Start: 01-22-2024 Influenza vaccination Influenza Vacc ine (#1) [facility] Start: 01-21-2023 Influenza vaccination Influenza Vacc ine (#1) [facility] Start: 07-28-2022 End: 08-11-2022 Influenza virus A and B RNA and SARS-CoV-2 (COVID-19) N gene panel - Respiratory specimen by SAUL with probe detection COVID WITH FLUA+B, ROUTINE Microbiology Routine Influenza-like illness Expected: 07/28/2022, Expires: 08/11/2022 [facility] Work Phone: Comment on above: Expected: 07/28/2022 , Expires: 08/11/2022 Start: 05-23-2022 DEPRESSION ASSESSMENT DEPRESSION ASS ESSMENT [facility] Start: 01-21-2022 Influenza vaccination INFLUENZA (#1) [facility] Start: 08-27-2021 Adult depression screening assessment DEPRESSION SCREENING [facility] Start: 12-19-2015 Lipid 1996 panel - Serum or Plasma Lipid Screening [facility] Start: 12-19-2015 Lipid panel Lipid Screening [facility] Start: 12-19-2015 LIPID SCREEN LIPID SCREEN [facility] Start: 12-19-1999 Hepatitis B Vaccine (1 of 3 - 19+ 3-dose series) Hepatitis B Vaccine (1 of 3 - 19+ 3-dose series) [facility] Start: 12-19-1999 Urine microalbumin profile [facility] Start: 1998 Anxiety Screening Anxiety Screening [facility] Start: 1998 Depression Screening Depression Scre ening [facility] Start: 1998 HEPATITIS C SCREENING HEPATITIS C [facility] Start: 1998 Hepatitis C screening Hepatitis C [facility] Start: 1998 HIV SCREENING HIV SCREENING [facility] Start: 1998 HIV screening HIV Screening [facility] Start: 1986 PNEUMOCOCCAL (1 - PCV) PNEUMOCOCCAL (1 - PCV) [facility] Start: 1986 Pneumococcal vaccination [facility] Start: 06-20-1981 COVID-19 VACCINE (#1) COVID-19 VACCI NE (#1) [facility] Start: 1980 HEPATITIS B (1 of 3 - 3-dose series) HEPATITIS B (1 of 3 - 3-dose series) [facility] Start: 1980 Hepatitis B Vaccine (1 of 3 - 3-dose series) Hepatitis B Vaccine (1 of 3 - 3-dose series) [facility] Influenza virus A an d B RNA and SARS-CoV-2 (COVID-19) N gene panel - Respiratory specimen by SAUL with probe detection COVID WITH FLUA+B, ROUTINE Microbiology Routine Viral illness Ordered: 01/12/2022 [facility] Work Phone: Comment on above: Ordered: 01/12/2022 Payers Date Payer Category Payer Medicaid [id number] 2020 Medicaid [id number] Social History Date Type Detail Facility Start: 08-27-2020 Tobacco smoking status Heavy t obacco smoker (finding) [facility] Sex Assigned At Male [facility] Start: 01-12-2022 Tobacco smoking stat us [facility] Smokes tobacco daily [facility] Work Phone: History of tobacco use Cigarette Smoker C [facility] Work Phone: Start: 04-30-2020 End: 01-12-2022 Cigarettes smoked current (pack per day) - Reported 0.5 [facility] Start: 01-12-2022 Tobacco use and exposure Former smokeless tobacco user [facility] Work Phone: End: 08-22-2015 History of tobacco use User of smokeless tobacco [facility] Work Phone: Start: 01-12-2022 End: 08-03-2022 Alcohol intake Current drinker of alcohol (finding) [facility] Start: 11-25-2015 History SDOH Alcohol Comment occassional [facility] Start: 1980 Sex Assigned At Not on file C [facility] Start: 01-02-2022 End: 01-12-2022 Exposure to SARS-CoV-2 (event) Yes [facility] Work Phone: Start: 04-30-2020 End: 02-22-2023 Tobacco use panel [facility] National Score (1-10 0), lower number is lower risk Not on file [facility] Functional Status Date Assessment Result Facility 12-14-2021 [facility] 12-14-2021 Functional Status Standard Safet y ID band on, Call device within reach, Bed in low position, Wheels locked, Upper/Half-Length side-rails up, Phone within reach, personal items within reach, Bedside Cart Locked, Visitor at bedside [facility] Mental Status Date Assessment Result Facility 12-14-2021 Mental Status Orientation Oriented x 4 [facility] 12-14-2021 Mental Status [facility] Clinical Notes 05-20-2017 to 02-24-2023 Telephone Encounter - Lucinda Perez MA - 02/24/2023 11:48 AM EDTTelephone Encounter - Elbert Galdamez APRN.CNP - 02/24/2023 11:07 AM Dolores Banerjee RT(R) - 02/22/2023 12:50 PM EDT Note Date & Type Note Facility 02-24-2023 Miscellaneous Notes Pt was notified of the results. Pt verbalized understanding. Lucinda Perez MA Message sent, if needs any additional [...] Johana Eugene RN documented in this encounter [facility] 02-22-2023 Note HNO ID: [id number] Author: Elbert Galdamez APRN.BOTTLE LINE WORKER Service: ? Author Type: Nurse Practitioner Type: Progress Notes Filed: 02/22/2023 2:06 PM Note Text: Subjective HPI HPI Anamika Juarez is a 42 year old male who [...] with bleb resection, AND mechanical pleurodesis at [facility] by Dr. Hwang THORACOSCOPY SURG W PLEURODESIS Right 05/24/2017 surgery [...] HFA 90 MCG/ACTUATION AEROSOL INHALER Elbert Galdamez APRN.[facility] 02-22-2023 Note HNO ID: [id number] Author: Dolores Gonzalez RT(R) Service: Radiology Author Type: Technologist Type: Progress Notes Filed: 02/22/2023 12:51 PM Note Text: Radiology Service Progress Note PATIENT NAME: Anamika Juarez DATE OF SERVICE: February 22, 2023 TIME: [...] PERIPHERAL IV DATA: Not applicable SIGNED BY: RT Disha(R) February 22, 2023 12:44 PM [facility] 02-22-2023 History of Present illness Narrative Radiology Service Progress Note PATIENT NAME: Anamika Juarez DATE OF SERVICE: February 22, 2023 TIME: [...] PERIPHERAL IV DATA: Not applicable SIGNED BY: RT Disha(R) February 22, 2023 12:44 PM documented in this encounter [facility] 08-03-2022 Note HNO ID: [id number] Author: Elbert Galdamez APRN.BOTTLE LINE WORKER Service: ? Author Type: Nurse Practitioner Type: Progress Notes Filed: 08/03/2022 2:58 PM Note Text: Subjective HPI HPI Anamika Juarez is a 41 year old male who [...] with bleb resection, AND mechanical pleurodesis at [facility] by Dr. Hwang THORACOSCOPY SURG W PLEURODESIS Right 05/24/2017 surgery [...] chest. Dictated by : MD Elbert CABRERA APRN.[facility] 08-03-2022 Note HNO ID: [id number] Author: RT Disha(R) Service: Radiology Author Type: Technologist Type: Progress Notes Filed: 08/03/2022 2:33 PM Note Text: Radiology Service Progress Note PATIENT NAME: Anamika Juarez DATE OF SERVICE: August 03, 2022 TIME: [...] PERIPHERAL IV DATA: Not applicable SIGNED BY: RT Disha(R) August 03, 2022 2:19 PM [facility] 08-03-2022 History of Present illness Narrative Subjective HPI HPI Anamika Juarez is a 41 year old male who [...] with bleb resection, & mechanical pleurodesis at [facility] by Dr. Hwang THORACOSCOPY SURG W PLEURODESIS Right 05/24/2017 surgery [...] chest. Dictated by : MD Elbert CABRERA APRN.BOTTLE LINE WORKER documented in this encounter [facility] 08-03-2022 History of Present illness Narrative Radiology Service Progress Note PATIENT NAME: Anamika Juarez DATE OF SERVICE: August 03, 2022 TIME: [...] PERIPHERAL IV DATA: Not applicable SIGNED BY: RT Disha(R) August 03, 2022 2:19 PM documented in this encounter [facility] 07-29-2022 Miscellaneous Notes Patient notified [...] than 5 days. documented in this encounter [facility] 07-28-2022 Note HNO ID: [id number] Author: Orlando May MD Service: ? Author Type: Physician Type: [...] once feeling better; he expresses understanding. Orlando May MD [facility] 07-28-2022 History of Present illness Narrative [...] once feeling better; he expresses understanding. Orlando May MD documented in this encounter [facility] 01-12-2022 Instructions Valeriano Burnett APRN.[facility] - 01/12/2022 7:51 AM EDT How to [...] concerning to you. documented in this encounter [facility] 01-12-2022 History of Present illness [...] with bleb resection, & mechanical pleurodesis at [facility] by Dr. Hwang THORACOSCOPY SURG W PLEURODESIS Right 05/24/2017 surgery [...] of care. This note was generated using [employer] software. It may contain errors in wording, punctuation, or spelling. Valeriano Burnett APRN.BOTTLE LINE WORKER documented in this encounter [facility] 12-14-2021 Hospital Discharge instructions Patient [...] are taking other medicines. You may use suec-vkq-[id number] medicine to control pain, unless another pain [...] or as directed by your healthcare provider [phone] [employer] [address] [place] [address]. All rights reserved. This information is not intended as a substitute for professional medical care. Always follow your healthcare professional's instructions. Follow Up Care 12/14/2021 08:56:22 With:PATRICIA SARAVIA DO Address: [address] [facility] [facility] [place], [place] [phone]- [phone] When:2-4 days With:Follow up with primary care provider Address:Unknown When:2-4 days [facility] 12-14-2021 Note Discharge Instructions Thank you for allowing [facility] to assist you with your healthcare needs. [...] DO When Within 2-4 days Where: [address] [place] [phone]- [phone] Follow Up with Follow up with primary care provider When Within 2-4 days Allergies NKA Medications Please ask your primary doctor or pharmacist before taking any other medication not listed, including over the counter drugs, herbal medications, vitamins and or supplements as they may interact with your home medications. What How Much When Why Instructions Last Dose New acetaminophen-hydrocodone (Mcdonald 325- 5 mg oral tablet) 1 tab(s) [...] are taking other medicines. You may use nbuq-[id number] medicine to control pain, unless another pain [...] or as directed by your healthcare provider [id number] [employer] [address] [place] [id number]. All rights reserved. This information is not intended as a substitute for professional medical care. Always follow your healthcare professional's instructions. Additional Information VACCINATE! IT SAVES LIVES! Members of the community who have not yet received the COVID-19 vaccine and would like to receive it can visit one of [facility] vaccine clinics. There are many vaccine clinic locations within the [facility]. For locations and available times, please visit [email or web address]. It is important to note that some COVID mobile vaccine clinics are held outdoors and may be canceled in rainy or stormy conditions. To learn more about pediatric vaccinations (ages 5-11), we invite you to visit the [facility] webpage. [email or web address] To learn more about the COVID-19 vaccine, we invite you to visit the [facility] website for a list of frequently asked questions. [email or web address] [email or web address] [facility] Patient Portal Access Instructions: Stay connected with your healthcare team and access your personal medical information anytime with the [facility] Patient Portal. If you would like a full copy of your medical records please contact the [facility] Medical Records Department Tuesday through Tuesday between 8a.m. and 4:30p.m. Please follow the directions below to access the portal: 1.Access the email account you provided upon registration to the [facility].2.Look for an invitation email from [facility].3.Open the email and access the invitation link: Accept Invitation to [facility]4.Fill in the required nowak to create your account. Sign into [email or web address] with your username and password that you [...] you will allow to register on the [facility] Patient Portal for access to your information. You can also access the [facility] Patient Portal on the be2. Simply click on Health Records under Health Data and then click on the [employer] logo. HOW TO SAFELY DISPOSE OF PRESCRIPTION [...] Call your local pharmacy or go to [email or web address] to find one close to you.3.Make use of household items: Use cat litter or old coffee grounds to dispose medications if other options are not available. Mix your drugs with these household products, seal them in an airtight container and throw it into the garbage. Call [facility]: [phone] to be sure your drugs can be [...] aware that I should contact my doctor. Patient/Legal Recruiter Signature: Date/Time: Relationship to Patient: ____ Witness Name/Signature: Date/Time: [facility] 12-14-2021 Note ORIGINAL EXAMINATION: AP lateral [...] 12/14/2021 10:10:21 AM Ordering Provider: SOFY SALAZAR [facility] 12-14-2021 Note ORIGINAL EXAMINATION: AP lateral [...] 12/14/2021 10:10:21 AM Ordering Provider: SOFY SALAZAR [facility] 05-20-2017 History of Past i llness Narrative Problem Noted Date Resolved Date Spontaneous pneumothorax 05/20/2017 018 documented as of this encounter (statuses as of 01/12/2022) [facility]12[facility] History of Past illness Narrative* Problem Noted Date Resolved Date Spontaneous pneumothorax 05/20/2017 018 documented as of this encounter (statuses as of 07/28/2022) [facility] History of Past illness Narrative* Problem Noted Date Resolved Date Spontaneous pneumothorax 05/20/2017 018 documented as of this encounter (statuses as of 07/29/2022) [facility] History of Past illness Narrative* Problem Noted Date Resolved Date Spontaneous pneumothorax 05/20/2017 018 documented as of this encounter (statuses as of 08/03/2022) [facility] History of Past illness Narrative* Problem Noted Date Diagnosed Date Resolved Date Spontaneous pneumothorax 05/20/201710/2017 documented as of this encounter (statuses as of 02/25/2023) [facility] No data available for this section [facility] Evaluation note* Diagnosis Viral illness- Primary Unspecified viral infection, in conditions classified elsewhere and of unspecified site [facility] Diagnosis Influenza-like illness- Primary Influenza with other respiratory manifestations Oral lesion Other and unspecified diseases of the oral soft tissues [facility] Diagnosis Sinobronchitis- Primary Unspecified sinusitis (chronic) Acute cough [facility] N[facility]* Diagnostic Procedure Only (Routine) - Closed Specialty Diagnoses / Procedures Referred By Karen meneses Referred To Contact Radiology / [facility] Diagnoses room 5 Procedures XR CHEST Self Zzz [facility] [address] [place] [address] Referral ID Status Reason Start Date Expiration Date Visits Re quested Visits Authorized [id number] Closed 08/03/2022 05/22/2023 1 1 [facility] Summary Purpose Family History No [...] ized section and content) DATE CREATED AUTHOR 11/14/2017 [facility] DATE CREATED AUTHOR AUTHOR'S ORGANIZ ATION 11/14/2017 [facility] DATE CREATED AUTHOR AUTHOR'S ORGANIZ ATION 01/15/2022 [facility] ([place]) DATE CREATED AUTHOR AUTHOR'S ORGANIZ ATION 02/26/2023 [facility] Care Team (unrecognized sect ion and content) Care Team Personnel Name: PHYSICIAN, NONE Position: Physician Member Role: Primary Care Physician Care Team Related Persons Name: CARO JUAREZ Address: Home [address] [place] [address] Source Comments (unrecognize d section and content) In the event this informatio n is protected by the Federal Confidentiality of Alcohol and Drug Abuse Patient Records regulations: The Federal rules restrict any use of the information to criminally investigate or prosecute any alcohol or drug abuse patient.[facility] the event this information is protected by the Federal Confidentiality of Alcohol and Drug Abuse Patient Records regulations: The Federal rules restrict any use of the information to criminally investigate or prosecute any alcohol or drug abuse patient.[facility] Center[facility] the event this information is protected by the Federal Confidentiality of Alcohol and Drug Abuse Patient Records regulations: The Federal rules restrict any use of the information to criminally investigate or prosecute any alcohol or drug abuse patient.[facility] Center[facility] the event this information is protected by the Federal Confidentiality of Alcohol and Drug Abuse Patient Records regulations: The Federal rules restrict any use of the information to criminally investigate or prosecute any alcohol or drug abuse patient.[facility] Center[facility] the event this information is protected by the Federal Confidentiality of Alcohol and Drug Abuse Patient Records regulations: The Federal rules restrict any use of the information to criminally investigate or prosecute any alcohol or drug abuse patient.[facility] Center[facility] the event this information is protected by the Federal Confidentiality of Alcohol and Drug Abuse Patient Records regulations: The Federal rules restrict any use of the information to criminally investigate or prosecute any alcohol or drug abuse patient.[facility] Center[facility] the event this information is protected by the Federal Confidentiality of Alcohol and Drug Abuse Patient Records regulations: The Federal rules restrict any use of the information to criminally investigate or prosecute any alcohol or drug abuse patient.[facility] Reason for Visit (unrecogniz ed section and content) Reason Comments Head Congestion cough and bodyaches x this am Reason Comments Cough Congestion, ST, [place], bodyaches, chills, fever x last night Reason Comments Results Reason Comments Cough Chest congestion, + Covid Dx 07/28/2022. Reason Comments Return To Work Letter Care Teams (unrecognized sec tion and content) Diabetes Physician Relationship Specialty Start Date End Date [place] [address] [place] [address] PCP - General Optometry 05/20/17 FOR RECORDS PERTAINING TO PATIENTS WHO ARE [...] BE BASED ON THE PRIMARY CLINICAL RECORDS. [facility]. provides no warranty or guarantee of the accuracy or completeness of information in this document.
--- NOTE | 2024-03-19 03:15 | RAD_ITS ---
INDICATION: Left-sided chest pain ribs 789 anterior axillary l EXAMINATION/TECHNIQUE: X-RAY - XR Chest 2 Views COMPARISON: Prior study dated: 10/08/2022 FINDINGS: LINES/DEVICES: None. LUNGS: No consolidation. Apical pleural thickening bilaterally not significantly changed. No pneumothorax. MEDIASTINUM: Unremarkable. CARDIAC SILHOUETTE: Not enlarged. BONES AND SOFT TISSUES: No acute abnormalities. RAD/Chest PA and Lateral IMPRESSION: No evidence of active intrathoracic disease. Electronically Signed: Karuna Weiss MD at 4:34 EDT ,
[2024-03-19 03:39] VITALS: BP 142/96; PULSE 64; RESP 16; TEMP 35.7; O2SAT 98
== END 2024-03-19 03:40 | disposition home or self-care (01) ==
PROVIDERS: Emergency Provider Emergency Medicine; PCP Internal Medicine; Visit Provider Emergency Medicine
DX: R07.89 Other chest pain (principal); R06.02 Shortness of breath; R03.0 Elevated blood-pressure reading, without diagnosis of hypertension; F17.210 Nicotine dependence, cigarettes, uncomplicated; M47.814 Spondylosis without myelopathy or radiculopathy, thoracic region; R05.9 Cough, unspecified
CPT/HCPCS: 71046; 99282

== ENCOUNTER 2024-03-29 13:14 | Emergency (ER) | payer MEDICAID, SELFPAY ==
[2024-03-29 13:15] VITALS: BP 140/88; PULSE 72; RESP 13; TEMP 35.8; O2SAT 100; BMI 23.0
[2024-03-29] MEDS: Ketorolac 30 MG/ML Syringe IV (13:47)
[2024-03-29 13:48] LABS: Absolute Lymphocyte Count 2.18 X10^3/uL (0.83-4.51); Absolute Neutrophil Count 3.9 X10^3/uL (2.0-7.7); Basophil# 0.04 X10^3/uL; Basophil% 0.5 % (0-1); Eosinophil# 0.41 X10^3/uL; Eosinophils% 5.6 % (0-5); Hematocrit 42.5 % (40-54); Hemoglobin 15.9 g/dL (13.0-16.5); Lymphocyte # 2.18 X10^3/ul (0.83-4.51); Lymphocyte % 29.8 % (19-41); Mean Corp Hgb Conc 37.4 g/dL (32-36); Mean Corpuscular Hgb 34.6 pg (27.0-32.0); Mean Corpuscular Volume 92.6 fL (80-94); Monocyte# 0.73 X10^3/uL; NRBC Flagged by Analyzer 0 % (0-5); Neutrophil # 3.92 X10^3/uL (2.7-7.7); Neutrophil % 53.7 % (47-70); Platelet Count 257 K/mm3 (150-450); RBC Distribution Width CV 13.1 % (11.6-14.6); RBC Distribution Width SD 43.9 fl (35.1-43.9); Red Blood Count 4.59 M/mm3 (4.6-6.2); White Blood Count 7.3 K/mm3 (4.4-11.0)
[2024-03-29 13:53] LABS: Bacteria 0 SEEN /hpf (None Seen); Red Blood Cells-Urine 0 SEEN /hpf (0-5); White Blood Cells 0 SEEN /hpf (0-5)
[2024-03-29 13:57] LABS: Color, Urine Yellow (Yellow); Glucose, Dipstick Normal (Normal); Ketone-Dipstick 5 mg/dl (Negative); Leukocyte Esterase-Dipstick 25 /ul (Negative); Nitrite-Dipstick Negative (Negative); Occult Blood-Urine 10 /ul (Negative); Protein-Dipstick 30 mg/dl (Negative); Specific Gravity, Urine 1.015 (1.002-1.030); Urine Clarity Clear (Clear); Urine Urobilinogen 8 mg/dl (Normal); Urine pH 6.5 (5.0 - 8.0)
[2024-03-29 13:58] LABS: Urine Bilirubin Dipstick 3 mg/dL (Negative)
[2024-03-29 14:04] LABS: Mucous, Urine 2+ /hpf (<or=2+); Squamous Epithelial Cells - UA 0-5 SEEN /hpf (0-5)
[2024-03-29 14:08] LABS: Anion Gap 7 (5-15); BUN 8 mg/dL (7-18); BUN/Creat Ratio 10.3 RATIO (10-20); Calcium,Total 8.5 mg/dL (8.5-10.1); Chloride 102 mmol/L (98-107); Creatinine, Serum 0.78 mg/dL (0.70-1.30); EST Glomerular Filtration Rate 116 mL/min (>60); Est Glom Filt Rate - Afr Amer 140 mL/min (>60); Estimated Creatinine Clearance 129.27 ml/min; Glucose 103 mg/dL (74-106); Potassium 2.7 mmol/L (3.5-5.1); Sodium Level 135 mmol/L (136-145)
[2024-03-29 14:33] LABS: AST(SGOT) 28 U/L (15-37); Alanine Aminotransfer ALT/SGPT 40 U/L (16-61); Albumin, Serum 3.4 g/dL (3.2-5.0); Alkaline Phosphatase 65 U/L (45-117); Bilirubin, Direct 0.15 mg/dL (0.00-0.30); Globulin 2.8 g/dL (2.2-4.2); Magnesium 2.6 mg/dL (1.6-2.6); Protein, Total 6.2 g/dL (6.4-8.2)
[2024-03-29 15:14] VITALS: BP 118/66; PULSE 78; RESP 16; TEMP 36.6; O2SAT 99
== END 2024-03-29 15:35 | disposition home or self-care (01) ==
PROVIDERS: Emergency Provider Emergency Medicine; PCP Internal Medicine; Referring Provider Emergency Medicine; Visit Provider Emergency Medicine
DX: N40.1 Benign prostatic hyperplasia with lower urinary tract symptoms (principal); R35.0 Frequency of micturition; E87.6 Hypokalemia; F17.210 Nicotine dependence, cigarettes, uncomplicated; R10.30 Lower abdominal pain, unspecified
CPT/HCPCS: 74176; 80048; 80076; 81001; 83735; 85025; 96374; 99283; A4216

== ENCOUNTER 2024-11-16 12:10 | Emergency (ER) | payer MEDICAID, SELFPAY ==
[2024-11-16 12:10] VITALS: BP 133/91; PULSE 93; RESP 14; TEMP 36.1; O2SAT 99; BMI 24.0
[2024-11-16 12:37] VITALS: BP 127/92; PULSE 81; RESP 22; O2SAT 99
--- NOTE | 2024-11-16 13:05 | RAD_ITS ---
PROCEDURE: CHEST PA AND LATERAL 11/16/2024 REASON FOR EXAM: L CHEST PAIN TECHNIQUE: CHEST PA AND LATERAL COMPARISON: Chest x-ray of 03/11/2024. RAD/Chest PA and Lateral IMPRESSION: Bilateral upper lung sutures are seen. Biapical pleural-parenchymal scarring i s noted, [id number]-ghin-right. Lungs appear clear throughout. No pleural effusion or pneumothorax is noted. The cardiomediastinal silhouette is within the normal range. Mild thoracic spine degenerative changes are seen. No evidence of acute cardiopulmonary disease. Reading Location: [place] [address]
[2024-11-16 13:09] LABS: Absolute Lymphocyte Count 2.59 X10^3/uL (0.83-4.51); Basophil# 0.03 X10^3/uL; Basophil% 0.5 % (0-1); Eosinophil# 0.25 X10^3/uL; Eosinophils% 3.9 % (0-5); Hematocrit 43.9 % (40-54); Hemoglobin 16.4 g/dL (13.0-16.5); Lymphocyte # 2.59 X10^3/ul (0.83-4.51); Lymphocyte % 40.3 % (19-41); Mean Corp Hgb Conc 37.4 g/dL (32-36); Mean Corpuscular Hgb 36.8 pg (27.0-32.0); Mean Corpuscular Volume 98.4 fL (80-94); Mean Platelet Vol. 9.4 fl (6.2-12.0); Monocyte# 0.56 X10^3/uL; Monocyte% 8.7 % (0-10); NRBC Flagged by Analyzer 0 % (0-5); Neutrophil # 2.99 X10^3/uL (2.7-7.7); Neutrophil % 46.4 % (47-70); Platelet Count 243 K/mm3 (150-450); RBC Distribution Width CV 12.6 % (11.6-14.6); RBC Distribution Width SD 45.6 fl (35.1-43.9); Red Blood Count 4.46 M/mm3 (4.6-6.2); White Blood Count 6.4 K/mm3 (4.4-11.0)
[2024-11-16 13:47] LABS: Anion Gap 15 (5-15); BUN 6 mg/dL (4-19); BUN/Creat Ratio 8.6 RATIO (10-20); Calcium,Total 8.6 mg/dL (7.6-11.0); Carbon Dioxide 21.5 mmol/L (21.0-32.0); Chloride 101 mmol/L (98-108); Creatinine, Serum 0.69 mg/dL (0.70-1.20); EST Glomerular Filtration Rate 118 (>60); Estimated Creatinine Clearance 151.51 ml/min (50-250); Glucose 100 mg/dL (70-99); Potassium 3.1 mmol/L (3.3-5.1); Sodium Level 137 mmol/L (133-145); Troponin T High Sensitivity < 6 ng/L (<=22)
[2024-11-16] MEDS: Mag Hydrox/Al Hydrox/Simeth 30 ML UDC PO (13:58)
[2024-11-16] MEDS: Lidocaine 2% Viscous15 ML UDC 15 ML PO (13:58)
[2024-11-16 14:00] VITALS: BP 133/92; PULSE 68; RESP 18; O2SAT 99
--- NOTE | 2024-11-16 14:41 | EDS_ITS ---
HPI History of Present Illness Chief Complaint: Chest Pain Informant: patient Narrative Narrative: 43-year-old male presents with several hours of nonpleuritic left-sided chest discomfort that radiates straight through to his back around his shoulder blade but nowhere else. No karolyn dyspnea. No recent cough or fevers. 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 He denies any nausea or vomiting. No near-syncope or syncope. 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 It does hurt a little worse to move. No leg pain or swelling recently. The VATS were not done in the past couple months. [facility] Medical History Cellulitis of right thumb Abrasion of right thumb History of pneumonia Bone fracture Headache, migraine Trigeminal neuralgia Pneumothorax Home Medications ?Medication ?Instructions ?Recorded ?Last Taken ?Type TENS units #1 ea 12/16/21 Unknown Rx prednisone 10 mg tablet See Taper PO DAILY 11/16/24 11/16/24 History Allergy/AdvReac Type Severity Reaction Status Date / Time No Known Allergies Allergy Verified 11/16/24 12:11 Family History Mother Arthritis Heart disease Hypertension Severe allergy Grandmother Colon cancer Surgical History History of lung surgery H/O hernia repair History of tonsillectomy Social History household members: spouse current occupational status: employed current occupation: works at [email or web address] Smoking Status: Current every day smoker tobacco type: cigarettes Electronic Cigarette Use: not used alcohol intake: current alcohol intake frequency: holidays/special occasions only Alcohol type: wine and hard liquor substance use type: does not use what type of physical activity do you participate in: none do you feel safe at home: Yes ROS ROS ED Constitutional Constitutional ED: Denies chills or fever(s) Eyes Eyes: Denies change in vision or diplopia ENT ENT ED: Denies rhinorrhea or sore throat Cardiovascular Cardiovascular: Reports as per HPI and chest pain; Denies palpitations Respiratory/Chest Respiratory/Chest: Denies cough or dyspnea Gastrointestinal Gastrointestinal: Denies abdominal pain, diarrhea, nausea or vomiting Genitourinary Genitourinary ED: Denies dysuria or hematuria Musculoskeletal Musculoskeletal: Denies back pain or neck pain Integumentary Denies abscess or rash Neurologic Neurologic: Denies headache(s), paresthesias or weakness Psychiatric Psychiatric: Denies anxiety or suicidal thoughts EXAM Physical Exam Const Vital Signs: 11/16/24 12:10 11/16/24 12:37 11/16/24 12:39 Temperature 97 F L Temperature Source Temporal Pulse Rate 93 81 Respiratory Rate 14 22 H Respiratory Effort Normal Non-Labored Blood Pressure 133/91 H 127/92 H Blood Pressure Mean 105 103 Pulse Ox 99 99 Oxygen Delivery Method Room Air Room Air 11/16/24 14:00 11/16/24 15:02 Temperature 97 F L Temperature Source Pulse Rate 68 57 L Respiratory Rate 18 18 Respiratory Effort Blood Pressure 133/92 H 128/95 H Blood Pressure Mean 105 106 Pulse Ox 99 99 Oxygen Delivery Method Room Air Positive well nourished and well developed General Appearance ED: well developed and NAD HEENT Reports moist mucous membranes normocephalic and atraumatic Eyes PERRL and EOMs intact bilaterally Neck full ROM and supple Chest Wall Chest Narrative: Chest is nontender he does have some tenderness in the left mid back just below the tip of the scapula, there is no crepitance or subcutaneous emphysema and his lung sounds are equal bilaterally. No splinting with deep inspiration. Resp normal respiratory effort and clear to auscultation bilaterally Cardio regular rate, regular rhythm and no murmurs Rate: Negative for tachycardic Peripheral Pulses: pulses 2+ throughout GI non-tender and non-distended Auscultation: normoactive bowel sounds Palpation: soft Back/Spine no CVA tenderness General Back: other FROM Extremity normal to inspection Extremity Narrative: No calf tenderness or cords. General Extremety ED: Negative for edema, pulses abnormal or tenderness General Extremity: Negative for edema or pulses abnormal Neuro oriented x3, CN's II-XII intact bilaterally and no sensory deficits noted Sensorium / Orientation: awake and alert Motor Exam: strength 5/5 throughout Psych mental status grossly normal Skin no rashes or lesions noted and no wounds Heart Score History: Slightly/Non-Suspicious ECG: Normal Age: </= 45 years Risk Factors: 1 or 2 Risk Factors Troponin: </= Normal Limit Score: 1 MDM MDM MDM Narrative Medical decision making narrative: EKG is normal. 2 view chest x-ray obtained and on my interpretation shows no pneumothorax. His labs are only remarkable for mild hypokalemia, his troponin is normal. We did a second troponin it is also normal. In the meantime he was given a GI cocktail, he did notice that his discomfort is definitely less afterwards. Esophageal etiologies in the differential as are musculoskeletal. Regardless at this time I think he is safe to be discharged home his vital signs are normal, his PERC score is 0 so I do not think he needs to have a D-dimer or CTA in order to rule out pulmonary embolus in this particular scenario. He is comfortable with that overall plan of following up with his doctors as an outpatient. Lab Data Attestation: I reviewed the patient's lab results. Labs: Laboratory Results - last 24 hr 11/16/24 11/16/24 12:35 14:20 WBC 6.4 RBC 4.46 L Hgb 16.4 Hct 43.9 MCV 98.4 H MCH 36.8 H MCHC 37.4 H RDW Std Deviation 45.6 H RDW Coeff of Larisa 12.6 Plt Count 243 MPV 9.4 Immature Gran % (Auto) 0.200 Neut % (Auto) 46.4 L Lymph % (Auto) 40.3 [place] % (Auto) 8.7 Eos % (Auto) 3.9 Baso % (Auto) 0.5 Absolute Neuts (auto) 3.0 Absolute Lymphs (auto) 2.59 Nucleated RBC % 0 Sodium 137 Potassium 3.1 L Chloride 101 Carbon Dioxide 21.5 Anion Gap 15 BUN 6 Creatinine 0.69 L Estim Creat Clear Calc 151.51 Est GFR (MDRD) Non-Af 118 BUN/Creatinine Ratio 8.6 L Glucose 100 H Calcium 8.6 Troponin T High Sens < 6 Troponin T Hi Sens 2 Hr < 6 Radiography Diagnostic Testing: Clinical Impression(s) from Imaging Studies Chest X-Ray 11/16/24 13:05 IMPRESSION: Bilateral upper lung sutures are seen. Biapical pleural-parenchymal scarring is noted, [id number]-right. Lungs appear clear throughout. No pleural effusion or pneumothorax is noted. The cardiomediastinal silhouette is within the normal range. Mild thoracic spine degenerative changes are seen. No evidence of acute cardiopulmonary disease. Reading Location: [place] [address] Rhythm Strip Rhythm Strip: Sinus Rhythm Rate: 90 Ectopy: None EKG Initial EKG: Attestation: I personally reviewed and interpreted this EKG as follows: Interpretation: Sinus Rhythm and No Acute Injury Pattern Comments: Nml axis & intervals; RSR'; nml EKG Discharge Plan Triage Chief Complaint: Chest Pain ED Provider: Maximilian Gaspar Dx/Rx/DC Orders Clinical Impression: Left-sided chest pain Instructions: ED Chest Pain, Noncardiac Prescriptions: No Action (DME) TENS units Device See Rx Instructions .Route Qty: 1 0RF Rx Instructions: As directed prednisone 10 mg tablet See Taper PO DAILY Taper: Prednisone Taper 40 mg WITH BREAKFAST for 3 Days 20 mg WITH BREAKFAST for 3 Days 10 mg WITH BREAKFAST for 3 Days Primary Care Provider: Kylah Mckeon Referrals: Kylah Mckeon MD [Primary Care Provider] - As soon as possible Print Language: Divehi Disposition Disposition: Home, Self Care
[2024-11-16 15:02] VITALS: BP 128/95; PULSE 57; RESP 18; TEMP 36.1; O2SAT 99
[2024-11-16 15:42] LABS: Troponin T High Sens 2 HR < 6 ng/L (<=22)
== END 2024-11-16 15:51 | disposition home or self-care (01) ==
PROVIDERS: Emergency Provider Emergency Medicine; PCP Internal Medicine; Visit Provider Emergency Medicine
DX: R07.9 Chest pain, unspecified (principal); E87.6 Hypokalemia; F17.210 Nicotine dependence, cigarettes, uncomplicated
CPT/HCPCS: 71046; 80048; 84484; 85025; 93005; 99284; A4216

== ENCOUNTER 2024-12-27 06:25 | Emergency (ER) | payer MEDICAID, SELFPAY ==
[2024-12-27 06:28] VITALS: BP 158/99; PULSE 83; RESP 18; TEMP 36.6; O2SAT 98; BMI 23.8
--- NOTE | 2024-12-27 06:34 | CT_ITS ---
PROCEDURE: ABDOMEN/PELVIS W IV CONT ONLY 12/27/2024 REASON FOR EXAM: ABDOMINAL PAIN, DIARRHEA Nausea and vomiting. Ethanol abuse. TECHNIQUE: ABDOMEN/PELVIS W IV CONT ONLY Coronal and Sagittal reconstruction series were provided. CONTRAST: Isovue-300 VOLUME: 100 mL One or more dose reduction techniques were used (e.g., Automated exposure control, adjustment of the mA and/or kV according to patient size, use of iterative reconstruction technique. RADIATION DOSE SUMMARY: CTDlvol: 11.45 mGy DLP: 676.33 mGycm COMPARISON: Prior study dated March 29, 2024. FINDINGS: Lung bases: Lung bases are clear. Liver: Diffuse fatty infiltration. Gallbladder: Unremarkable Spleen: Normal size. Pancreas: Normal size without evidence of mass surrounding inflammation or ductal dilation. Adrenals: Unremarkable Kidneys: Normal renal sizes. No hydronephrosis. Bladder: Mild degree of bladder wall thickening. Mild enlargement of the prostate with central calcifications. Bowel: Findings suggestive of colitis of the left hemicolon. Appendix: Unremarkable Lymph nodes: Unremarkable. Vasculature: Mild diffuse atherosclerotic calcifications are noted. Peritoneum / Retroperitoneum: Unremarkable Bones: Unremarkable CT/Abdomen/Pelvis W IV Cont ONLY IMPRESSION: Fatty infiltration of the liver. Colitis of the left hemicolon. Reading Location: [place]
--- NOTE | 2024-12-27 06:34 | EDS_ITS ---
HPI HPI - GI History of Present Illness Chief Complaint: Abd Pain Narrative Narrative: 44-year-old male past medical history of hernia repair, states has had VATS procedures for collapsed lung presents with nausea, vomiting, diarrhea, and abdominal pressure over the last few days. He states his symptoms began the day before yesterday. Started more with vomiting then developed into diarrhea. He now feels a pressure sensation in his abdomen somewhat on the left side. It starts in the epigastrium and goes to the left. No real fevers or chills. In the last 24 hours said approximately 6 episodes of vomiting, no hematemesis. Probably had 10 episodes of diarrhea. States this morning around 3 AM, his symptoms had become more severe. He feels somewhat weak and lightheaded. No exacerbating or alleviating factors. [facility] Medical History Cellulitis of right thumb Abrasion of right thumb History of pneumonia Bone fracture Headache, migraine Trigeminal neuralgia Pneumothorax Home Medications ?Medication ?Instructions ?Recorded ?Last Taken ?Type TENS units #1 ea 12/16/21 Unknown Rx Allergy/AdvReac Type Severity Reaction Status Date / Time No Known Allergies Allergy Verified 12/27/24 06:27 Family History Mother Arthritis Heart disease Hypertension Severe allergy Grandmother Colon cancer Surgical History History of lung surgery H/O hernia repair History of tonsillectomy Social History household members: spouse current occupational status: employed current occupation: works at [employer] Smoking Status: Current every day smoker tobacco type: cigarettes Electronic Cigarette Use: not used alcohol intake: current alcohol intake frequency: holidays/special occasions only Alcohol type: wine and hard liquor substance use type: does not use what type of physical activity do you participate in: none do you feel safe at home: Yes ROS ROS ED ROS Narrative Review of systems is positive for nausea, vomiting, and diarrhea. He feels abdominal pain and pressure mainly in the epigastrium radiating towards the left side. No hematemesis, no blood in stool. No fevers or chills. No exacerbating or alleviating factors. EXAM Physical Exam Narrative Exam Narrative: Afebrile. Vital signs noted. Nontoxic-appearing. Cardiovascular examination reveals regular rate and rhythm. Lungs are clear to auscultation bilaterally. The abdomen is soft with minimal diffuse tenderness to palpation, no guarding or rebound. Positive bowel sounds. Neurological examination is nonfocal, nonlateralizing. No pedal edema. Const Vital Signs: 12/27/24 06:28 Temperature 97.9 F Temperature Source Oral Pulse Rate 83 Respiratory Rate 18 Blood Pressure 158/99 H Blood Pressure Mean 118 Pulse Ox 98 Oxygen Delivery Method Room Air MDM MDM MDM Narrative Medical decision making narrative: The differential diagnosis includes but not limited to gastroenteritis versus pancreatitis versus colitis versus partial small bowel obstruction. Patient is nontachycardic. He will be given IV fluids and ondansetron. Reviewed his laboratory work and he has normal white count of 8.3 with hemoglobin slightly hemoconcentrated at 17.7, hematocrit 47.8, platelet count normal at 257. CMP is significant for potassium of 3.2, but this appears chronic when compared to prior labs. He states that he has been told he should supplement with potassium in the past but has not been doing so. I will wait for CT results before ordering any oral potassium, but magnesium was also obtained to check for hypomagnesemia. BUN normal at 5 with creatinine 0.71. Glucose elevated at 144 and anion gap slightly elevated at 17 but carbon dioxide is low at 18.9. I do not think that he is not in any sort of diabetic ketoacidosis. LFTs are elevated at 109 and 123 which I think is nonspecific his alk phos is 80. Lipase normal at 24 so I doubt we will have lower suspicion for acute pancreatitis. His urinalysis is pending as well as the results of the CT scan. The patient wi ll be signed out to the oncoming physician, Dr. Ryan Beck, to check the CT results and UA and make final disposition on this patient. Patient is in stable condition. History & Record Review Discussion w/independent historian: Patient Additional record(s) reviewed:: Prior labs (Prior hypokalemia.) Lab Data Attestation: I reviewed the patient's lab results. Labs: Laboratory Results - last 24 hr 12/27/24 06:30 WBC 8.3 RBC 4.84 Hgb 17.7 H Hct 47.8 MCV 98.8 H MCH 36.6 H MCHC 37.0 H RDW Std Deviation 46.1 H RDW Coeff of Larisa 12.8 Plt Count 257 MPV 9.1 Immature Gran % (Auto) 0.500 Neut % (Auto) 54.5 Lymph % (Auto) 32.9 Gaines % (Auto) 8.3 Eos % (Auto) 3.2 Baso % (Auto) 0.6 Absolute Neuts (auto) 4.5 Absolute Lymphs (auto) 2.74 Nucleated RBC % 0 Sodium 138 Potassium 3.2 L Chloride 102 Carbon Dioxide 18.9 L Anion Gap 17 H BUN 5 Creatinine 0.71 Estim Creat Clear Calc 145.73 Est GFR (MDRD) Non-Af 116 BUN/Creatinine Ratio 7.3 L Glucose 144 H Calcium 8.9 Total Bilirubin 0.55 AST 109 H ALT 123 H Alkaline Phosphatase 80 Total Protein 6.3 Albumin 4.1 Globulin 2.2 Albumin/Globulin Ratio 1.8 Lipase 24 Discharge Plan Triage Chief Complaint: Abd Pain ED Provider: Shaq Arrieta Dx/Rx/DC Orders Clinical Impression: Nausea, vomiting, and diarrhea, Abdominal pain, Hypokalemia, Elevated LFTs Prescriptions: No Action (DME) TENS units Device See Rx Instructions .Route Qty: 1 0RF Rx Instructions: As directed Primary Care Provider: Kylah Mckeon Referrals: Kylah Mckeon MD [Primary Care Provider] - Print Language: Urdu
[2024-12-27 06:45] LABS: Hematocrit 47.8 % (40-54); Hemoglobin 17.7 g/dL (13.0-16.5); Immature Granulocytes Count 0.040 X10^3/uL (0.0-0.0); Mean Corp Hgb Conc 37.0 g/dL (32-36); Mean Corpuscular Volume 98.8 fL (80-94); Mean Platelet Vol. 9.1 fl (6.2-12.0); NRBC Flagged by Analyzer 0 % (0-5); Platelet Count 257 K/mm3 (150-450); RBC Distribution Width CV 12.8 % (11.6-14.6); RBC Distribution Width SD 46.1 fl (35.1-43.9); Red Blood Count 4.84 M/mm3 (4.6-6.2); White Blood Count 8.3 K/mm3 (4.4-11.0)
[2024-12-27] MEDS: 0.9% Normal Saline (1000mL) 1,000 ML 999 ML IV ×2 (06:55→07:53)
[2024-12-27 07:05] LABS: AST(SGOT) 109 U/L (<=37); Alanine Aminotransfer ALT/SGPT 123 U/L (<=46); Albumin, Serum 4.1 g/dL (3.5-5.0); Alkaline Phosphatase 80 U/L (40-129); Anion Gap 17 (5-15); BUN 5 mg/dL (4-19); BUN/Creat Ratio 7.3 RATIO (10-20); Calcium,Total 8.9 mg/dL (7.6-11.0); Carbon Dioxide 18.9 mmol/L (21.0-32.0); Chloride 102 mmol/L (98-108); Estimated Creatinine Clearance 145.73 ml/min (50-250); Globulin 2.2 g/dL (2.2-4.2); Glucose 144 mg/dL (70-99); Lipase 24 U/L (13-75); Potassium 3.2 mmol/L (3.3-5.1)
--- OUTSIDE RECORDS SUMMARY | 2024-12-27 07:13 | XMS RPT_ITS | CCD ---
Author Organization [facility] CliniSyvt Care Team Providers Care Lap Hand Tool Name Role Phone DIANNA HWANG Unavailable Unavailable ERI, DIANNA Tijerina Unavailable Unavailable ERI, DIANNA J Unavailable Unavailable IMCA Unavailable Unavailable ERI, DIANNA Tijerina Unavailable Unavailable [facility] Unavailable Unavailable DIANNA HWANG Unavailable Unavaila ANNEMARIE Ward Unavailable Unav ailable ERI, DIANNA BURNHAM Unavailable Unavaila ble ERI, DIANNA BURNHAM Unavailable Unavaila ble ERI, DIANNA BURNHAM Unavailable Unavaila ble PHYSICIAN, NONE Primary Care Physician Unavailab Annemarie Velasquez Primary Care Provider Dr. Cali Mckeon Primary Care Provider Dr. Cali Mckeon Attending Provider Dr. Cali Mckeon Referring Provider [phone] Unavailable Primary Care Provider UnavailDr. Cali Dahl Primary Care Provider Dr. Cali Mckeon Attending Provider [phone] Dr. Cali Mckeon Referring Provider Unavailable Primary Care Provider Cali Ferguson MD Primary Care Provider CALI MCKEON Primary Care Unavailable CALI MCKEON Primary Care Unavailable CALI MCKEON Primary Care Unavailable ELBERT GALDAMEZ Referring Unavailable CALI MCKEON Primary Care Unavailable CALI MCKEON Primary Care Unavailable SELF Referring Unavailable CALI MCKEON Primary Care Unavailable SATURNINO BARRAGAN Attending Unavailable CALI MCKEON Primary Care Unavailable ELBERT GALDAMEZ Attending Unavailable CALI MCKEON Primary Care Unavailable SATURNINO BARRAGAN Attending Unavailable CALI MCKEON Primary Care Unavailable Mike ADORNO, Dr. Montero Primary Care Provider Chasity ADORNO, Dr. Yao Emergency Provider Maximilian Gaspar Attending Unavailable Cali Mckeon Primary Care Unavailable Medardo Shannon Attending Unavailable Medardo Shannon Referring Unavailable Cali Mckeon Primary Care Unavailable Roger Perez Attending Unavailable Cali Mckeon Primary Care Unavailable Medications Current Medications Medication Drug Class(es) Dates Sig (Normalized) Sig (Original) acetaminophen 325 mg oral tablet (2 sources) Start: 05-28-2017 End: 07-28-2022 take 2 tablets by mouth every six hours acetaminophen (TYLENOL) 325 mg tablet Take 2 tablets by mouth every 6 hours. 0 05/28/2017 07/28/2022 Discontinued Comment on above: Take 2 tablets by mo uth every 6 hours. acetaminophen 325 mg / HYDROcodone bitartrate 5 mg oral tablet (5 sources) Opioid Agonist Start: 12-14-2021 End: 12-16-2021 take 1 tablet by mouth every six hours as needed for pain [place] 325- 5 mg oral tablet Dose = 1 tab(s), Oral, q6h, PRN for pain, X 2 day(s), # 8 tab(s), 0 Refill(s), Back pain, 68.2 Start Date: 12/14/21 Stop Date: 12/16/21 Status: Ordered Start: 06-04-2021 End: 07-05-2022 Hydrocodone-Acetaminophen 1 TABLET tablet Discontinued 1 {tbl} PO EVERY 4 HOURS NEEDED as needed for Pain 10 2 0 June 04, 2021 July 05, 2022 8:43am Acute facial pain Headache, unspecified Start: 06-04-2021 End: 07-05-2022 take 1 tablet by mouth every four hours as needed Hydrocodone-Acetaminophen Discontinued 1 TABLET PO EVERY 4 HOURS NEEDED 10 2 June 04, 2021 July 05, 2022 7:43am [id number] 200 actuat albuterol 0.09 mg/actuat metered dose inhaler (15 sources) beta2-Adrenergic Agonist Start: 02-22-2023 End: 08-23-2024 take 2 puff(s) by inhalation every four hours as needed for wheezing albuterol HFA (PROVENTIL HFA, VENTOLIN HFA) 90 mcg/actuation inhaler Indications: Mild intermittent asthma without complication (HCC) Inhale 2 Puffs as instructed every 4 hours as needed for wheezing/shortness of breath. 1 Each 07/24/2024 Active Start: 10-08-2022 End: 03-19-2024 Albuterol Sulfate (Ventolin Hfa) 90 mcg/actuation HFA aerosol inhaler Discontinued 1 - 2 NMA INHALATION EVERY 4 HOURS NEEDED as needed for Wheezing October 08, 2022 12:00am March 19, 2024 3:02am Start: 10-08-2022 take 1 puff(s) by in halation every four hours as needed Albuterol Sulfate (Ventolin Hfa) 90 mcg/actuation HFA aerosol inhaler Active 1 - 2 PUFF INHALATION EVERY 4 HOURS NEEDED October 07, 2022 11:00pm Comment on above: Inhale 2 Puffs as in structed every 4 hours as needed for wheezing/shortness of breath. baclofen 10 mg oral tablet (1 source) gamma-Aminobutyric Acid-ergic Agonist Start: 2021 End: 2022 take 1 tablet by mouth every eight hours as needed baclofen (LIORESAL) 10 mg tablet Take 1 tablet by mouth three times daily as needed (trigeminal neuralgia). 90 tablet 5 06/18/2021 06/18/2022 Active Comment on above: Take 1 tablet by [place] three times daily as needed (trigeminal neuralgia). benzonatate 100 mg oral capsule (1 source) Non-narcotic Antitussive Start: 2024 End: 2024 take 1 capsule by mouth three times daily as needed for cough benzonatate (TESSALON PERLE) 100 mg capsule Indications: Viral illness Take 1 capsule by mouth three times a day as needed for cough for up to 7 days. 21 capsule 07/24/2024 07/31/2024 Active doxycycline monohydrate 100 mg oral tablet (1 source) Tetracycline-class Drug Start: 2022 End: 2022 take 1 tablet by mouth twice daily doxycycline monohydrate 100 mg tablet Indications: Sinobronchitis Take 1 tablet by mouth twice daily for 7 days. 14 tablet 0 08/03/2022 08/10/2022 Active Comment on above: Take 1 tablet by [place] twice daily for 7 days. Inhalational Spacing Device (1 source) Start: 2024 End: 2024 Inhalational Spacing Device Indications: Mild intermittent asthma without complication 1 Device one time only for 1 dose. 1 Each 07/24/2024 07/24/2024 Active omeprazole 20 mg delayed release oral tablet (2 sources) Proton Pump Inhibitor Start: 2020 End: 2022 Omeprazole 20 mg TbEC 1 tab daily while taking Indomethacin. 15 tablet 1 09/24/2020 07/28/2022 Discontinued Comment on above: 1 tab daily while ta rudolph Indomethacin. ondansetron 4 mg disintegrating oral tablet (5 sources) Serotonin-3 Receptor Antagonist Start: 2024 take 1 tablet by mouth every six hours as needed ondansetron orally disintegrating (ZOFRAN ODT) 4 mg disintegrating tablet Indications: Vomiting and diarrhea Take 1 tablet by mouth every 6 hours as needed. 15 tablet 10/31/2024 Active Start: 07-24-2024 End: 07-26-2024 take 1 tablet by mouth every eight hours as needed for nausea ondansetron orally disintegrating (ZOFRAN ODT) 4 mg disintegrating tablet Indications: Viral illness Take 1 tablet by mouth every 8 hours as needed for nausea/vomiting for up to 2 days. 6 tablet 07/24/2024 07/26/2024 Active Start: 05-20-2023 End: 03-19-2024 take 1 tablet by mouth every eight hours as needed for nausea Ondansetron 4 mg tablet,disintegrating Discontinued 4 mg PO EVERY 8 HOURS NEEDED as needed for Nausea 10 0 May 20, 2023 1:00am March 19, 2024 3:02am predniSONE 10 mg oral tablet (5 sources) Start: 11-16-2024 Prednisone 10 mg tablet Active 0 mg PO DAILY November 16, 2024 12:00am Please contact the information source for Taper Schedule details. Start: 11-13-2024 End: 11-22-2024 predniSONE (DELTASONE) 10 mg tablet Indications: Mild intermittent asthma with acute exacerbation (HCC) Take 4 tabs daily for 3 days, then 2 tabs daily for 3 days, then 1 tab daily for 3 days with food. 21 tablet 11/13/2024 11/22/2024 Active Start: 03-20-2024 End: 03-25-2024 take 2 tablets by mouth once daily predniSONE (DELTASONE) 20 mg tablet Take 2 tablets by mouth once daily for 5 days. 10 tablet 03/20/2024 03/25/2024 Active Start: 02-22-2023 End: 02-27-2023 take 2 tablets by mouth once daily predniSONE (DELTASONE) 20 mg tablet Indications: Wheeze Take 2 tablets by mouth once daily for 5 days. 10 tablet 0 02/22/2023 02/27/2023 Active Comment on above: Take 2 tablets by mo [facility] once daily for 5 days. Tens Units (3 sources) Start: 12-16-2021 Tens Units Act earl 0 .Route 1 December 16, 2021 12:00am As directed Start: 12-16-2021 Tens Units Act earl 0 .Route 1 December 15, 2021 11:00pm As directed Tens Units device (1 source) Start: 12-16-2021 Tens Units dev ice Active 0 .Route 1 December 16, 2021 12:00am Trigeminal neuralgia Acute low back pain Trigeminal neuralgia Low back pain, unspecified As directed Completed/Discontinued Medications Medication Drug Class(es) Dates Sig (Normalized) Sig (Original) amitriptyline hydrochloride 50 mg oral tablet (6 sources) Tricyclic Antidepressant Start: 03-20-2021 End: 07-28-2022 take 1 tablet by mouth once daily Amitriptyline 50 mg tablet Discontinued 50 mg PO DAILY June 04, 2021 1:00am December 16, 2021 1:25pm Comment on above: Take 1 tablet by [place] daily at bedtime. amoxicillin 875 mg / clavulanate 125 mg oral tablet (2 sources) Penicillin-class Antibacterial Start: 09-30-2022 End: 10-04-2022 Amoxicillin-Pot Clavulanate 875-125 mg tablet Discontinued 1 {tbl} PO TWICE A DAY 20 0 September 30, 2022 12:00am October 04, 2022 8:21am Start: 09-30-2022 End: 05-15-2023 take 1 tablet by mouth twice daily Amoxicillin-Pot Clavulanate Discontinued 1 TABLET PO TWICE A DAY September 29, 2022 11:00pm October 04, 2022 7:21am Arm Brace (Wrist Brace) misc (4 sources) Start: 12-16-2021 End: 10-04-2022 Arm Brace (Wrist Brace) misc Discontinued 0 .Route 1 0 December 16, 2021 12:00am October 04, 2022 8:21am Numbness and tingling of right hand Anesthesia of skin Paresthesia of skin As directed Start: 12-16-2021 End: 10-04-2022 Arm Brace (Wrist Brace) misc Discontinued 0 .Route 1 December 15, 2021 11:00pm October 04, 2022 7:21am As directed Start: 12-16-2021 Arm Brace (Wri st Brace) misc Active 0 .Route 1 December 16, 2021 12:00am As directed Start: 12-16-2021 Arm Brace (Wri st Brace) misc Active 0 .Route 1 December 15, 2021 11:00pm As directed atorvastatin 10 mg oral tablet (20 sources) HMG-CoA Reductase Inhibitor Start: 07-05-2022 End: 03-19-2024 take 1 tablet by mouth at bedtime Atorvastatin (Lipitor) 10 mg tablet Discontinued 10 mg PO AT BEDTIME 30 5 July 05, 2022 1:00am March 19, 2024 3:02am Comment on above: Take 10 mg by mouth once daily. 12 hr carBAMazepine 100 mg extended release oral tablet (6 sources) Mood Stabilizer Start: 05-07-2021 End: 07-28-2022 take 1 tablet by mouth twice daily Carbamazepine 100 mg tablet extended release 12 hr Discontinued 200 mg PO TWICE A DAY June 04, 2021 1:00am December 16, 2021 1:25pm Comment on above: Take 2 tablets by [facility] twice daily. dicyclomine hydrochloride 20 mg oral tablet (2 sources) Anticholinergic Start: 05-20-2023 End: 03-19-2024 take 1 tablet by mouth three times daily as needed for pain Dicyclomine 20 mg tablet Discontinued 20 mg PO THREE TIMES A DAY as needed for abdominal pain 14 0 May 20, 2023 1:17pm March 19, 2024 3:02am lamoTRIgine 25 mg oral tablet (20 sources) Mood Stabilizer, Anti-epileptic Agent Start: 07-05-2022 End: 08-04-2022 take 1 tablet by mouth twice daily, then take 2 tablets by mouth twice daily Lamotrigine (Lamictal) 25 mg tablet Discontinued 0 PO DAILY 84 30 0 July 05, 2022 1:00am August 03, 2022 12:00am August 04, 2022 12:04am take 25mg twice daily for 2 weeks, then increase to 50mg twice daily take 1 tablet by mouth twice zhang ly lamoTRIgine orally disintegrating (LAMICTAL ODT) 50 mg disintegrating tablet Take 50 mg by mouth twice daily. Active Comment on above: Take 50 mg by mouth twice daily. methylPREDNISolone 4 mg oral tablet (5 sources) Corticosteroid Start: 12-17-19 End: 07-05-19 Methylprednisolone 4 mg tablets,dose pack Discontinued NMA PO December 16, 2021 12:00am July 05, 2022 8:43am Start: 12-16-2021 End: 07-05-2022 Methylprednisolone Discontin ued TAB PO December 16, 2021 12:00am July 05, 2022 8:43am Start: 12-16-2021 End: 07-05-2022 Methylprednisolone Discontin ued TAB PO December 15, 2021 11:00pm July 05, 2022 7:43am Start: 12-14-2021 End: 12-20-2021 Medrol Dosepak 4 mg oral tab let 1 packet(s), Oral, qDay, as directed on package labeling, X 6 day(s), # 21 tab(s), 0 Refill(s), 12/20/21 10:02:00 EDT Start Date: 12/14/21 Stop Date: 12/20/21 Status: Ordered naproxen 500 mg oral tablet (1 source) Nonsteroidal Anti-inflammatory Drug Start: 03-19-2024 End: 11-16-2024 take 1 tablet by mouth twice daily Naproxen 500 mg tablet Discontinued 500 mg PO TWICE A DAY 14 0 March 19, 2024 12:00am November 16, 2024 12:56pm microencapsulated potassium chloride 20 meq extended release oral tablet (1 source) Start: 03-29-2024 End: 11-16-2024 Potassium Chloride (Klor-Con M20) 20 mEq tablet,ER particles/becky ls Discontinued 40 meq PO DAILY 10 March 29, 2024 1:00am November 16, 2024 12:57pm sulfamethoxazole 800 mg / trimethoprim 160 mg oral tablet (1 source) Dihydrofolate Reductase Inhibitor Antibacterial, Sulfonamide Antimicrobial Start: 03-29-2024 End: 11-16-2024 Sulfamethoxazole -Trimethoprim 800-160 mg tablet Discontinued 1 {tbl} PO TWICE A DAY March 29, 2024 1:00am November 16, 2024 12:57pm tamsulosin hydrochloride 0.4 mg oral capsule (1 source) alpha-Adrenergic Eyal Start: 03-29-2024 End: 11-16-2024 take 1 capsule by mouth once daily Tamsulosin (Flomax) 0.4 mg capsule Discontinued 0.4 mg PO DAILY March 29, 2024 1:00am November 16, 2024 12:57pm tiZANidine 2 mg oral tablet (5 sources) Central alpha-2 Adrenergic Agonist Start: 12-16-2021 End: 07-05-2022 Tizanidine 2 mg tablet Discontinued NMA PO December 16, 2021 12:00am July 05, 2022 8:43am Start: 12-16-2021 End: 07-05-2022 Tizanidine Discontinued TAB PO December 16, 2021 12:00am July 05, 2022 8:43am Start: 12-16-2021 End: 07-05-2022 Tizanidine Discontinued TAB PO December 15, 2021 11:00pm July 05, 2022 7:43am Start: 12-14-2021 End: 12-19-2021 tiZANidine 2 mg oral capsule Dose : 2 mg = 1 cap(s), Oral, TID, PRN as needed for muscle spasm, # 15 cap(s), 0 Refill(s) Start Date: 12/14/21 Stop Date: 12/19/21 Status: Ordered Problems Active Problems Problem Classification Problem Date Documented Da te Episodic/Chronic Abdominal pain (2 sources) Abdominal pain; Translations: [Unspecified abdominal pain] 05-20-2023 Episodic Asthma (3 sources) Mild intermittent asthma; Translations: [Mild intermittent asthma, uncomplicated] Onset: 11-13-2024 07-24-2024 Chronic Chronic obstructive pulmonary disease and bronchiectasis (2 sources) Bronchitis; Translations: [Bronchitis, not specified as acute or chronic] 10-16-2022 Episodic Diseases of mouth; excluding dental (1 source) Oral lesion; Translations: [Unspecified lesions of oral mucosa] Episodic Fluid and electrolyte disorders (3 sources) Hypokalemia; Translations: [Hypokalemia] 10-16-2022 Episodic Genitourinary symptoms and ill-defined conditions (2 sources) Dysuria; Translations: [Dysuria] 03-29-2024 Episodic Headache; including migraine (20 sources) Chronic cluster headache; Translations: [Chronic cluster headache, intractable] Onset: 09-24-2020 09-24-2020 Chronic Headache; including migraine (20 sources) Trigeminal autonomic cephalalgia; 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), not intractable] Onset: 09-24-2020 09-24-2020 Episodic Hyperplasia of prostate (2 sources) Benign prostatic hyperplasia; Translations: [Benign prostatic hyperplasia without lower urinary tract symptoms] Onset: 04-23-2024 04-06-2024 Chronic Immunizations and screening for infectious disease (2 sources) Contact with and (suspected) exposure to other viral communicable diseases; Translations: [Exposure to influenza] 05-20-2023 Episodic Influenza (4 sources) Influenza-like illness; Translations: [Influenza due to unidentified influenza virus with other respiratory manifestations] Episodic Intestinal infection (2 sources) Viral gastroenteritis; Translations: [Viral intestinal infection, unspecified] Onset: 10-05-2024 10-05-2024 Episodic Mood disorders (2 sources) Major depressive disorder, single episode, moderate; Translations: [Major depressive affective disorder, single episode, moderate] 07-05-2022 Chronic Nausea and vomiting (2 sources) Diarrhea and vomiting; Translations: [Vomiting, unspecified] Onset: 10-31-2024 10-31-2024 Episodic Nonspecific chest pain (6 sources) Chest pain; Translations: [Chest pain, unspecified] Onset: 05-18-2024 10-16-2022 Episodic Other gastrointestinal disorders (1 source) Diarrhea, unspecified; Translations: [Vomiting and diarrhea] Onset: 10-31-2024 Episodic Other lower respiratory disease (1 source) Cough; Translations: [Acute cough] Episodic Other lower respiratory disease (2 sources) Dyspnea; Translations: [Shortness of breath] 10-16-2022 Episodic Other lower respiratory disease (1 source) Rib pain; Translations: [Pleurodynia] 03-19-2024 Episodic Other nervous system disorders (20 sources) Trigeminal neuralgia; Translations: [Trigeminal neuralgia] Onset: 09-24-2020 09-24-2020 Episodic Other nervous system disorders (4 sources) H/O: trigeminal neuralgia; Translations: [Personal history of other diseases of the nervous system and sense organs] 06-12-2021 Episodic Other upper respiratory infections (1 source) Chronic sinusitis; Translations: [Chronic sinusitis, unspecified] Chronic Other upper respiratory infections (1 source) Viral upper respiratory tract infection; Translations: [Acute upper respiratory infection, unspecified] 06-28-2024 Episodic Pleurisy; pneumothorax; pulmonary collapse (20 sources) Pneumothorax, unspecified; Translations: [Secondary spontaneous pneumothorax] Onset: 05-20-2017 Resolved: 05-28-2017 11-25-2015 Episodic Residual codes; unclassified (2 sources) Immunization not carried out because of patient refusal; Translations: [Vaccination not carried out because of patient refusal] 07-05-2022 Episodic Skin and subcutaneous tissue infections (2 sources) Cellulitis of right thumb; Translations: [Cellulitis of right finger] 09-30-2022 Episodic Spondylosis; intervertebral disc disorders; other back problems (1 source) Spondylosis without myelopathy or radiculopathy, thoracic region; Translations: [Osteoarthritis of thoracic spine] 03-27-2024 Chronic Spondylosis; intervertebral disc disorders; other back problems (6 sources) Backache; Translations: [Dorsalgia, unspecified] Onset: 12-14-2021 Episodic Substance-related disorders (2 sources) Nicotine dependence, unspecified, uncomplicated; Translations: [Tobacco use disorder] 07-05-2022 Chronic Superficial injury; contusion (2 sources) Abrasion of right thumb, initial encounter; Translations: [Abrasion of right thumb] 09-30-2022 Episodic Unclassified (1 source) Unknown / UNK(Unknown) Onset: 05-20-2017 Viral infection (2 sources) Viral disease; Translations: [Viral infection, unspecified] Episodic Past or Other Problems Problem Classification Problem Date Documented Da te Episodic/Chronic Other aftercare (1 source) Encounter for follow-up examination after completed treatment for conditions other than malignant neoplasm; Translations: [Encounter for follow-up examination after completed treatment for conditions other than malignant neoplasm] Onset: 06-09-2017 Episodic Other nervous system disorders (18 sources) Atypical facial pain; Translations: [Atypical facial pain] Onset: 09-24-2020 09-24-2020 Episodic Other nervous system disorders (18 sources) Trigeminal nerve disorder; Translations: [Disorder of trigeminal nerve, unspecified] Onset: 10-30-2020 10-30-2020 Episodic Other nervous system disorders (18 sources) Right trigeminal neuralgia; Translations: [Trigeminal neuralgia] Onset: 05-07-2021 05-07-2021 Episodic Pleurisy; pneumothorax; pulmonary collapse (1 source) Pleurisy; pneumothorax; pulmonary collapse Onset: 05-20-2017 Results Test Name Value Interpretation Reference Range Facility Absolute lymphocyte countOrd ered By: Maximilian Gaspar on 11-16-2024 Lymphocytes Auto (Unsp spec) [#/Vol] 2.59 10*3/uL 0.83-4.51 [facility] Absolute neutrophil countOrd ered By: Maximilian Gaspar on 11-16-2024 Neutrophils (Bld) [#/Vol] 3.0 10*3/uL 2.0-7.7 [facility] Anion gap in Serum or Plasma Ordered By: Maximilian Gaspar on 11-16-2024 Anion gap [Moles/Vol] 15 mmol/L 5- [facility] Automated lymphocyte count a s percentage of total leukocytesOrdered By: Maximilian Gaspar on 11-16-2024 Lymphocytes/100 WBC Auto (Unsp spec) 40.3 % - [facility] BUN/creatinine ratioOrdered By: Maximilian Gaspar on 11-16-2024 Urea nitrogen/Creatinine [Mass ratio] 8.6 mg/mg Low 10- [facility] Basic Metabolic Profile (BMP )on 11-16-2024 BUN/CRE 8.6 RATIO Low 03-11 [facility] Comment on above: Performed By: #### L 100.0100, L501.4021, L500.2500 #### [facility] [address] [place], [address] Calcium [Mass/Vol] 8.6 mg/dL Normal 7.6-11.0 [facility] Comment on above: Performed By: #### L 100.0100, [id number], [id number] #### [facility] [address] [place], [address] Chloride [Moles/Vol] 101 mmol/L Normal 98-108 [facility] Comment on above: Performed By: #### L 100.0100, [id number], [id number] #### [facility] [address] [place], [address] CO2 [Moles/Vol] 21.5 mmol/L Normal 21.0-32.0 [facility] Comment on above: Performed By: #### L 100.0100, [id number], [id number] #### [facility] [address] [place], [address] Creatinine [Mass/Vol] 0.69 mg/dL Low 0.70-1.20 [facility] Comment on above: Performed By: #### L 100.0100, [id number], [id number] #### [facility] [address] [place], [address] ECRCL 151.51 ml/min Normal 50-250 [facility] Comment on above: Performed By: #### L 100.0100, [id number], [id number] #### [facility] [address] [place], [address] GAP 15 Normal 5-15 [facility] Comment on above: Performed By: #### L 100.0100, [id number], [id number] #### [facility] [address] [place], [address] GFR/1.73 sq M.predicted among non-blacks MDRD (S/P/Bld) [Vol rate/Area] 118 mL/min/{1.73_m2} Normal >60 [facility] Comment on above: Result Comment: mL/m in/1.73m2 CKD-EPI Creatinine Equation (2020) Performed By: #### L 100.0100, [id number], [id number] #### [facility] [address] [place], [address] Glucose [Mass/Vol] 100 mg/dL High 70-99 [facility] Comment on above: Performed By: #### L 100.0100, [id number], [id number] #### [facility] [address] [place], [address] Potassium [Moles/Vol] 3.1 mmol/L Low 3.3-5.1 [facility] Comment on above: Performed By: #### L 100.0100, [id number], [id number] #### [facility] [address] [place], [address] Sodium [Moles/Vol] 137 mmol/L Normal 133-145 [facility] Comment on above: Performed By: #### L 100.0100, [id number], [id number] #### [facility] [address] [place], [address] Urea nitrogen [Mass/Vol] 6 mg/dL Normal 4-19 [facility] Comment on above: Performed By: #### L 100.0100, [id number], [id number] #### [facility] [address] [place], [address] Basophil percentageOrdered B y: Maximilian Gaspar on 11-16-2024 Basophils/100 WBC (Bld) 0.5 % 0-1 [facility] CBC W/Diff, Automatedon 10-22 Absolute Lymph 2.59 X10 3/uL Normal 0.83-4.51 [facility] Comment on above: Performed By: #### L 100.0100, [id number], [id number] #### [facility] [address] [place], [address] Absolute Neut 3.0 X10 3/uL Normal 2.0-7.7 [facility] Comment on above: Performed By: #### L 100.0100, [id number], [id number] #### [facility] [address] [place], [address] Basophils/100 WBC (Bld) 0.5 % Normal 0-1 [facility] Comment on above: Performed By: #### L 100.0100, [id number], [id number] #### [facility] [address] [place], [address] Eosinophils/100 WBC (Bld) 3.9 % Normal 0-5 [facility] Comment on above: Performed By: #### L 100.0100, [id number], [id number] #### [facility] Laboratory [address] [place], [address] Erythrocyte distribution width (RBC) [Ratio] 12.6 % Normal 11.6-14.6 [facility] Comment on above: Performed By: #### L 100.0100, L501.4021, L500.2500 #### [facility] Laboratory [address] [place], [address] Hematocrit (Bld) [Volume fraction] 43.9 % Normal 40-54 [facility] Comment on above: Performed By: #### L 100.0100, L501.4021, L500.2500 #### [facility] Laboratory [address] [place], [address] Hemoglobin (Bld) [Mass/Vol] 16.4 g/dL Normal 13.0-16.5 [facility] Comment on above: Performed By: #### L 100.0100, L501.4021, L500.2500 #### [facility] Laboratory [address] [place], [address] IG% 0.200 Normal 0.0-0.9 [facility] Comment on above: Result Comment: IG% - Immature Granulocytes (promyelocytes, myelocytes and metamyelocytes) > 1% indicates that a LEFT SHIFT is Present. Performed By: #### L 100.0100, L501.4021, L500.2500 #### [facility] Laboratory [address] [place], [address] Lymphocytes/100 WBC (Bld) 40.3 % Normal 19-41 [facility] Comment on above: Performed By: #### L 100.0100, L501.4021, L500.2500 #### [facility] Laboratory [address] [place], [address] MCH (RBC) [Entitic mass] 36.8 pg High 27.0-32.0 [facility] Comment on above: Performed By: #### L 100.0100, L501.4021, L500.2500 #### [facility] Laboratory [address] [place], [address] MCHC (RBC) [Mass/Vol] 37.4 g/dL High 32-36 [facility] Comment on above: Performed By: #### L 100.0100, L501.4021, L500.2500 #### [facility] Laboratory [address] [place], [address] MCV (RBC) [Entitic vol] 98.4 fL High 80-94 [facility] Comment on above: Performed By: #### L 100.0100, L501.4021, L500.2500 #### [facility] Laboratory [address] [place], [address] Monocytes/100 WBC (Bld) 8.7 % Normal 0-10 [facility] Comment on above: Performed By: #### L 100.0100, L501.4021, L500.2500 #### [facility] Laboratory [address] [place], [address] Neutrophils/100 WBC (Bld) 46.4 % Low 47-70 [facility] Comment on above: Performed By: #### L 100.0100, L501.4021, L500.2500 #### [facility] Laboratory [address] [place], [address] Nucleated RBC (Bld) [#/Vol] 0 10*3/uL Normal 0-5 [facility] Comment on above: Performed By: #### L 100.0100, L501.4021, L500.2500 #### [facility] Laboratory [address] [place], [address] Platelet mean volume (Bld) [Entitic vol] 9.4 fL Normal 6.2-12.0 [facility] Comment on above: Performed By: #### L 100.0100, L501.4021, L500.2500 #### [facility] Laboratory [address] [place], [address] Platelets (Bld) [#/Vol] 243 10*3/uL Normal 150-450 [facility] Comment on above: Performed By: #### L 100.0100, L501.4021, L500.2500 #### [facility] Laboratory [address] [place], [address] RBC (Bld) [#/Vol] 4.46 10*6/uL Low 4.6-6.2 [facility] Comment on above: Performed By: #### L 100.0100, L501.4021, L500.2500 #### [facility] Laboratory [address] [place], [address] RDW SD 45.6 fl High 35.1-43.9 [facility] Comment on above: Performed By: #### L 100.0100, L501.4021, L500.2500 #### [facility] Laboratory [address] [place], [address] WBC (Bld) [#/Vol] 6.4 10*3/uL Normal 4.4-11.0 [facility] Comment on above: Performed By: #### L 100.0100, L501.4021, L500.2500 #### [facility] Laboratory [address] [place], [address] Carbon dioxide, total [Moles /volume] in Central venous bloodOrdered By: Maximilian Gaspar on 11-16-2024 CO2 [Moles/Vol] 21.5 mmol/L 21.0-32.0 [facility] Chest PA and Lateralon 11-16 Chest PA and Lateral [facility] Services [address] [place] [address] Chest PA and Lateral MR#: [id number] Acct: [id number] Name: ANAMIKA JUAREZ Rep #: [id number] : 1980 M 43 From: Greg Snyder PCP: Dr. Cali Mckeon MD Status: REG ER Study: Chest PA and Lateral Date of Exam: 11/16/24 Exam# [id number] Ordering Dr: Maximilian Gaspar MD PROCEDURE: CHEST PA AND LATERAL 11/16/2024 REASON FOR EXAM: L CHEST PAIN TECHNIQUE: CHEST PA AND LATERAL COMPARISON: Chest x-ray of 03/11/2024. RAD/Chest PA and Lateral IMPRESSION: Bilateral upper lung sutures are seen. Biapical pleural-parenchymal scarring is noted, [id number]. Lungs appear clear throughout. No pleural effusion or pneumothorax is noted. The cardiomediastinal silhouette is within the normal range. Mild thoracic spine degenerative changes are seen. No evidence of acute cardiopulmonary disease. Reading Location: [place] [address] CC: Dr. Cali Mckeon MD; Dr. Maximilian Gaspar MD Corporate Sales Representative: Signed Normal [facility] Chloride assayOrdered By: Viri Gaspar on 11-16-2024 Chloride [Moles/Vol] 101 mmol/L 98-108 [facility] Emergency Department Summary on 11-16-[address] [facility] Medical Records Department [address] [place] [address] Emergency Department Summary 11/16/24 MR#: [id number] Acct: [id number] Name: ANAMIKA JUAREZ Rep #: [id number] : 1980 43 From: Maximilian Gaspar MD PCP: Dr. Cali Mckeon MD Status:REG ER Location: ED HPI History of Present Illness Chief Complaint: Chest Pain Informant: patient Narrative Narrative: 43-year-old male presents with several hours of nonpleuritic left-sided chest discomfort that radiates straight through to his back around his shoulder blade but nowhere else. No karolyn dyspnea. No recent cough or fevers. 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 He denies any nausea or vomiting. No near-syncope or syncope. 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 It does hurt a little worse to move. No leg pain or swelling recently. The VATS were not done in the past couple months. [facility] Medical History Cellulitis of right thumb Abrasion of right thumb History of pneumonia Bone fracture Headache, migraine Trigeminal neuralgia Pneumothorax Home Medications ???Medication ???Instructions ???Recorded ???Last Taken ???Type TENS units #1 ea 12/16/21 Unknown Rx prednisone 10 mg tablet See Taper PO DAILY 11/16/24 History Allergy/AdvReac Type Severity Reaction Status Date / Time No Known Allergies Allergy Verified 11/16/24 12:11 Family History Mother Arthritis Heart disease Hypertension Severe allergy Grandmother Colon cancer Surgical History History of lung surgery H/O hernia repair History of tonsillectomy Social History household members: spouse current occupational status: employed current occupation: works at [employer] Smoking Status: Current every day smoker tobacco type: cigarettes Electronic Cigarette Use: not used alcohol intake: current alcohol intake frequency: holidays/special occasions only Alcohol type: wine and hard liquor substance use type: does not use what type of physical activity do you participate in: none do you feel safe at home: Yes ROS ROS ED Constitutional Constitutional ED: Denies chills or fever(s) Eyes Eyes: Denies change in vision or diplopia ENT ENT ED: Denies rhinorrhea or sore throat Cardiovascular Cardiovascular: Reports as per HPI and chest pain; Denies palpitations Respiratory/Chest Respiratory/Chest: Denies cough or dyspnea Gastrointestinal Gastrointestinal: Denies abdominal pain, diarrhea, nausea or vomiting Genitourinary Genitourinary ED: Denies dysuria or hematuria Musculoskeletal Musculoskeletal: Denies back pain or neck pain Integumentary Denies abscess or rash Neurologic Neurologic: Denies headache(s), paresthesias or weakness Psychiatric Psychiatric: Denies anxiety or suicidal thoughts EXAM Physical Exam Const Vital Signs: 11/16/24 12:10 11/16/24 12:37 11/16/24 12:39 Temperature 97 F L Temperature Source Temporal Pulse Rate 93 81 Respiratory Rate 14 22 H Respiratory Effort Normal Non-Labored Blood Pressure 133/91 H 127/92 H Blood Pressure Mean 105 103 Pulse Ox 99 99 Oxygen Delivery Method Room Air Room Air 11/16/24 14:00 11/16/24 15:02 Temperature 97 F L Temperature Source Pulse Rate 68 57 L Respiratory Rate 18 18 Respiratory Effort Blood Pressure 133/92 H 128/95 H Blood Pressure Mean 105 106 Pulse Ox 99 99 Oxygen Delivery Method Room Air Positive well nourished and well developed General Appearance ED: well developed and NAD HEENT Reports moist mucous membranes normocephalic and atraumatic Eyes PERRL and EOMs intact bilaterally Neck full ROM and supple Chest Wall Chest Narrative: Chest is nontender he does have some tenderness in the left mid back just below the tip of the scapula, there is no crepitance or subcutaneous emphysema and his lung sounds are equal bilaterally. No splinting with deep inspiration. Resp normal respiratory effort and clear to auscultation bilaterally Cardio regular rate, regular rhythm and no murmurs Rate: Negative for tachycardic Peripheral Pulses: pulses 2+ throughout GI non-tender and non-distended Auscultation: normoactive bowel sounds Palpation: soft Back/Spine no CVA tenderness General Back: other FROM Extremity normal to inspection Extremity Narrative: No calf tenderness or cords. (more content not included)... Normal [facility] Eosinophil percentageOrdered By: Maximilian Gaspar on 11-16-2024 Eosinophils/100 WBC (Bld) 3.9 % 0-5 [facility] Erythrocyte distribution wid th ratioOrdered By: Maximilian Gaspar on 11-16-2024 Erythrocyte distribution width (RBC) [Ratio] 12.6 % 11.6-14.6 [facility] Erythrocyte distribution wid th standard deviationOrdered By: Maximilian Gaspar on 11-16-2024 Erythrocyte distribution width (RBC) [Ratio] 45.6 fl High 35.1-43.9 [facility] Glomerular filtration rate ( GFR) estimation/1.73 sq m using serum, plasma, or whole bOrdered By: Maximilian Gaspar on 11-16-2024 GFR/1.73 sq M.predicted among non-blacks MDRD (S/P/Bld) [Vol rate/Area] 118 mL/min/{1.73_m2} >60 [facility] Comment on above: mL/min/1.73m2 CKD-EP I Creatinine Equation (2020) Hematocrit Auto (Bld) [Volum e fraction]Ordered By: Maximilian Gaspar on 11-16-2024 Hematocrit (Bld) [Volume fraction] 43.9 % 40-54 [facility] Hemoglobin measurementOrdere d By: Maximilian Gaspar on 11-16-2024 Hemoglobin (Bld) [Mass/Vol] 16.4 g/dL 13.0-16.5 [facility] Immature granulocytes/100 WB C Auto (Bld)Ordered By: Maximilian Gaspar on 11-16-2024 Immature granulocytes/100 WBC (Bld) 0.200 % 0.0-0.9 [facility] Comment on above: IG% - Immature Granu locytes (promyelocytes, myelocytes and metamyelocytes) > 1% indicates that a LEFT SHIFT is Present. L499.0042on 11-16-2024 Trop T High Sen < 6 Normal <=22 [facility] Comment on above: Performed By: #### L 499.0042 ####[facility] [address] [place], [address] L499.0043on 11-16-2024 Trop T High Sen Normal <=22 [facility] Comment on above: Result Comment: Canc elled via OM: Order cancelled - Patient discharged Performed By: #### L 499.0043 ####[facility] [address] [place], [address] L501.4021on 11-16-2024 Trop T High Sen < 6 Normal <=22 [facility] Comment on above: Performed By: #### L 100.0100, L501.4021, L500.2500 #### [facility] Laboratory [address] [place], [address] MCV (mean corpuscular volume ) determinationOrdered By: Maximilian Gaspar on 11-16-2024 MCV (RBC) [Entitic vol] 98.4 fL High 80-94 [facility] Mean corpuscular hemoglobin (MCH) determinationOrdered By: Maximilian Gaspar on 11-16-2024 MCH (RBC) [Entitic mass] 36.8 pg High 27.0-32.0 [facility] Mean corpuscular hemoglobin concentration (MCHC) determinationOrdered By: Maximilian Gaspar on 11-16-2024 MCHC (RBC) [Mass/Vol] 37.4 g/dL High 32-36 [facility] Mean platelet volume determi nationOrdered By: Maximilian Gaspar on 11-16-2024 Platelet mean volume (Bld) [Entitic vol] 9.4 fL 6.2-12.0 [facility] Monocyte percentageOrdered B y: Maximilian Gaspar on 11-16-2024 Monocytes/100 WBC (Bld) 8.7 % 0-10 [facility] Neutrophil percentageOrdered By: Maximilian Gaspar on 11-16-2024 Neutrophils/100 WBC (Bld) 46.4 % Low 47-70 [facility] Nucleated red blood cell per centageOrdered By: Maximilian Gaspar on 11-16-2024 Nucleated RBC/100 WBC (Bld) [Ratio] 0 % 0-5 [facility] Platelet countOrdered By: Viri Gaspar on 11-16-2024 Platelets (Bld) [#/Vol] 243 10*3/uL 150-450 [facility] Potassium measurement (mass/ volume)Ordered By: Maximilian Gaspar on 11-16-2024 Potassium (Unsp spec) [Mass/Vol] 3.1 mmol/L Low 3.3-5.1 [facility] RBC Auto (Bld) [#/Vol]Ordere d By: Maximilian Gaspar on 11-16-2024 RBC (Bld) [#/Vol] 4.46 10*6/uL Low 4.6-6.2 [facility] Serum creatinine measurement (mass/volume)Ordered By: Maximilian Gaspar on 11-16-2024 Creatinine [Mass/Vol] 0.69 mg/dL Low 0.70-1.20 [facility] Serum glucose measurement (m ass/volume)Ordered By: Maximilian Gaspar on 11-16-2024 Glucose [Mass/Vol] 100 mg/dL High 70-99 [facility] Serum or plasma calcium dereck urement (mass/volume)Ordered By: Maximilian Gaspar on 11-16-2024 Calcium [Mass/Vol] 8.6 mg/dL 7.6-11.0 [facility] Serum or plasma urea nitroge n measurement (mass/volume)Ordered By: Maximilian Gaspar on 11-16-2024 Urea nitrogen [Mass/Vol] 6 mg/dL 4-19 [facility] Sodium levelOrdered By: Kirby Gaspar on 11-16-2024 Sodium [Moles/Vol] 137 mmol/L 133-145 [facility] Troponin T.cardiac [Mass/vol ume] in Serum or Plasma by High sensitivity methodOrdered By: Maximilian Gaspar on 11-16-2024 Troponin T.cardiac High sensitivity method [Mass/Vol] < 6 ng/L <22 [facility] Troponin T.cardiac High sensitivity method [Mass/Vol] < 6 ng/L <22 [facility] White blood cell (WBC) count Ordered By: Maximilian Gaspar on 11-16-2024 WBC (Bld) [#/Vol] 6.4 10*3/uL 4.4-11.0 [facility] CNOVon 11-13-2024 CNOV Office Visit (UCWSTR ) ANAMIKA JUAREZ ([id number]) 1980 M Date Time Provider Department 11/13/24 2:15 PM SATURNINO BARRAGAN [facility] During your visit today, we recorded the following information about you: Temperature Pulse Respiration Blood pressure 98.8 degrees 102/minute 16/minute 126/72 Weight 80.2 kg Saturnino Barragan APRN.HEALTH INSPECTOR FOOD 11/13/2024 2:27 PM Signed [facility] Subjective Anamika Juarez is a 43 year old male. Patient presents with: Asthma: sob x 2 days HPI Asthma: - Acute exacerbation attributed to heat exposure. - Experiences dyspnea and hacking cough when hot. - No recent exacerbations of this severity. - Using rescue inhaler every 10 minutes at work due to lack of cooling areas. - Denies dysphagia. - Intermittent smoker. Review of Systems Ears/Nose/Mouth/Throat: (-) odynophagia Respiratory: (+) shortness of breath, (+) cough Objective BP 126/72 Pulse 102 Temp 37.1 ?C (98.8 ?F) Resp 16 Wt 80.2 kg (176 lb 12.9 oz) SpO2 97% BMI 25.37 kg/m? Physical Exam General: No acute distress. Resp: Good air exchange. CV: Normal heart sounds. {1. Mild intermittent asthma with acute exacerbation (HCC) (J45.21) - Exacerbation likely triggered by high temperatures; patient experiencing dyspnea and frequent use of rescue inhaler. - Auscultation reveals good air exchange and normal heart sounds. - Educated patient on appropriate use of rescue inhaler, emphasizing a minimum interval of 4 hours between doses due to potential cardiac effects from the stimulant component. - Prescribed oral corticosteroids to reduce airway inflammation; advised patient that effects should be noticeable by the following day. - Recommended increased hydration. - Provided work note for today. - Advised follow-up with primary care for further management and consideration of long-acting bronchodilators if exacerbations persist. and Recording using [employer] software for draft documentation of the visit was discussed with the patient/authorized field marketing representative; all questions welcomed and answered. Patient/authorized field marketing representative agreed to proceed MDM Procedures Allergies As of Date: 11/13/2024 (No Known Allergies) Date Reviewed: 11/13/2024 Reviewed by: Nadege Zuniga MA - Fully Assessed Reason for Visit: Asthma [11] Cmt: sob x 2 days Primary Visit Diagnosis:Mild intermittent asthma with acute exacerbation (HCC) [J45.21] Order(s):predniSONE (DELTASONE) 10 mg tabletTake 4 tabs daily for 3 days, then 2 tabs daily for 3 days, then 1 tab daily for 3 days with food.Disp: 21 tabletRfl: 0 Prescriptions as of 11/13/2024 - predniSONE (DELTASONE) 10 mg tablet Take 4 tabs daily for 3 days, then 2 tabs daily for 3 days, then 1 tab daily for 3 days with food. - ondansetron orally disintegrating (ZOFRAN ODT) 4 mg disintegrating tablet Take 1 tablet by mouth every 6 hours as needed. - albuterol HFA (PROVENTIL HFA, VENTOLIN HFA) 90 mcg/actuation inhaler Inhale 2 Puffs as instructed every 4 hours as needed for wheezing/shortness of breath. - lamoTRIgine orally disintegrating (LAMICTAL ODT) 50 mg disintegrating tablet Take 50 mg by mouth twice daily. - atorvastatin (LIPITOR) 10 mg tablet Take 10 mg by mouth once daily. 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 Letter Text Encounter Status:Closed by SATURNINO BARRAGAN on 11/13/24 [facility] CNOVon 10-31-2024 CNOV Office Visit (UCWSTR ) ANAMIKA JUAREZ ([id number]) 1980 M Date Time Provider Department 10/31/24 2:45 PM ELBERT GALDAMEZ [facility] During your visit today, we recorded the following information about you: Temperature Pulse Respiration Blood pressure 98.1 degrees 87/minute 16/minute 128/82 Weight 79.4 kg Elbert Galdamez APRN.HEALTH INSPECTOR FOOD 10/31/2024 3:34 PM Signed [facility] Subjective HPI HPI Anamika Juarez is a 43 year old male who presents today for CC of n/v/d. This started 1 day ago. Has tried otc medication for relief. Symptoms are worsened by nothing. Risk factors sick exposures at work. This happened last month, concerned for something chronic. Denies blood in stool/vomit. Denies abd pain. Denies cp/sob. .Patient presents with: Nausea AND Vomiting: Nausea, vomiting and stomach hurts x 1 day PAST MEDICAL HISTORY Diagnosis Date History of lung surgery 05/24/2017 right VATS surgery with resection of apical blebs, right upper lobe, mechanical pleurodesis, and insertion pain ball. Hyperlipidemia Pneumothorax Trigeminal neuralgia PAST SURGICAL HISTORY Procedure Laterality Date INGUINAL HERNIA REPAIR HX THORACOSCOPY SURG W PLEURODESIS Left 10/29/2015 L VATS with bleb resection, AND mechanical pleurodesis at [facility] by Dr. Hwang THORACOSCOPY SURG W PLEURODESIS Right 05/24/2017 surgery with resection of apical blebs, right upper lobe, mechanical pleurodesis, and insertion pain ball. ALLERGIES Patient has no known allergies. MEDICATIONS atorvastatin (LIPITOR) 10 mg tablet Take 10 mg by mouth once daily. albuterol HFA (PROVENTIL HFA, VENTOLIN HFA) 90 mcg/actuation inhaler Inhale 2 Puffs as instructed every 4 hours as needed for wheezing/shortness of breath. lamoTRIgine orally disintegrating (LAMICTAL ODT) 50 mg disintegrating tablet Take 50 mg by mouth twice daily. (Patient not taking: Reported on 02/22/2023) FAMILY HISTORY Problem Relation Age of Onset Diabetes Other Social History Tobacco Use Smoking status: Every Day Current packs/day: 0.50 Types: Cigarettes Smokeless tobacco: Former Quit date: 08/22/2015 Substance Use Topics Alcohol use: Yes Comment: occassional Drug use: No Review of Systems Objective BP 128/82 Pulse 87 Temp 36.7 ?C (98.1 ?F) (Tympanic) Resp 16 Wt 79.4 kg (175 lb 0.7 oz) SpO2 96% BMI 25.12 kg/m? Physical Exam Constitutional: General: He is not in acute distress. Appearance: Normal appearance. He is not toxic-appearing. Cardiovascular: Rate and Rhythm: Normal rate and regular rhythm. Heart sounds: Normal heart sounds. Pulmonary: Effort: Pulmonary effort is normal. Breath sounds: Normal breath sounds. Abdominal: General: Bowel sounds are normal. Palpations: Abdomen is soft. There is no hepatomegaly or splenomegaly. Tenderness: There is no abdominal tenderness. There is no right CVA tenderness or left CVA tenderness. Skin: General: Skin is warm and dry. {ASSESSMENT/PLAN: 1. Vomiting and diarrhea - ICD9: 787.03, 787.91, ICD10: R11.10, R19.7 -Discussed gentle rehydration -BRAT Diet (Bananas, Rice, Apple Sauce, Chancellor) -If no better in 3-5days follow up back in clinic or with primary care provider -Follow up in the ER with signs of dehydration, increasing abdominal pain, high fever, or blood in vomit or stool. - ONDANSETRON 4 MG DISINTEGRATING TABLET Elbert Galdamez APRN.HEALTH INSPECTOR FOOD History and Record Review External record(s) reviewed: prior outpatient record. Disposition The patient was discharged. Procedures Allergies As of Date: 10/31/2024 (No Known Allergies) Date Reviewed: 10/31/2024 Reviewed by: Migdalia Howard LPN - Fully Assessed Reason for Visit: Nausea AND Vomiting [237] Cmt: Nausea, vomiting and stomach hurts x 1 day Primary Visit Diagnosis:Vomiting and diarrhea [R11.10, R19.7] Order(s):ondansetron orally disintegrating (ZOFRAN ODT) 4 mg disintegrating tabletTake 1 tablet by mouth every 6 hours as needed.Disp: 15 tabletRfl: 0 Prescriptions as of 10/31/2024 - ondansetron orally disintegrating (ZOFRAN ODT) 4 mg disintegrating tablet Take 1 tablet by mouth every 6 hours as needed. - albuterol HFA (PROVENTIL HFA, VENTOLIN HFA) 90 mcg/actuation inhaler Inhale 2 Puffs as instructed every 4 hours as needed for wheezing/shortness of breath. - lamoTRIgine orally disintegrating (LAMICTAL ODT) 50 mg disintegrating tablet Take 50 mg by mouth twice daily. - atorvastatin (LIPITOR) 10 mg tablet Take 10 mg by mouth once daily. 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 Normal [facility] CNOVon 10-05-2024 CNOV Office Visit (WSTR ) ANAMIKA JUAREZ ([id number]) 1980 M Date Time Provider Department 10/05/24 6:00 PM SATURNINO BARRAGAN [facility] During your visit today, we recorded the following information about you: Temperature Pulse Respiration Blood pressure 99.5 degrees 108/minute 20/minute 135/93 Weight 79 kg Saturnino Barragan APRN.[facility] 10/05/2024 6:15 PM Signed [facility] Subjective Anamika Juarez is a 43 year old male. Patient presents with: Nausea AND Vomiting: Diarrhea x 2 days HPI Gastroenteritis: - Vomiting began yesterday, occurring 2-3 times. - Episodes increased to every 15 minutes around 0230 this morning. - Vomiting has since resolved; diarrhea began this afternoon. - Able to tolerate a cup of noodles prior to the visit. - Continues to urinate normally. - Reports abdominal cramping, denies sharp abdominal pain. Review of Systems Gastrointestinal: (+) diarrhea, (+) abdominal cramping, (-) sharp abdominal pain Objective BP 135/93 Pulse 108 Temp 37.5 ?C (99.5 ?F) Resp 20 Wt 79 kg (174 lb 2.6 oz) SpO2 98% BMI 24.99 kg/m? Physical Exam General: No acute distress. CV: Heart sounds normal. Resp: Lung sounds normal. Abd: Mild tenderness to palpation, no severe pain reported. {1. Viral gastroenteritis (A08.4) - Symptoms include emesis 2-3 times yesterday, now resolved, and diarrhea today. No severe abdominal pain, only mild cramping. - Physical exam reveals no acute distress, normal heart and lung sounds, and no significant abdominal tenderness. - Advised maintaining hydration with small sips of fluids and monitoring urine output. - Recommended bland diet, avoiding red, spicy, and greasy foods; suggested BRAT diet (bananas, rice, applesauce, toast) and avoiding dairy products. - Provided work note for today and tomorrow. and Recording using [employer] software for draft documentation of the visit was discussed with the patient/authorized field marketing representative; all questions welcomed and answered. Patient/authorized field marketing representative agreed to proceed MDM Procedures Allergies As of Date: 10/05/2024 (No Known Allergies) Date Reviewed: 10/05/2024 Reviewed by: Angelica Littlejohn LPN - Fully Assessed Reason for Visit: Nausea AND Vomiting [237] Cmt: Diarrhea x 2 days Visit Diagnosis:Viral gastroenteritis [A08.4] Prescriptions as of 10/05/2024 - albuterol HFA (PROVENTIL HFA, VENTOLIN HFA) 90 mcg/actuation inhaler Inhale 2 Puffs as instructed every 4 hours as needed for wheezing/shortness of breath. - lamoTRIgine orally disintegrating (LAMICTAL ODT) 50 mg disintegrating tablet Take 50 mg by mouth twice daily. - atorvastatin (LIPITOR) 10 mg tablet Take 10 mg by mouth once daily. 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] 09/24/2020 Trigeminal neuropathy [G50.9] 10/30/2020 Trigeminal neuralgia of right side of face [G50*05/07/2021 Letter Text Encounter Status:Closed by SATURNINO BARRAGAN on 10/05/24 [facility] CNOVon 08-23-2024 CNOV Office Visit (UCWSTR ) LARRY,ANAMIKA ([id number]) 1980 M Date Time Provider Department 08/23/24 2:15 PM ORLANDO MAY [facility] During your visit today, we recorded the following information about you: Temperature Pulse Respiration Blood pressure 98.8 degrees 87/minute 18/minute 138/90 Weight 79 kg Orlando May MD 08/23/2024 3:00 PM Signed [facility] Subjective Anamika Juarez is a 43 year old male. Patient presents with: Vomiting: Cough, lightheaded, dizziness, APARICIO x1 day Patient presents with illness since yesterday. He has headache, body aches, feels feverish, has chills, intense coughing, he has had some diarrhea and vomiting. He feels short of breath and wheezing when he is coughing. Denies hematemesis, hematochezia, or abdominal pain. He has used his albuterol inhaler but no other treatments. Vomiting Review of Systems Gastrointestinal: Positive for vomiting. Objective BP 138/90 Pulse 87 Temp 37.1 ?C (98.8 ?F) Resp 18 Wt 79 kg (174 lb 2.6 oz) SpO2 99% BMI 24.99 kg/m? Physical Exam Constitutional: General: He is not in acute distress. Appearance: He is ill-appearing. HENT: Right Ear: Tympanic membrane and ear canal normal. Left Ear: Tympanic membrane and ear canal normal. Nose: Congestion present. Right Sinus: Maxillary sinus tenderness (Chronic trigeminal pain) present. No frontal sinus tenderness. Left Sinus: No maxillary sinus tenderness or frontal sinus tenderness. Eyes: Extraocular Movements: Extraocular movements intact. Conjunctiva/sclera: Conjunctivae normal. Pupils: Pupils are equal, round, and reactive to light. Cardiovascular: Rate and Rhythm: Normal rate and regular rhythm. Heart sounds: No murmur heard. Pulmonary: Effort: No respiratory distress. Breath sounds: No wheezing, rhonchi or rales. Musculoskeletal: Cervical back: Neck supple. Lymphadenopathy: Cervical: No cervical adenopathy. Neurological: Mental Status: He is alert. {ASSESSMENT/PLAN: 1. Influenza-like illness - ICD9: 487.1, ICD10: J11.1 - suspect viral URI, differential includes influenza and COVID-19. He is not interested in antiviral therapy and defers viral testing. Work note provided. - Discussed supportive care treatment with home isolation (fever free for 24 hours and improving symptoms), rest, cold medicine, and analgesia. - Red flags to seek further treatment include chest pain, shortness of breath, and lethargy; in the ER if severe. Orlando May MD Differential Diagnoses - Influenza is more likely for the following reason(s): Present in the community, suggested by HANDP - Pneumonia is less likely for the following reason(s): Normal lung exam Disposition The patient was discharged. Procedures Allergies As of Date: 08/23/2024 (No Known Allergies) Date Reviewed: 08/23/2024 Reviewed by: Beckie Torres MA - Fully Assessed Reason for Visit: Vomiting [120] Cmt: Cough, lightheaded, dizziness, APARICIO x1 day Primary Visit Diagnosis:Influenza-like illness [J11.1] Prescriptions as of 08/23/2024 - albuterol HFA (PROVENTIL HFA, VENTOLIN HFA) 90 mcg/actuation inhaler Inhale 2 Puffs as instructed every 4 hours as needed for wheezing/shortness of breath. - lamoTRIgine orally disintegrating (LAMICTAL ODT) 50 mg disintegrating tablet Take 50 mg by mouth twice daily. - atorvastatin (LIPITOR) 10 mg tablet Take 10 mg by mouth once daily. 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 Chronic daily headache [R51.9] 09/24/2020 Trigeminal neuralgia [G50.0] 09/24/2020 Atypical facial pain [G50.1] 09/24/2020 Trigeminal neuropathy [G50.9] 10/30/2020 Trigeminal neuralgia of right side of face [G50*05/07/2021 Level of Service: OFFICE/OUTPATIENT ESTABLISHED LOW [facility] 20 MIN [[id number]] Letter Text Encounter Status:Closed by ORLANDO MAY on 08/23/24 Normal [facility] CNOVon 07-24-2024 CNOV Office Visit (UCWSTR ) ANAMIKA JUAREZ ([id number]) 1980 M Date Time Provider Department 07/24/24 4:00 PM RICHARD GOMEZ [facility] During your visit today, we recorded the following information about you: Temperature Pulse Respiration Blood pressure 99.2 degrees 89/minute 20/minute 143/97 Weight 78 kg Richard Gomez PA-C 07/24/2024 4:44 PM Signed This note was created using [employer]. Subjective Anamika Juarez is a 43 year old male. Patient is a 43-year-old male who complains of low-grade fever, chills, body aches and cough that he has been experiencing for the past 1 day. Patient also describes several episodes of nausea and vomiting. Patient reports no abdominal pain, cramping or diarrhea. Patient states he has not developed congestion and denies sinus pressure, ear pain or sore throat. Patient does have asthma and is in need of a refill of his albuterol MDI. Review of Systems Constitutional: Positive for chills, fatigue and fever. Respiratory: Positive for cough. Gastrointestinal: Positive for nausea and vomiting. Musculoskeletal: Positive for myalgias. All other systems reviewed and are negative. Objective BP 143/97 Pulse 89 Temp 37.3 ?C (99.2 ?F) Resp 20 Wt 78 kg (171 lb 15.3 oz) SpO2 98% BMI 24.67 kg/m? Physical Exam Vitals and nursing note reviewed. Constitutional: Appearance: Normal appearance. He is normal weight. HENT: Head: Normocephalic and atraumatic. Right Ear: Tympanic membrane, ear canal and external ear normal. Left Ear: Tympanic membrane, ear canal and external ear normal. Nose: Nose normal. Mouth/Throat: Mouth: Mucous membranes are moist. Pharynx: Oropharynx is clear. Eyes: Extraocular Movements: Extraocular movements intact. Conjunctiva/sclera: Conjunctivae normal. Pupils: Pupils are equal, round, and reactive to light. Cardiovascular: Rate and Rhythm: Normal rate and regular rhythm. Pulses: Normal pulses. Heart sounds: Normal heart sounds. Pulmonary: Effort: Pulmonary effort is normal. Breath sounds: Normal breath sounds. Abdominal: General: Abdomen is flat. Bowel sounds are normal. There is no distension. Palpations: Abdomen is soft. Tenderness: There is no abdominal tenderness. There is no guarding or rebound. Musculoskeletal: Cervical back: Normal range of motion and neck supple. Skin: General: Skin is warm and dry. Capillary Refill: Capillary refill takes less than 2 seconds. Neurological: General: No focal deficit present. Mental Status: He is alert and oriented to person, place, and time. Psychiatric: Mood and Affect: Mood normal. Behavior: Behavior normal. Thought Content: Thought content normal. Judgment: Judgment normal. Assessment and Plan Physical exam findings as noted above. POCT influenza A/B is negative. Patient was provided with prescriptions for Zofran 4 mg ODT, Tessalon 100 mg and albuterol MDI. Patient was clearly instructed to report to an emergency department if he notes any worsening of his nausea and vomiting symptoms or if he is unable to tolerate food or fluids. Additional supportive care was discussed and the patient verbalizes excellent understanding of same. CLINICAL IMPRESSION: Viral Illness; Acute Gastritis; Asthma; Medication Refill ASSESSMENT/PLAN: 1. Viral illness - ICD9: 079.99, ICD10: B34.9 (primary diagnosis) - INFLUENZA AANDB MOLECULAR (POC) - BENZONATATE 100 MG CAPSULE - ONDANSETRON 4 MG DISINTEGRATING TABLET 2. Mild intermittent asthma without complication - ICD9: 493.90, ICD10: J45.20 - ALBUTEROL SULFATE HFA 90 MCG/ACTUATION AEROSOL INHALER - INHALATIONAL SPACING DEVICE Richard Gomez PA-C Allergies As of Date: 07/24/2024 (No Known Allergies) Date Reviewed: 07/24/2024 Reviewed by: Angelica Littlejohn LPN - Fully Assessed Reason for Visit: Nausea AND Vomiting [237] Cmt: Diarrhea, nausea, x 1.5 days Cough, chest congestion Primary Visit Diagnosis:Viral illness [B34.9] Other Visit Diagnosis:Mild intermittent asthma without complication [J45.20] Order(s):INFLUENZA AANDB MOLECULAR (POC) [5124816] Order #: [id number]. #:[id number] -LAB benzonatate (TESSALON PERLE) 100 mg capsuleTake 1 capsule by mouth three times a day as needed for cough for up to 7 days.Disp: 21 capsuleRfl: 0 albuterol HFA (PROVENTIL HFA, VENTOLIN HFA) 90 mcg/actuation inhalerInhale 2 Puffs as instructed every 4 hours as needed for wheezing/shortness of breath.Disp: 1 EachRfl: 0 Inhalational Spacing Device1 Device one time only for 1 dose.Disp: 1 EachRfl: 0 ondansetron orally disintegrating (ZOFRAN ODT) 4 mg disintegrating tabletTake 1 tablet by mouth every 8 hours as needed for nausea/vomiting for up to 2 days.Disp: 6 tabletRfl: 0 Prescriptions as of 07/24/2024 - benzonatate (TESSALON PERLE) 100 mg capsule Take 1 capsule by mouth three times a day as needed for (more content not included)... Normal [facility] INFLUENZA A&B MOLECULAR (POC )on 07-24-2024 Flu A (POCT) Negative Negative [facility] Flu B (POCT) Negative Negative [facility] Procedural Control [facility] Location:[address], [id number] [place] [address] POINT OF CARE [facility] CNOVon 06-28-2024 CNOV Office Visit (UCWSTR ) ANAMIKA JUAREZ ([id number]) 1980 M Date Time Provider Department 06/28/24 10:15 AM DARIANA SANCHEZ During your visit today, we recorded the following information about you: Temperature Pulse Respiration Blood pressure 98 degrees 72/minute 14/minute 122/78 Weight 77.9 kg Dariana Sanchez APRN.[employer] 06/28/2024 10:32 AM Signed Subjective Cough Associated symptoms include headaches. Pertinent negatives include no chills, no ear pain, no sore throat and no myalgias. Headache Pertinent negatives include no fever. Anamika Juarez is a 43 year old male who presents with 1 or 2 days of cough, congestion, headache and sinus pressure. He denies fever. States he could not go to work today and his work requires him to have a note. He has not taken any medication today. States coworkers have been sick recently. Review of Systems Constitutional: Negative for chills and fever. HENT: Positive for congestion and sinus pain. Negative for ear pain and sore throat. Respiratory: Positive for cough. Cardiovascular: Negative. Gastrointestinal: Negative. Musculoskeletal: Negative for myalgias. Neurological: Positive for headaches. BP 122/78 Pulse 72 Temp 36.7 ?C (98 ?F) Resp 14 Wt 77.9 kg (171 lb 11.8 oz) BMI 24.64 kg/m? PAST MEDICAL HISTORY Diagnosis Date History of lung surgery 05/24/2017 right VATS surgery with resection of apical blebs, right upper lobe, mechanical pleurodesis, and insertion pain ball. Hyperlipidemia Pneumothorax Trigeminal neuralgia PAST SURGICAL HISTORY Procedure Laterality Date INGUINAL HERNIA REPAIR HX THORACOSCOPY SURG W PLEURODESIS Left 10/29/2015 L VATS with bleb resection, AND mechanical pleurodesis at [facility] by Dr. Hwang THORACOSCOPY SURG W PLEURODESIS Right 05/24/2017 surgery with resection of apical blebs, right upper lobe, mechanical pleurodesis, and insertion pain ball. ALLERGIES Patient has no known allergies. MEDICATIONS albuterol HFA (PROVENTIL HFA, VENTOLIN HFA) 90 mcg/actuation inhaler Inhale 2 Puffs as instructed every 4 hours as needed for wheezing/shortness of breath. lamoTRIgine orally disintegrating (LAMICTAL ODT) 50 mg disintegrating tablet Take 50 mg by mouth twice daily. (Patient not taking: Reported on 02/22/2023) atorvastatin (LIPITOR) 10 mg tablet Take 10 mg by mouth once daily. FAMILY HISTORY Problem Relation Age of Onset Diabetes Other Social History Tobacco Use Smoking status: Every Day Current packs/day: 0.50 Types: Cigarettes Smokeless tobacco: Former Quit date: 08/22/2015 Substance Use Topics Alcohol use: Yes Comment: occassional Drug use: No Objective Physical Exam Vitals and nursing note reviewed. Constitutional: General: He is not in acute distress. Appearance: Normal appearance. He is not ill-appearing. HENT: Nose: Nose normal. Mouth/Throat: Mouth: Mucous membranes are moist. Pharynx: Oropharynx is clear. Uvula midline. No oropharyngeal exudate or posterior oropharyngeal erythema. Cardiovascular: Rate and Rhythm: Normal rate and regular rhythm. Heart sounds: Normal heart sounds. Pulmonary: Effort: Pulmonary effort is normal. No respiratory distress. Breath sounds: Normal breath sounds. No wheezing or rales. Musculoskeletal: Cervical back: Neck supple. Lymphadenopathy: Cervical: No cervical adenopathy. Skin: General: Skin is warm and dry. Findings: No erythema or rash. Neurological: Mental Status: He is alert. ASSESSMENT/PLAN: 1. Viral URI with cough - ICD9: 465.9, ICD10: J06.9 - Discussed viral etiology and rationale for treatment. - Symptomatic treatment with prn analgesia - Supportive care with fluids and rest - offered viral testing and medication for cough, patient states I'm not that worried about it. - note provided for employer - Follow-up with your PCP in 3-5 days if symptoms have not improved or sooner if symptoms worsen - Discussed red flags and need for immediate medical evaluation if any occur. - Discussed supportive care treatment with fluids, rest and analgesia. - Discussed expected course of illness Dariana Sanchez APRN.Dariana Ptael APRN.[employer] 06/28/2024 10:32 AM Signed ASSESSMENT/PLAN: 1. Viral URI with cough - ICD9: 465.9, ICD10: J06.9 - Discussed viral etiology and rationale for treatment. - Symptomatic treatment with prn analgesia - Supportive care with fluids and rest - offered viral testing and medication for cough, patient states I'm not that worried about it. - note provided for employer - Follow-up with your PCP in 3-5 days if symptoms have not improved or sooner if symptoms worsen - Discussed red flags and need for immediate medical evaluation if any occur. - Discussed supportive care treatment with fluids, rest and analgesia. - Discussed expected course of illn (more content not included)... Normal [facility] Abdomen/Pelvis without Conto n 03-29-2024 Abdomen/Pelvis without Cont [facility] Imaging Services [address] [place], [place] [address] Abdomen/Pelvis without Cont MR#: [id number] Acct: [id number] Name: ANAMIKA JUAREZ Rep #: [id number] : 1980 M 43 From: Bertram dowd MD PCP: Dr. Cali Mckeon MD Status: REG ER Study: Abdomen/Pelvis without Cont Date of Exam: 12/13 Exam# [id number] Ordering Dr: Medardo Shannon DO [id number] STUDY: CT ABDOMEN AND PELVIS WITHOUT CONTRAST REASON FOR EXAM: Male, 43 years old. Flank pain/suprapubic pain urinary frequency RADIATION DOSAGE (If Supplied By Facility): CTDIvol = ( 7.03 ) mGy, DLP = ( 331.37 ) mGycm TECHNIQUE: Transaxial images were obtained from the dome of the diaphragm to the symphysis pubis without oral contrast, and without intravenous contrast. Sagittal and coronal images were reconstructed. Individualized dose optimization techniques were used for this CT. COMPARISON: Comparison is made with prior study dated May 20, 2023. FINDINGS: The visualized lung bases are unremarkable. The visualized portions of the heart are within normal limits. Normal liver. Normal gallbladder and extrahepatic biliary system. Normal spleen. Normal pancreas. Normal bilateral adrenal glands. Normal right kidney. Normal left kidney. Normal visualized stomach. Normal small intestine. There are scattered colonic diverticula consistent with diverticulosis. The appendix is visualized and appears normal. There is scattered atherosclerotic calcification of the abdominal aorta, without a demonstrated aneurysm. Normal inferior vena cava. Normal retroperitoneum. The urinary bladder is not completely distended. There is evidence of diffuse bladder wall thickening. Prostatic enlargement with a central prostatic calcification. There is a small umbilical hernia containing fat. There are mild degenerative changes of the visualized lumbar spine. CT/Abdomen/Pelvis without Cont IMPRESSION: The bladder is only partially filled although there is evidence of diffuse bladder wall thickening. Prostatic enlargement with calcifications. Electronically Signed: Bertram Sánchez MD at 14:39 EST , CC: Dr. Cali Mckeon MD; Dr. Medardo Shannon DO Corporate Sales Representative: Signed Normal [facility] Basic Metabolic Profile (BMP )on 03-29-2024 BUN/CRE 10.3 RATIO Normal 10-20 [facility] Comment on above: Performed By: #### L 100.0100, L500.2500 #### [facility] [address] [place], [address] CA,Total 8.5 mg/dL Normal 8.5-10.1 [facility] Comment on above: Performed By: #### L 100.0100, L500.2500 #### [facility] [address] [place], [address] Chloride [Moles/Vol] 102 mmol/L Normal 98-107 [facility] Comment on above: Performed By: #### L 100.0100, L500.2500 #### [facility] [address] [place], [address] CO2 [Moles/Vol] 25.0 mmol/L Normal 21.0-32.0 [facility] Comment on above: Performed By: #### L 100.0100, L500.2500 #### [facility] [address] [place], [address] Creatinine [Mass/Vol] 0.78 mg/dL Normal 0.70-1.30 [facility] Comment on above: Result Comment: The validity of the calculated GFR GFRAA in patients over 70 years has not been determined. Clinical correlation is essential. Performed By: #### L 100.0100, L500.2500 #### [facility] [address] [place], [address] ECRCL 129.27 ml/min Normal [facility] Comment on above: Performed By: #### L 100.0100, L500.2500 #### [facility] [address] [place], [address] EST GFR - AA 140 mL/min Normal >60 [facility] Comment on above: Result Comment: Afri can Russian GFR Calc Performed By: #### L 100.0100, L500.2500 #### [facility] [address] [place], [address] GAP 7 Normal 5-15 [facility] Comment on above: Performed By: #### L 100.0100, L500.2500 #### [facility] [address] [place], [address] GFR/1.73 sq M.predicted among non-blacks MDRD (S/P/Bld) [Vol rate/Area] 116 mL/min/{1.73_m2} Normal >60 [facility] Comment on above: Result Comment: Non- GFR Calc Performed By: #### L 100.0100, L500.2500 #### [facility] [address] [place], [address] Glucose [Mass/Vol] 103 mg/dL Normal 74-106 [facility] Comment on above: Result Comment: Fast ing Glucose result from 100 to 125 mg/dL suggests IMPAIRED HOMEOSTASIS per A.D.A. criteria. Performed By: #### L 100.0100, L500.2500 #### [facility] [address] [place], [address] Potassium [Moles/Vol] 2.7 mmol/L Invalid Interpretation Code 3.5-5.1 [facility] Comment on above: Result Comment: Crit ical Result(s) Called at: 14:07:16 03/29/2024 by: Sofy Marroquin to Aurea Tripp. Results read back by same. Performed By: #### L 100.0100, L500.2500 #### [facility] [address] [place], [address] Sodium [Moles/Vol] 135 mmol/L Low 136-145 [facility] Comment on above: Performed By: #### L 100.0100, L500.2500 #### [facility] [address] [place], [address] Urea nitrogen [Mass/Vol] 8 mg/dL Normal 7-18 [facility] Comment on above: Performed By: #### L 100.0100, L500.2500 #### [facility] [address] [place], [address] CBC W/Diff, Automatedon 11-0 -2023 Absolute Lymph 2.18 X10 3/uL Normal 0.83-4.51 [facility] Comment on above: Performed By: #### L 100.0100, L500.2500 #### [facility] [address] [place], [address] Absolute Neut 3.9 X10 3/uL Normal 2.0-7.7 [facility] Comment on above: Performed By: #### L 100.0100, L500.2500 #### [facility] [address] [place], [address] Basophils/100 WBC (Bld) 0.5 % Normal 0-1 [facility] Comment on above: Performed By: #### L 100.0100, L500.2500 #### [facility] [address] [place], [address] Eosinophils/100 WBC (Bld) 5.6 % High 0-5 [facility] Comment on above: Performed By: #### L 100.0100, L500.2500 #### [facility] [address] [place], [address] Erythrocyte distribution width (RBC) [Ratio] 13.1 % Normal 11.6-14.6 [facility] Comment on above: Performed By: #### L 100.0100, L500.2500 #### [facility] [address] [place], [address] Hematocrit (Bld) [Volume fraction] 42.5 % Normal 40-54 [facility] Comment on above: Performed By: #### L 100.0100, L500.2500 #### [facility] [address] [place], [address] Hemoglobin (Bld) [Mass/Vol] 15.9 g/dL Normal 13.0-16.5 [facility] Comment on above: Performed By: #### L 100.0100, L500.2500 #### [facility] [address] [place], [address] IG% 0.400 Normal 0.0-0.9 [facility] Comment on above: Result Comment: IG% - Immature Granulocytes (promyelocytes, myelocytes and metamyelocytes) > 1% indicates that a LEFT SHIFT is Present. Performed By: #### L 100.0100, L500.2500 #### [facility] [address] [place], [address] Lymphocytes/100 WBC (Bld) 29.8 % Normal 19-41 [facility] Comment on above: Performed By: #### L 100.0100, L500.2500 #### [facility] [address] [place], [address] MCH (RBC) [Entitic mass] 34.6 pg High 27.0-32.0 [facility] Comment on above: Performed By: #### L 100.0100, L500.2500 #### [facility] [address] [place], [address] MCHC (RBC) [Mass/Vol] 37.4 g/dL High 32-36 [facility] Comment on above: Performed By: #### L 100.0100, L500.2500 #### [facility] [address] [place], [address] MCV (RBC) [Entitic vol] 92.6 fL Normal 80-94 [facility] Comment on above: Performed By: #### L 100.0100, L500.2500 #### [facility] [address] [place], [address] Monocytes/100 WBC (Bld) 10.0 % Normal 0-10 [facility] Comment on above: Performed By: #### L 100.0100, L500.2500 #### [facility] [address] [place], [address] Neutrophils/100 WBC (Bld) 53.7 % Normal 47-70 [facility] Comment on above: Performed By: #### L 100.0100, L500.2500 #### [facility] [address] [place], [address] Nucleated RBC (Bld) [#/Vol] 0 10*3/uL Normal 0-5 [facility] Comment on above: Performed By: #### L 100.0100, L500.2500 #### [facility] [address] [place], [address] Platelet mean volume (Bld) [Entitic vol] 9.0 fL Normal 6.2-12.0 [facility] Comment on above: Performed By: #### L 100.0100, L500.2500 #### [facility] [address] [place], [address] Platelets (Bld) [#/Vol] 257 10*3/uL Normal 150-450 [facility] Comment on above: Performed By: #### L 100.0100, L500.2500 #### [facility] [address] [place], [address] RBC (Bld) [#/Vol] 4.59 10*6/uL Low 4.6-6.2 [facility] Comment on above: Performed By: #### L 100.0100, L500.2500 #### [facility] [address] [place], [address] RDW SD 43.9 fl Normal 35.1-43.9 [facility] Comment on above: Performed By: #### L 100.0100, L500.2500 #### [facility] [address] [place], [address] WBC (Bld) [#/Vol] 7.3 10*3/uL Normal 4.4-11.0 [facility] Comment on above: Performed By: #### L 100.0100, L500.2500 #### [facility] [address] [place], [address] CNOVon 03-29-2024 CN Office Visit (UCTR ) ANAMIKA JUAREZ ([id number]) 1980 M Date Time Provider Department 03/29/24 1:30 PM SATURNINO BARRAGAN [facility] During your visit today, we recorded the following information about you: Temperature Pulse Respiration Blood pressure 98.5 degrees 71/minute 18/minute 118/84 Weight 74.6 kg Saturnino Barragan APRN.CNP 03/29/2024 1:05 PM Signed Patient came in with complaints of terrible pain in his lower pelvic and penis area. Patient says he is unable to produce any urine. Patient says if he can get some out its only a dribble here or there. Patient says it has been getting worse over the last several days. Patient is being referred to the ER for more thorough evaluation. Patient was agreeable and wants to take himself. Allergies As of Date: 03/29/2024 (No Known Allergies) Date Reviewed: 03/29/2024 Reviewed by: Beckie Torres MA - Fully Assessed Reason for Visit: Dysuria [1085] Cmt: X4 days Primary Visit Diagnosis:Dysuria [R30.0] Order(s):UA DIP, URINE (POC) [5546317] Order #: [id number] Prescriptions as of 03/29/2024 - albuterol HFA (PROVENTIL HFA, VENTOLIN HFA) 90 mcg/actuation inhaler Inhale 2 Puffs as instructed every 4 hours as needed for wheezing/shortness of breath. - lamoTRIgine orally disintegrating (LAMICTAL ODT) 50 mg disintegrating tablet Take 50 mg by mouth twice daily. - atorvastatin (LIPITOR) 10 mg tablet Take 10 mg by mouth once daily. 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 Chronic daily headache [R51.9] 09/24/2020 Trigeminal neuralgia [G50.0] 09/24/2020 Atypical facial pain [G50.1] 09/24/2020 Trigeminal neuropathy [G50.9] 10/30/2020 Trigeminal neuralgia of right side of face [G50*05/07/2021 Encounter Status:Closed by SATURNINO BARRAGAN on 03/29/24 Normal [facility] Emergency Department Summary on 03-29-2024 Emergency Department Summary [facility] Medical Records Department [address] [facility] [place] [address] Emergency Department Summary 03/29/24 MR#: [id number] Acct: [id number] Name: ANAMIKA JUAREZ Rep #: [id number] : 1980 43 From: Medardo Shannon DO PCP: Dr. Cali Mckeon MD Status:DEP ER Location: ED HPI History of Present Illness Chief Complaint: Complaint Informant: patient Narrative Narrative: 43-year-old male presenting to the emergency room with suprapubic pain and urinary frequency. Patient states that about a week and a half ago he seen in the emergency department with some pain on the left upper abdomen and lower ribs. He states that nothing was found. Got better but he did develop some vomiting and diarrhea which is also gotten now better. Over the past couple days she has had some urinary frequency but states only small amounts come out. States he has been drinking plenty of Gatorade trying to stay hydrated. He notes his stool is still loose. He denies any fever. No history of diverticulosis or kidney stones. He denies any penile drainage. He denies dysuria or hematuria. [facility] Medical History Cellulitis of right thumb Abrasion of right thumb History of pneumonia Bone fracture Headache, migraine Trigeminal neuralgia Pneumothorax Home Medications ???Medication ???Instructions ???Recorded ???Last Taken ???Type TENS units #1 ea 12/16/21 Unknown Rx naproxen 500 mg tablet 500 mg PO BID #14 tabs 03/19/24 Unknown Rx potassium chloride 20 mEq 40 meq (2 x 20 mEq) PO DAILY #10 03/29/24 Unknown Rx tablet,extended TABLETS release(part/cryst) (Klor-Con M) sulfamethoxazole 800 1 tab PO BID #20 TABLETS 03/29/24 Unknown Rx mg-trimethoprim 160 mg tablet tamsulosin 0.4 mg capsule (Flomax) 0.4 mg PO DAILY #20 caps 03/29/24 Unknown Rx Allergy/AdvReac Type Severity Reaction Status Date / Time No Known Allergies Allergy Verified 03/29/24 13:15 Family History Mother Arthritis Heart disease Hypertension Severe allergy Grandmother Colon cancer Surgical History History of lung surgery H/O hernia repair History of tonsillectomy Social History household members: spouse current occupational status: employed current occupation: works at [employer] Smoking Status: Current every day smoker tobacco type: cigarettes Electronic Cigarette Use: not used alcohol intake: current alcohol intake frequency: holidays/special occasions only Alcohol type: wine and hard liquor substance use type: does not use what type of physical activity do you participate in: none do you feel safe at home: Yes ROS ROS ED Constitutional Constitutional ED: Denies chills, fever(s) or weight loss Eyes Eyes: Denies change in vision or diplopia ENT ENT ED: Denies ear pain, rhinorrhea or sore throat Cardiovascular Cardiovascular: Denies chest pain, orthopnea, palpitations or racing heartbeat Respiratory/Chest Respiratory/Chest: Denies cough, dyspnea or orthopnea Gastrointestinal Gastrointestinal: Reports abdominal pain, diarrhea, nausea and vomiting Genitourinary Genitourinary ED: Reports urinary frequency; Denies dysuria or hematuria Musculoskeletal Musculoskeletal: Denies arthralgias or myalgias Integumentary Denies abscess or rash Neurologic Neurologic: Denies headache(s) or weakness Psychiatric Psychiatric: Denies anxiety, depression, suicidal ideation or suicidal thoughts Endocrine Endocrinology: Denies polydipsia, polyphagia or polyuria Allergic/Immunologic Allergic/Immunologic ED: Denies mouth swelling, tongue swelling or urticaria EXAM Physical Exam Const Vital Signs: 03/29/24 13:15 03/29/24 15:14 Temperature 96.5 F L 97.8 F Temperature Source Temporal Pulse Rate 72 78 Respiratory Rate 13 16 Blood Pressure 140/88 H 118/66 Blood Pressure Mean 105 83 Pulse Ox 100 99 Oxygen Delivery Method Room Air Positive well nourished and well developed General Appearance ED: well developed and NAD HEENT Reports normocephalic, head/scalp atraumatic and moist mucous membranes Eyes PERRL and EOMs intact bilaterally Neck no lymphadenopathy, supple and no JVD Resp normal respiratory effort and clear to auscultation bilaterally Cardio regular rate, regular rhythm and no murmurs GI Palpation: soft and tender suprapubic; Negative for guarding Rectal Exam: Negative for tenderness Back/Spine no CVA tenderness and normal ROM Extremity normal to inspection General Extremety ED: Negative for edema General Extremity: Negative for edema Neuro oriented x3 and CN's II-XII intact bilaterally (more content not included)... Normal [facility] Liver Profileon 03-29-2024 Albumin [Mass/Vol] 3.4 g/dL Normal 3.2-5.0 [facility] Comment on above: Performed By: #### L 501.5200, L500.3400 ####[facility] [address] [place], [address] ALK P 65 U/L Normal 45-117 [facility] Comment on above: Performed By: #### L 501.5200, L500.3400 ####[facility] [address] [place], [address] ALT [Catalytic activity/Vol] 40 U/L Normal 16-61 [facility] Comment on above: Performed By: #### L 501.5200, L500.3400 ####[facility] [address] [place], [address] AST [Catalytic activity/Vol] 28 U/L Normal 15-37 [facility] Comment on above: Performed By: #### L 501.5200, L500.3400 ####[facility] [address] [place], [address] Bilirubin [Mass/Vol] 0.60 mg/dL Normal 0.20-1.00 [facility] Comment on above: Result Comment: For patients on eltrombopag therapy, use of Dimension [place] TBIL is not recommended. Performed By: #### L 501.5200, L500.3400 ####[facility] [address] [place], [address] Bilirubin.direct [Mass/Vol] 0.15 mg/dL Normal 0.00-0.30 [facility] Comment on above: Performed By: #### L 501.5200, L500.3400 ####[facility] [address] [place], [address] Globulin (S) [Mass/Vol] 2.8 g/dL Normal 2.2-4.2 [facility] Comment on above: Performed By: #### L 501.5200, L500.3400 ####[facility] [address] [place], [address] T PROT 6.2 g/dL Low 6.4-8.2 [facility] Comment on above: Performed By: #### L 501.5200, L500.3400 ####[facility] [address] [place], [address] Magnesiumon 03-29-2024 Magnesium [Mass/Vol] 2.6 mg/dL Normal 1.6-2.6 [facility] Comment on above: Performed By: #### L 501.5200, L500.3400 ####[facility] [address] [place], [address] Urinalysis, Completeon 03-29 EPI,SQUAMOUS 0-5 SEEN Normal 0-5 [facility] Comment on above: Order Comment: CLEAN CATCH Performed By: #### L 400.0001 ####[facility] [address] [place], [address] Mucus Ql (Urine sed) 2+ /hpf Normal [facility] Comment on above: Order Comment: CLEAN CATCH Performed By: #### L 400.0001 ####[facility] [address] [place], [address] BACTERIA 0 SEEN Normal None Seen [facility] Comment on above: Order Comment: CLEAN CATCH Performed By: #### L 400.0001 ####[facility] [address] [place], [address] RBC 0 SEEN Normal 0-5 [facility] Comment on above: Order Comment: CLEAN CATCH Performed By: #### L 400.0001 ####[facility] [address] [place], [address] WBC 0 SEEN Normal 0-5 [facility] Comment on above: Order Comment: CLEAN CATCH Performed By: #### L 400.0001 ####[facility] [address] [place], [address] [facility] LARRYANAMIKA RODRIGUEZ ([id number]) 1980 M Date Time Provider Department 03/20/24 ELBERT GALDAMEZ [facility] During your visit today, we recorded the following information about you: Elbert Galdamez APRN.HEALTH INSPECTOR FOOD 03/20/2024 7:08 AM Signed Please notify xray negative. I will send prednisone to pharmacy. F/u with pcp if s/s persist. Angelica Littlejohn LPN 03/20/2024 8:13 AM Signed Patient given results and verbalized understanding of instructions given. Need note for today TUBE FILLER approved, will be up front for pt. 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 Encounter Status:Closed by ELBERT GALDAMEZ [facility]20[facility] (WSTR ) ANAMIKA JUAREZ ([id number]) 1980 M Date Time Provider Department 03/19/24 6:45 PM ELBERT GALDAMEZ [facility] During your visit today, we recorded the following information about you: Temperature Pulse Respiration Blood pressure 99 degrees 78/minute 14/minute 142/90 Weight 76 kg Elbert Galdamez APRN.HEALTH INSPECTOR FOOD 03/20/2024 7:40 AM Signed Subjective HPI HPI Anamika Angeles Larry is a 43 year old male who presents today for CC of left rib pain. This started 4 days ago. Has tried otc medication for relief. Symptoms are worsened by nothing. Risk factors hx of collapsed lungs. Seen in ER 1 day ago, xray negative. smoker. .Patient presents with: Pain: LT rib pain x 4 days PAST MEDICAL HISTORY Diagnosis Date History of lung surgery 05/24/2017 right VATS surgery with resection of apical blebs, right upper lobe, mechanical pleurodesis, and insertion pain ball. Hyperlipidemia Pneumothorax Trigeminal neuralgia PAST SURGICAL HISTORY Procedure Laterality Date INGUINAL HERNIA REPAIR HX THORACOSCOPY SURG W PLEURODESIS Left 10/29/2015 L VATS with bleb resection, AND mechanical pleurodesis at [facility] by Dr. Hwang THORACOSCOPY SURG W PLEURODESIS Right 05/24/2017 surgery with resection of apical blebs, right upper lobe, mechanical pleurodesis, and insertion pain ball. ALLERGIES Patient has no known allergies. MEDICATIONS albuterol HFA (PROVENTIL HFA, VENTOLIN HFA) 90 mcg/actuation inhaler Inhale 2 Puffs as instructed every 4 hours as needed for wheezing/shortness of breath. lamoTRIgine orally disintegrating (LAMICTAL ODT) 50 mg disintegrating tablet Take 50 mg by mouth twice daily. (Patient not taking: Reported on 02/22/2023) atorvastatin (LIPITOR) 10 mg tablet Take 10 mg by mouth once daily. FAMILY HISTORY Problem Relation Age of Onset Diabetes Other Social History Tobacco Use Smoking status: Every Day Current packs/day: 0.50 Types: Cigarettes Smokeless tobacco: Former Quit date: 08/22/2015 Substance Use Topics Alcohol use: Yes Comment: occassional Drug use: No Review of Systems Constitutional: Negative for fever. HENT: Negative for congestion, ear pain, nosebleeds and sore throat. Respiratory: Positive for shortness of breath. Negative for cough and wheezing. Cardiovascular: Positive for chest pain (rib). Musculoskeletal: Negative for neck pain. Objective Blood pressure 142/90, pulse 78, temperature 37.2 ?C (99 ?F), temperature source Tympanic, resp. rate 14, weight 76 kg (167 lb 8.8 oz), SpO2 97%. Physical Exam Constitutional: General: He is not in acute distress. Appearance: He is not toxic-appearing or diaphoretic. HENT: Head: Normocephalic and atraumatic. Cardiovascular: Rate and Rhythm: Normal rate and regular rhythm. Heart sounds: Normal heart sounds, S1 normal and S2 normal. Pulmonary: Effort: Pulmonary effort is normal. Breath sounds: Normal breath sounds. Chest: Neurological: Mental Status: He is alert and oriented to person, place, and time. Gait: Gait is intact. ASSESSMENT/PLAN: 1. Rib pain on left side - ICD9: 786.50, ICD10: R07.81 No xray resulted by end of day, negative my read Order steroids if negative Work note provided F/u with pcp if s/s persist - XR RIBS/CHEST 3V AP RIB/OBLS/CXR LEFT IMPRESSION: No discrete acute rib fracture. No radiographic findings to suggest acute cardiopulmonary process. Dictated by : MD Elbert ESCAMILLA APRN.HEALTH INSPECTOR FOOD Referring Provider: SELF [200] Allergies As of Date: 03/19/2024 (No Known Allergies) Date Reviewed: 03/19/2024 Reviewed by: Ree Lord MA - Fully Assessed Reason for Visit: Pain [78] Cmt: LT rib pain x 4 days Primary Visit Diagnosis:Rib pain on left side [R07.81] Order(s):XR RIBS/CHEST 3V AP RIB/OBLS/CXR LEFT [[id number]] Order #: [id number]. 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 Normal [facility] Chest PA and Lateralon 03-19 Chest PA and Lateral [facility] Imaging Services [address] [place] [address] Chest PA and Lateral MR#: [id number] Acct: [id number] Name: ANAMIKA JUAREZ Rep #: [id number] : 1980 M 43 From: Karuna Snyder PCP: Dr. Cali Mckeon MD Status: DEP ER Study: Chest PA and Lateral Date of Exam: 03/19/24 Exam# [id number] Ordering Dr: Roger Perez MD [id number] INDICATION: Left-sided chest pain ribs 789 anterior axillary l EXAMINATION/TECHNIQUE: X-RAY - XR Chest 2 Views COMPARISON: Prior study dated: 10/08/2022 FINDINGS: LINES/DEVICES: None. LUNGS: No consolidation. Apical pleural thickening bilaterally not significantly changed. No pneumothorax. MEDIASTINUM: Unremarkable. CARDIAC SILHOUETTE: Not enlarged. BONES AND SOFT TISSUES: No acute abnormalities. RAD/Chest PA and Lateral IMPRESSION: No evidence of active intrathoracic disease. Electronically Signed: Karuna Weiss MD at 4:34 EDT , CC: Dr. Cali Mckeon MD; Dr. Roger Perez MD Corporate Sales Representative: Signed Normal [facility] Emergency Department Summary on 03-19-[address] [facility] Medical Records Department [address] [place] [address] Emergency Department Summary 03/19/24 MR#: [id number] Acct: [id number] Name: ANAMIKA JUAREZ Rep #: [id number] : 1980 43 From: Roger Perez MD PCP: Dr. Cali Mckeon MD Status:REG ER Location: ED HPI History of Present Illness Chief Complaint: Other, Pain/Inj Detail of Chief Complaint: I think I broke my ribs Informant: patient Onset/Context/Timing Onset: Yesterday Context: Sudden Onset Timing: Continuous Quality: Pain Location: Left seventh, eighth and ninth rib anterior axillary line to posterior axil Current Severity: Mild Maximum Severity: Severe Worsened by: Breathing, movement and palpation Relieved by: Nothing Associated Symptoms Associated Symptoms: Nothing Narrative Narrative: Patient is a 43-year-old male with past medical history of fractured ribs and spontaneous pneumothorax right and left. Patient had a VATS procedure in the remote past. Patient denies fever, chills night sweats. Patient states he awoke from sleep on the floor and thinks he broke his ribs on the left. He presents because of increasing pain and shortness of breath because he cannot take a deep breath. He denies leg pain, swelling discoloration. He denies history of VTE. He has no risk factors for VTE. There is no history to his knowledge of direct or indirect trauma. He denies fever, chills night sweats. He is a smoker. He does have a cough. It hurts to cough. He has not noted a rash or any bruising. Prior similar symptoms: Yes (Fractured ribs. He denies history of osteogenesis imperfecta) Recent Illness/Hospitalization: No [facility] Medical History Cellulitis of right thumb Abrasion of right thumb History of pneumonia Bone fracture Headache, migraine Trigeminal neuralgia Pneumothorax Home Medications ???Medication ???Instructions ???Recorded ???Last Taken ???Type TENS units #1 ea 12/16/21 Unknown Rx naproxen 500 mg tablet 500 mg PO BID #14 tabs 03/19/24 Unknown Rx Allergy/AdvReac Type Severity Reaction Status Date / Time No Known Allergies Allergy Verified 05/20/23 08:47 Family History Mother Arthritis Heart disease Hypertension Severe allergy Grandmother Colon cancer Surgical History History of lung surgery H/O hernia repair History of tonsillectomy Social History household members: spouse current occupational status: employed current occupation: works at [employer] Smoking Status: Current every day smoker tobacco type: cigarettes Electronic Cigarette Use: not used alcohol intake: current alcohol intake frequency: holidays/special occasions only Alcohol type: wine and hard liquor substance use type: does not use what type of physical activity do you participate in: none do you feel safe at home: Yes ROS ROS ED Constitutional Constitutional ED: Denies chills, fever(s) or subjective ENT ENT ED: Denies ear pain, rhinorrhea or sore throat Cardiovascular Cardiovascular: Reports chest pain; Denies orthopnea, palpitations, paroxysmal nocturnal dyspnea or racing heartbeat Respiratory/Chest Respiratory/Chest: Reports cough, dyspnea and dyspnea on exertion; Denies orthopnea, paroxysmal nocturnal dyspnea or sputum Gastrointestinal Gastrointestinal: Denies abdominal pain, melena, nausea or vomiting Genitourinary Genitourinary ED: Denies dysuria, hematuria or urinary frequency Musculoskeletal Musculoskeletal: Denies arthralgias, back pain, myalgias or neck pain Integumentary Denies rash Hematologic/Lymphatic Hematologic/Lymphatic: Reports systems reviewed and no addt'l complaints, except as documented EXAM Physical Exam Const Vital Signs: 03/19/24 02:58 03/19/24 03:02 Temperature 98.0 F Temperature Source Oral Pulse Rate 80 Respiratory Rate 22 H Respiratory Effort Normal Non-Labored Respiratory Pattern Normal Blood Pressure 164/97 H Blood Pressure Mean 119 Pulse Ox 99 Oxygen Delivery Method Room Air Positive well nourished, well developed and unkempt Constitutional Narrative: Patient appears uncomfortable. General Appearance ED: unkempt and well developed; Negative for cyanotic, diaphoretic or pallor HEENT Reports moist mucous membranes HEENT Narrative: Head is atraumatic normocephalic. Ears normal. Nares patent. Posterior pharynx is normal. Eyes PERRL and EOMs intact bilaterally General Eye ED: Negative for pale conjunctiva or scleral icterus Neck no lymphadenopathy, supple and no JVD Chest Wall inspection of chest normal and palpation of chest normal Chest Narrative: Mae (more content not included)... Normal [facility] XR RIB/CHST 3V AP RIB/OBL/CH ST [facility] 03-19-2024 XR RIB/CHST 3V AP RIB/OBL/CHST L * * *Final Report* * * DATE OF EXAM: Mar 19 2024 7:19PM WOX [id number] - XR RIB/CHST 3V AP RIB/OBL/CHST L / PROCEDURE REASON: Rib pain on left side * * * * Physician Interpretation * * * * EXAMINATION: XR RIB/CHST 3V AP RIB/OBL/CHST L HISTORY: slipped on the floor Tuesday, pain lower left anterior marked by bb Rib pain on left side . TECHNIQUE: XR RIB/CHST 3V AP RIB/OBL/CHST L Laterality: LEFT Number of different views (projections): 3 M: XB_1 COMPARISON: Two-view chest x-ray dated 02/22/2023. RESULT: Scarring at the lung apices. No discrete airspace consolidation, effusion or pneumothorax. Again demonstrated is surgical anastomotic material at the The left upper lung zone. Cardiomediastinal silhouette unremarkable. No discrete acute left-sided rib fracture. Multilevel age-related degenerative changes of the thoracic and upper lumbar spine. No other significant abnormality. IMPRESSION: No discrete acute rib fracture. No radiographic findings to suggest acute cardiopulmonary process. Corporate Sales Representative: PSCB Transcribe Date/Time: Mar 19 2024 9:06P Dictated by : JUSTIN MOREJON MD This examination was interpreted and the report reviewed and electronically signed by: JUSTIN MOREJON MD on Mar 19 2024 9:09PM EST [id number] Normal [facility] XR Ribs - left Views and Missy [facility] 03-19-2024 IMPRESSION: No discrete acute rib fracture. No radiographic findings to suggest acute cardiopulmonary process. Corporate Sales Representative: PSCDeidre Transcribe Date/Time: Mar 19 2024 9:06P Dictated by : JUSTIN MOREJON MD This examination was interpreted and the report reviewed and electronically signed by: JUSTIN MOREJON MD on Mar 19 2024 9:09PM [facility] DIVISION OF RADIOLOGY * * *Final Report* * * DATE OF EXAM: Mar 19 2024 7:19PM WOX [id number] - XR RIB/CHST 3V AP RIB/OBL/CHST L / PROCEDURE REASON: Rib pain on left side * * * * Physician Interpretation * * * * EXAMINATION: XR RIB/CHST 3V AP RIB/OBL/CHST L HISTORY: slipped on the floor Tuesday, pain lower left anterior marked by bb Rib pain on left side . TECHNIQUE: XR RIB/CHST 3V AP RIB/OBL/CHST L Laterality: LEFT Number of different views (projections): 3 M: XB_1 COMPARISON: Two-view chest x-ray dated 02/22/2023. RESULT: Scarring at the lung apices. No discrete airspace consolidation, effusion or pneumothorax. Again demonstrated is surgical anastomotic material at the The left upper lung zone. Cardiomediastinal silhouette unremarkable. No discrete acute left-sided rib fracture. Multilevel age-related degenerative changes of the thoracic and upper lumbar spine. No other significant abnormality. DIVISION OF RADIOLOGY Provider, [facility] - 03/19/2024 * * *Final Report* * * DATE OF EXAM: Mar 19 2024 7:19PM WOX [id number] - XR RIB/CHST 3V AP RIB/OBL/CHST L / PROCEDURE REASON: Rib pain on left side * * * * Physician Interpretation * * * * EXAMINATION: XR RIB/CHST 3V AP RIB/OBL/CHST L HISTORY: slipped on the floor Tuesday, pain lower left anterior marked by bb Rib pain on left side . TECHNIQUE: XR RIB/CHST 3V AP RIB/OBL/CHST L Laterality: LEFT Number of different views (projections): 3 M: XB_1 COMPARISON: Two-view chest x-ray dated 02/22/2023. RESULT: Scarring at the lung apices. No discrete airspace consolidation, effusion or pneumothorax. Again demonstrated is surgical anastomotic material at the The left upper lung zone. Cardiomediastinal silhouette unremarkable. No discrete acute left-sided rib fracture. Multilevel age-related degenerative changes of the thoracic and upper lumbar spine. No other significant abnormality. IMPRESSION IMPRESSION: No discrete acute rib fracture. No radiographic findings to suggest acute cardiopulmonary process. Corporate Sales Representative: PSCB Transcribe Date/Time: Mar 19 2024 9:06P Dictated by : JUSTIN MOREJON MD This examination was interpreted and the report reviewed and electronically signed by: JUSTIN MOREJON MD on Mar 19 2024 9:09PM EST [facility] Radiology Study observation (narrative) [facility] XR Ribs - left Views and Missy st PAOrdered By: Ccf Provider on 03-19-2024 [facility] Absolute lymphocyte countOrd ered By: Gurdeep Andrade on 05-20-2023 Lymphocytes Auto (Unsp spec) [#/Vol] 1.56 10*3/uL 0.83-4.51 [facility] Basophil percentageOrdered B y: Gurdeep Andrade on 05-20-2023 Basophil percentage 0-5 SEEN /hpf 0-5 [facility] Basophils/100 WBC (Bld) 0.2 % 0-1 [facility] Chloride [Moles/Vol] 102 mmol/L 98-107 [facility] Eosinophils/100 WBC (Bld) 1.5 % 0-5 [facility] Glucose [Mass/Vol] 124 mg/dL 74-106 [facility] Comment on above: Fasting Glucose resu lt from 100 to 125 mg/dL suggests IMPAIRED HOMEOSTASIS per A.D.A. criteria. Neutrophils (Bld) [#/Vol] 4.1 10*3/uL 2.0-7.7 [facility] Neutrophils/100 WBC (Bld) 65.6 % 47-70 [facility] Potassium [Moles/Vol] 3.0 mmol/L 3.5-5.1 [facility] Sodium [Moles/Vol] 138 mmol/L 136-145 [facility] WBC (Bld) [#/Vol] 6.2 10*3/uL 4.4-11.0 [facility] Bilirubin Test strip Ql (U)O rdered By: Gurdeep Andrade on 05-20-2023 Bilirubin Ql (U) Negative Negative [facility] Blood erythrocytes count (nu mber/volume)Ordered By: Gurdeep Andrade on 05-20-2023 RBC (Bld) [#/Vol] 4.89 10*6/uL 4.6-6.2 [facility] Blood hemoglobin measurement (mass/volume)Ordered By: Gurdeep Andrade on 05-20-2023 Hemoglobin (Bld) [Mass/Vol] 16.7 g/dL 13.0-16.5 [facility] Blood lymphocytes/100 leukoc ytesOrdered By: Gurdeep Andrade on 05-20-2023 Lymphocytes/100 WBC (Bld) 25.2 % 19-41 [facility] Blood monocytes/100 leukocyt esOrdered By: Gurdeep Andrade on 05-20-2023 Monocytes/100 WBC (Bld) 7.0 % 0-10 [facility] Blood platelet mean volumeOr dered By: Gurdeep Andrade on 05-20-2023 Platelet mean volume (Bld) [Entitic vol] 10.3 fL 6.2-12.0 [facility] Determination of erythrocyte mean corpuscular volume (MCV)Ordered By: Gurdeep Andrade on 05-20-2023 MCV (RBC) [Entitic vol] 92.6 fL 80-94 [facility] Hematocrit Auto (Bld) [Volum e fraction]Ordered By: Gurdeep Andrade on 05-20-2023 Hematocrit (Bld) [Volume fraction] 45.3 % 40-54 [facility] Ketones Test strip Ql (U)Ord ered By: Gurdeep Andrade on 05-20-2023 Ketones Ql (U) Negative Negative [facility] Laboratory - Chemistry and C hemistry - challengeOrdered By: Gurdeep Andrade on 05-20-2023 CO2 [Moles/Vol] 26.0 mmol/L 21.0-32.0 [facility] Urea nitrogen/Creatinine [Mass ratio] 13.7 mg/mg 10-20 [facility] Laboratory - Hematology and Cell countsOrdered By: Gurdeep Andrade on 05-20-2023 Erythrocyte distribution width (RBC) [Entitic vol] 43.8 fL 35.1-43.9 [facility] Erythrocyte distribution width (RBC) [Ratio] 12.7 % 11.6-14.6 [facility] Immature granulocytes/100 WBC (Bld) 0.500 % 0.0-0.9 [facility] Comment on above: IG% - Immature Granu locytes (promyelocytes, myelocytes and metamyelocytes) > 1% indicates that a LEFT SHIFT is Present. MCH (RBC) [Entitic mass] 34.2 pg 27.0-32.0 [facility] Nucleated RBC/100 WBC (Bld) [Ratio] 0 % 0-5 [facility] Laboratory - Microbiology an d Antimicrobial susceptibilityOrdered By: Gurdeep Andrade on 05-20-2023 SARS-CoV-2 (COVID-19) RNA SAUL+probe Ql (Unsp spec) [facility] MCHC Auto (RBC) [Mass/Vol]Or dered By: Gurdeep Andrade on 05-20-2023 MCHC (RBC) [Mass/Vol] 36.9 g/dL 32-36 [facility] Mucus LM Ql (Urine sed)Order ed By: Gurdeep Andrade on 05-20-2023 Mucus Ql (Urine sed) 0 SEEN /hpf [facility] Nitrite Test strip Ql (U)Ord ered By: Gurdeep Andrade on 05-20-2023 Nitrite Ql (U) Negative Negative [facility] No Panel InformationOrdered By: Gurdeep Andrade on 05-20-2023 Estimated Creatinine Clearance Calc 144.32 ml/min [facility] Estimated GFR (MDRD) Amer 195 mL/min >60 [facility] Comment on above: GFR Calc Estimated GFR (MDRD) Non-Af Amer 161 mL/min >60 [facility] Comment on above: Non- GFR Calc Platelets bldOrdered By: Clyde Andrade on 05-20-2023 Platelets (Bld) [#/Vol] 189 10*3/uL 150-450 [facility] Protein Test strip Ql (U)Ord ered By: Gurdeep Andrade on 05-20-2023 Protein Ql (U) 15 mg/dl Negative [facility] Serum or plasma calcium dereck urement (mass/volume)Ordered By: Gurdeep Andrade on 05-20-2023 Calcium [Mass/Vol] 8.2 mg/dL 8.5-10.1 [facility] Serum or plasma creatinine m easurement (mass/volume)Ordered By: Gurdeep Andrade on 05-20-2023 Creatinine [Mass/Vol] 0.58 mg/dL 0.70-1.30 [facility] Comment on above: The validity of the calculated GFR & GFRAA in patients over 70 years has not been determined. Clinical correlation is essential. Serum or plasma urea nitroge n measurement (mass/volume)Ordered By: Gurdeep Andrade on 05-20-2023 Urea nitrogen [Mass/Vol] 8 mg/dL 7-18 [facility] Squamous epithelial cells de tection in urine sediment by light microscopyOrdered By: Gurdeep Andrade on 05-20-2023 Epithelial cells.squamous LM Ql (Urine sed) 0 SEEN /hpf 0-5 [facility] Thin prep Papanicolaou smear with manual screeningOrdered By: Gurdeep Andrade on 05-20-2023 Thin prep Papanicolaou smear with manual screening 10 5-15 [facility] Urine blood detectionOrdered By: Gurdeep Andrade on 05-20-2023 RBC Ql (U) 10 /ul Negative [facility] RBC Ql (U) 0-5 SEEN /hpf 0-5 [facility] Urine clarityOrdered By: Clyde Andrade on 05-20-2023 Clarity (U) Clear Clear [facility] Urine color determinationOrd ered By: Gurdeep Andrade on 05-20-2023 Color (U) Yellow Yellow [facility] Urine glucose detectionOrder ed By: Gurdeep Andrade on 05-20-2023 Glucose Ql (U) Normal mg/dl Normal [facility] Urine leukocyte esterase det ection by dipstickOrdered By: Gurdeep Andrade on 05-20-2023 Leukocyte esterase Test strip Ql (U) 25 /ul Negative [facility] Urine pHOrdered By: Gurdeep conde on 05-20-2023 pH (U) 8.0 [pH] 5.0 - 8.0 [facility] Urine sediment bacteria coun t by microscopy (number/high power field)Ordered By: Gurdeep Andrade on 05-20-2023 Bacteria LM.HPF (Urine sed) [#/Area] 0 /[HPF] None Seen [facility] Urine specific gravity measu rementOrdered By: Gurdeep Andrade on 05-20-2023 Specific gravity (U) [Rel density] 1.010 1.002-1.03 0 [facility] Urobilinogen Auto test strip Ql (U)Ordered By: Gurdeep Andrade on 05-20-2023 Urobilinogen Ql (U) 1 mg/dl Normal [facility] XR Chest PA and Lateralon IMPRESSION: Overall findings unchanged. Corporate Sales Representative: ANGEL Transcribe Date/Time: Feb 22 2023 12:51P Dictated by : STEPHEN OCONNOR MD This examination was interpreted and the report reviewed and electronically signed by: STEPHEN OCONNOR MD on Feb 22 2023 12:52PM [facility] DIVISION OF RADIOLOGY * * *Final Report* [...] shows degenerative changes. DIVISION OF RADIOLOGY Provider, [facility] - 02/22/2023 * * *Final Report* [...] degenerative changes. IMPRESSION IMPRESSION: Overall findings unchanged. Corporate Sales Representative: PSCB Transcribe Date/Time: Feb 22 2023 12:51P Dictated by : STEPHEN OCONNOR MD This examination was interpreted and the report reviewed and electronically signed by: STEPHEN OCONNOR MD on Feb 22 2023 12:52PM EST [facility] Radiology Study observation (narrative) [facility] XR Chest PA and LateralOrder ed By: [facility] Provider on 02-22-2023 [facility] XR CHEST 2V FRONTAL/LATon [facility] XR Chest PA and Lateralon IMPRESSION: Hyperinflation/COPD. No acute findings in the chest. Corporate Sales Representative: ANGEL Transcribe Date/Time: Aug 03 2022 2:41P Dictated by : RODOLFO CASTELAN MD This examination was interpreted and the report reviewed and electronically signed by: RODOLFO CASTELAN MD on Aug 03 2022 2:42PM [facility] DIVISION OF RADIOLOGY * * *Final Report* [...] Lines/tubes/devices: None visualized. DIVISION OF RADIOLOGY Provider, [facility] - 08/03/2022 * * *Final Report* [...] Hyperinflation/COPD. No acute findings in the chest. Corporate Sales Representative: PSCB Transcribe Date/Time: Aug 03 2022 2:41P Dictated by : RODOLFO CASTELAN MD This examination was interpreted and the report reviewed and electronically signed by: RODOLFO CASTELAN MD on Aug 03 2022 2:42PM EST [facility] Radiology Study observation (narrative) [facility] XR Chest PA and LateralOrder ed By: [facility]cf Provider on 08-03-2022 [facility] Absolute lymphocyte countOrd ered By: Dr. Mckeon on 07-05-2022 Lymphocytes Auto (Unsp spec) [#/Vol] 2.05 10*3/uL 0.83-4.51 [facility] Basophil percentageOrdered B y: Dr. Mckeon on 07-05-2022 Basophils/100 WBC (Bld) 0.5 % 0-1 [facility] Bilirubin [Mass/Vol] 0.30 mg/dL 0.20-1.00 [facility] Comment on above: For patients on eltr ombopag therapy, use of Dimension [place] TBIL is not recommended. Chloride [Moles/Vol] 105 mmol/L 98-107 [facility] Cholesterol [Mass/Vol] 240 mg/dL <200 [facility] Comment on above: <200 mg/dL Desirable 200-240 mg/dL Borderline >240 mg/dL High Risk Eosinophils/100 WBC (Bld) 3.2 % 0-5 [facility] Glucose [Mass/Vol] 94 mg/dL 74-106 [facility] Neutrophils (Bld) [#/Vol] 4.4 10*3/uL 2.0-7.7 [facility] Neutrophils/100 WBC (Bld) 58.2 % 47-70 [facility] Potassium [Moles/Vol] 3.9 mmol/L 3.5-5.1 [facility] Protein [Mass/Vol] 7.3 g/dL 6.4-8.2 [facility] Sodium [Moles/Vol] 138 mmol/L 136-145 [facility] Triglyceride [Mass/Vol] 195 mg/dL <199 [facility] Comment on above: The drugs N-Acetylcy steine and Metamizole may falsely depress this assay.Serum Triglycerides Reference Interval Normal <150 mg/dL Borderline high 150 - 199 mg/dL High 200 - 499 mg/dL Very High > or = 500 mg/dL WBC (Bld) [#/Vol] 7.6 10*3/uL 4.4-11.0 [facility] Blood erythrocytes count (nu mber/volume)Ordered By: Dr. Mckeon on 07-05-2022 RBC (Bld) [#/Vol] 4.91 10*6/uL 4.6-6.2 [facility] Blood hemoglobin measurement (mass/volume)Ordered By: Dr. Mckeon on 07-05-2022 Hemoglobin (Bld) [Mass/Vol] 16.3 g/dL 13.0-16.5 [facility] Blood lymphocytes/100 leukoc ytesOrdered By: Dr. Mckeon on 07-05-2022 Lymphocytes/100 WBC (Bld) 27.1 % 19-41 [facility] Blood monocytes/100 leukocyt esOrdered By: Dr. Mckeon on 07-05-2022 Monocytes/100 WBC (Bld) 10.2 % 0-10 [facility] Blood platelet mean volumeOr dered By: Dr. Mckeon on 07-05-2022 Platelet mean volume (Bld) [Entitic vol] 9.7 fL 6.2-12.0 [facility] Determination of erythrocyte mean corpuscular volume (MCV)Ordered By: Dr. Mckeon on 07-05-2022 MCV (RBC) [Entitic vol] 95.5 fL 80-94 [facility] Erythrocyte sedimentation ra teOrdered By: Dr. Mckeon on 07-05-2022 ESR (Bld) [Velocity] 15 mm/h 0-20 [facility] Hematocrit Auto (Bld) [Volum e fraction]Ordered By: Dr. Mckeon on 07-05-2022 Hematocrit (Bld) [Volume fraction] 46.9 % 40-54 [facility] Laboratory - Chemistry and C hemistry - challengeOrdered By: Dr. Mckeon on 07-05-2022 ALP [Catalytic activity/Vol] 56 U/L 45-117 [facility] ALT [Catalytic activity/Vol] 31 U/L 16-61 [facility] CO2 [Moles/Vol] 25.0 mmol/L 21.0-32.0 [facility] Globulin (S) [Mass/Vol] 3.6 g/dL 2.2-4.2 [facility] Urea nitrogen/Creatinine [Mass ratio] 9.0 mg/mg 10-20 [facility] Laboratory - Hematology and Cell countsOrdered By: Dr. Mckeon on 07-05-2022 Erythrocyte distribution width (RBC) [Entitic vol] 44.7 fL 35.1-43.9 [facility] Erythrocyte distribution width (RBC) [Ratio] 12.6 % 11.6-14.6 [facility] Immature granulocytes/100 WBC (Bld) 0.800 % 0.0-0.9 [facility] Comment on above: IG% - Immature Granu locytes (promyelocytes, myelocytes and metamyelocytes) > 1% indicates that a LEFT SHIFT is Present. MCH (RBC) [Entitic mass] 33.2 pg 27.0-32.0 [facility] Nucleated RBC/100 WBC (Bld) [Ratio] 0 % 0-5 [facility] MCHC Auto (RBC) [Mass/Vol]Or dered By: Dr. Mckeon on 07-05-2022 MCHC (RBC) [Mass/Vol] 34.8 g/dL 32-36 [facility] No Panel InformationOrdered By: Dr. Mckeon on 07-05-2022 Estimated GFR (MDRD) Amer 141 mL/min >60 [facility] Comment on above: GFR Calc Estimated GFR (MDRD) Non-Af Amer 116 mL/min >60 [facility] Comment on above: Non- GFR Calc Platelets bldOrdered By: Dr. Mckeon on 07-05-2022 Platelets (Bld) [#/Vol] 357 10*3/uL 150-450 [facility] Serum or plasma albumin dereck urement (mass/volume)Ordered By: Dr. Mckeon on 07-05-2022 Albumin [Mass/Vol] 3.7 g/dL 3.2-5.0 [facility] Serum or plasma albumin/glob ulin mass ratioOrdered By: Dr. Mckeon on 07-05-2022 Albumin/Globulin [Mass ratio] 1.0 {ratio} 0.9-2.4 [facility] Serum or plasma calcium dereck urement (mass/volume)Ordered By: Dr. Mckeon on 07-05-2022 Calcium [Mass/Vol] 9.2 mg/dL 8.5-10.1 [facility] Serum or plasma cholesterol in HDL measurement (mass/volume)Ordered By: Dr. Mckeon on 07-05-2022 Cholesterol in HDL [Mass/Vol] 40 mg/dL >40 [facility] Comment on above: The drugs N-Acetylcy steine and Metamizole may falsely depress this assay. Reference Range HDL <40 mg/dL Low HDL Cholesterol HDL >or= 60 mg/dL High HDL Cholesterol Serum or plasma cholesterol in VLDL measurement (mass/volume)Ordered By: Dr. Mckeon on 07-05-2022 Cholesterol in VLDL [Mass/Vol] 39 mg/dL 5-40 [facility] Serum or plasma creatinine m easurement (mass/volume)Ordered By: Dr. Mckeon on 07-05-2022 Creatinine [Mass/Vol] 0.78 mg/dL 0.70-1.30 [facility] Comment on above: The validity of the calculated GFR & GFRAA in patients over 70 years has not been determined. Clinical correlation is essential. Serum or plasma low density lipoprotein (LDL) cholesterol measurement (mass/volume)Ordered By: Dr. Mckeon on 07-05-2022 Cholesterol in LDL [Mass/Vol] 161 mg/dL 0-130 [facility] Serum or plasma urea nitroge n measurement (mass/volume)Ordered By: Dr. Mckeon on 07-05-2022 Urea nitrogen [Mass/Vol] 7 mg/dL 7-18 [facility] Thin prep Papanicolaou smear with manual screeningOrdered By: Dr. Mckeon on 07-05-2022 Thin prep Papanicolaou smear with manual screening 16 U/L 15-37 [facility] Thin prep Papanicolaou smear with manual screening 8 5-15 [facility] XR SPINE LUMBOSACRAL MINIMUM 4 VIEWSon 12-14-2021 [...] Aleksandar Barrera MD Preliminary Report By: Aleksandar Barrrea MD Electronically signed By Aleksandar Barrera MD Dictated Date: 12/14/2021 10:08:50 AM Prelim Date: 12/14/2021 10:10:21 AM Sign Date: 12/14/2021 10:10:21 AM Ordering Provider: SOFY SALAZAR [facility] [place] XR TOES GREAT 3 VIEWS RIGHTo n [...] 01/16/2021 12:07:56 AM Ordering Provider: DWAINE BOWENS [facility] [place] CHEST 2 VIEWSon 06-09-2017 CHEST 2 VIEWS Performed at [facility] APPROVED BY: Robby Olvera MD EXAMINATION: CHEST [...] are now clear with no pneumothorax. Normal [facility] CNCOon 06-09-2017 CNCO Letter Text Dianna Hwang [facility] LINDSAYard[facility], Thoracic AND Vascular SpecialistsAn[place], [place] [address]Uch[place]: [facility] 2017 Re: Anamika Huangwood : 1980 To Whom It May Concern:This letter is to certify that Mr. Juarez has been under my professional careand may return to work on 06/12/17 with the following restrictions:Lightduty only 5-10 lbs lifting for the next 4 weeks.If you have further questions regarding this patient's health status, pleasecontact my office at [phone].Best Regards,Dianna Hwang MD(Signed electronically to expedite mailing) [facility] CNOVon 06-09-2017 CNOV Office Visit (AGVASACC) ---------LARRYANAMIKA Angeles ([id number]) 1980 [facility] Time Provider Department06/09/17 1:00 PM DIANNA HWANG [facility] During your visit today, we recorded the following information about you: Pulse Respiration Blood pressure Weight 76/minute 16/minute 120/68 68.9 kg Height 1.778 Jose Hwang MD 06/09/2017 2:05 PM SignedMofabiolakaleb Juarez is a 36 year old male here for postoperative follow-up after aright VATS with bleb resection and mechanical pleurodesis performed May for 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 Overall looks good at this point.ASSESSMENT:ImprovingP AVE:May lift 5-10 pounds with the right upper extremity. May lift whatever iscomfortable with the left upper extremity. Was given a return to work slip onlight duty less than 10 pounds for an additional 4 weeks beginning Tuesday06/12/17. He was advised not to fly for another 4 weeks.FOLLOW UP:As needed.Mariaa Matias Provider: ANNEMARIE POPE [[id number]]Allergies As of Date: 06/09/2017(No Known Allergies)Date Reviewed: 06/09/2017Reviewed by: Dianna Hwang - Fully AssessedReason for Visit: Post Op [174] Cmt: 05/24/17 Rt vats with mechanichal pleurodesis. /chest xray done todayPrimary Visit Diagnosis:Pneumothorax, unspecified type [J93.9]Order(s):oxyCODONE-a cetaminophen (PERCOCET) 5-325 mg tabletTake 1 tablet by [...] Jamar Belle LPN 06/09/2017 1:33 PM >> RIZWAN JAMAR GUTIÉRREZ Clara Jun 09, 2017 1:33 PM Not takingProblem [...] needed.Follow-up and Disposition History RecordedLetter TextEncounter Number: [id number] Status:Closed by DIANNA WHANG MD on 06/09/17 [facility] PROGRESSon 06-09-2017 PROGRESS HNO ID: [id number] thor: Dianna Kunzervice: (none)Author Type: PhysicianType: Progress NotesFiled: 06/09/2017 2:05 PMNote Text:Anamika Juarez is a 36 year old male here for postoperative follow-upafter a right VATS with bleb resection and mechanical pleurodesisperformed May 24, 2017 for recurrent spontaneous pneumothorax on theright in a cigarette smoker.HPI:The patient continues to have some pain and multiple complaints asexpected. Overall though he is improving.MEDICATIONS:Curre nt Outpatient Prescriptions:ibuprofen (MOTRIN) 200 mg tablet Take [...] the postoperative changes. Overall looks good atthis point.ASSESSMENT:ImprovingP AVE:May lift 5-10 pounds with the right upper extremity. May lift whatever iscomfortable with the left upper extremity. Was given a [place] less than 10 pounds for an additional 4 weeks beginningSunday 06/12/17. He was advised not to fly for another 4 weeks.FOLLOW UP:As needed.Dianna Hwang MD [facility] Telephone (AGSHAYANACC) ---------ANAMIKA JUAREZ ([id number]) 1980 MDate Time Provider Department06/06/17 DIANNA HWANG During your visit today, we recorded the following information about you:David Chan CMA 06/06/2017 10:02 AM SignedLeft message for Mr. Juarez to have CXR 1 hour prior to his 06/09/18 postoperative visit.Allergies As of Date: 06/06/2017(No Known Allergies)Date Reviewed: 05/27/2017Reviewed by: An WilkesRn) KIRILL Bailey - Fully AssessedReason for Visit: Orders [681]Primary Visit Diagnosis:Secondary spontaneous pneumothorax [J93.12] Other Visit Diagnosis:S/P lung surgery, follow-up exam [Z09]Order(s):XR CHEST 2V FRONTAL/LAT [2761404] Order #: [id number] FUTUREPrescriptions as of 06/06/2017 Sig: ACETAMINOPHEN 325 MG TABLET Take 2 tablets by mouth every*Problem List As Of Date 06/06/2017 Noted Resolved Pneumothorax [J93.9] Spontaneous pneumothorax [J93.83] INVALID FOR*05/28/2017Encounter Number: [id number] Status:Closed by DIANNA HWANG MD on 06/06/17 Normal [facility] ALLIED HEALTHon 05-28-2017 ALLIED HEALTH HNO ID: [id number] thor: Caro WilkesRn) IRIS Haqueervice: Home Care ServicesAuthor Type: Registered NurseType: Allied HealthFiled: 05/30/2017 2:13 PMNote Text:BRADLEY LINEBACKER CREWMEMBER NOTESERVICE DATE: 05/30/2017SERVICE TIME: 2:13 PMDischarge:Aware of Discharge home 05/28/17Physician order placed for Home Care ServicesHome [facility] of care date: 05/31 or 06/01/17Patient/Family agree to discharge plan: [facility] for skilled careSIGNATURE: Caro Haque RN PATIENT NAME: Anamika HuangsteedmanDATE: May 30, 2017 : 2:13 PM Normal [facility] CHEST 1 VIEWon 05-28-2017 CHEST 1 VIEW Performed at [facility] APPROVED BY: Alexey Merino MD EXAMINATION: CHEST [...] tube removal. Otherwise, no significant change. Normal [facility] CHEST 1 VIEW Performed at [facility] APPROVED BY: Fidencio Akers MD EXAMINATION: CHEST [...] left base. No evidence for pneumothorax. Normal [facility] CNDSon 05-28-2017 CNDS HNO ID: [id number] thor: Dianna Kunzervice: Thoracic SurgeryAuthor Type: PhysicianType: Discharge SummariesFiled: 05/30/2017 9:51 AMNote Text:DISCHARGE SUMMARYPATIENT NAME: Anamika Juarez ADMISSION DATE: 05/20/2017MRN: [id number] DISCHARGE DATE: 05/28/2017Attending Physician: Dianna Saabeasmedina for [...] of this patient.SIGNATURE: Kiel Bell MD PAGER: [phone]: May 28, 2017TIME: 10:09 AMNoted. Radha covering at the time. [facility] PROGRESSon 05-28-2017 PROGRESS HNO ID: [id number] thor: Kiel (Jerrell Vermaervice: Thoracic SurgeryAuthor Type: ResidentType: Progress NotesFiled: 05/28/2017 8:58 AMNote Text: ----Attestation signed by Thad Garcia at 06/16/2017 5:12 PMAttending NoteI evaluated the patient and personally participated in the cabezas components. Iagree with the resident's findings and plan as documented and have discussedthe case and management of the patient's care with the resident.Signature: Thad Garcia, MDDate: 06/16/2017Time: 5:12 PM -Thoracic Surgery Progress NoteSERVICE DATE: 05/28/2017SUBJECTIVESUBJECTIV E:Feeling well, no new issuesDenies N/V/CP/SOBDiet: DIET REGULAROBJECTIVEOBJECTIVE:V itals:Temp (24hrs), Av.7 ?C (98 ?F), Min:36.4 ?C (97.5 ?F), Max:36.9 ?C(98.5 ?F)BP 131/81 Pulse 73 Temp 36.7 ?C (98.1 ?F) (Oral) Resp 18 Ht 177.8cm (5' 10) Wt 68 kg (150 lb) SpO2 100% BMI 21.52 kg/m2O2 Therapy: Room AirIANDO:Date 05/27/17 07 - 05/28/17 0659 05/28/17 07 - 05/29/17 0659Shift 2380-1343 6296-6939 5377-4319 24 Hour Total 9384-8887 0150-16996166-3779 24 Hour TotalINTAKE Shift TotalOUTPUT Urine 288 016 2385 Void (ml) 239 855 4407 Chest Tube 5 15 20 Chest Tube [...] stableAssessment and plan discussed with attending: Dr. ReddyGNATURE: Kiel Bell MD PATIENT NAME: Anamika HuangsteedmanDATE: May 28, 2017 : 6:22 AM Pager: [phone] Normal [facility] ALLIED HEALTHon 05-27-2017 ALLIED HEALTH HNO ID: [id number] thor: Bri Zurita Office CoordService: (none)Author Type: (none)Type: Allied HealthFiled: 05/27/2017 2:02 PMNote Text:BRADLEY LINEBACKER CREWMEMBER NOTESERVICE DATE: 05/27/2017SERVICE TIME: 1401Referral:Home Care referral received by: Niko continue to follow for physician ordersSIGNATURE: Bri Zurita Office Coord PATIENT NAME: Anamika HuangsteedmanDATE: May 27, 2017 : 2:01 PM Normal [facility] Basic Panelon 05-27-2017 Creatinine 0.49 mg/dL Low 0.67-1.17 [facility] Comment on above: Performed By: #### P 8 ####[place] [address] Glucose mass conc 97 mg/dL Normal 70-99 [facility] Comment on above: Performed By: #### P 8 ####[facility] [place], [place] [address] Anion gap 13 mmol/L Normal 8-16 [facility] Comment on above: Performed By: #### P 8 ####[facility] [place] [address] CO2 25 mmol/L Normal 21-32 [facility] Comment on above: Performed By: #### P 8 ####[facility] [place], [place] [address] Urea nitrogen 10 mg/dL Normal 7-18 [facility] Comment on above: Performed By: #### P 8 ####[place] [address] Calcium 8.2 mg/dL Low 8.5-10.1 [facility] Comment on above: Performed By: #### P 8 ####[place] [address] Chloride 105 mmol/L Normal 98-107 [facility] Comment on above: Performed By: #### P 8 ####[place] [address] Potassium molar conc 3.5 mmol/L Normal 3.5-5.1 [facility] Comment on above: Performed By: #### P 8 ####[place] [address] Sodium 139 mmol/L Normal 136-145 [facility] Comment on above: Performed By: #### P 8 ####[place] [address] CASE MANAGEMon 05-27-2017 CASE MANAGEM HNO ID: [id number] thor: Nneka (Rn) IRIS Urbinaervice: Care ManagementAuthor Type: Registered NurseType: Care Mgt Progress NoteFiled: 05/27/2017 1:04 PMNote Text:CARE MANAGEMENT PROGRESS NOTESERVICE DATE: 05/27/2017SERVICE TIME: 1:03 PM LOS: 7 daysNotes reviewed. Patient s/p R VATS POD #3. CT to H2O seal. Discharge planis for patient to return home when medically stable. [facility] referral made.SIGNATURE: Nneka Urbina RN PATIENT NAME: Anamika JuarezDATE: May 27, 2017 : 1:03 PM PAGER/CONTACT #: [phone] Normal [facility] CHEST 1 VIEWon 05-27-2017 CHEST 1 VIEW Performed at [facility] APPROVED BY: Robby Olvera MD EXAMINATION: CHEST RADIOGRAPH (SINGLE VIEW AP OR PA) Clinical History: Follow-up right-sided chest tube.M: [id number]_3Comparison: 05/26/2017 at 0600 RESULT: Lines, tubes, and devices: Right-sided chest tube seen along the lateral and apical region of the right chest. youth nutritional monitor leads. Lungs and pleura: No residual [...] out the possibility of developing pneumonia. Normal [facility] Hemogram/Diffon 05-27-2017 Abs Immature Grans 0.05 thou/cmm Normal 0.00-0.05 [facility] Comment on above: Performed By: #### C BCD1 ####[place] [address] Abs. Baso 0.02 thou/cmm Normal 0.01-0.08 [facility] Comment on above: Performed By: #### C BCD1 ####[place] [address] Abs. [place] 1.01 thou/cmm High 0.30-0.82 [facility] Comment on above: Performed By: #### C BCD1 ####[place] [address] Abs. Neut 6.63 thou/cmm High 1.78-5.38 [facility] Comment on above: Performed By: #### C BCD1 ####[place] [address] Basophils/100 WBC Auto (Bld) 0.2 % Normal [facility] Comment on above: Performed By: #### C BCD1 ####[address] [address] Eosinophils 0.14 thou/cmm Normal 0.04-0.54 [facility] Comment on above: Performed By: #### C BCD1 ####[address] [address] Eosinophils/100 leukocytes 1.4 % Normal [facility] Comment on above: Performed By: #### C BCD1 ####[address] [address] Erythrocyte distribution width Auto Ratio (RBC) 12.8 % Normal 11.6-14.4 [facility] Comment on above: Performed By: #### C BCD1 ####[address] [address] Erythrocytes (RBC) 3.94 mil/cmm Low 4.63-6.08 [facility] Comment on above: Performed By: #### C BCD1 ####[address] [address] Hematocrit (HCT) 34.7 % Low 40.1-51.0 [facility] Comment on above: Performed By: #### C BCD1 ####[address] [address] Hemoglobin mass conc (Bld) 11.9 g/dL Low 13.7-17.5 [facility] Comment on above: Performed By: #### C BCD1 ####[address] [address] Immature Grans 0.50 % Normal [facility] Comment on above: Performed By: #### C BCD1 ####[address] [address] Lymphocytes 1.95 thou/cmm Normal 0.84-2.85 [facility] Comment on above: Performed By: #### C BCD1 ####[address] [address] Lymphocytes/100 leukocytes 19.9 % Normal [facility] Comment on above: Performed By: #### C BCD1 ####[facility] [place], [place] [address] MCH 30.2 pg Normal 25.7-32.2 [facility] Comment on above: Performed By: #### C BCD1 ####[address] [address] MCHC mass conc (RBC) 34.3 % Normal 32.3-36.5 [facility] Comment on above: Performed By: #### C BCD1 ####[address] [address] MCV 88.1 fL Normal 83.2-95.6 [facility] Comment on above: Performed By: #### C BCD1 ####[address] [address] Monocytes/100 leukocytes 10.3 % Normal [facility] Comment on above: Performed By: #### C BCD1 ####[address] [address] Platelet mean volume (PMV) 9.8 fL Normal 8.7-12.0 [facility] Comment on above: Performed By: #### C BCD1 ####[address] [address] Platelets 358 thou/cmm Normal 141-365 [facility] Comment on above: Performed By: #### C BCD1 ####[address] [address] RDW SD 40.9 fl Normal 36.1-45.8 [facility] Comment on above: Performed By: #### C BCD1 ####[address] [address] Seg Neutrophil 67.7 % Normal [facility] Comment on above: Performed By: #### C BCD1 ####[address] [address] WBC (Leukocytes) 9.80 thou/cmm High 4.23-9.07 [facility] Comment on above: Performed By: #### C BCD1 ####[address] [address] MDRD GFRon 05-27-2017 eGFR (non-black) mL/min/{1.73_m2} Normal >60mL/m in/ 1.73m2 [facility] Comment on above: Result Comment: If t he patient is , multiply the result by 1.210. Performed By: #### G FR ####[address] [address] NURSING PROGon 05-27-2017 NURSING PROG HNO ID: [id number] thor: An (Rn) IRIS Baileyervice: (none)Author Type: Registered NurseType: Nursing Progress NoteFiled: 05/27/2017 12:43 AMNote Text: Nursing Progress NotePatient Name: Anamika JuarezMRN: [id number] Location: [place] [address]/[place] [address]*__ Spoke with client services vice president (pager [phone]) regarding pain ball order. Hestated that it will be addressed in the morning upon rounds. No new ordersat this time.This note was completed by: An Bailey RN Normal [facility] PROGRESSon 05-27-2017 PROGRESS HNO ID: [id number] thor: Dianna Kunzervice: Thoracic SurgeryAuthor Type: PhysicianType: [...] ?F) (Oral) Resp 16 Ht 177.8cm (5' 10) Wt 68 kg (150 lb) SpO2 97% BMI 21.52 kg/m2Body mass index is 21.52 kg/(m2).GENERAL: Alert, no distress, cooperativeLUNGS: Lungs clear to auscultation, Good diaphragmatic excursionCARDIAC: Normal S1 and S2; no rubs, murmurs, or gallopsABDOMEN: Abdomen soft, non-tender, BS normal, No masses or organomegalyWOUND: Clean, dry and intactThe remainder of the physical exam is noncontributory.DATA:Diagno stic tests reviewed for today's visit:WBC (thou/cmm)Date Value05/27/2017 [...] - 05/27/17 0659 700 - 05/28/17 0659Shift 1319-4644 3501-5224 1512-1535 Total 0568-1408 7452-7426 2300-0659Total 4214-8803 5642-6835 8011-8579 TotalINTAKE PO 620 308 671 4445 120 120 IV 200 475 675 Shift Total 820 3585 677 5690 120 120OUTPUT Urine 650 176 70 4183 700 700 Chest Tube 10 20 10 40 40 0 5 45 Shift Total 660 357 67 6158 740 0 5 745NET 160 180 320 [...] Continuing Antibiotics: There is no need to continueantibioticsSIGNATUR E: Ap Spence Ms PATIENT NAME: Anamika JuarezDATE: May 27, 2017 : 6:54 AM PAGER/CONTACT #: [phone] and noted.P-chest tube to waterseal today. Normal [facility] PROGRESS HNO ID: [id number] thor: Dianna Kunzervice: Thoracic SurgeryAuthor Type: PhysicianType: Progress NotesFiled: 05/27/2017 10:33 AMNote Text:Thoracic Surgery Progress NoteSERVICE DATE: 05/27/2017SUBJECTIVESUBJECTIV E:NAEON, pain unchanged, no SOBDenies N/V/CP/SOBDiet: DIET REGULAROBJECTIVEOBJECTIVE:V itals:Temp (24hrs), Av.8 ?C (98.2 ?F), Min:36.4 ?C (97.5 ?F), Max:37.2 ?C(99 ?F)BP 117/76 Pulse 79 Temp 36.7 ?C (98.1 ?F) (Oral) Resp 16 Ht 177.8cm (5' 10) Wt 68 kg (150 lb) SpO2 97% BMI 21.52 kg/m2O2 Therapy: Room AirIANDO:Date 05/26/176[address] - 05/27/17 0659 05/27/[address] - 05/28/17 0659Shift 4984-7508 8341-5485 9567-0924 24 Hour Total 3063-1370 3502-70299584-8970 24 Hour TotalINTAKE PO 120 120 PO [...] mg INTRAVENOUS q 6 H PRNLabs:Recent Labs 455 [id number] -- 137 135* -- --K -- 3.5 [...] May 27, 2017 : 6:09 AM Pager: [phone] seen, labs, cxr, and careplan reviewed with residentsP-OK for chest tube to waterseal today/ Plans for weekend and possdischarge d/w patient. Normal [facility] Basic Panelon 05-26-2017 Creatinine 0.42 mg/dL Low 0.67-1.17 [facility] Comment on above: Performed By: #### G FR ####[address] [address] Glucose mass conc 104 mg/dL High 70-99 [facility] Comment on above: Performed By: #### G FR ####[address] [address] Anion gap 8 mmol/L Normal 8-16 [facility] Comment on above: Performed By: #### G FR ####[facility] [place], [place] [address] Calcium 7.9 mg/dL Low 8.5-10.1 [facility] Comment on above: Performed By: #### G FR ####[facility] [place], [place] [address] CO2 28 mmol/L Normal 21-32 [facility] Comment on above: Performed By: #### G FR ####[address] [address] Urea nitrogen 13 mg/dL Normal 7-18 [facility] Comment on above: Performed By: #### G FR ####[facility] [place], [place] [address] Chloride 105 mmol/L Normal 98-107 [facility] Comment on above: Performed By: #### G FR ####[facility] [place], [place] [address] Potassium molar conc 3.5 mmol/L Normal 3.5-5.1 [facility] Comment on above: Performed By: #### G FR ####[facility] [place], [place] [address] Sodium 137 mmol/L Normal 136-145 [facility] Comment on above: Performed By: #### G FR ####[facility] [place], [place] [address] CASE MANAGEMon 05-26-2017 CASE MANAGEM HNO ID: [id number] thor: Nneka (Rn) IRIS Chavezervice: Care ManagementAuthor Type: Registered NurseType: Care Mgt Progress NoteFiled: 05/26/2017 9:11 AMNote Text:Recently started new job but not covered by insurance at this time,ineligible for Medicaid per [email or web address], approved at $4.00 per dc meds byCSW, cont. to follow for possible dc needs. Normal [facility] CHEST 1 VIEWon 05-26-2017 CHEST 1 VIEW Performed at [facility] APPROVED BY: CLAY STEINBERG MD EXAMINATION: CHEST [...] the left hemidiaphragm. Lungs appear clear. Normal [facility] Hemogram/Diffon 05-26-2017 Abs Immature Grans 0.05 thou/cmm Normal 0.00-0.05 [facility] Comment on above: Performed By: #### G FR ####[facility] [place] [address] Abs. Baso 0.01 thou/cmm Normal 0.01-0.08 [facility] Comment on above: Performed By: #### G FR ####[facility] [place] [address] Abs. [place] 0.81 thou/cmm Normal 0.30-0.82 [facility] Comment on above: Performed By: #### G FR ####[place] [address] Abs. Neut 6.16 thou/cmm High 1.78-5.38 [facility] Comment on above: Performed By: #### G FR ####[place] [address] Basophils/100 WBC Auto (Bld) 0.1 % Normal [facility] Comment on above: Performed By: #### G FR ####[place] [address] Eosinophils 0.14 thou/cmm Normal 0.04-0.54 [facility] Comment on above: Performed By: #### G FR ####[place] [address] Eosinophils/100 leukocytes 1.5 % Normal [facility] Comment on above: Performed By: #### G FR ####[place] [address] Erythrocyte distribution width Auto Ratio (RBC) 13.1 % Normal 11.6-14.4 [facility] Comment on above: Performed By: #### G FR ####[place] [address] Erythrocytes (RBC) 3.83 mil/cmm Low 4.63-6.08 [facility] Comment on above: Performed By: #### G FR ####[place] [address] Hematocrit (HCT) 34.7 % Low 40.1-51.0 [facility] Comment on above: Performed By: #### G FR ####[facility] [place], [place] [address] Hemoglobin mass conc (Bld) 11.6 g/dL Low 13.7-17.5 [facility] Comment on above: Performed By: #### G FR ####[address] [address] Immature Grans 0.50 % Normal [facility] Comment on above: Performed By: #### G FR ####[place] [address] Lymphocytes 1.95 thou/cmm Normal 0.84-2.85 [facility] Comment on above: Performed By: #### G FR ####[address] [address] Lymphocytes/100 leukocytes 21.4 % Normal [facility] Comment on above: Performed By: #### G FR ####[place] [address] MCH 30.3 pg Normal 25.7-32.2 [facility] Comment on above: Performed By: #### G FR ####[place] [address] MCHC mass conc (RBC) 33.4 % Normal 32.3-36.5 [facility] Comment on above: Performed By: #### G FR ####[place] [address] MCV 90.6 fL Normal 83.2-95.6 [facility] Comment on above: Performed By: #### G FR ####[address] [address] Monocytes/100 leukocytes 8.9 % Normal [facility] Comment on above: Performed By: #### G FR ####[place] [address] Platelet mean volume (PMV) 9.4 fL Normal 8.7-12.0 [facility] Comment on above: Performed By: #### G FR ####[address] [address] Platelets 289 thou/cmm Normal 141-365 [facility] Comment on above: Performed By: #### G FR ####[facility] [place], [place] [address] RDW SD 42.7 fl Normal 36.1-45.8 [facility] Comment on above: Performed By: #### G FR ####[facility] [place], [place] [address] Seg Neutrophil 67.6 % Normal [facility] Comment on above: Performed By: #### G FR ####[address] [address] WBC (Leukocytes) 9.11 thou/cmm High 4.23-9.07 [facility] Comment on above: Performed By: #### G FR ####[address] [address] MDRD GFRon 05-26-2017 eGFR (non-black) mL/min/{1.73_m2} Normal >60mL/m in/ 1.73m2 [facility] Comment on above: Result Comment: If t he patient is , multiply the result by 1.210. Performed By: #### G FR ####[address] [address] Magnesium Bloodon 05-26-2017 Magnesium 1.8 mg/dL Normal 1.6-2.6 [facility] Comment on above: Performed By: #### G FR ####[address] [address] PROGRESSon 05-26-2017 PROGRESS HNO ID: [id number] thor: Dianna Kunzervice: Vascular SurgeryAuthor Type: PhysicianType: Progress NotesFiled: 05/26/2017 3:23 PMNote Text:Thoracic Surgery Progress NoteSERVICE DATE: 05/26/2017SUBJECTIVESUBJECTIV E:Patient complais of pain at his surgical site, however it is tolerable.Using incentive spirometer.Denies N/V/CP/SOBDiet: DIET REGULAROBJECTIVEOBJECTIVE:V itals:Temp (24hrs), Av.7 ?C (98 ?F), Min:36.4 ?C (97.5 ?F), Max:36.8 ?C(98.2 ?F)BP 131/79 Pulse 87 Temp (P) 36.4 ?C (97.5 ?F) Resp 18 Ht 177.8 cm(5' 10) Wt 68 kg (150 lb) SpO2 100% BMI 21.52 kg/m2O2 Therapy: Nasal CannulaIANDO:Date 05/25/176[address] - 05/26/1765805/26/176[address] - 05/27/17 0659Shift 2538-0794 5356-3484 2604-6766 24 Hour Total 9066-6502 2154-26105181-1525 24 Hour TotalINTAKE PO 620 004 447 3064 PO 620 311 852 8889 IV 200 475 675 D5 0.45%NS 350 350 Cefazolin IV 200 125 325 Shift Total 820 1075 360 2255OUTPUT Urine 650 930 68 7787 Void (ml) 650 534 91 5848 Chest Tube 10 20 10 40 Chest [...] Annia Dodge MDGeneral Surgery PGY-4January 2017 8:52 [facility] #: Pager: [phone] seen, cxr , data, and labs reviewed with residentAs well as careplan. Air leak notably decreased. OK forDec suction to 15cm H2O and transfer to 4200. Normal [facility] PROGRESS HNO ID: [id number] thor: Dianna Kunzervice: Thoracic SurgeryAuthor Type: PhysicianType: Progress NotesFiled: 05/26/2017 3:26 PMNote Text:MEDICAL STUDENT PROGRESS NOTESURGICAL SERVICESSERVICE DATE: 05/26/2017SERVICE TIME: 0620Attending Note This note was generated by a [...] (98.1 ?F) Resp 16 Ht 177.8 cm (5'10) Wt 68 kg (150 lb) SpO2 96% BMI 21.52 kg/m2Body mass index is 21.52 kg/(m2).GENERAL: Mild DistressLUNGS: Lungs clear to auscultation, Good diaphragmatic excursionCARDIAC: Normal S1 and S2; no rubs, murmurs, or gallopsABDOMEN: Abdomen soft, non-tender, BS normal, No masses or organomegalyWOUND: Clean, dry and intactThe remainder of the physical exam is noncontributory.DATA:Diagno stic tests reviewed for today's visit:WBC (thou/cmm)Date Value05/26/2017 [...] - 05/26/17 0659 700 - 05/27/17 0659Shift 6052-3477 3222-6940 8697-2647 Total 1278-1018 6871-3028 2300-0659Total 4389-6244 9147-1121 7864-3268 TotalINTAKE PO 184 122 2468 620 685 984 0189 IV 908 908 200 475 675 Shift Total 460 1708 2168 820 1075 360 2255OUTPUT Urine 500 1050 1550 650 020 38 2904 Chest Tube 80 45 125 10 20 [...] Continuing Antibiotics: There is no need to continueantibioticsSIGNATUR E: Ap Spence Ms PATIENT NAME: Anamika JuarezDATE: May 26, 2017 : 6:27 AM PAGER/CONTACT #: [phone]. See also my /resid progress note. Normal [facility] Phosphorus Bloodon 8 Phosphate 3.0 mg/dL Normal 2.5-4.9 [facility] Comment on above: Performed By: #### G FR ####[address] [address] Basic Panelon 05-25-2017 Creatinine 0.30 mg/dL Low 0.67-1.17 [facility] Comment on above: Performed By: #### G FR ####[facility] [place], [place] [address] Calcium 7.9 mg/dL Low 8.5-10.1 [facility] Comment on above: Performed By: #### G FR ####[facility] [place], [place] [address] Glucose mass conc 130 mg/dL High 70-99 [facility] Comment on above: Performed By: #### G FR ####[facility] [place], [place] [address] Urea nitrogen 7 mg/dL Normal 7-18 [facility] Comment on above: Performed By: #### G FR ####[address] [address] Anion gap 8 mmol/L Normal 8-16 [facility] Comment on above: Performed By: #### G FR ####[facility] [place] [address] CO2 26 mmol/L Normal 21-32 [facility] Comment on above: Performed By: #### G FR ####[facility] [place] [address] Chloride 105 mmol/L Normal 98-107 [facility] Comment on above: Performed By: #### G FR ####[facility] [place] [address] Potassium molar conc 3.7 mmol/L Normal 3.5-5.1 [facility] Comment on above: Performed By: #### G FR ####[facility] [place] [address] Sodium 135 mmol/L Low 136-145 [facility] Comment on above: Performed By: #### G FR ####[facility] [place] [address] CHEST SINGLE VIEWon 05-25-19 18 CHEST SINGLE VIEW Performed at [facility] APPROVED BY: Medardo Cui MD EXAMINATION: CHEST [...] tube without radiographic evidence of pneumothorax. Normal [facility] Hemogram/Diffon 05-25-2017 Abs Immature Grans 0.03 thou/cmm Normal 0.00-0.05 [facility] Comment on above: Performed By: #### P 8 ####[facility] [place] [address] Abs. Baso 0.01 thou/cmm Normal 0.01-0.08 [facility] Comment on above: Performed By: #### P 8 ####[facility] [place] [address] Abs. [place] 0.68 thou/cmm Normal 0.30-0.82 [facility] Comment on above: Performed By: #### P 8 ####[facility] [place] [address] Abs. Neut 6.60 thou/cmm High 1.78-5.38 [facility] Comment on above: Performed By: #### P 8 ####[facility] [place] [address] Basophils/100 WBC Auto (Bld) 0.1 % Normal [facility] Comment on above: Performed By: #### P 8 ####[place] [address] Eosinophils 0.03 thou/cmm Low 0.04-0.54 [facility] Comment on above: Performed By: #### P 8 ####[place] [address] Eosinophils/100 leukocytes 0.3 % Normal [facility] Comment on above: Performed By: #### P 8 ####[place] [address] Erythrocyte distribution width Auto Ratio (RBC) 12.8 % Normal 11.6-14.4 [facility] Comment on above: Performed By: #### P 8 ####[place] [address] Erythrocytes (RBC) 3.70 mil/cmm Low 4.63-6.08 [facility] Comment on above: Performed By: #### P 8 ####[place] [address] Hematocrit (HCT) 33.5 % Low 40.1-51.0 [facility] Comment on above: Performed By: #### P 8 ####[place] [address] Hemoglobin mass conc (Bld) 11.4 g/dL Low 13.7-17.5 [facility] Comment on above: Performed By: #### P 8 ####[facility] [place], [place] [address] Immature Grans 0.30 % Normal [facility] Comment on above: Performed By: #### P 8 ####[facility] [place], [place] [address] Lymphocytes 1.56 thou/cmm Normal 0.84-2.85 [facility] Comment on above: Performed By: #### P 8 ####[facility] [place], [place] [address] Lymphocytes/100 leukocytes 17.5 % Normal [facility] Comment on above: Performed By: #### P 8 ####[address] [address] MCH 30.8 pg Normal 25.7-32.2 [facility] Comment on above: Performed By: #### P 8 ####[place] [address] MCHC mass conc (RBC) 34.0 % Normal 32.3-36.5 [facility] Comment on above: Performed By: #### P 8 ####[address] [address] MCV 90.5 fL Normal 83.2-95.6 [facility] Comment on above: Performed By: #### P 8 ####[address] [address] Monocytes/100 leukocytes 7.6 % Normal [facility] Comment on above: Performed By: #### P 8 ####[address] [address] Platelet mean volume (PMV) 9.8 fL Normal 8.7-12.0 [facility] Comment on above: Performed By: #### P 8 ####[address] [address] Platelets 291 thou/cmm Normal 141-365 [facility] Comment on above: Performed By: #### P 8 ####[place] [address] RDW SD 42.2 fl Normal 36.1-45.8 [facility] Comment on above: Performed By: #### P 8 ####[facility] [place], [place] [address] Seg Neutrophil 74.2 % Normal [facility] Comment on above: Performed By: #### P 8 ####[facility] [place], [place] [address] WBC (Leukocytes) 8.89 thou/cmm Normal 4.23-9.07 [facility] Comment on above: Performed By: #### P 8 ####[facility] [place], [place] [address] MDRD GFRon 05-25-2017 eGFR (non-black) mL/min/{1.73_m2} Normal >60mL/m in/ 1.73m2 [facility] Comment on above: Result Comment: If t he patient is , multiply the result by 1.210. Performed By: #### G FR ####[place] [id number] Magnesium Bloodon 05-25-2017 Magnesium 2.0 mg/dL Normal 1.6-2.6 [facility] Comment on above: Performed By: #### G FR ####[place] [id number] PROGRESSon 05-25-2017 PROGRESS HNO ID: [id number] thor: Dianna Kunzervice: Vascular SurgeryAuthor Type: PhysicianType: Progress NotesFiled: 05/25/2017 9:45 AMNote Text:Thoracic Surgery Progress NoteSERVICE DATE: [id number] :Patient developed air leak from his right chest tube overnight withcrepitus per nursing notes. Air leak is present however crepitus seems tohave resolved. Patient tolerating clear liquids. Pain controlled.Denies N/V/CP/SOBDiet: DIET REGULAROBJECTIVEOBJECTIVE:V itals:Temp (24hrs), Av.8 ?C (98.2 ?F), Min:36.5 ?C (97.7 ?F), Max:37 ?C(98.6 ?F)BP 131/79 Pulse (!) 49 Temp 36.5 ?C (97.7 ?F) Resp 12 Ht 177.8 cm(5' 10) Wt 68 kg (150 lb) SpO2 98% BMI 21.52 kg/m2O2 Therapy: Nasal CannulaIANDO:Date 05/24/17699 - 05/25/1765805/25/17699 - 05/26/17 0659Shift 5718-0075 4379-9469 4500-4248 24 Hour Total 7323-7792 4118-07432965-8848 24 Hour TotalINTAKE PO 178 608 0939 PO 121 489 1926 IV 908 908 D5 0.45%NS 908 908 [...] mg INTRAVENOUS q 6 H PRNLabs:Recent Labs 529 440NA 135* -- 137K 3.7 -- 3.8CHLOR 105 [...] Annia Dodge MDGeneral Surgery PGY-4January 2017 9:44 [facility] #: Pager: [phone] my note of today. Case and careplan reviewed w resident today. Normal [facility] PROGRESS HNO ID: [id number] thor: Dianna Kunzervice: Thoracic SurgeryAuthor Type: PhysicianType: Progress NotesFiled: 05/25/2017 8:11 AMNote Text:Patient seen, cxr and labs reviewed.Has large air leak not present at end of case or on arrival toCVICU. CXR shows lung up.A-stable w air leakP-keep in unit and on suction. Start diet and lovenox. Normal [facility] Phosphorus Bloodon 8 Phosphate 3.3 mg/dL Normal 2.5-4.9 [facility] Comment on above: Performed By: #### G FR ####[facility] [place] [address] SOCIAL WORKon 05-25-2017 SOCIAL WORK HNO ID: [id number] thor: Tana Garcia (Sw)ervice: Social WorkAuthor Type: Social WorkerType: Social WorkFiled: 05/25/2017 4:37 PMNote Text:SOCIAL WORK CONSULT NOTESERVICE DATE: 05/25/2017SERVICE TIME: 4:32 PMReferred by: Care ManagerReason for visit:Medication IssuesLiving Arrangement: HomeLives With: SpouseFinancial Resources: Employed: Recently started a new jobPrimary Contact:Extended Emergency Contact InformationPrimary Emergency Contact: Ronn Juarez Gtammguu: SpouseSupportive: Yes, Unable to assess at this timeOther Important Patient Contacts: NoneHealth Insurance: NoneMorris Larry is a 36 year old male who was referred re: self pay status.Met with pt. 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 Will approve 30 days of d/c meds at $4.00 charge per med thruoutpt. pharmacy.Outcome/Recommenda tions:Indigent Medications AssistanceTime spent (minutes): 15SIGNATURE: JOSE Ware PATIENT NAME: Anamika JuarezDATE: May 25, 2017 : 4:32 PM PAGER/CONTACT#: [phone] Normal [facility] ANES Justyna 05-24-2017 ANES POST HNO ID: [id number] thor: bA Caoervice: AnesthesiologyAuthor Type: PhysicianType: Anesthesia PostOpFiled: 05/25/2017 11:02 AMNote Text:POST ANESTHESIA EVALUATION NOTESERVICE DATE: 05/25/2017SERVICE TIME: 11:00 AMDOB: 1980Vitals: 511 7 300 091046Bhud: 37 ?C (98.6 ?F) 37 ?C (98.6 ?F) 36.6 ?C (97.9 ?F) 36.5 ?C (97.7 ?F) [id number] 63536405/25/1809Arterial BP 1: 122/70 130/75 121/70 142/85BP: 70054748 9005/25/1809Pulse: (!) 48 (!) 59 (!) 49 61 70277313 9005/25/1809Resp: 15 19 12 24 679487 158977 05/25/1809SpO2: 100% 100% 98% 97%Validated Vital Signs: YesPOST ANES STATUS: PACU/ICU Patient Condition: StableNeurological Status: Awake AND alert.Pulmonary Status: Breathing comfortably on supplemental oxygen.Airway Control: Returned to baseline unsupported.Cardiovascular Status: StablePain: Adequately controlledPostoperative Nausea/Vomiting: No significant post operative nausea orvomitingPostoperative Hydration Status: Adequate.Anesthetic Complications: NoneRecommendation: Continue current plan of careOther Remarks:SIGNATURE: Ab Valencia MD PATIENT NAME: Anamika JuarezDATE: May 25, 2017 : 11:00 AM PAGER/CONTACT #: [facility] ANES PREOPon 05-24-2017 ANES PREOP HNO ID: [id number] thor: Ab Caoervice: AnesthesiologyAuthor Type: PhysicianType: Anesthesia PreOpFiled: 05/24/2017 11:48 AMNote Text: ANESTHESIOLOGY DAY OF SURGERY NOTESERVICE DATE: 05/24/2017SERVICE TIME: 11:47 AMDOB: 1980Procedure(s) (LRB):VIDEO ASSISTED THORASCOPIC PLICATION OF DIAPHRAGM (N/A)THORACOTOMY RESECTION BLEBS (N/A)Surgeon(s):[facility] body mass index is 21.52 kg/(m2) as calculated from thefollowing: Height as of this encounter: 177.8 cm (5' 10). Weight as of this encounter: 68 kg (150 lb).Most recent hematocrit and potassium results:Hematocrit 35.9 05/24/2017Potassium 3.8 05/24/2017ANES DOS/PREOP NOTE:Vitals: 05/24/1803BP: 119/77 124/80 125/81 131/79Pulse: 73 60 (!) 55 66Resp: 18 16Temp: 36.4 ?C (97.5 ?F) 36.6 ?C (97.9 ?F) 36.7 ?C (98.1 ?F) 36.9 ?C (98.4?F)TempSrc: Oral Oral Oral Temporal ArterySpO2: 96% 99% 99% 98%Weight:Height:ACTIVE PROBLEM LISTPneumothoraxSpontaneous PneumothoraxPAST MEDICAL HISTORYDiagnosis Date- PneumothoraxPAST SURGICAL HISTORYProcedure Laterality Date- INGUINAL HERNIA REPAIR HX- THORACOSCOPY SURG W PLEURODESIS Left 10/29/2015 L VATS with bleb resection, AND mechanical [facility]urodesis at [facility] by HISTORYProblem Relation Age of Onset- DiabetesSocial [...] Thad Garcia Last Rate: 75 mL/hr at 75 mL/hr at 05/24/17 0001[MAR Hold due to Transfer] oxyCODONE IR 5-10 mg tab(s) (ROXICODONE) 5-10mg ORAL q 6 H PRN Sweta (Res) Shi 10 mg at 05/24/17 0639[MAR Hold due to Transfer] acetaminophen 650 mg tab(s) (TYLENOL) 650 mgORAL q 6 H Sweta (Res) Shi 650 mg at 05/24/17 [...] contains updated information obtained within 48 hours ofSurgery/Procedure.SIGNATU RE: Ab Valencia MD PATIENT NAME: Anamika JuarezDATE: May 24, 2017 : 11:47 AM CSN: [id number] Normal [facility] BRIEF OP NOTon 05-24-2017 BRIEF OP NOT HNO ID: [id number] thor: Dianna Kunzervice: Vascular SurgeryAuthor Type: PhysicianType: Brief Op NoteFiled: 05/24/2017 4:36 PMNote Text:BRIEF OPERATIVE / PROCEDURE NOTELOG ID: [id number]/Procedure Date: 05/24/2017Incision/Procedure Start Time: 1:33 PMIncision Close/Procedure End Time:Surgeon(s)/Procedurali st(s) and Fugitive Detective(s):Surgeon(s) and Role: * Dianna Hwang - Primary * Niharika (Jerrell Dodge - Resident - AssistingSurgical Fugitive Detective: Lacy Duffy SAProcedure(s): Right VATS with bleb resection RULobe and mechanicalpleurodesis;Inser tion pain-ballAnesthesia: GeneralFindings: Small area of concentrated blebs at right upper lobe apexEstimated Blood Loss: <50 mlsSpecimens: Apical bleb right upper lobeComplications: NonePre-Op/Pre-Procedure Diagnosis: Recurrent spontaneous pneumothoraxPost-Op/Post-Pr ocedure Diagnosis: Recurrent spontaneous pneumothorax[J93.83]SIGNATU RE: Niharika Dodge MD PATIENT NAME: Anamika JuarezDATE: May 24, 2017 : 2:42 PM PAGER/CONTACT #: [phone] Normal [facility] Basic Panelon 05-24-2017 Creatinine 0.58 mg/dL Low 0.67-1.17 [facility] Comment on above: Performed By: #### P 8 ####[place] [address] Anion gap 7 mmol/L Low 8-16 [facility] Comment on above: Performed By: #### P 8 ####[place] [address] CO2 27 mmol/L Normal 21-32 [facility] Comment on above: Performed By: #### P 8 ####[facility] [place], [place] [address] Glucose mass conc 100 mg/dL High 70-99 [facility] Comment on above: Performed By: #### P 8 ####[facility] [place], [place] [address] Urea nitrogen 12 mg/dL Normal 7-18 [facility] Comment on above: Performed By: #### P 8 ####[facility] [place], [place] [address] Calcium 8.1 mg/dL Low 8.5-10.1 [facility] Comment on above: Performed By: #### P 8 ####[facility] [place] [address] Chloride 107 mmol/L Normal 98-107 [facility] Comment on above: Performed By: #### P 8 ####[address] [address] Potassium molar conc 3.8 mmol/L Normal 3.5-5.1 [facility] Comment on above: Performed By: #### P 8 ####[address] [address] Sodium 137 mmol/L Normal 136-145 [facility] Comment on above: Performed By: #### P 8 ####[address] [address] CASE MGT INIT VIRIDIANAon 2017 CASE MGT INIT VIRIDIANA HNO ID: [id number] thor: Sandra (Rn) IRIS Torreservice: Care ManagementAuthor Type: Registered NurseType: Care Mgt Initial AssessmentFiled: 05/24/2017 10:54 AMNote Text:CARE MANAGEMENT: ASSESSMENT AND DISCHARGE PLANSERVICE DATE: 05/24/2017SERVICE TIME: 10:43 AMPRICENTRAL [facility] C[facility] PHYSICIAN:Annemarie River, ODPhone: [id number] STATUS: InpatientPOTENTIAL DISCHARGE PLANSHomeTo Be DeterminedPatient/Represent ative Stated Goals: homeHealth Insurance: NoneLiving Arrangement: HomeLives With: SpouseFinancial Resources: UnemployedPrimary Contact:Extended Emergency Contact InformationPrimary Emergency Contact: Ronn Juarez Dzqwqtjj: SpouseSupportive: YesOther Important Patient Contacts: NoneCAREGIVER ASSESSMENT:Caregiver [...] days? NoHas the Patient Been in a Residential Facility in the Past 30 days? NoFREEDOM OF CHOICE EXPLAINED:PAULA COMMUNICATION:Dr. 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 Probable VATS this week. Noinsurance coverage. I spoke with Lisa from [employer]. She states pt willbe ineligible for Medicaid. SW consulted for indigent medsSIGNATURE: Sandra Torres RN PATIENT NAME: Anamika JuarezDATE: May 24, 2017 : 10:43 AM PAGER/CONTACT #: [phone] Normal [facility] CHEST SINGLE VIEWon 05-24-19 18 CHEST SINGLE VIEW Performed at [facility] APPROVED BY: Valeriano Mata MD EXAMINATION: CHEST [...] at time of dictation as requested. Normal [facility] CHEST SINGLE VIEW Performed at [facility] APPROVED BY: Medardo Cui MD EXAMINATION: CHEST [...] No radiographic evidence of pneumothorax currently. Normal [facility] Hemogram/Diffon 05-24-2017 Abs Immature Grans 0.01 thou/cmm Normal 0.00-0.05 [facility] Comment on above: Performed By: #### P 8 ####[place] [address] Abs. Baso 0.01 thou/cmm Normal 0.01-0.08 [facility] Comment on above: Result Comment: Smea r scanned; tech agrees with automated differential Performed By: #### P 8 ####[address] [address] Abs. [place] 0.38 thou/cmm Normal 0.30-0.82 [facility] Comment on above: Performed By: #### P 8 ####[address] [address] Abs. Neut 3.11 thou/cmm Normal 1.78-5.38 [facility] Comment on above: Performed By: #### P 8 ####[address] [address] Basophils/100 WBC Auto (Bld) 0.2 % Normal [facility] Comment on above: Performed By: #### P 8 ####[address] [address] Eosinophils 0.27 thou/cmm Normal 0.04-0.54 [facility] Comment on above: Performed By: #### P 8 ####[address] [address] Eosinophils/100 leukocytes 5.0 % Normal [facility] Comment on above: Performed By: #### P 8 ####[address] [address] Immature Grans 0.20 % Normal [facility] Comment on above: Performed By: #### P 8 ####[address] [address] Lymphocytes 1.58 thou/cmm Normal 0.84-2.85 [facility] Comment on above: Performed By: #### P 8 ####[address] [address] Lymphocytes/100 leukocytes 29.5 % Normal [facility] Comment on above: Performed By: #### P 8 ####[address] [address] Monocytes/100 leukocytes 7.1 % Normal [facility] Comment on above: Performed By: #### P 8 ####[facility] [place] [address] Seg Neutrophil 58.0 % Normal [facility] Comment on above: Performed By: #### P 8 ####[facility] [place] [address] Erythrocyte distribution width Auto Ratio (RBC) 12.8 % Normal 11.6-14.4 [facility] Comment on above: Performed By: #### P 8 ####[facility] [place] [address] Erythrocytes (RBC) 3.97 mil/cmm Low 4.63-6.08 [facility] Comment on above: Performed By: #### P 8 ####[place] [address] Hematocrit (HCT) 35.9 % Low 40.1-51.0 [facility] Comment on above: Performed By: #### P 8 ####[place] [address] Hemoglobin mass conc (Bld) 12.0 g/dL Low 13.7-17.5 [facility] Comment on above: Performed By: #### P 8 ####[place] [address] MCH 30.2 pg Normal 25.7-32.2 [facility] Comment on above: Performed By: #### P 8 ####[place] [address] MCHC mass conc (RBC) 33.4 % Normal 32.3-36.5 [facility] Comment on above: Performed By: #### P 8 ####[place] [address] MCV 90.4 fL Normal 83.2-95.6 [facility] Comment on above: Performed By: #### P 8 ####[place] [address] Platelet mean volume (PMV) 9.9 fL Normal 8.7-12.0 [facility] Comment on above: Performed By: #### P 8 ####[facility] [place], [place] [address] Platelets 233 thou/cmm Normal 141-365 [facility] Comment on above: Performed By: #### P 8 ####[facility] [place], [place] [address] RDW SD 42.8 fl Normal 36.1-45.8 [facility] Comment on above: Performed By: #### P 8 ####[address] [address] WBC (Leukocytes) 5.36 thou/cmm Normal 4.23-9.07 [facility] Comment on above: Performed By: #### P 8 ####[address] [address] MDRD GFRon 05-24-2017 eGFR (non-black) mL/min/{1.73_m2} Normal >60mL/m in/ 1.73m2 [facility] Comment on above: Result Comment: If t he patient is , multiply the result by 1.210. Performed By: #### P 8 ####[address] [address] NURSING PROGon 05-24-2017 NURSING PROG HNO ID: [id number] thor: Matilda (Rn) Tee, IRIService: NursingAuthor Type: Registered NurseType: Nursing Progress NoteFiled: 05/24/2017 8:20 PMNote Text:On doing rounds with date night caregiver nurse on checking chest tube noted airleak louder and more pronounced. Patient had just sat on dise of bed withassistance of nursing clinical director to void 500 cc. And the went back to bed.Checked site. Positive crepititous which wasnot present earlier. Residentpaged and notified Normal [facility] OPERATIVE NOon 05-24-2017 OPERATIVE NO HNO ID: [id number] thor: Dianna Kunzervice: Thoracic SurgeryAuthor Type: PhysicianType: Operative ReportFiled: 05/25/2017 5:35 PMNote Text:[facility] - Operative ReportSURGEON: CHEKO MatiasATIENT NAME: ANAMIKA JUAREZMRN: [id number] CSN: [id number] OF SURGERY: 05/24/2017DATE OF : 1980 SEX/AGE: M/36PATIENT TYPE: I HOSP SVC: ORCA LOCATION: [id number] signed by accident.DATE OF SURGERY: 05/24/2017SURGEON: CHEKO MatiasREOPERATIVE DIAGNOSIS: Recurrent pneumothorax on the right.POSTOPERATIVE DIAGNOSIS: Recurrent pneumothorax on the right with somescarred apical blebs noted.OPERATION PERFORMED: Right video-assisted thoracoscopic surgery withresection of apical blebs, right upper lobe, mechanical pleurodesis, andinsertion pain ball.CO-SURGEON: Heather Dodge, General Surgery resident.LICENSED CHEMICAL SPRAY TECHNICIAN: Salas Duffy SA.ANESTHESIA: General endotracheal with a dual-lumen endotracheal tube.INDICATIONS AND FINDINGS: This patient is a 36-year-old male whoapparently presented down in the [place] area with recurrent shortness ofbreath and right shoulder pain. He [place] a [place] catheter [place]in [place] apparently and was transferred here for further management.Ultimately, the patient's right lung did re-expand, air leak hadgradually sealed. This was the patient's, at least, second occurrenceon the right side and he wished to pursue surgical treatment at thistime. He underwent preoperative evaluation and preparation while in thespital and was taken to Surgery today for [...] precautions were taken. Thesmall drainage catheter from [place] was removed by cutting the suturesand removing [...] couple of firings of a 45-purple loaded Reddit stapler was used toexcisethe apex of RUL. [...] to a chest tube site. A single 32-Thai chest tube was thenplaced apically posteriorly under direct visual control from within. Theright lung was re-expanded. The camera was removed. The statistical programmer analyst cathetersfor the pain ball were secured to [...] no air leak at conclusion of procedure.Dianna Hwang MDCardiothoracic SurgeryPS:modlD: 05/24/2017 15:44:30T: 05/25/2017 00:03:06Job #: [id number] Normal [facility] PROGRESSon 05-24-2017 PROGRESS HNO ID: [id number] thor: Dianna Kunzervice: Thoracic SurgeryAuthor Type: PhysicianType: Progress NotesFiled: 05/24/2017 10:47 AMNote Text:Thoracic Surgery Progress NoteSERVICE DATE: 05/24/2017SUBJECTIVESUBJECTIV E:NAEON, pain control improving, no SOBDenies N/V/CP/SOBDiet: DIET NPOOBJECTIVEOBJECTIVE:Vital s:Temp (24hrs), Av.6 ?C (97.8 ?F), Min:36.4 ?C (97.5 ?F), Max:36.8 ?C(98.2 ?F)BP 124/80 Pulse 60 Temp 36.6 ?C (97.9 ?F) (Oral) Resp 18 Ht 177.8cm (5' 10) Wt 68 kg (150 lb) SpO2 99% BMI 21.52 kg/m2O2 Therapy: Room AirIANDO:Date 05/23/17699 - 05/24/1765805/24/176[address] - 05/25/17 0659Shift 2455-9527 5161-3282 5811-3584 24 Hour Total 1937-9595 8202-74259234-8766 24 Hour TotalINTAKE Shift TotalOUTPUT # of [...] injection (LOVENOX) 40 mg SUBCUTANEOUS DAILYLabs:Recent Labs 300NA 137 136K 3.8 3.9CHLOR 107 103CO2 [...] May 24, 2017 : 6:26 AM Pager: [phone] seen, cxr reviewed, and situation d/w patient [...] hospitalization, and home recoverytimes were discussed. Normal [facility] Protimeon 05-24-2017 INR Coag RelTime (PPP) 0.96 {INR} Normal [facility] Comment on above: Result Comment: Roberto dard Therapy 2.0-3.0High Dose 2.5-3.5 Performed By: #### P 8 ####[place] [address] Prothrombin time (PT) Coag time (PPP) 10.5 s Normal 9.3-11.9 [facility] Comment on above: Performed By: #### P 8 ####[place] [address] Surgical Tissue Examon 05-24 Surgical Tissue Exam Test performed at [place] [address]NAME: ANAMIKA JUAREZ [id number] REQUESTING: DIANNA HWANG M.D.FINAL DIAGNOSIS:WEDGE BIOPSY OF [...] are seen. No involvementby neoplasm is present. Banquet Lead sections are submitted asfollows: 1-5 - sections of parenchyma with cysts; 6 - random crosssection. AR[facility]:brian LAFLEUR M.D.(Electronic signature on file)Signed out: 05/30/2017 14:03PRINTED: 05/30/2017 Page 1 of 1 [facility] Comment on above: Performed By: #### S URG ####[place] [address] Type and Screenon 05-24-2017 ABO group A Normal [facility] Comment on above: Performed By: #### P 8 ####[place] [address] Antibody Screen Negative Normal [facility] Comment on above: Performed By: #### P 8 ####[place] [address] Comment See Below [facility] Comment on above: Result Comment: Scre en &/or Xmatch expires in 3 days at 12 midnight. Redrawpatient at that time. Performed By: #### P 8 ####[place] [address] RH Type Positive Normal [facility] Comment on above: Performed By: #### P 8 ####[place] [address] Basic Panelon 05-23-2017 Creatinine 0.61 mg/dL Low 0.67-1.17 [facility] Comment on above: Performed By: #### P 8 ####[place] [address] Anion gap 12 mmol/L Normal 8-16 [facility] Comment on above: Performed By: #### P 8 ####[place] [address] CO2 25 mmol/L Normal 21-32 [facility] Comment on above: Performed By: #### P 8 ####[facility] [place], [place] [address] Glucose mass conc 89 mg/dL Normal 70-99 [facility] Comment on above: Performed By: #### P 8 ####[facility] [place], [place] [address] Urea nitrogen 15 mg/dL Normal 7-18 [facility] Comment on above: Performed By: #### P 8 ####[facility] [place], [place] [address] Calcium 8.1 mg/dL Low 8.5-10.1 [facility] Comment on above: Performed By: #### P 8 ####[facility] [place], [place] [address] Chloride 103 mmol/L Normal 98-107 [facility] Comment on above: Performed By: #### P 8 ####[facility] [place], [place] [address] Potassium molar conc 3.9 mmol/L Normal 3.5-5.1 [facility] Comment on above: Performed By: #### P 8 ####[facility] [place], [place] [address] Sodium 136 mmol/L Normal 136-145 [facility] Comment on above: Performed By: #### P 8 ####[facility] [place], [place] [address] CHEST SINGLE VIEWon 05-23-19 CHEST SINGLE VIEW Performed at [facility] APPROVED BY: JUSTIN MOREJON MD EXAMINATION: CHEST [...] effusion or new focal airspace consolidation. Normal [facility] Hemogram/Diffon 05-23-2017 Abs Immature Grans 0.01 thou/cmm Normal 0.00-0.05 [facility] Comment on above: Performed By: #### C BCD1 ####[place] [address] Abs. Baso 0.01 thou/cmm Normal 0.01-0.08 [facility] Comment on above: Result Comment: Smea r scanned; tech agrees with automated differential Performed By: #### C BCD1 ####[place] [address] Abs. [place] 0.41 thou/cmm Normal 0.30-0.82 [facility] Comment on above: Performed By: #### C BCD1 ####[place] [address] Abs. Neut 2.64 thou/cmm Normal 1.78-5.38 [facility] Comment on above: Performed By: #### C BCD1 ####[place] [address] Basophils/100 WBC Auto (Bld) 0.2 % Normal [facility] Comment on above: Performed By: #### C BCD1 ####[place] [address] Eosinophils 0.30 thou/cmm Normal 0.04-0.54 [facility] Comment on above: Performed By: #### C BCD1 ####[place] [address] Eosinophils/100 leukocytes 5.7 % Normal [facility] Comment on above: Performed By: #### C BCD1 ####[place] [address] Immature Grans 0.20 % Normal [facility] Comment on above: Performed By: #### C BCD1 ####[place] [address] Lymphocytes 1.85 thou/cmm Normal 0.84-2.85 [facility] Comment on above: Performed By: #### C BCD1 ####[facility] [place], [place] [address] Lymphocytes/100 leukocytes 35.4 % Normal [facility] Comment on above: Performed By: #### C BCD1 ####[address] [address] Monocytes/100 leukocytes 7.9 % Normal [facility] Comment on above: Performed By: #### C BCD1 ####[place] [address] Seg Neutrophil 50.6 % Normal [facility] Comment on above: Performed By: #### C BCD1 ####[place] [address] Erythrocyte distribution width Auto Ratio (RBC) 13.2 % Normal 11.6-14.4 [facility] Comment on above: Performed By: #### C BCD1 ####[place] [address] Erythrocytes (RBC) 3.92 mil/cmm Low 4.63-6.08 [facility] Comment on above: Performed By: #### C BCD1 ####[place] [address] Hematocrit (HCT) 34.7 % Low 40.1-51.0 [facility] Comment on above: Performed By: #### C BCD1 ####[place] [address] Hemoglobin mass conc (Bld) 11.8 g/dL Low 13.7-17.5 [facility] Comment on above: Performed By: #### C BCD1 ####[place] [address] MCH 30.1 pg Normal 25.7-32.2 [facility] Comment on above: Performed By: #### C BCD1 ####[place] [address] MCHC mass conc (RBC) 34.0 % Normal 32.3-36.5 [facility] Comment on above: Performed By: #### C BCD1 ####[address] [address] MCV 88.5 fL Normal 83.2-95.6 [facility] Comment on above: Performed By: #### C BCD1 ####[address] [address] Platelet mean volume (PMV) 9.8 fL Normal 8.7-12.0 [facility] Comment on above: Performed By: #### C BCD1 ####[address] [address] Platelets 229 thou/cmm Normal 141-365 [facility] Comment on above: Performed By: #### C BCD1 ####[address] [address] RDW SD 42.5 fl Normal 36.1-45.8 [facility] Comment on above: Performed By: #### C BCD1 ####[address] [address] WBC (Leukocytes) 5.22 thou/cmm Normal 4.23-9.07 [facility] Comment on above: Performed By: #### C BCD1 ####[address] [address] MDRD GFRon 05-23-2017 eGFR (non-black) mL/min/{1.73_m2} Normal >60mL/m in/ 1.73m2 [facility] Comment on above: Result Comment: If t he patient is , multiply the result by 1.210. Performed By: #### P 8 ####[address] [address] PROGRESSon 05-23-2017 PROGRESS HNO ID: [id number] thor: Sweta (Lauri) Eric: Thoracic SurgeryAuthor Type: ResidentType: Progress NotesFiled: 05/23/2017 9:31 AMNote Text: ----Attestation signed by Thad Garcia at 05/25/2017 10:12 AMAttending NoteI evaluated the patient and personally participated in the cabezas components. Iagree with the resident's findings and plan as documented and have discussedthe case and management of the patient's care with the resident.Signature: Thad Garcia, MDDate: 05/25/2017Time: 10:12 AM -Thoracic Surgery Progress NoteSERVICE DATE: 05/23/2017SUBJECTIVENAEON. Pt reports he's doing well. Hopes to know if he'll need surgery.Denies N/V/CP/SOBDiet: DIET REGULAROBJECTIVEVitals:Temp (24hrs), Av.7 ?C (98.1 ?F), Min:36.6 ?C (97.9 ?F), Max:36.8 ?C(98.2 ?F)BP 114/66 Pulse 64 Temp 36.8 ?C (98.2 ?F) (Oral) Resp 18 Ht 177.8cm (5' 10) Wt 68 kg (150 lb) SpO2 100% BMI 21.52 kg/m2O2 Therapy: Room AirHE[facility]:Date 05/22/[address] - 05/23/17 0659 05/23/[address] - 05/24/17 0659Shift 8602-8067 0362-0730 8218-2470 24 Hour Total 2523-0560 [id number] 24 Hour TotalINTAKE PO 480 360 840 [...] 30 mg INTRAVENOUS q 6 HLabs:Recent Labs [id number] 515NA 136 134*K 3.9 3.8CHLOR 103 101CO2 25 [...] 2017 : 9:24 AM Pager: [phone] Normal [facility] Basic Panelon 05-22-2017 Creatinine 0.52 mg/dL Low 0.67-1.17 [facility] Comment on above: Performed By: #### P 8 ####[facility] [place], [place] [address] Anion gap 10 mmol/L Normal 8-16 [facility] Comment on above: Performed By: #### P 8 ####[facility] [place], [place] [address] Calcium 8.0 mg/dL Low 8.5-10.1 [facility] Comment on above: Performed By: #### P 8 ####[facility] [place] [address] CO2 27 mmol/L Normal 21-32 [facility] Comment on above: Performed By: #### P 8 ####[address] [address] Glucose mass conc 97 mg/dL Normal 70-99 [facility] Comment on above: Performed By: #### P 8 ####[address] [address] Urea nitrogen 16 mg/dL Normal 7-18 [facility] Comment on above: Performed By: #### P 8 ####[facility] [place], [place] [address] Chloride 101 mmol/L Normal 98-107 [facility] Comment on above: Performed By: #### P 8 ####[address] [address] Potassium molar conc 3.8 mmol/L Normal 3.5-5.1 [facility] Comment on above: Performed By: #### P 8 ####[facility] [place], [place] [address] Sodium 134 mmol/L Low 136-145 [facility] Comment on above: Performed By: #### P 8 ####[facility] [place], [place] [address] CHEST SINGLE VIEWon 05-22-20 17 CHEST SINGLE VIEW Performed at [facility] APPROVED BY: Elbert Mcdonald MD EXAMINATION: CHEST [...] small caliber chest tube in place. Normal [facility] Hemogram/Diffon 05-22-2017 Abs Immature Grans 0.02 thou/cmm Normal 0.00-0.05 [facility] Comment on above: Performed By: #### C BCD1 ####[place] [address] Abs. Baso 0.02 thou/cmm Normal 0.01-0.08 [facility] Comment on above: Performed By: #### C BCD1 ####[address] [address] Abs. [place] 0.38 thou/cmm Normal 0.30-0.82 [facility] Comment on above: Performed By: #### C BCD1 ####[address] [address] Abs. Neut 1.91 thou/cmm Normal 1.78-5.38 [facility] Comment on above: Performed By: #### C BCD1 ####[place] [address] Basophils/100 WBC Auto (Bld) 0.5 % Normal [facility] Comment on above: Performed By: #### C BCD1 ####[address] [address] Eosinophils 0.27 thou/cmm Normal 0.04-0.54 [facility] Comment on above: Performed By: #### C BCD1 ####[address] [address] Eosinophils/100 leukocytes 6.1 % Normal [facility] Comment on above: Performed By: #### C BCD1 ####[place] [address] Erythrocyte distribution width Auto Ratio (RBC) 13.2 % Normal 11.6-14.4 [facility] Comment on above: Performed By: #### C BCD1 ####[place] [address] Erythrocytes (RBC) 4.09 mil/cmm Low 4.63-6.08 [facility] Comment on above: Performed By: #### C BCD1 ####[place] [address] Hematocrit (HCT) 37.0 % Low 40.1-51.0 [facility] Comment on above: Performed By: #### C BCD1 ####[place] [address] Hemoglobin mass conc (Bld) 12.5 g/dL Low 13.7-17.5 [facility] Comment on above: Performed By: #### C BCD1 ####[place] [address] Immature Grans 0.50 % Normal [facility] Comment on above: Performed By: #### C BCD1 ####[place] [address] Lymphocytes 1.80 thou/cmm Normal 0.84-2.85 [facility] Comment on above: Performed By: #### C BCD1 ####[place] [address] Lymphocytes/100 leukocytes 40.9 % Normal [facility] Comment on above: Performed By: #### C BCD1 ####[place] [address] MCH 30.6 pg Normal 25.7-32.2 [facility] Comment on above: Performed By: #### C BCD1 ####[place] [address] MCHC mass conc (RBC) 33.8 % Normal 32.3-36.5 [facility] Comment on above: Performed By: #### C BCD1 ####[facility] [place], [place] [address] MCV 90.5 fL Normal 83.2-95.6 [facility] Comment on above: Performed By: #### C BCD1 ####[address] [address] Monocytes/100 leukocytes 8.6 % Normal [facility] Comment on above: Performed By: #### C BCD1 ####[address] [address] Platelet mean volume (PMV) 9.8 fL Normal 8.7-12.0 [facility] Comment on above: Performed By: #### C BCD1 ####[address] [address] Platelets 223 thou/cmm Normal 141-365 [facility] Comment on above: Performed By: #### C BCD1 ####[address] [address] RDW SD 43.4 fl Normal 36.1-45.8 [facility] Comment on above: Performed By: #### C BCD1 ####[address] [address] Seg Neutrophil 43.4 % Normal [facility] Comment on above: Performed By: #### C BCD1 ####[address] [address] WBC (Leukocytes) 4.40 thou/cmm Normal 4.23-9.07 [facility] Comment on above: Performed By: #### C BCD1 ####[address] [address] MDRD GFRon 05-22-2017 eGFR (non-black) mL/min/{1.73_m2} Normal >60mL/m in/ 1.73m2 [facility] Comment on above: Result Comment: If t he patient is , multiply the result by 1.210. Performed By: #### G FR ####[address] [address] PROGRESSon 05-22-2017 PROGRESS HNO ID: [id number] thor: Thad Delgadoe: Thoracic SurgeryAuthor Type: PhysicianType: Progress NotesFiled: 05/22/2017 11:39 AMNote Text:Thoracic Surgery Progress NoteSERVICE DATE: 05/22/2017SUBJECTIVENAEON. Pt still complaining of some R rib pain. No difficulty breathing.Denies N/V/CP/SOBDiet: DIET REGULAROBJECTIVEVitals:Temp (24hrs), Av.8 ?C (98.3 ?F), Min:36.5 ?C (97.7 ?F), Max:37.1 ?C(98.8 ?F)BP 104/65 Pulse 71 Temp 36.9 ?C (98.4 ?F) (Oral) Resp 18 Ht 177.8cm (5' 10) Wt 68 kg (150 lb) SpO2 94% BMI 21.52 kg/m2O2 Therapy: Room AirIANDO:Date 05/21/17 07 - 05/22/17 0659 05/22/17 07 - 05/23/17 0659Shift 0198-9418 4485-9310 0844-3249 24 Hour Total 2055-9654 0565-30157035-0756 24 Hour TotalINTAKE Shift TotalOUTPUT Chest Tube [...] Osullivan MD PATIENT NAME: Anamika JuarezDATE: May 22, 2017 : 6:01 AM Pager: [phone] Surgery Attending - Patrizia NoteI evaluated the patient and personally participated in the cabezas components. I agree with the resident's findings and plan as documented and havediscussed the case and management of the patient's care with the resident.Likley VATS this week if air leak persists.Signature: Thad Garcia MDDate: 05/22/2017Time: 11:38 AM Normal [facility] Basic Panelon 05-21-2017 Creatinine 0.54 mg/dL Low 0.67-1.17 [facility] Comment on above: Performed By: #### P 8 ####[place] [id number] Anion gap 12 mmol/L Normal 8- [facility] Comment on above: Performed By: #### P 8 ####[place] [id number] Calcium 7.7 mg/dL Low 8.5-10.1 [facility] Comment on above: Performed By: #### P 8 ####[facility] [place] [address] CO2 26 mmol/L Normal 21-32 [facility] Comment on above: Performed By: #### P 8 ####[facility] [place], [place] [address] Glucose mass conc 107 mg/dL High 70-99 [facility] Comment on above: Performed By: #### P 8 ####[facility] [place] [address] Urea nitrogen 13 mg/dL Normal 7-18 [facility] Comment on above: Performed By: #### P 8 ####[facility] [place] [address] Chloride 100 mmol/L Normal 98-107 [facility] Comment on above: Performed By: #### P 8 ####[facility] [place] [address] Potassium molar conc 3.6 mmol/L Normal 3.5-5.1 [facility] Comment on above: Performed By: #### P 8 ####[facility] [place] [address] Sodium 134 mmol/L Low 136-145 [facility] Comment on above: Performed By: #### P 8 ####[address] [address] CHEST SINGLE VIEWon 05-21- 17 CHEST SINGLE VIEW Performed at [facility] APPROVED BY: Richard Flores MD EXAMINATION: CHEST RADIOGRAPH (SINGLE VIEW [...] lung surface to the chest wall. Normal [facility] Hemogram/Diffon 12-30-2017 Abs Immature Grans 0.02 thou/cmm Normal 0.00-0.05 [facility] Comment on above: Performed By: #### C BCD1 ####[place] [address] Abs. Baso 0.02 thou/cmm Normal 0.01-0.08 [facility] Comment on above: Performed By: #### C BCD1 ####[place] [address] Abs. [place] 0.46 thou/cmm Normal 0.30-0.82 [facility] Comment on above: Performed By: #### C BCD1 ####[place] [address] Abs. Neut 2.53 thou/cmm Normal 1.78-5.38 [facility] Comment on above: Performed By: #### C BCD1 ####[place] [address] Basophils/100 WBC Auto (Bld) 0.4 % Normal [facility] Comment on above: Performed By: #### C BCD1 ####[place] [address] Eosinophils 0.18 thou/cmm Normal 0.04-0.54 [facility] Comment on above: Performed By: #### C BCD1 ####[place] [address] Eosinophils/100 leukocytes 3.7 % Normal [facility] Comment on above: Performed By: #### C BCD1 ####[place] [address] Erythrocyte distribution width Auto Ratio (RBC) 13.2 % Normal 11.6-14.4 [facility] Comment on above: Performed By: #### C BCD1 ####[place] [address] Erythrocytes (RBC) 4.59 mil/cmm Low 4.63-6.08 [facility] Comment on above: Performed By: #### C BCD1 ####[address] [address] Hematocrit (HCT) 41.4 % Normal 40.1-51.0 [facility] Comment on above: Performed By: #### C BCD1 ####[address] [address] Hemoglobin mass conc (Bld) 14.1 g/dL Normal 13.7-17.5 [facility] Comment on above: Performed By: #### C BCD1 ####[place] [address] Immature Grans 0.40 % Normal [facility] Comment on above: Performed By: #### C BCD1 ####[place] [address] Lymphocytes 1.62 thou/cmm Normal 0.84-2.85 [facility] Comment on above: Performed By: #### C BCD1 ####[address] [address] Lymphocytes/100 leukocytes 33.6 % Normal [facility] Comment on above: Performed By: #### C BCD1 ####[place] [address] MCH 30.7 pg Normal 25.7-32.2 [facility] Comment on above: Performed By: #### C BCD1 ####[address] [address] MCHC mass conc (RBC) 34.1 % Normal 32.3-36.5 [facility] Comment on above: Performed By: #### C BCD1 ####[address] [address] MCV 90.2 fL Normal 83.2-95.6 [facility] Comment on above: Performed By: #### C BCD1 ####[address] [address] Monocytes/100 leukocytes 9.5 % Normal [facility] Comment on above: Performed By: #### C BCD1 ####[place] [address] Platelet mean volume (PMV) 9.1 fL Normal 8.7-12.0 [facility] Comment on above: Performed By: #### C BCD1 ####[facility] [place], [place] [address] Platelets 250 thou/cmm Normal 141-365 [facility] Comment on above: Performed By: #### C BCD1 ####[facility] [place], [place] [address] RDW SD 43.6 fl Normal 36.1-45.8 [facility] Comment on above: Performed By: #### C BCD1 ####[address] [address] Seg Neutrophil 52.4 % Normal [facility] Comment on above: Performed By: #### C BCD1 ####[address] [address] WBC (Leukocytes) 4.82 thou/cmm Normal 4.23-9.07 [facility] Comment on above: Performed By: #### C BCD1 ####[address] [address] MDRD GFRon 05-21-2017 eGFR (non-black) mL/min/{1.73_m2} Normal >60mL/m in/ 1.73m2 [facility] Comment on above: Result Comment: If t he patient is , multiply the result by 1.210. Performed By: #### G FR ####[address] [address] NURSING PROGon 05-21-2017 NURSING PROG HNO ID: [id number] thor: Jaelyn (Rn) IRIS Hayeservice: NursingAuthor Type: [...] notify AM RN to keep MD notified. [facility] ED NOTEon 05-20-2017 ED NOTE HNO ID: [id number] thor: Elizabet García (Twist Tester)Service: (none)Author Type: TechnicianType: ED NotesFiled: 05/20/2017 4:18 PMNote Text:MEDICATION HISTORYPatient Name:Cheyanne JuarezMRN: [id number]: 1980Source of history:Pharmacy records: [facility] [phone] Nonadherence Identified: No barriers notedThe above information represents the best possible medication history: YesAdditional comments: N/AAllergies: ALLERGIESNo Known AllergiesPreferred Pharmacy: [facility] [phone] EXPLORATION GEOLOGIST Medications:Prior to Admission medications as of 05/20/17 1616Not on SaidaElizabet García ([employer]) [id number] 2016 4:18 PM [facility] ED NOTE HNO ID: [id number] thor: Monique (Rn) IRIS Purcellervice: Emergency MedicineAuthor Type: Registered NurseType: ED NotesFiled: 05/20/2017 1:26 PMNote Text:Pt [facility] for [facility] consult. Pt with hx ofpneaumothorax after coughing. Pt states he was coughing this AM when hefelt his lung pop Pt went to [place] ED and had 8fr pigtail chest tubeinserted to the right side of chest. Pt presents to [facility] ED with chesttube in place. Dr. Reagan at bedside. Pt with c/o pain in chest tubeinsertion site. Normal [facility] ED NOTE HNO ID: [id number] Author: Olivia (Rn) KIRILL Allred Service: (none) Author Type: Registered Nurse Type: ED Notes Filed: 05/20/2017 1:24 PM Note Text: Bed: ED-04 Expected date: 05/20/17 Expected time: 1:04 PM Means of arrival: Comments: Erick transfer Normal [facility] ED PROV NOTEon 05-20-2017 ED PROV NOTE HNO ID: [id number] thor: Daryl (LauriAGUSTIN Jonervice: Emergency MedicineAuthor Type: ResidentType: ED Provider NotesFiled: 05/20/2017 3:07 PMNote Text: ----Attestation signed by Robby Harris MD at 05/20/2017 3:49 PMAttending NoteI evaluated the patient and personally participated in the cabezas components. Iagree with the resident's findings and plan as documented and have discussedthe case and management of the patient's care with the resident.ED CourseThomas Isaac Harris's DocumentationComment TimePAtient presents for evaluation and pneumothorax. He was seen at an [facility] and a pigtail catheter was placed. He is resting comfortably he's inno distress and is not short of breath. His lungs are clear and equal at timeof examination the pigtail catheter is functioning well. Will obtain asurgical consult. 05/20 1427Signature: Robby Harris MDDate: 05/20/2017Time: 3:48 PM -ED Provider NotePatient Name: Anamika JuarezMRN: [id number] DATE: 05/20/17HistoryPatient presents with:Shortness of BreathHPI Comments: [...] At that time, he went [place]and was diagnosed with a spontaneous PTX. An 8 Fr pigtail catheter wasplaced and the patient was transferred to the [facility] ED for surgicalconsultation. On arrival, the patient reports that his shortness of breathhas improved; however, he is complaining of pain surrounding his chesttube insertion site. He has no other active complaints at this time.PAST MEDICAL HISTORYDiagnosis Date- PneumothoraxPAST SURGICAL HISTORYProcedure Laterality Date- INGUINAL HERNIA REPAIR HX- THORACOSCOPY SURG W PLEURODESIS Left 10/29/2015 L VATS with bleb resection, AND mechanical pleurodesis at [facility] by HISTORYProblem Relation Age of Onset- DiabetesSocial HistorySocial [...] of breath.Cardiovascular: Negative for chest pain and palpitations.Gastrointestin al: Negative for abdominal pain, diarrhea, nausea andvomiting.Genitourinary: [...] evaluation and pneumothorax. He was seen at [facility] facility and a pigtail catheter was [...] of disposition: stableSIGNATURE: Rosemarie Ulloa (Res) Merary, RXWbidcfhn33/29/17 1507[facility] Isaac Harris MD05/20/17 1549 Normal [facility] HISTORY PHYSICALon HISTORY PHYSICAL HNO ID: [id number] thor: Thad Guillen: Thoracic SurgeryAuthor Type: PhysicianType: HANDPFiled: 05/21/2017 6:04 PMNote Text:THORACIC SURGICAL SERVICES HANDPSERVICE DATE: 05/20/2017SERVICE TIME: 2:52 PMPRIMARY CARE PHYSICIAN: MERCEDES BejaranoBJECTIVECHI COMPLAINT: Right PTXHISTORY OF PRESENT ILLNESS: Mr. Juarez is a 36 year old male who developedacute onset of sharp right chest pain this morning similar to prior PTX.Patient has had multiple B PTX s/p L VATS, Blebectomy, Pleurodesis, nowwith second spontaneous PTX on right. Was seen in [place] ER and had 8F RCT placed prior to transfer.ROS otherwise negativePAST MEDICAL HISTORYDiagnosis Date- PneumothoraxPAST SURGICAL HISTORYProcedure Laterality Date- INGUINAL HERNIA REPAIR HX- THORACOSCOPY SURG W PLEURODESIS Left 10/29/2015 L VATS with bleb resection, AND mechanical pleurodesis at [facility] by HISTORYProblem Relation Age of Onset- DiabetesSocial [...] diarrheaGU: No history of dysuria, frequency or incontinenceMUSCULOSKELETAL : Negative for joint pain or swelling, back pain or musclepainSKIN: Negative for lesions, rash, and itchingPSYCH: Negative for sleep disturbance, mood disorder and recentpsychosocial stressorsHEMATOLOGY/LYMPHOL OGY: Negative for prolonged bleeding, bruising easily orswollen [...] hrs: BP Temp Pulse Resp SpO2 Height Ikeykf98/29/17 1425 130/87 - (!) 101 20 98 % - -05/20/17 1321 139/87 37.2 ?C (99 ?F) (!) 105 22 96 % 177.8 cm (5' 10) 68kg (150 lb)Body mass index is 21.52 kg/(m2).DATA:Diagnostic tests reviewed for today's visit:[place] reviewed. and unremarkableCXR showed 70% right PTX with near complete resolution s/p CT placement.ASSESSMENT/PLAN36 yoM with recurrent Right Spontaneous PTX- Admit to 4200- Right CT to -20 sxn- Daily CXRs- will likely need R VATS next weekD/W Dr. JoeATURE: Kiel Bell MD PATIENT NAME: Anamika JuarezDATE: May 20, 2017 : 2:51 PM PAGER/CONTACT #: [phone] Surgery Attending - Patrizia NoteI evaluated the [...] space. If air leakpersists, will recommend VATS.Signature: Thad Garcia MDDate: 05/21/2017Time: 6:02 PM Normal [facility] HOSPon 05-20-2017 HOSP Patient:George Juarez sMRN: Height:5' 10(1.778 m)Weight:150 lb (68.04 kg)Outpatient Medications as of 05/24/17:Patient has no current outpatient medications.Admission/Clini c Administered Medications as of 05/24/17:dextrose 5% in NaCl 0.45% iv infusionoxyCODONE IR 5-10 mg tab(s) (ROXICODONE)acetaminophen 650 mg tab(s) (TYLENOL)HYDROmorphone 0.2-0.5 mg injection (DILAUDID)ondansetron 4 mg tab(s) (ZOFRAN)ondansetron (PF) 4 mg injection (ZOFRAN)docusate sodium 100 mg cap(s) (COLACE)Problem List:Pneumothorax [J93.9]Spontaneous pneumothorax [J93.83]Allergies:No Known AllergiesDate Verified:05/24/17Lab ValuesLab Value Units Date High LowPOTA* 3.8 mEq/L 05/24/2017 5.1 3.5HEMA* 35.9 % 05/24/2017 51.0 40.1Progress Notes ():Olivia Allred, RN, RN 05/20/2017 1:24 PM SignedBed: ED-04Expected date: 05/20/17Expected time: 1:04 PMMeans of arrival:Comments:[place] Subha Purcell RN, RN 05/20/2017 1:26 PM Signed[facility]. Pt with hx of pneaumothoraxafter coughing. Pt states he was coughing this AM when he felt his lung pop Ptwent to [place] ED and had 8fr pigtail chest tube inserted to the right side ofchest. Pt presents to [facility] ED with chest tube in place. Dr. Reagan at bedside. Ptwith c/o pain in chest tube insertion site.Daryl Reagan MD, MD 05/20/2017 3:07 PM Attested -------Attestation signed by Robby Harris MD at 05/20/2017 3:49 PMAttending NoteI evaluated the patient and personally participated in the cabezas components. Iagree with the resident's findings and plan as documented and have discussedthe case and management of the patient's care with the resident.ED CourseThomas Isaac Harris's DocumentationComment TimePAtient presents for evaluation and pneumothorax. He was seen at an [facility] and a pigtail catheter was placed. He is resting comfortably he's inno distress and is not short of breath. His lungs are clear and equal at timeof examination the pigtail catheter is functioning well. Will obtain asurgical consult. 05/20 1427Signature: Robby Harris MDDate: 05/20/2017Time: 3:48 PM -ED Provider NotePatient Name: Anamika JuarezMRN: [id number] DATE: 05/20/17HistoryPatient presents with:Shortness of BreathHPI Comments: [...] At that time, he went to the [place] ED and was diagnosed with aspontaneous PTX. An 8 Fr pigtail catheter was placed and the patient wastransferred to the [facility] ED for surgical consultation. On arrival, the patientreports that his shortness of breath has improved; however, he is complaining ofpain surrounding his chest tube insertion site. He has no other activecomplaints at this time.PAST MEDICAL HISTORYDiagnosis Date- PneumothoraxPAST SURGICAL HISTORYProcedure Laterality Date- INGUINAL HERNIA REPAIR HX- THORACOSCOPY SURG W PLEURODESIS Left 10/29/2015 L VATS with bleb resection, AND mechanical pleurodesis at [facility] by Dr. Burton HISTORYProblem Relation Age of [...] of breath.Cardiovascular: Negative for chest pain and palpitations.Gastrointestin al: Negative for abdominal pain, diarrhea, nausea and [...] and pneumothorax. He was seen at an [facility] and a pigtail catheter was placed. He is resting comfortably he's inno distress and is not short of breath. His lungs are clear and equal at timeof examination the pigtail catheter is functioning well. Will obtain a surgicalconsult. Robby Harris MD 05/20 1427Patient was seen and evaluated by myself and the attending physician. He is [id number] male presenting today for a surgery consult. [...] of disposition: stableSIGNATURE: Rosemarie Ulloa (Res) Dream, ZXInqhoqrx75/29/17 1507Thomas Isaac Harris MD05/20/17 1549Previous VersionJotian Garcia MD 05/21/2017 6:04 PM SignedTHORACIC SURGICAL SERVICES HANDPSERVICE DATE: 05/20/2017SERVICE TIME: 2:52 PMPRICENTR[facility] PHYSICIAN: Annemarie River, ADALGISAJECTEARLCHICAMILLE COMPLAINT: Right PTXHISTORY OF PRESENT ILLNESS: Mr. Juarez is a 36 year old male who developed acuteonset of sharp right chest pain this morning similar to prior PTX. Patient hashad multiple B PTX s/p L VATS, Blebectomy, Pleurodesis, now with secondspontaneous PTX on right. Was seen in [place] [facility] and [facility]F R [facility]ROS otherwise negativePAST MEDICAL HISTORYDiagnosis Date- PneumothoraxPAST SURGICAL HISTORYProcedure Laterality Date- INGUINAL HERNIA REPAIR HX- THORACOSCOPY SURG W PLEURODESIS Left 10/29/2015 L VATS with bleb resection, AND mechanical pleurodesis at [facility] by Dr. Burton HISTORYProblem Relation Age of [...] diarrheaGU: No history of dysuria, frequency or incontinenceMUSCULOSKELETAL : Negative for joint pain or swelling, back pain or muscle painSKIN: Negative for lesions, rash, and itchingPSYCH: Negative for sleep disturbance, mood disorder and recent psychosocialstressorsHEMATO LOGY/LYMPHOLOGY: Negative for prolonged bleeding, bruising easily orswollen [...] hrs: BP Temp Pulse Resp SpO2 Height Wmnmtq62/29/17 1425 130/87 - (!) 101 20 98 % - -05/20/17 1321 139/87 37.2 ?C (99 ?F) (!) 105 22 96 % 177.8 cm (5' 10) 68 kg(150 lb)Body mass index is 21.52 kg/(m2).DATA:Diagnostic tests reviewed for today's visit:Outside chart from [place] reviewed. and unremarkableCXR showed 70% right PTX [...] ELZBIETA Fritzate: 05/21/2017Time: 6:02 PMPrevious Sang García ([employer]) 05/20/2017 4:18 PM SignedMEDICATION HISTORYPatient Name:Cheyanne JuarezMRN: [id number]: 1980Source of history:Pharmacy records: [facility] [phone] Nonadherence Identified: No barriers notedThe above information represents the best possible medication history: YesAdditional comments: N/AAllergies: ALLERGIESNo Known AllergiesPreferred Pharmacy: [facility] [phone] EXPLORATION GEOLOGIST Medications:Prior to Admission medications as of 05/20/17 1616Not on Anisa García ([employer]) [id number] 2016 4:18 PMThad Garcia MD 05/21/2017 6:05 PM SignedVascular Surgery Progress NoteSERVICE DATE: 05/21/2017SUBJECTIVENAEON. Pt reports pain is the same as yesterday. No difficulty breathing.Denies N/V/CP/SOBDiet: DIET REGULAROBJECTIVEVitals:Temp (24hrs), Av.2 ?C (98.9 ?F), Min:36.3 ?C (97.3 ?F), Max:38.2 ?C (100.8?F)BP 99/66 Pulse 64 Temp 36.3 ?C (97.3 ?F) (Oral) Resp 18 Ht 177.8 cm (5'10) Wt 68 kg (150 lb) SpO2 95% BMI 21.52 kg/m2O2 Therapy: Room AirIANDO:Date 05/20/17 07 - 05/21/17 0659 05/21/17 07 - 05/22/17 0659Shift 9911-4511 5329-4712 1311-5297 24 Hour Total 0536-7133 5197-9825 2300-902618 Hour TotalINTAKE PO 240 600 840 PO [...] May 21, 2017 : 6:44 AM Pager: [phone] Surgery Attending - Patrizia CatesI evaluated the [...] space. If air leak persists,will recommend VATS.Previous Oz Hayes RN, RN 05/21/2017 11:36 PM SignedPt and [...] ?F) (Oral) Resp 18 Ht 177.8 cm (5'10) Wt 68 kg (150 lb) SpO2 94% BMI 21.52 kg/m2O2 Therapy: Room AirIANDO:Date 05/21/17 07 - 05/22/17 0659 05/22/17 07 - 05/23/17 0659Shift 3164-4799 8646-3932 1761-8352 24 Hour Total 0607-9659 9715-0860 2300-578887 Hour TotalINTAKE Shift TotalOUTPUT Chest Tube 0 [...] JoeATURE: Sweta Osullivan MD PATIENT NAME: Anamika AtwoodDATE: May 22, 2017 : 6:01 AM Pager: [phone] Surgery Attending - Patrizia Alvarado evaluated the [...] ?F) (Oral) Resp 18 Ht 177.8 cm (5'10) Wt 68 kg (150 lb) SpO2 100% BMI 21.52 kg/m2O2 Therapy: Room AirIANDO:Date 05/22/17699 - 05/23/17 0605/23/17699 - 05/24/17 0659Shift 4566-4357 6541-5385 6494-8626 24 Hour Total 5125-5467 2544-0696 2300-693436 Hour TotalINTAKE PO 480 360 840 PO [...] 30 mg INTRAVENOUS q 6 HLabs:Recent Labs 300 NA 136 134*K 3.9 3.8CHLOR 103 101CO2 [...] May 23, 2017 : 9:24 AM Pager: [phone] Hwang MD 05/24/2017 10:47 AM SignedThoracic Surgery Progress NoteSERVICE DATE: 05/24/2017SUBJECTIVESUBJECTIV E:NAEON, pain control improving, no SOBDenies N/V/CP/SOBDiet: DIET NPOOBJECTIVEOBJECTIVE:Vital s:Temp (24hrs), Av.6 ?C (97.8 ?F), Min:36.4 ?C (97.5 ?F), Max:36.8 ?C (98.2?F)BP 124/80 Pulse 60 Temp 36.6 ?C (97.9 ?F) (Oral) Resp 18 Ht 177.8 cm (5'10) Wt 68 kg (150 lb) SpO2 99% BMI 21.52 kg/m2O2 Therapy: Room AirIANDO:Date 05/23/17699 - 05/24/17 0659 05/24/17 07 - 05/25/17 0659Shift 5711-6110 6601-3029 3640-5376 24 Hour Total 5338-3421 2799-8933 2300-642078 Hour TotalINTAKE Shift TotalOUTPUT # of BMs [...] morningAssessment and plan discussed with attending: Dr. HerediaATURE: [...] AND DISCHARGE PLANSERVICE DATE: 05/24/2017SERVICE TIME: 10:43 [facility] CARE PHYSICIAN:Annemarie River, ODPhone: [email or web address] STATUS: InpatientPOTENTIAL DISCHARGE PLANSHomeTo Be DeterminedPatient/Represent ative Stated Goals: homeHealth Insurance: NoneLiving Arrangement: HomeLives With: SpouseFinancial Resources: UnemployedPrimary Contact:Extended Emergency Contact InformationPrimary Emergency Contact: Ronn Juarez Vfrlvdge: SpouseSupportive: YesOther Important Patient Contacts: NoneCAREGIVER ASSESSMENT:Caregiver [...] days? NoHas the Patient Been in a Residential Facility in the Past 30 days? NoFREEDOM OF CHOICE EXPLAINED:N/ANASTACIO COMMUNICATION:Dr. 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 Probable VATS this week. Noinsurance coverage. I spoke with Lisa from [employer]. She states pt will beineligible for Medicaid. SW consulted for indigent medsSIGNATURE: Sandra Torres RN PATIENT NAME: Anamika JuarezDATE: May 24, 2017 : 10:43 AM PAGER/CONTACT #: [phone] Earnest Valencia MD 05/24/2017 11:48 AM Signed ANESTHESIOLOGY DAY OF SURGERY NOTESERVICE DATE: 05/24/2017SERVICE TIME: 11:47 AMDOB: 1980Procedure(s) (LRB):VIDEO ASSISTED THORASCOPIC PLICATION OF DIAPHRAGM (N/A)THORACOTOMY RESECTION BLEBS (N/A)Surgeon(s):Dianna Morsetimated body mass index is 21.52 kg/(m2) as calculated from the following: Height as of this encounter: 177.8 cm (5' 10). Weight as of this encounter: 68 kg (150 lb).Most recent hematocrit and potassium results:Hematocrit 35.9 05/24/2017Potassium 3.8 05/24/2017ANES DOS/PREOP NOTE:Vitals: 05/24/179903 7 [id number]: 119/77 124/80 125/81 131/79Pulse: 73 60 (!) 55 66Resp: 16Temp: 36.4 ?C (97.5 ?F) 36.6 ?C (97.9 ?F) 36.7 ?C (98.1 ?F) 36.9 ?C (98.4 ?F)TempSrc: Oral Oral Oral Temporal ArterySpO2: 96% 99% 99% 98%Weight:Height:ACTIVE PROBLEM LISTPneumothoraxSpontaneous PneumothoraxPAST MEDICAL HISTORYDiagnosis Date- PneumothoraxPAST SURGICAL HISTORYProcedure Laterality Date- INGUINAL HERNIA REPAIR HX- THORACOSCOPY SURG W PLEURODESIS Left 10/29/2015 L VATS with bleb resection, AND mechanical pleurodesis at [facility] by Dr. Burton HISTORYProblem Relation Age of [...] updated information obtained within 48 hours of Surgery/Procedure.SIGNATURE : Ab Valencia MD PATIENT NAME: Anamika JuarezDATE: May 24, 2017 : 11:47 AM CSN: [id number] Valencia MD 05/24/2017 11:49 AM Incomplete Normal [facility] PROGRESSon 05-20-2017 PROGRESS HNO ID: [id number] thor: Thad Guillen: Thoracic SurgeryAuthor Type: PhysicianType: Progress NotesFiled: 05/21/2017 6:05 PMNote Text:Vascular Surgery Progress NoteSERVICE DATE: 05/21/2017SUBJECTIVENAEON. Pt reports pain is the same as yesterday. No difficulty breathing.Denies N/V/CP/SOBDiet: DIET REGULAROBJECTIVEVitals:Temp (24hrs), Av.2 ?C (98.9 ?F), Min:36.3 ?C (97.3 ?F), Max:38.2 ?C(100.8 ?F)BP 99/66 Pulse 64 Temp 36.3 ?C (97.3 ?F) (Oral) Resp 18 Ht 177.8cm (5' 10) Wt 68 kg (150 lb) SpO2 95% BMI 21.52 kg/m2O2 Therapy: Room AirIANDO:Date 05/20/17 07 - 05/21/17 0659 05/21/17 07 - 05/22/17 0659Shift 7928-8370 5556-7427 3458-4824 24 Hour Total 2198-8151 2382-39130938-5140 24 Hour TotalINTAKE PO 240 600 840 [...] 30 mg INTRAVENOUS q 6 HLabs:Recent Labs 12/30/227220BH 134*K 3.6CHLOR 100CO2 26BUN 13CREAT 0.54*GLUC 107*ANION [...] May 21, 2017 : 6:44 AM Pager: [phone] Surgery Attending - Patrizia CatesI evaluated the [...] If air leakpersists, will recommend VATS. Normal [facility] Vital Signs Date Time Vital Sign Value Performing Clinician Facility 11-16-2024 15:02-0400 Body temperature 97 [degF] Dr. Cali Mckeon MD Work Phone: [facility] 11-16-2024 15:02-0400 Diastolic blood pressure 95 mm[Hg] Dr. Cali Mckeon MD Work Phone: [facility] 11-16-2024 15:02-0400 Heart rate 57 /min Dr. Cali Mckeon MD Work Phone: [facility] 11-16-2024 15:02-0400 Respiratory rate 18 /min Dr. Cali Mckeon MD Work Phone: [facility] 11-16-2024 15:02-0400 SaO2% (BldA) [Mass fraction] 99 % Dr. Cali Mckeon MD Work Phone: [facility] 11-16-2024 15:02-0400 Systolic blood pressure 128 mm[Hg] Dr. Cali Mckeon MD Work Phone: [facility] 11-16-2024 12:10-0400 Body height 182.[address] Cali Mckeon MD Work Phone: [facility] 11-16-2024 12:10-0400 Body mass index (BMI) [Ratio] 24 kg/m2 Dr. Cali Mckeon MD Work Phone: [facility] 11-16-2024 12:10-0400 Body weight 80.[address] Cali Mckeon MD Work Phone: [facility] 11-13-2024 14:16-0400 Body mass index (BMI) [Ratio] 25.37 kg/m2 Saturnino Barragan APRN.HEALTH INSPECTOR FOOD Work Phone: [facility] 11-13-2024 14:16-0400 Body temperature 98.8 [degF] Saturnino Barragan APRN.HEALTH INSPECTOR FOOD Work Phone: [facility] 11-13-2024 14:16-0400 Body weight 80.2 kg Saturnino Barragan APRN.HEALTH INSPECTOR [employer]OD Work Phone: [facility] 11-13-2024 14:16-0400 Diastolic blood pressure 72 mm[Hg] Saturnino Barragan APRN.HEALTH INSPECTOR [employer]OD Work Phone: [facility] 11-13-2024 14:16-0400 Heart rate 102 /min Saturnino Barragan REGISTERED NURSE MATERNITY.HEALTH INSPECTOR FOOD Work Phone: [facility] 11-13-2024 14:16-0400 Respiratory rate 16 /min Saturnino Barragan REGISTERED NURSE MATERNITY.HEALTH INSPECTOR [employer]OD Work Phone: [facility] 11-13-2024 14:16-0400 SaO2% (BldA) [Mass fraction] 97 % Saturnino Barragan REGISTERED NURSE MATERNITY.HEALTH INSPECTOR [employer]OD Work Phone: [facility] 11-13-2024 14:16-0400 Systolic blood pressure 126 mm[Hg] Saturnino Barragan REGISTERED NURSE MATERNITY.HEALTH INSPECTOR [employer]OD Work Phone: [facility] 10-31-2024 14:52-0400 Body mass index (BMI) [Ratio] 25.12 kg/m2 Elbert Galdamez REGISTERED NURSE MATERNITY.HEALTH INSPECTOR [employer]OD Work Phone: [facility] 10-31-2024 14:52-0400 Body temperature 98.1 [degF] Elbert Galdamez REGISTERED NURSE MATERNITY.HEALTH INSPECTOR FOOD Work Phone: [facility] 10-31-2024 14:52-0400 Body weight 79.4 kg Elbert Galdamez REGISTERED NURSE MATERNITY.HEALTH INSPECTOR FOOD Work Phone: [facility] 10-31-2024 14:52-0400 Diastolic blood pressure 82 mm[Hg] Elbert Galdamez REGISTERED NURSE MATERNITY.HEALTH INSPECTOR FOOD Work Phone: [facility] 10-31-2024 14:52-0400 Heart rate 87 /min Elbert Galdamez REGISTERED NURSE MATERNITY.HEALTH INSPECTOR FOOD Work Phone: [facility] 10-31-2024 14:52-0400 Respiratory rate 16 /min Elbert Galdamez REGISTERED NURSE MATERNITY.HEALTH INSPECTOR FOOD Work Phone: [facility] 10-31-2024 14:52-0400 SaO2% (BldA) [Mass fraction] 96 % Elbert Galdamez REGISTERED NURSE MATERNITY.HEALTH INSPECTOR FOOD Work Phone: [facility] 10-31-2024 14:52-0400 Systolic blood pressure 128 mm[Hg] Elbert Galdamez REGISTERED NURSE MATERNITY.HEALTH INSPECTOR FOOD Work Phone: [facility] 10-05-2024 17:56-0400 Body mass index (BMI) [Ratio] 24.99 kg/m2 Saturnino Barragan APRN.HEALTH INSPECTOR FOOD Work Phone: [facility] 10-05-2024 17:56-0400 Body temperature 99.5 [degF] Saturnino Barragan APRN.HEALTH INSPECTOR FOOD Work Phone: [facility] 10-05-2024 17:56-0400 Body weight 79 kg Saturnino Barragan APRN.HEALTH INSPECTOR [employer]OD Work Phone: [facility] 10-05-2024 17:56-0400 Diastolic blood pressure 93 mm[Hg] Saturnino Barragan APRN.HEALTH INSPECTOR FOOD Work Phone: [facility] 10-05-2024 17:56-0400 Heart rate 108 /min Saturnino Barragan APRN.HEALTH INSPECTOR FOOD Work Phone: [facility] 10-05-2024 17:56-0400 Respiratory rate 20 /min Saturnino Barragan APRN.HEALTH INSPECTOR FOOD Work Phone: [facility] 10-05-2024 17:56-0400 SaO2% (BldA) [Mass fraction] 98 % Saturnino Barragan APRN.HEALTH INSPECTOR FOOD Work Phone: [facility] 10-05-2024 17:56-0400 Systolic blood pressure 135 mm[Hg] Saturnino Barragan APRN.HEALTH INSPECTOR FOOD Work Phone: [facility] 08-23-2024 14:28-0400 Body mass index (BMI) [Ratio] 24.99 kg/m2 Orlando May MD Work Phone: [facility] 08-23-2024 14:28-0400 Body temperature 98.8 [degF] Orlando May MD Work Phone: [facility] 08-23-2024 14:28-0400 Body weight 79 kg Orlando May MD Work Phone: [facility] 08-23-2024 14:28-0400 Diastolic blood pressure 90 mm[Hg] Orlando May MD Work Phone: [facility] 08-23-2024 14:28-0400 Heart rate 87 /min Orlando May MD Work Phone: [facility] 08-23-2024 14:28-0400 Respiratory rate 18 /min Orlando May MD Work Phone: [facility] 08-23-2024 14:28-0400 SaO2% (BldA) [Mass fraction] 99 % Orlando May MD Work Phone: [facility] 08-23-2024 14:28-0400 Systolic blood pressure 138 mm[Hg] Orlando May MD Work Phone: [facility] 07-24-2024 15:47-0500 Body mass index (BMI) [Ratio] 24.67 kg/m2 Richard Clutter PA-C Work Phone: [facility] 07-24-2024 15:47-0500 Body temperature 99.19 [degF] Richard Clutter PA-C Work Phone: [facility] 07-24-2024 15:47-0500 Body weight 78 kg Richard Clutter PA-C Work Phone: [facility] 07-24-2024 15:47-0500 Diastolic blood pressure 97 mm[Hg] Richard Clutter PA-C Work Phone: [facility] 07-24-2024 15:47-0500 Heart rate 89 /min Richard Clutter PA-C Work Phone: [facility] 07-24-2024 15:47-0500 Respiratory rate 20 /min Richard Clutter PA-C Work Phone: [facility] 07-24-2024 15:47-0500 SaO2% (BldA) [Mass fraction] 98 % Richard Clutter PA-C Work Phone: [facility] 07-24-2024 15:47-0500 Systolic blood pressure 143 mm[Hg] Richard Clutter PA-C Work Phone: [facility] 06-28-2024 10:14-0500 Body mass index (BMI) [Ratio] 24.64 kg/m2 Dariana Praisler-Wood REGISTERED NURSE MATERNITY.HEALTH INSPECTOR FOOD Work Phone: [facility] 06-28-2024 10:14-0500 Body temperature 98.01 [degF] Dariana Praisler-Wood REGISTERED NURSE MATERNITY.HEALTH INSPECTOR FOOD Work Phone: [facility] 06-28-2024 10:14-0500 Body weight 77.9 kg Dariana Praisler-Wood REGISTERED NURSE MATERNITY.HEALTH INSPECTOR FOOD Work Phone: [facility] 06-28-2024 10:14-0500 Diastolic blood pressure 78 mm[Hg] Dariana Praisler-Wood REGISTERED NURSE MATERNITY.HEALTH INSPECTOR FOOD Work Phone: [facility] 06-28-2024 10:14-0500 Heart rate 72 /min Dariana Praisler-Wood REGISTERED NURSE MATERNITY.HEALTH INSPECTOR FOOD Work Phone: [facility] 06-28-2024 10:14-0500 Respiratory rate 14 /min Dariana Praisler-Wood REGISTERED NURSE MATERNITY.HEALTH INSPECTOR FOOD Work Phone: [facility] 06-28-2024 10:14-0500 Systolic blood pressure 122 mm[Hg] Dariana Praisler-Wood REGISTERED NURSE MATERNITY.HEALTH INSPECTOR FOOD Work Phone: [facility] 03-29-2024 12:54-0500 Body mass index (BMI) [Ratio] 23.6 kg/m2 Saturnino Barragan REGISTERED NURSE MATERNITY.HEALTH INSPECTOR FOOD Work Phone: [facility] 03-29-2024 12:54-0500 Body temperature 98.49 [degF] Saturnino Barragan REGISTERED NURSE MATERNITY.HEALTH INSPECTOR FOOD Work Phone: [facility] 03-29-2024 12:54-0500 Body weight 74.6 kg Saturnino Barragan REGISTERED NURSE MATERNITY.HEALTH INSPECTOR [employer]OD Work Phone: [facility] 03-29-2024 12:54-0500 Diastolic blood pressure 84 mm[Hg] Staurnino Derrek REGISTERED NURSE MATERNITY.HEALTH INSPECTOR FOOD Work Phone: [facility] 03-29-2024 12:54-0500 Heart rate 71 /min Saturnino Barragan APRN.HEALTH INSPECTOR FOOD Work Phone: [facility] 03-29-2024 12:54-0500 Respiratory rate 18 /min Saturnino Barragan REGISTERED NURSE MATERNITY.HEALTH INSPECTOR FOOD Work Phone: [facility] 03-29-2024 12:54-0500 SaO2% (BldA) [Mass fraction] 100 % Saturnino Barragan REGISTERED NURSE MATERNITY.HEALTH INSPECTOR FOOD Work Phone: [facility] 03-29-2024 12:54-0500 Systolic blood pressure 118 mm[Hg] Saturnino Barragan REGISTERED NURSE MATERNITY.HEALTH INSPECTOR FOOD Work Phone: [facility] 03-19-2024 18:53-0400 Body mass index (BMI) [Ratio] 24.04 kg/m2 Elbert Galdamez REGISTERED NURSE MATERNITY.HEALTH INSPECTOR FOOD Work Phone: [facility] 03-19-2024 18:53-0400 Body temperature 99 [degF] Elbert Galdamez REGISTERED NURSE MATERNITY.HEALTH INSPECTOR [employer] Work Phone: [facility] 03-19-2024 18:53-0400 Body weight 76 kg Elbert Galdamez REGISTERED NURSE MATERNITY.HEALTH INSPECTOR FOOD Work Phone: [facility] 03-19-2024 18:53-0400 Diastolic blood pressure 90 mm[Hg] Elbert Galdamez REGISTERED NURSE MATERNITY.HEALTH INSPECTOR FOOD Work Phone: [facility] 03-19-2024 18:53-0400 Heart rate 78 /min Elbert Galdamez REGISTERED NURSE MATERNITY.HEALTH INSPECTOR FOOD Work Phone: [facility] 03-19-2024 18:53-0400 Respiratory rate 14 /min Elbert Galdamez REGISTERED NURSE MATERNITY.HEALTH INSPECTOR [employer]OD Work Phone: [facility] 03-19-2024 18:53-0400 SaO2% (BldA) [Mass fraction] 97 % Elbert Galdamez REGISTERED NURSE MATERNITY.HEALTH INSPECTOR [employer]OD Work Phone: [facility] 03-19-2024 18:53-0400 Systolic blood pressure 142 mm[Hg] Elbert Galdamez REGISTERED NURSE MATERNITY.HEALTH INSPECTOR FOOD Work Phone: [facility] 05-20-2023 12:21-0500 Diastolic blood pressure 86 mm[Hg] [facility] 05-20-2023 12:21-0500 Heart rate 59 /min [facility] 05-20-2023 12:21-0500 Respiratory rate 16 /min [facility] 05-20-2023 12:21-0500 SaO2% (BldA) [Mass fraction] 98 % [facility] 05-20-2023 12:21-0500 Systolic blood pressure 128 mm[Hg] [facility] 05-20-2023 08:48-0500 Body height 165.1 cm [facility] 05-20-2023 08:48-0500 Body mass index (BMI) [Ratio] 29.2 kg/m2 [facility] 05-20-2023 08:48-0500 Body temperature 98.3 [degF] [facility] 05-20-2023 08:48-0500 Body weight 79.8 kg [facility] 09-20-2022 07:26-0400 Body height 180.[address] Cali Mckeon Work Phone: [facility] 09-20-2022 07:26-0400 Body mass index (BMI) [Ratio] 23.6 kg/m2 Dr. Cali Mckeon Work Phone: [facility] 09-20-2022 07:26-0400 Body temperature 97.8 [degF] Dr. Cali Mckeon Work Phone: [facility] 09-20-2022 07:26-0400 Body weight 76.[address] Cali Mckeon Work Phone: [facility] 09-20-2022 07:26-0400 Diastolic blood pressure 103 mm[Hg] Dr. Cali Mckeon Work Phone: [facility] 09-20-2022 07:26-0400 Heart rate 64 /min Dr. Cali Mckeon Work Phone: [facility] 09-20-2022 07:26-0400 Respiratory rate 18 /min Dr. Cali Mckeon Work Phone: [facility] 09-20-2022 07:26-0400 SaO2% (BldA) [Mass fraction] 100 % Dr. Cali Mckeon Work Phone: [facility] 09-20-2022 07:26-0400 Systolic blood pressure 143 mm[Hg] Dr. Cali Mckeon Work Phone: [facility] 08-03-2022 13:49-0400 Body temperature 98.1 [degF] Elbert Rudolph REGISTERED NURSE MATERNITY.HEALTH INSPECTOR FOOD Work Phone: [facility] 08-03-2022 13:49-0400 Body weight 76.93 kg Elbert Rudolph REGISTERED NURSE MATERNITY.HEALTH INSPECTOR FOOD Work Phone: [facility] 08-03-2022 13:49-0400 Diastolic blood pressure 68 mm[Hg] Elbert Rudolph REGISTERED NURSE MATERNITY.HEALTH INSPECTOR FOOD Work Phone: [facility] 08-03-2022 13:49-0400 Heart rate 89 /min Elbert Rudolph REGISTERED NURSE MATERNITY.HEALTH INSPECTOR FOOD Work Phone: [facility] 08-03-2022 13:49-0400 Respiratory rate 18 /min Elbert Rudolph REGISTERED NURSE MATERNITY.HEALTH INSPECTOR FOOD Work Phone: [facility] 08-03-2022 13:49-0400 SaO2% (BldA) [Mass fraction] 97 % Elbert Rudolph REGISTERED NURSE MATERNITY.HEALTH INSPECTOR FOOD Work Phone: [facility] 08-03-2022 13:49-0400 Systolic blood pressure 112 mm[Hg] Elbert Rudolph REGISTERED NURSE MATERNITY.HEALTH INSPECTOR FOOD Work Phone: [facility] 07-28-2022 07:15-0500 Body temperature 100 [degF] Orlando May MD Work Phone: [facility] 07-28-2022 07:15-0500 Body weight 77.56 kg Orlando May MD Work Phone: [facility] 07-28-2022 07:15-0500 Diastolic blood pressure 80 mm[Hg] Orlando May MD Work Phone: [facility] 07-28-2022 07:15-0500 Heart rate 93 /min Orlando May MD Work Phone: [facility] 07-28-2022 07:15-0500 Respiratory rate 18 /min Orlando May MD Work Phone: [facility] 07-28-2022 07:15-0500 SaO2% (BldA) [Mass fraction] 97 % Orlando May MD Work Phone: [facility] 07-28-2022 07:15-0500 Systolic blood pressure 122 mm[Hg] Orlando May MD Work Phone: [facility] 07-05-2022 07:32-0500 Body height 180.[address] Cali Mckeon Work Phone: [facility] 07-05-2022 07:32-0500 Body mass index (BMI) [Ratio] 24.6 kg/m2 Dr. Cali Mckeon Work Phone: [facility] 07-05-2022 07:32-0500 Body temperature 97.3 [degF] Dr. Cali Mckeon Work Phone: [facility] 07-05-2022 07:32-0500 Body weight 80.[address] Cali Mckeon Work Phone: [facility] 07-05-2022 07:32-0500 Diastolic blood pressure 84 mm[Hg] Dr. Cali Mckeon Work Phone: [facility] 07-05-2022 07:32-0500 Heart rate 97 /min Dr. Cali Mckeon Work Phone: [facility] 07-05-2022 07:32-0500 Respiratory rate 18 /min Dr. Cali Mckeon Work Phone: [facility] 07-05-2022 07:32-0500 SaO2% (BldA) [Mass fraction] 94 % Dr. Cali Mckeon Work Phone: [facility] 07-05-2022 07:32-0500 Systolic blood pressure 116 mm[Hg] Dr. Cali Mckeon Work Phone: [facility] 01-12-2022 07:41-0400 Body temperature 97.39 [degF] Valeriano [facility] REGISTERED NURSE MATERNITY.HEALTH INSPECTOR FOOD Work Phone: [facility] 01-12-2022 07:41-0400 [facility] NURSE MATERNITY.HEALTH INSPECTOR FOOD Work Phone: [facility] 01-12-2022 07:41-0400 Diastolic blood pressure 62 mm[Hg] [facility] REGISTERED NURSE MATERNITY.HEALTH INSPECTOR FOOD Work Phone: [facility] 01-12-2022 07:41-0400 Heart rate 84 /min [facility] REGISTERED NURSE MATERNITY.HEALTH INSPECTOR FOOD Work Phone: [facility] 01-12-2022 07:41-0400 Respiratory rate 16 /min [facility] REGISTERED NURSE MATERNITY.HEALTH INSPECTOR FOOD Work Phone: [facility] 01-12-2022 07:41-0400 SaO2% (BldA) [Mass fraction] 99 % [facility] REGISTERED NURSE MATERNITY.HEALTH INSPECTOR FOOD Work Phone: [facility] 01-12-2022 07:41-0400 Systolic blood pressure 108 mm[Hg] [facility] REGISTERED NURSE MATERNITY.HEALTH INSPECTOR FOOD Work Phone: [facility] 12-14-2021 10:34-0400 Diastolic blood pressure 89 mm[Hg] SOFY SALAZAR DO [facility] 12-14-2021 10:34-0400 Heart rate 60 /min SOFY SALAZAR DO [facility] 12-14-2021 10:34-0400 Mean blood pressure 106 mm[Hg] SOFY SALAZAR DO [facility] 12-14-2021 10:34-0400 Respiratory rate 16 /min SOFY SALAZAR DO [facility] 12-14-2021 10:34-0400 Systolic blood pressure 139 mm[Hg] SOFY SALAZAR DO [facility] 12-14-2021 09:04-0400 Body temperature 97.7 [degF] SOFY SALAZAR DO [facility] 12-14-2021 09:04-0400 Body weight 68.2 kg SOFY SALAZAR DO [facility] 12-14-2021 09:04-0400 Diastolic blood pressure 91 mm[Hg] SOFY SALAZAR DO [facility] 12-14-2021 09:04-0400 Heart rate 75 /min SOFY SALAZAR DO [facility] 12-14-2021 09:04-0400 Mean blood pressure 111 mm[Hg] SOFY SALAZAR DO [facility] 12-14-2021 09:04-0400 Respiratory rate 18 /min SOFY SALAZAR DO [facility] 12-14-2021 09:04-0400 Systolic blood pressure 150 mm[Hg] SOFY SALAZAR DO [facility] Encounters Encounter Date Encounter Type Care Provider Facility Start: 11-16-2024 End: 11-16-2024 Emergency department patient visit Dr. Cali Mckeon MD Work Phone: -Emergency Department Work Phone: Start: 11-13-2024 End: 11-13-2024 Patient encounter procedure Saturnino Barragan APRN.CNP Work Phone: [facility] Comment on above: Mild intermittent as thma with acute exacerbation (HCC) (Primary Dx) Start: 11-13-2024 End: 11-13-2024 ambulatory CALI MCKEON Facility:[facility] Start: 10-31-2024 End: 10-31-2024 Patient encounter procedure Elbert Galdamez APRN.HEALTH INSPECTOR FOOD Work Phone: [facility] Comment on above: Vomiting and diarrhe a (Primary Dx) Start: 10-31-2024 End: 10-31-2024 ambulatory CALI G MIKE Facility:[facility] Start: 10-05-2024 End: 10-05-2024 Patient encounter procedure Saturnino Barragan APRN.HEALTH INSPECTOR FOOD Work Phone: [facility] Comment on above: Viral gastroenteriti s Start: 10-05-2024 End: 10-05-2024 ambulatory CALI G MIKE Facility:[facility] Start: 08-23-2024 End: 08-23-2024 ambulatory CALI G MIKE Facility:[facility] Start: 08-23-2024 End: 08-23-2024 Office outpatient visit 15 minutes Orlando May MD Work Phone: [facility] Comment on above: Influenza-like illne ss (Primary Dx) Start: 07-24-2024 End: 07-24-2024 ambulatory CALI G MIKE Facility:[facility] Start: 07-24-2024 End: 07-24-2024 Office outpatient visit 25 minutes Richard Gomez PA-C Work Phone: [facility] Comment on above: Viral illness (Prima ry Dx); Mild intermittent asthma without complication Start: 06-28-2024 End: 06-28-2024 ambulatory CALI G MIKE Facility:[facility] Start: 06-28-2024 End: 06-28-2024 Patient encounter procedure Dariana Sanchez APRN.HEALTH INSPECTOR FOOD Work Phone: [facility] Comment on above: Viral URI with cough (Primary Dx) Start: 03-29-2024 End: 03-29-2024 Patient encounter procedure Saturnino Barragan APRN.HEALTH INSPECTOR FOOD Work Phone: [facility] Comment on above: Dysuria (Primary Dx) Start: 03-29-2024 End: 03-29-2024 Emergency department patient visit Medardo Shannon Facility:[facility] Start: 03-29-2024 End: 03-29-2024 ambulatory CALI MCKEON Facility:[facility] Start: 03-20-2024 End: 03-20-2024 Telephone encounter Elbert Galdamez APRN.CNP Work Phone: [facility] Comment on above: Results Erroneous encounter- disregard Start: 03-19-2024 End: 03-19-2024 Subsequent hospital visit by physician Xr [facility] Work Phone: Radiology Comment on above: Rib pain on left demond e [R07.81] Start: 03-19-2024 End: 03-20-2024 ambulatory CALI MCKEON Facility:[facility] Start: 03-19-2024 End: 03-20-2024 Patient encounter procedure Elbert Galdamez APRN.HEALTH INSPECTOR FOOD Work Phone: [facility] Comment on above: Rib pain on left demond e (Primary Dx) Start: 03-19-2024 End: 03-19-2024 Emergency department patient visit Roger Perez Facility:[facility] Start: 05-20-2023 End: 05-20-2023 Emergency department patient visit [facility]-Emergency Department Work Phone: Start: 02-24-2023 Telephone encounter Elbert aldana APRN.HEALTH INSPECTOR FOOD Work Phone: [facility] Comment on above: Return To Work Lette r Start: 02-22-2023 End: 02-22-2023 Subsequent hospital visit by physician Xr [facility] Work Phone: Radiology Comment on above: Wheeze [R06.2] Start: 09-20-2022 End: 09-20-2022 Emergency department patient visit Dr. Cali Mckeon Work Phone: [facility]-Emergency Department Start: 08-03-2022 End: 08-03-2022 Subsequent hospital visit by physician Xr [facility] Work Phone: Radiology Comment on above: Acute cough [R05.1] Start: 08-03-2022 End: 08-03-2022 Patient encounter procedure Elbert Galdamez APRN.HEALTH INSPECTOR FOOD Work Phone: [facility] Comment on above: Sinobronchitis (Prim narciso Dx); Acute cough Start: 07-29-2022 Telephone encounter Elbertmarga aldana REGISTERED NURSE MATERNITY.HEALTH INSPECTOR FOOD Work Phone: [facility] Comment on above: Results Start: 07-28-2022 End: 07-28-2022 Patient encounter procedure Orlando May MD Work Phone: [facility] Comment on above: Influenza-like illne ss (Primary Dx); Oral lesion Start: 07-05-2022 End: 07-05-[address] Cali Mckeon Work Phone: [facility] Work Phone: Start: 07-05-2022 End: 07-05-[address] Cali Mckeon Work Phone: [facility] Start: 01-12-2022 End: 01-12-2022 Patient encounter procedure Valeriano Burnett REGISTERED NURSE MATERNITY.HEALTH INSPECTOR FOOD Work Phone: [facility] Comment on above: Viral illness (Prima ry Dx) Start: 12-14-2021 End: 12-14-2021 Emergency department patient visit SOFY Jesika MARTIN GUTIERREZ [facility] Start: 06-09-2017 End: 06-10-2017 Ambulatory DIANNA HWANG Facility:[facility] Start: 05-20-2017 End: 05-28-2017 Evaluation and management of inpatient DIANNA HWANG Facility:[facility] Procedures Date Procedure Procedure Detail Performing Clinician Start: 11-16-2024 X-ray of chest, PA a nd lateral views Dr. Cali Mckeon MD Work Phone: Start: 11-16-[address] Cali Mckeon MD Work Phone: Start: 07-24-2024 INFLUENZA A&B MOLECU LAR (POC) Richard Gomez PA-C Work Phone: Start: 03-19-2024 Radex ribs uni w/posteroant ch minimum 3 views Elbert Galdamez REGISTERED NURSE MATERNITY.HEALTH INSPECTOR FOOD Work Phone: Start: 05-20-2023 SARS-CoV-2, Influenz a & RSV (PCR) Start: 05-20-2023 Computed tomography of abdomen and pelvis with intravenous contrast Start: 02-22-2023 Radiologic exam ches t 2 views Elbert Galdamez REGISTERED NURSE MATERNITY.HEALTH INSPECTOR FOOD Work Phone: Start: 08-03-2022 Radiologic exam ches t 2 views Elbetr Galdamez REGISTERED NURSE MATERNITY.HEALTH INSPECTOR FOOD Work Phone: Start: 08-27-2020 Adult depression scr eening assessment Valeriano Burnett REGISTERED NURSE MATERNITY.HEALTH INSPECTOR FOOD Work Phone: Plan of Treatment Date Care Activity Detail Author Start: 01-21-2025 Influenza vaccination Influenz a Vaccine (Season Ended) [facility] Start: 11-16-2024 [facility] Start: 11-16-2024 End: 11-16-2024 [facility] Start: 01-22-2024 Covid-19 Vaccine ( season) Covid-19 Vaccine ( season) [facility] Start: 01-22-2024 Covid-19 Vaccine ( season) Covid-19 Vaccine ( season) [facility] Start: 01-22-2024 Influenza vaccination Influenza Vacc ine (#1) [facility] Start: 05-20-2023 [facility] Start: 01-21-2023 Influenza vaccination Influenza Vacc ine (#1) [facility] Start: 07-28-2022 End: 08-11-2022 Influenza virus A and B RNA and SARS-CoV-2 (COVID-19) N gene panel - Respiratory specimen by SAUL with probe detection COVID WITH FLUA+B, ROUTINE Microbiology Routine Influenza-like illness Expected: 07/28/2022, Expires: 08/11/2022 [facility] Work Phone: Comment on above: Expected: 07/28/2022 , Expires: 08/11/2022 Start: 07-05-2022 Patient referral [facility] Work Phone: Start: 05-23-2022 DEPRESSION ASSESSMENT DEPRESSION ASS ESSMENT [facility] Start: 01-21-2022 Influenza vaccination INFLUENZA (#1) [facility] Start: 08-27-2021 Adult depression screening assessment DEPRESSION SCREENING [facility] Start: 08-27-2021 Annual PCP Team Geodesist lucy Disease Visit Annual PCP Team Chronic Disease Visit [facility] Start: 12-19-2015 Lipid 1996 panel - Serum or Plasma Lipid Screening [facility] Start: 12-19-2015 Lipid panel Lipid Screening [facility] Start: 12-19-2015 LIPID SCREEN LIPID SCREEN [facility] Start: 12-19-1999 Hepatitis B Vaccine (1 of 3 - 19+ 3-dose series) Hepatitis B Vaccine (1 of 3 - 19+ 3-dose series) [facility] Start: 12-19-1999 Pneumococcal vaccination Pneumococcal Vaccine (1 of 2 - PCV) [facility] Start: 12-19-1999 Urine microalbumin profile [facility] Start: 1998 Anxiety Screening Anxiety Screening [facility] Start: 1998 Depression Screening Depression Scre ening [facility] Start: 1998 HEPATITIS C SCREENING HEPATITIS C [facility] Start: 1998 Hepatitis C screening Hepatitis C [facility] Start: 1998 HIV SCREENING HIV SCREENING [facility] Start: 1998 HIV screening HIV Screening [facility] Start: 1986 PNEUMOCOCCAL (1 - PCV) PNEUMOCOCCAL (1 - PCV) [facility] Start: 1986 Pneumococcal vaccination [facility] Start: 06-20-1981 COVID-19 VACCINE (#1) COVID-19 VACCI NE (#1) [facility] Start: 1980 HEPATITIS B (1 of 3 - 3-dose series) HEPATITIS B (1 of 3 - 3-dose series) [facility] Start: 1980 Hepatitis B Vaccine (1 of 3 - 3-dose series) Hepatitis B Vaccine (1 of 3 - 3-dose series) [facility] Influenza virus A an d B RNA and SARS-CoV-2 (COVID-19) N gene panel - Respiratory specimen by SAUL with probe detection COVID WITH FLUA+B, ROUTINE Microbiology Routine Viral illness Ordered: 01/12/2022 [facility] Work Phone: Comment on above: Ordered: 01/12/2022 Patient Education [facility] Work Phone: Patient referral [facility] Work Phone: Tobacco use cessatio n education [facility] UA DIP, URINE (POC) UA DIP, URIN E (POC) Lab Routine Dysuria Ordered: 03/29/2024 [facility] Work Phone: Comment on above: Ordered: 03/29/2024 Payers Date Payer Category Payer Self-pay 2023 Medicaid [id number] 75 [id number] 2020 Medicaid [id number] Self-pay [id number] Unknown [id number] Unknown [id number] Unknown [id number] Social History Date Type Detail Facility Start: 08-27-2020 Tobacco smoking status Heavy t obacco smoker (finding) [facility] Start: 1980 Sex Assigned At Male A [facility] Start: 01-12-2022 End: 11-16-2024 Tobacco smoking status NHIS Smokes tobacco daily [facility] Work Phone: History of tobacco use Cigarette Smoker C [facility] Work Phone: Start: 04-30-2020 End: 01-12-2022 Cigarettes smoked current (pack per day) - Reported 0.5 [facility] Start: 01-12-2022 End: 03-19-2024 Tobacco use and exposure Former smokeless tobacco user [facility] Work Phone: End: 08-22-2015 History of tobacco use User of smokeless tobacco [facility] Work Phone: Start: 01-12-2022 End: 10-31-2024 Alcohol intake Current drinker of alcohol (finding) [facility] Start: 11-25-2015 History SDOH Alcohol Comment occassional [facility] Start: 1980 Sex Assigned At Not on file C [facility] Start: 01-02-2022 End: 01-12-2022 Exposure to SARS-CoV-2 (event) Yes [facility] Work Phone: Start: 07-05-2022 End: 05-20-2023 Tobacco smoking status NHIS Unknown if ever smoked [facility] Start: 11-22-2020 None [facility] Start: 11-22-2020 Cigarettes [facility] Start: 04-30-2020 End: 02-22-2023 Tobacco use panel [facility] National Score (1-10 0), lower number is lower risk Not on file [facility] Functional Status Date Assessment Result Facility 12-14-2021 Functional Status Independent [facility] 12-14-2021 Functional Status Standard Safet y ID band on, Call device within reach, Bed in low position, Wheels locked, Upper/Half-Length side-rails up, Phone within reach, personal items within reach, Bedside Cart Locked, Visitor at bedside [facility] Mental Status Date Assessment Result Facility 11-16-2024 Cognitive function Level Of Cons ciousness Awake;Alert;Appropriate;Follow s Commands [facility] Work Phone: 09-20-2022 Cognitive function Level Of Cons ciousness Awake;Alert;Appropriate [facility] Work Phone: 12-14-2021 Mental Status Orientation Oriented x 4 [facility] 12-14-2021 Mental Status [facility] Clinical Notes 05-20-2017 to 11-16-2024 Note Date & Type Note Facility 11-16-2024 Discharge summary [facility] 11-16-2024 Discharge summary Note Date/Time November 16, 2024 3:46pm [facility] Medical Records Department [address] [place] [address] Emergency Department Summary 11/16/24 MR#: [id number] Acct: [id number] Name: ANAMIKA JUAREZ Rep #:[id number] : 1980 43 From: Maximilian Gaspar MD PCP: Dr. Cali Mckeon MD Status:REG ER Location: ED HPI History of Present Illness Chief Complaint: Chest Pain Informant: patient Narrative Narrative: 43-year-old male presents with several hours of nonpleuritic left-sided chest discomfort that radiates straight through to his back around his shoulder blade but nowhere else. No karolyn dyspnea. No recent cough or fevers. States he has had 4 spontaneous pneumothoraces in the past, and as a result he has had VATS onboth sides, he has never had 1 after the VATS were done. He denies any nausea or vomiting. No near-syncope or syncope. 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 It does hurt a little worse to move. No leg pain or swelling recently. The VATS were not done in the past couple months. [facility] Medical History Cellulitis of right thumb Abrasion of right thumb History of pneumonia Bone fracture Headache, migraine Trigeminal neuralgia Pneumothorax Home Medications ?Medication ?Instructions ?Recorded ?Last Taken ?Type TENS units #1 ea 12/16/21 Unknown Rx prednisone 10 mg tablet See Taper PO DAILY 11/16/24 11/16/24 History Allergy/AdvReac Type Severity Reaction Status Date / Time No Known Allergies Allergy Verified 11/16/24 12:11 Family History Mother Arthritis Heart disease Hypertension Severe allergy Grandmother Colon cancer Surgical History History of lung surgery H/O hernia repair History of tonsillectomy Social History household members: spouse current occupational status: employed current occupation: works at [employer] Smoking Status: Current every day smoker tobacco type: cigarettes Electronic Cigarette Use: not used alcohol intake: current alcohol intake frequency: holidays/special occasions only Alcohol type: wine and hard liquor substance use type: does not use what type of physical activity do you participate in: none do you feel safe at home: Yes ROS ROS ED Constitutional Constitutional ED: Denies chills or fever(s) Eyes Eyes: Denies change in vision or diplopia ENT ENT ED: Denies rhinorrhea or sore throat Cardiovascular Cardiovascular: Reports as per HPI and chest pain; Denies palpitations Respiratory/Chest Respiratory/Chest: Denies cough or dyspnea Gastrointestinal Gastrointestinal: Denies abdominal pain, diarrhea, nausea or vomiting Genitourinary Genitourinary ED: Denies dysuria or hematuria Musculoskeletal Musculoskeletal: Denies back pain or neck pain Integumentary Denies abscess or rash Neurologic Neurologic: Denies headache(s), paresthesias or weakness Psychiatric Psychiatric: Denies anxiety or suicidal thoughts EXAM Physical Exam Const Vital Signs: 11/16/24 12:10 11/16/24 12:37 11/16/24 12:39 Temperature 97 F L Temperature Source Temporal Pulse Rate 93 81 Respiratory Rate 14 22 H Respiratory Effort Normal Non-Labored Blood Pressure 133/91 H 127/92 H Blood Pressure Mean 105 103 Pulse Ox 99 99 Oxygen Delivery Method Room Air Room Air 11/16/24 14:00 11/16/24 15:02 Temperature 97 F L Temperature Source Pulse Rate 68 57 L Respiratory Rate 18 18 Respiratory Effort Blood Pressure 133/92 H 128/95 H Blood Pressure Mean 105 106 Pulse Ox 99 99 Oxygen Delivery Method Room Air Positive well nourished and well developed General Appearance ED: well developed and NAD HEENT Reports moist mucous membranes normocephalic and atraumatic Eyes PERRL and EOMs intact bilaterally Neck full ROM and supple Chest Wall Chest Narrative: Chest is nontender he does have some tenderness in the left mid back just below the tip of the scapula, there is no crepitance or subcutaneous emphysema and hislung sounds are equal bilaterally. No splinting with deep inspiration. Resp normal respiratory effort and clear to auscultation bilaterally Cardio regular rate, regular rhythm and no murmurs Rate: Negative for tachycardic Peripheral Pulses: pulses 2+ throughout GI non-tender and non-distended Auscultation: normoactive bowel sounds Palpation: soft Back/Spine no CVA tenderness General Back: other FROM Extremity normal to inspection Extremity Narrative: No calf tenderness or cords. General Extremety ED: Negative for edema, pulses abnormal or tenderness General Extremity: Negative for edema or pulses abnormal Neuro oriented x3, CN's II-XII intact bilaterally and no sensory deficits noted Sensorium / Orientation: awake and alert Motor Exam: strength 5/5 throughout Psych mental status grossly normal Skin no rashes or lesions noted and no wounds Heart Score History: Slightly/Non-Suspicious ECG: Normal Age: </= 45 years Risk Factors: 1 or 2 Risk Factors Troponin: </= Normal Limit Score: 1 MDM MDM MDM Narrative Medical decision making narrative: EKG is normal. 2 view chest x-ray obtained and on my interpretation shows no pneumothorax. His labs are only remarkable for mild hypokalemia, his troponin is normal. We did a second troponin it is also normal. In the meantime he was given a GI cocktail, he did notice that his discomfort is definitely less afterwards. Esophageal etiologies in the differential as are musculoskeletal. Regardless at this time I think he is safe to be discharged home his vital signsare normal, his PERC score is 0 so I do not think he needs to have a D-dimer or CTA in order to rule out pulmonary embolus in this particular scenario. He is comfortable with that overall plan of following up with his doctors as an outpatient. Lab Data Attestation: I reviewed the patient's lab results. Labs: Laboratory Results - last 24 hr 11/16/24 11/16/24 12:35 14:20 WBC 6.4 RBC 4.46 L Hgb 16.4 Hct 43.9 MCV 98.4 H MCH 36.8 H MCHC 37.4 H RDW Std Deviation 45.6 H RDW Coeff of Larisa 12.6 Plt Count 243 MPV 9.4 Immature Gran % (Auto) 0.200 Neut % (Auto) 46.4 L Lymph % (Auto) 40.3 [place] % (Auto) 8.7 Eos % (Auto) 3.9 Baso % (Auto) 0.5 Absolute Neuts (auto) 3.0 Absolute Lymphs (auto) 2.59 Nucleated RBC % 0 Sodium 137 Potassium 3.1 L Chloride 101 Carbon Dioxide 21.5 Anion Gap 15 BUN 6 Creatinine 0.69 L Estim Creat Clear Calc 151.51 Est GFR (MDRD) Non-Af 118 BUN/Creatinine Ratio 8.6 L Glucose 100 H Calcium 8.6 Troponin T High Sens < 6 Troponin T Hi Sens 2 Hr < 6 Radiography Diagnostic Testing: Clinical Impression(s) from Imaging Studies Chest X-Ray 11/16/24 13:05 IMPRESSION: Bilateral upper lung sutures are seen. Biapical pleural-parenchymal scarring isnoted, [id number]. Lungs appear clear throughout. No pleural effusion or pneumothorax is noted. The cardiomediastinal silhouette is within the normal range. Mild thoracic spine degenerative changes are seen. No evidence of acute cardiopulmonary disease. Reading Location: [place] [address] Rhythm Strip Rhythm Strip: Sinus Rhythm Rate: 90 Ectopy: None EKG Initial EKG: Attestation: I personally reviewed and interpreted this EKG as follows: Interpretation: Sinus Rhythm and No Acute Injury Pattern Comments: Nml axis & intervals; RSR'; nml EKG Discharge Plan Triage Chief Complaint: Chest Pain ED Provider: Maximilian Gaspar Dx/Rx/DC Orders Clinical Impression: Left-sided chest pain Instructions: ED Chest Pain, Noncardiac Prescriptions: No Action (DME) TENS units Device See Rx Instructions .Route Qty: 1 0RF Rx Instructions: As directed prednisone 10 mg tablet See Taper PO DAILY Taper: Prednisone Taper 40 mg WITH BREAKFAST for 3 Days 20 mg WITH BREAKFAST for 3 Days 10 mg WITH BREAKFAST for 3 Days Primary Care Provider: Cali Mckeon Referrals: Cali Mckeon MD [Primary Care Provider] - As soon as possible Print Language: Mongolian Disposition Disposition: Home, Self Care What to do if you have Problems For any increased pain, shortness of breath, bleeding, nausea or vomiting, chestpain, or any unexpected problems, contact your Primary Care Provider. Call [facility] ([phone]) or report to the closest Emergency Room. Call 911 if necessary. 11/16/24 1546 <Electronically signed by Maximilian Gaspar MD> Cosigner Signature (if applicable): CC: Dr. Cali Mckeon MD ~ Signed [facility] Work Phone: [phone] 723-570806-27-2025 Radiology Diagnostic study note [facility] Imaging Services [address] [place] [address] Chest PA and Lateral MR#: [id number] Acct: [id number] Name: ANAMIKA JUAREZ Rep #: [id number] : 1980 M 43 From: Jay Jay Maurice MD PCP: Dr. Cali Mckeon MD Status: REG ER Study:Chest PA and Lateral Date of Exam: 11/16/24 Exam# [id number] Ordering Dr: Deidre Gaspar MD PROCEDURE: CHEST PA AND LATERAL 11/16/2024 REASON FOR EXAM: L CHEST PAIN TECHNIQUE: CHEST PA AND LATERAL COMPARISON: Chest x-ray of 03/11/2024. RAD/Chest PA and Lateral IMPRESSION: Bilateral upper lung sutures are seen. Biapical pleural-parenchymal scarring isnoted, [id number]. Lungs appear clear throughout. No pleural effusion or pneumothorax is noted. The cardiomediastinal silhouette is within the normal range. Mild thoracic spine degenerative changes are seen. No evidence of acute cardiopulmonary disease. Reading Location: [place] [address] CC: Dr. Cali Mckeon MD; Dr. Maximilian Gaspar MD ~ Corporate Sales Representative: Signed [facility]06-24-2025 NoteHNO ID: [id number] Author: SATURNINO BARRAGAN APRN.HEALTH INSPECTOR FOOD Service: ? Author Type: Nurse Practitioner Type: Progress Notes Filed: 11/13/2024 14:27 Note Text: [facility] TIFFANY Juarez is a 43 year old male. Patient presents with: Asthma: sob x 2 days HPI Asthma: - Acute exacerbation attributed to heat exposure. - Experiences dyspnea and hacking cough when hot. - No recent exacerbations of this severity. - Using rescue inhaler every 10 minutes at work due to lack of cooling areas. - Denies dysphagia. - Intermittent smoker. Review of Systems Ears/Nose/Mouth/Throat: (-) odynophagia Respiratory: (+) shortness of breath, (+) cough Objective BP 126/72 Pulse 102 Temp 37.1 ?C (98.8 ?F) Resp 16 Wt 80.2 kg (176 lb 12.9 oz) SpO2 97% BMI 25.37 kg/m? Physical Exam General: No acute distress. Resp: Good air exchange. CV: Normal heart sounds. {1. Mild intermittent asthma with acute exacerbation (HCC) (J45.21) - Exacerbation likely triggered by high temperatures; patient experiencing dyspnea and frequent use of rescue inhaler. - Auscultation reveals good air exchange and normal heart sounds. - Educated patient on appropriate use of rescue inhaler, emphasizing a minimum interval of 4 hours between doses due to potential cardiac effects from the stimulant component. - Prescribed oral corticosteroids to reduce airway inflammation; advised patient that effects should be noticeable by the following day. - Recommended increased hydration. - Provided work note for today. - Advised follow-up with primary care for further management and consideration of long-acting bronchodilators if exacerbations persist. and Recording using ambient Wego software for draft documentation of the visit was discussed with the patient/authorized field marketing representative; all questions welcomed and answered. Patient/authorized field marketing representative agreed to proceed [facility] History of Present illness Narrative* Saturnino Barragan APRN.[facility] - 11/13/2024 2:26 PM EDT [facility] Mikki Juarez is a 43 year old male. Patient presents with: Asthma: sob x 2 days HPI Asthma: - Acute exacerbation attributed to heat exposure. - Experiences dyspnea and hacking cough when hot. - No recent exacerbations of this severity. - Using rescue inhaler every 10 minutes at work due to lack of cooling areas. - Denies dysphagia. - Intermittent smoker. Review of Systems Ears/Nose/Mouth/Throat: (-) odynophagia Respiratory: (+) shortness of breath, (+) cough Objective BP 126/72 Pulse 102 Temp 37.1 C (98.8 F) Resp 16 Wt 80.2 kg (176 lb 12.9 oz) SpO2 97% BMI 25.37 kg/m Physical Exam General: No acute distress. Resp: Good air exchange. CV: Normal heart sounds. {1. Mild intermittent asthma with acute exacerbation (HCC) (J45.21) - Exacerbation likely triggered by high temperatures; patient experiencing dyspnea and frequent useof rescue inhaler. - Auscultation reveals good air exchange and normal heart sounds. - Educated patient on appropriate use of rescue inhaler, emphasizing a minimum interval of 4 hours between doses due to potential cardiac effects from the stimulant component. - Prescribed oral corticosteroids to reduce airway inflammation; advised patient that effects should be noticeable by the following day. - Recommended increased hydration. - Provided work note for today. - Advised follow-up with primary care for further management and consideration of long-acting bronchodilators if exacerbations persist. and Recording using Offerti software for draft documentation of the visit was discussed with thepatient/authorized field marketing representative; all questions welcomed and answered. Patient/authorized field marketing representative agreed to proceed MDM Procedures [facility]25 NoteHNO ID: [id number] Author: ELBERT GALDAMEZ APRN.RAJANI Service: ? Author Type: Nurse Practitioner Type: Progress Notes Filed: 10/31/2024 15:34 Note Text: [facility] Subjective HPI HPI Anamika Juarez is a 43 year old male who presents today for CC of n/v/d. This started 1 day ago. Has tried otc medication for relief. Symptoms are worsened by nothing. Risk factors sick exposures at work. This happened last month, concerned for something chronic. Denies blood in stool/vomit. Denies abd pain. Denies cp/sob. .Patient presents with: Nausea AND Vomiting: Nausea, vomiting and stomach hurts x 1 day PAST MEDICAL HISTORY Diagnosis Date History of lung surgery 05/24/2017 right VATS surgery with resection of apical blebs, right upper lobe, mechanical pleurodesis, and insertion pain ball. Hyperlipidemia Pneumothorax Trigeminal neuralgia PAST SURGICAL HISTORY Procedure Laterality Date INGUINAL HERNIA REPAIR HX THORACOSCOPY SURG W PLEURODESIS Left 10/29/2015 L VATS with bleb resection, AND mechanical pleurodesis at [facility] by Dr. Hwang THORACOSCOPY SURG W PLEURODESIS Right 05/24/2017 surgery with resection of apical blebs, right upper lobe, mechanical pleurodesis, and insertion pain ball. ALLERGIES Patient has no known allergies. MEDICATIONS atorvastatin (LIPITOR) 10 mg tablet Take 10 mg by mouth once daily. albuterol HFA (PROVENTIL HFA, VENTOLIN HFA) 90 mcg/actuation inhaler Inhale 2 Puffs as instructed every 4 hours as needed for wheezing/shortness of breath. lamoTRIgine orally disintegrating (LAMICTAL ODT) 50 mg disintegrating tablet Take 50 mg by mouth twice daily. (Patient not taking: Reported on 02/22/2023) FAMILY HISTORY Problem Relation Age of Onset Diabetes Other Social History Tobacco Use Smoking status: Every Day Current packs/day: 0.50 Types: Cigarettes Smokeless tobacco: Former Quit date: 08/22/2015 Substance Use Topics Alcohol use: Yes Comment: occassional Drug use: No Review of Systems Objective BP 128/82 Pulse 87 Temp 36.7 ?C (98.1 ?F) (Tympanic) Resp 16 Wt 79.4 kg (175 lb 0.7 oz) SpO2 96% BMI 25.12 kg/m? Physical Exam Constitutional: General: He is not in acute distress. Appearance: Normal appearance. He is not toxic-appearing. Cardiovascular: Rate and Rhythm: Normal rate and regular rhythm. Heart sounds: Normal heart sounds. Pulmonary: Effort: Pulmonary effort is normal. Breath sounds: Normal breath sounds. Abdominal: General: Bowel sounds are normal. Palpations: Abdomen is soft. There is no hepatomegaly or splenomegaly. Tenderness: There is no abdominal tenderness. There is no right CVA tenderness or left CVA tenderness. Skin: General: Skin is warm and dry. {ASSESSMENT/PLAN: 1. Vomiting and diarrhea - ICD9: 787.03, 787.91, ICD10: R11.10, R19.7 -Discussed gentle rehydration -BRAT Diet (Bananas, Rice, Apple Sauce, Chancellor) -If no better in 3-5days follow up back in clinic or with primary care provider -Follow up in the ER with signs of dehydration, increasing abdominal pain, high fever, or blood in vomit or stool. - ONDANSETRON 4 MG DISINTEGRATING TABLET Elbert Galdamez APRN.HEALTH INSPECTOR FOOD History and Record Review External record(s) reviewed: prior outpatient record. Disposition The patient was discharged. [facility] History of Present illness Narrative* Elbert Galdamez APRN.CNP - 10/31/2024 2:57 PM EDT [facility] Subjective HPI HPI Anamika Juarez is a 43 year old male who presents today for CC of n/v/d. This started 1 day ago.Has tried otc medication for relief. Symptoms are worsened by nothing. Risk factors sick exposures at work. This happened last month, concerned for something chronic. Denies blood in stool/vomit. Denies abd pain. Denies cp/sob. .Patient presents with: Nausea & Vomiting: Nausea, vomiting and stomach hurts x 1 day PAST MEDICAL HISTORY Diagnosis Date History of lung surgery 05/24/2017 right VATS surgery with resection of apical blebs, right upper lobe, mechanical pleurodesis, and insertion pain ball. Hyperlipidemia Pneumothorax Trigeminal neuralgia PAST SURGICAL HISTORY Procedure Laterality Date INGUINAL HERNIA REPAIR HX THORACOSCOPY SURG W PLEURODESIS Left 10/29/2015 L VATS with bleb resection, & mechanical pleurodesis at [facility] by Dr. Hwang THORACOSCOPY SURG W PLEURODESIS Right 05/24/2017 surgery with resection of apical blebs, right upper lobe, mechanical pleurodesis, and insertion pain ball. ALLERGIES Patient has no known allergies. MEDICATIONS atorvastatin (LIPITOR) 10 mg tablet Take 10 mg by mouth once daily. albuterol HFA (PROVENTIL HFA, VENTOLIN HFA) 90 mcg/actuation inhaler Inhale 2 Puffs as instructed every 4 hours as needed for wheezing/shortness of breath. lamoTRIgine orally disintegrating (LAMICTAL ODT) 50 mg disintegrating tablet Take 50 mg by mouth twice daily. (Patient not taking: Reported on 02/22/2023) FAMILY HISTORY Problem Relation Age of Onset Diabetes Other Social History Tobacco Use Smoking status: Every Day Current packs/day: 0.50 Types: Cigarettes Smokeless tobacco: Former Quit date: 08/22/2015 Substance Use Topics Alcohol use: Yes Comment: occassional Drug use: No Review of Systems Objective BP 128/82 Pulse 87 Temp 36.7 C (98.1 F) (Tympanic) Resp 16 Wt 79.4 kg (175 lb 0.7 oz) SpO2 96% BMI 25.12 kg/m Physical Exam Constitutional: General: He is not in acute distress. Appearance: Normal appearance. He is not toxic-appearing. Cardiovascular: Rate and Rhythm: Normal rate and regular rhythm. Heart sounds: Normal heart sounds. Pulmonary: Effort: Pulmonary effort is normal. Breath sounds: Normal breath sounds. Abdominal: General: Bowel sounds are normal. Palpations: Abdomen is soft. There is no hepatomegaly or splenomegaly. Tenderness: There is no abdominal tenderness. There is no right CVA tenderness or left CVA tenderness. Skin: General: Skin is warm and dry. {ASSESSMENT/PLAN: 1. Vomiting and diarrhea - ICD9: 787.03, 787.91, ICD10: R11.10, R19.7 -Discussed gentle rehydration -BRAT Diet (Bananas, Rice, Apple Sauce, Chancellor) -If no better in 3-5days follow up back in clinic or with primary care provider -Follow up in the ER with signs of dehydration, increasing abdominal pain, high fever, or blood in vomit or stool. - ONDANSETRON 4 MG DISINTEGRATING TABLET Elbert Galdamez APRN.RAJANI History and Record Review External record(s) reviewed: prior outpatient record. Disposition The patient was discharged. Procedures documented in this encounterOhio [facility]05-16-2025 NoteHNO ID: [id number] Author: SATURNINO BARRAGAN APRN.RAJANI Service: ? Author Type: Nurse Practitioner Type: Progress Notes Filed: 10/05/2024 18:15 Note Text: [facility] Mikki Juarez is a 43 year old male. Patient presents with: Nausea AND Vomiting: Diarrhea x 2 days HPI Gastroenteritis: - Vomiting began yesterday, occurring 2-3 times. - Episodes increased to every 15 minutes around 0230 this morning. - Vomiting has since resolved; diarrhea began this afternoon. - Able to tolerate a cup of noodles prior to the visit. - Continues to urinate normally. - Reports abdominal cramping, denies sharp abdominal pain. Review of Systems Gastrointestinal: (+) diarrhea, (+) abdominal cramping, (-) sharp abdominal pain Objective BP 135/93 Pulse 108 Temp 37.5 ?C (99.5 ?F) Resp 20 Wt 79 kg (174 lb 2.6 oz) SpO2 98% BMI 24.99 kg/m? Physical Exam General: No acute distress. CV: Heart sounds normal. Resp: Lung sounds normal. Abd: Mild tenderness to palpation, no severe pain reported. {1. Viral gastroenteritis (A08.4) - Symptoms include emesis 2-3 times yesterday, now resolved, and diarrhea today. No severe abdominal pain, only mild cramping. - Physical exam reveals no acute distress, normal heart and lung sounds, and no significant abdominal tenderness. - Advised maintaining hydration with small sips of fluids and monitoring urine output. - Recommended bland diet, avoiding red, spicy, and greasy foods; suggested BRAT diet (bananas, rice, applesauce, toast) and avoiding dairy products. - Provided work note for today and tomorrow. and Recording using Offerti software for draft documentation of the visit was discussed with the patient/authorized field marketing representative; all questions welcomed and answered. Patient/authorized field marketing representative agreed to proceed MDM [facility] History of Present illness Narrative* Saturnino Barragan APRN.[facility] - 10/05/2024 6:13 PM EDT [facility] Anamika Juarez is a 43 year old male. Patient presents with: Nausea & Vomiting: Diarrhea x 2 days HPI Gastroenteritis: - Vomiting began yesterday, occurring 2-3 times. - Episodes increased to every 15 minutes around 0230 this morning. - Vomiting has since resolved; diarrhea began this afternoon. - Able to tolerate a cup of noodles prior to the visit. - Continues to urinate normally. - Reports abdominal cramping, denies sharp abdominal pain. Review of Systems Gastrointestinal: (+) diarrhea, (+) abdominal cramping, (-) sharp abdominal pain Objective BP 135/93 Pulse 108 Temp 37.5 C (99.5 F) Resp 20 Wt 79 kg (174 lb 2.6 oz) SpO2 98% BMI 24.99 kg/m Physical Exam General: No acute distress. CV: Heart sounds normal. Resp: Lung sounds normal. Abd: Mild tenderness to palpation, no severe pain reported. {1. Viral gastroenteritis (A08.4) - Symptoms include emesis 2-3 times yesterday, now resolved, and diarrhea today. No severe abdominal pain, only mild cramping. - Physical exam reveals no acute distress, normal heart and lung sounds, and no significant abdominal tenderness. - Advised maintaining hydration with small sips of fluids and monitoring urine output. - Recommended bland diet, avoiding red, spicy, and greasy foods; suggested BRAT diet (bananas, rice, applesauce, toast) and avoiding dairy products. - Provided work note for today and tomorrow. and Recording using Offerti software for draft documentation of the visit was discussed with thepatient/authorized field marketing representative; all questions welcomed and answered. Patient/authorized field marketing representative agreed to proceed MDM Procedures documented in this encounterOhio [facility]04-03-2025 NoteHNO ID: [id number] Author: ORLANDO MAY MD Service: ? Author Type: Physician Type: Progress Notes Filed: 08/23/2024 15:00 Note Text: [facility] TIFFANY Mikki Juarez is a 43 year old male. Patient presents with: Vomiting: Cough, lightheaded, dizziness, APARICIO x1 day Patient presents with illness since yesterday. He has headache, body aches, feels feverish, has chills, intense coughing, he has had some diarrhea and vomiting. He feels short of breath and wheezing when he is coughing. Denies hematemesis, hematochezia, or abdominal pain. He has used his albuterol inhaler but no other treatments. Vomiting Review of Systems Gastrointestinal: Positive for vomiting. Objective BP 138/90 Pulse 87 Temp 37.1 ?C (98.8 ?F) Resp 18 Wt 79 kg (174 lb 2.6 oz) SpO2 99% BMI 24.99 kg/m? Physical Exam Constitutional: General: He is not in acute distress. Appearance: He is ill-appearing. HENT: Right Ear: Tympanic membrane and ear canal normal. Left Ear: Tympanic membrane and ear canal normal. Nose: Congestion present. Right Sinus: Maxillary sinus tenderness (Chronic trigeminal pain) present. No frontal sinus tenderness. Left Sinus: No maxillary sinus tenderness or frontal sinus tenderness. Eyes: Extraocular Movements: Extraocular movements intact. Conjunctiva/sclera: Conjunctivae normal. Pupils: Pupils are equal, round, and reactive to light. Cardiovascular: Rate and Rhythm: Normal rate and regular rhythm. Heart sounds: No murmur heard. Pulmonary: Effort: No respiratory distress. Breath sounds: No wheezing, rhonchi or rales. Musculoskeletal: Cervical back: Neck supple. Lymphadenopathy: Cervical: No cervical adenopathy. Neurological: Mental Status: He is alert. {ASSESSMENT/PLAN: 1. Influenza-like illness - ICD9: 487.1, ICD10: J11.1 - suspect viral URI, differential includes influenza and COVID-19. He is not interested in antiviral therapy and defers viral testing. Work note provided. - Discussed supportive care treatment with home isolation (fever free for 24 hours and improving symptoms), rest, cold medicine, and analgesia. - Red flags to seek further treatment include chest pain, shortness of breath, and lethargy; in the ER if severe. Orlando May MD Differential Diagnoses - Influenza is more likely for the following reason(s): Present in the community, suggested by HANDP - Pneumonia is less likely for the following reason(s): Normal lung exam Disposition The patient was discharged. [facility] History of Present illness Narrative* Orlando May MD - 08/23/2024 2:56 PM EDT [facility] Anamika Juarez is a 43 year old male. Patient presents with: Vomiting: Cough, lightheaded, dizziness, APARICIO x1 day Patient presents with illness since yesterday. He has headache, body aches, feels feverish, has chills, intense coughing, he has had some diarrhea and vomiting. He feels short of breath and wheezing when he is coughing. Denies hematemesis, hematochezia, or abdominal pain. He has used his albuterol inhaler but no other treatments. Vomiting Review of Systems Gastrointestinal: Positive for vomiting. Objective BP 138/90 Pulse 87 Temp 37.1 C (98.8 F) Resp 18 Wt 79 kg (174 lb 2.6 oz) SpO2 99% BMI 24.99 kg/m Physical Exam Constitutional: General: He is not in acute distress. Appearance: He is ill-appearing. HENT: Right Ear: Tympanic membrane and ear canal normal. Left Ear: Tympanic membrane and ear canal normal. Nose: Congestion present. Right Sinus: Maxillary sinus tenderness (Chronic trigeminal pain) present. No frontal sinus tenderness. Left Sinus: No maxillary sinus tenderness or frontal sinus tenderness. Eyes: Extraocular Movements: Extraocular movements intact. Conjunctiva/sclera: Conjunctivae normal. Pupils: Pupils are equal, round, and reactive to light. Cardiovascular: Rate and Rhythm: Normal rate and regular rhythm. Heart sounds: No murmur heard. Pulmonary: Effort: No respiratory distress. Breath sounds: No wheezing, rhonchi or rales. Musculoskeletal: Cervical back: Neck supple. Lymphadenopathy: Cervical: No cervical adenopathy. Neurological: Mental Status: He is alert. {ASSESSMENT/PLAN: 1. Influenza-like illness - ICD9: 487.1, ICD10: J11.1 - suspect viral URI, differential includes influenza and COVID-19. He is not interested in antiviral therapy and defers viral testing. Work note provided. - Discussed supportive care treatment with home isolation (fever free for 24 hours and improving symptoms), rest, cold medicine, and analgesia. - Red flags to seek further treatment include chest pain, shortness of breath, and lethargy; in theER if severe. Orlando May MD Differential Diagnoses - Influenza is more likely for the following reason(s): Present in the community, suggested by H&P - Pneumonia is less likely for the following reason(s): Normal lung exam Disposition The patient was discharged. Procedures documented in this encounterOhio State [facility] System03-04-2025 NoteHNO ID: [id number] Author: RICHARD GOMEZ PA-C Service: ? Author Type: Physician Fugitive Detective Type: Progress Notes Filed: 07/24/2024 16:44 Note Text: This note was created using NoteWriter. Subjective Anamika Juarez is a 43 year old male. Patient is a 43-year-old male who complains of low-grade fever, chills, body aches and cough that he has been experiencing for the past 1 day. Patient also describes several episodes of nausea and vomiting. Patient reports no abdominal pain, cramping or diarrhea. Patient states he has not developed congestion and denies sinus pressure, ear pain or sore throat. Patient does have asthma and is in need of a refill of his albuterol MDI. Review of Systems Constitutional: Positive for chills, fatigue and fever. Respiratory: Positive for cough. Gastrointestinal: Positive for nausea and vomiting. Musculoskeletal: Positive for myalgias. All other systems reviewed and are negative. Objective BP 143/97 Pulse 89 Temp 37.3 ?C (99.2 ?F) Resp 20 Wt 78 kg (171 lb 15.3 oz) SpO2 98% BMI 24.67 kg/m? Physical Exam Vitals and nursing note reviewed. Constitutional: Appearance: Normal appearance. He is normal weight. HENT: Head: Normocephalic and atraumatic. Right Ear: Tympanic membrane, ear canal and external ear normal. Left Ear: Tympanic membrane, ear canal and external ear normal. Nose: Nose normal. Mouth/Throat: Mouth: Mucous membranes are moist. Pharynx: Oropharynx is clear. Eyes: Extraocular Movements: Extraocular movements intact. Conjunctiva/sclera: Conjunctivae normal. Pupils: Pupils are equal, round, and reactive to light. Cardiovascular: Rate and Rhythm: Normal rate and regular rhythm. Pulses: Normal pulses. Heart sounds: Normal heart sounds. Pulmonary: Effort: Pulmonary effort is normal. Breath sounds: Normal breath sounds. Abdominal: General: Abdomen is flat. Bowel sounds are normal. There is no distension. Palpations: Abdomen is soft. Tenderness: There is no abdominal tenderness. There is no guarding or rebound. Musculoskeletal: Cervical back: Normal range of motion and neck supple. Skin: General: Skin is warm and dry. Capillary Refill: Capillary refill takes less than 2 seconds. Neurological: General: No focal deficit present. Mental Status: He is alert and oriented to person, place, and time. Psychiatric: Mood and Affect: Mood normal. Behavior: Behavior normal. Thought Content: Thought content normal. Judgment: Judgment normal. Assessment and Plan Physical exam findings as noted above. POCT influenza A/B is negative. Patient was provided with prescriptions for Zofran 4 mg ODT, Tessalon 100 mg and albuterol MDI. Patient was clearly instructed to report to an emergency department if he notes any worsening of his nausea and vomiting symptoms or if he is unable to tolerate food or fluids. Additional supportive care was discussed and the patient verbalizes excellent understanding of same. CLINICAL IMPRESSION: Viral Illness; Acute Gastritis; Asthma; Medication Refill ASSESSMENT/PLAN: 1. Viral illness - ICD9: 079.99, ICD10: B34.9 (primary diagnosis) - INFLUENZA AANDB MOLECULAR (POC) - BENZONATATE 100 MG CAPSULE - ONDANSETRON 4 MG DISINTEGRATING TABLET 2. Mild intermittent asthma without complication - ICD9: 493.90, ICD10: J45.20 - ALBUTEROL SULFATE HFA 90 MCG/ACTUATION AEROSOL INHALER - INHALATIONAL SPACING DEVICE [facility]03-04-2025 History of Present illness Narrative* Richard Gomez PA-C - 07/24/2024 3:58 PM EST This note was created using [employer]. Subjective Anamika Juarez is a 43 year old male. Patient is a 43-year-old male who complains of low-grade fever, chills, body aches and cough that he has been experiencing for the past 1 day. Patient also describes several episodes of nausea and vomiting. Patient reports no abdominal pain, cramping or diarrhea. Patient states he has not developedcongestion and denies sinus pressure, ear pain or sore throat. Patient does have asthma and is in need of a refill of his albuterol MDI. Review of Systems Constitutional: Positive for chills, fatigue and fever. Respiratory: Positive for cough. Gastrointestinal: Positive for nausea and vomiting. Musculoskeletal: Positive for myalgias. All other systems reviewed and are negative. Objective BP 143/97 Pulse 89 Temp 37.3 C (99.2 F) Resp 20 Wt 78 kg (171 lb 15.3 oz) SpO2 98% BMI 24.67 kg/m Physical Exam Vitals and nursing note reviewed. Constitutional: Appearance: Normal appearance. He is normal weight. HENT: Head: Normocephalic and atraumatic. Right Ear: Tympanic membrane, ear canal and external ear normal. Left Ear: Tympanic membrane, ear canal and external ear normal. Nose: Nose normal. Mouth/Throat: Mouth: Mucous membranes are moist. Pharynx: Oropharynx is clear. Eyes: Extraocular Movements: Extraocular movements intact. Conjunctiva/sclera: Conjunctivae normal. Pupils: Pupils are equal, round, and reactive to light. Cardiovascular: Rate and Rhythm: Normal rate and regular rhythm. Pulses: Normal pulses. Heart sounds: Normal heart sounds. Pulmonary: Effort: Pulmonary effort is normal. Breath sounds: Normal breath sounds. Abdominal: General: Abdomen is flat. Bowel sounds are normal. There is no distension. Palpations: Abdomen is soft. Tenderness: There is no abdominal tenderness. There is no guarding or rebound. Musculoskeletal: Cervical back: Normal range of motion and neck supple. Skin: General: Skin is warm and dry. Capillary Refill: Capillary refill takes less than 2 seconds. Neurological: General: No focal deficit present. Mental Status: He is alert and oriented to person, place, and time. Psychiatric: Mood and Affect: Mood normal. Behavior: Behavior normal. Thought Content: Thought content normal. Judgment: Judgment normal. Assessment and Plan Physical exam findings as noted above. POCT influenza A/B is negative. Patient was provided with prescriptions for Zofran 4 mg ODT, Tessalon 100 mg and albuterol MDI. Patient was clearly instructed to report to an emergency department if he notes any worsening of his nausea and vomiting symptoms orif he is unable to tolerate food or fluids. Additional supportive care was discussed and the patient verbalizes excellent understanding of same. CLINICAL IMPRESSION: Viral Illness; Acute Gastritis; Asthma; Medication Refill ASSESSMENT/PLAN: 1. Viral illness - ICD9: 079.99, ICD10: B34.9 (primary diagnosis) - INFLUENZA A&B MOLECULAR (POC) - BENZONATATE 100 MG CAPSULE - ONDANSETRON 4 MG DISINTEGRATING TABLET 2. Mild intermittent asthma without complication - ICD9: 493.90, ICD10: J45.20 - ALBUTEROL SULFATE HFA 90 MCG/ACTUATION AEROSOL INHALER - INHALATIONAL SPACING DEVICE Richard Gomez PA-C documented in this encounterOhio [facility] System02-06-[facility]25 Instructions* Patient Instructions* Dariana Sanchez APRN.[facility] - 06/28/2024 10:32 AM EST ASSESSMENT/PLAN: 1. Viral URI with cough - ICD9: 465.9, ICD10: J06.9 - Discussed viral etiology and rationale for treatment. - Symptomatic treatment with prn analgesia - Supportive care with fluids and rest - offered viral testing and medication for cough, patient states I'm not that worried about it. - note provided for employer - Follow-up with your PCP in 3-5 days if symptoms have not improved or sooner if symptoms worsen - Discussed red flags and need for immediate medical evaluation if any occur. - Discussed supportive care treatment with fluids, rest and analgesia. - Discussed expected course of illness Dariana Sanchez APRN.[employer] Treatment for Viral Upper Respiratory Tract Infections Your body will kill off the virus by itself. Additionally, you can prime your body's immune system.This may help you get better more quickly. Drink lots of fluids Make sure you are eating well Get plenty of rest We do not have any medications that kill off these viruses. Antibiotics are used to treat bacterialinfections; however, they are not active against viral infections. There are some things that mighthelp you feel better, though. Vaporizers, humidifiers, hot showers, and hot fluids help open respiratory and sinus passages [place] Nasal [place] may offer relief of nasal and head congestion Fidel's Vapor Rub may relieve congestion Tylenol and Advil help control fevers and headaches Salt water gargles help relieve sore throats Chloraceptic spray or throat lozenges may also help relieve sore throat symptoms Occasionally, viral infections turn into something more serious. You should see your doctor or return to the Urgent Care if: You have fevers for longer than five days You have fevers above 102 degrees You are still sick after 10 days You have shortness of breath or wheezing After several days you are getting worse rather than better documented in this encounterOhio State Health System02-06-2025 History of Present illness Narrative* Dariana Sanchez APRN.CNP - 06/28/2024 10:29 AM EST Subjective Cough Associated symptoms include headaches. Pertinent negatives include no chills, no ear pain, no sore throat and no myalgias. Headache Pertinent negatives include no fever. Anamika Juarez is a 43 year old male who presents with 1 or 2 days of cough, congestion, headache and sinus pressure. He denies fever. States he could not go to work today and his work requires him to have a note. He has not taken any medication today. States coworkers have been sick recently. Review of Systems Constitutional: Negative for chills and fever. HENT: Positive for congestion and sinus pain. Negative for ear pain and sore throat. Respiratory: Positive for cough. Cardiovascular: Negative. Gastrointestinal: Negative. Musculoskeletal: Negative for myalgias. Neurological: Positive for headaches. BP 122/78 Pulse 72 Temp 36.7 C (98 F) Resp 14 Wt 77.9 kg (171 lb 11.8 oz) BMI 24.64 kg/m PAST MEDICAL HISTORY Diagnosis Date History of lung surgery 05/24/2017 right VATS surgery with resection of apical blebs, right upper lobe, mechanical pleurodesis, and insertion pain ball. Hyperlipidemia Pneumothorax Trigeminal neuralgia PAST SURGICAL HISTORY Procedure Laterality Date INGUINAL HERNIA REPAIR HX THORACOSCOPY SURG W PLEURODESIS Left 10/29/2015 L VATS with bleb resection, & mechanical pleurodesis at [facility] by Dr. Hwang THORACOSCOPY SURG W PLEURODESIS Right 05/24/2017 surgery with resection of apical blebs, right upper lobe, mechanical pleurodesis, and insertion pain ball. ALLERGIES Patient has no known allergies. MEDICATIONS albuterol HFA (PROVENTIL HFA, VENTOLIN HFA) 90 mcg/actuation inhaler Inhale 2 Puffs as instructed every 4 hours as needed for wheezing/shortness of breath. lamoTRIgine orally disintegrating (LAMICTAL ODT) 50 mg disintegrating tablet Take 50 mg by mouth twice daily. (Patient not taking: Reported on 02/22/2023) atorvastatin (LIPITOR) 10 mg tablet Take 10 mg by mouth once daily. FAMILY HISTORY Problem Relation Age of Onset Diabetes Other Social History Tobacco Use Smoking status: Every Day Current packs/day: 0.50 Types: Cigarettes Smokeless tobacco: Former Quit date: 08/22/2015 Substance Use Topics Alcohol use: Yes Comment: occassional Drug use: No Objective Physical Exam Vitals and nursing note reviewed. Constitutional: General: He is not in acute distress. Appearance: Normal appearance. He is not ill-appearing. HENT: Nose: Nose normal. Mouth/Throat: Mouth: Mucous membranes are moist. Pharynx: Oropharynx is clear. Uvula midline. No oropharyngeal exudate or posterior oropharyngeal erythema. Cardiovascular: Rate and Rhythm: Normal rate and regular rhythm. Heart sounds: Normal heart sounds. Pulmonary: Effort: Pulmonary effort is normal. No respiratory distress. Breath sounds: Normal breath sounds. No wheezing or rales. Musculoskeletal: Cervical back: Neck supple. Lymphadenopathy: Cervical: No cervical adenopathy. Skin: General: Skin is warm and dry. Findings: No erythema or rash. Neurological: Mental Status: He is alert. ASSESSMENT/PLAN: 1. Viral URI with cough - ICD9: 465.9, ICD10: J06.9 - Discussed viral etiology and rationale for treatment. - Symptomatic treatment with prn analgesia - Supportive care with fluids and rest - offered viral testing and medication for cough, patient states I'm not that worried about it. - note provided for employer - Follow-up with your PCP in 3-5 days if symptoms have not improved or sooner if symptoms worsen - Discussed red flags and need for immediate medical evaluation if any occur. - Discussed supportive care treatment with fluids, rest and analgesia. - Discussed expected course of illness Dariana Sanchez APRN.[employer] documented in this encounterOhio State Health System02-06-2025 NoteHNO ID: [id number] Author: DARIANA SANCHEZ APRN.[employer] Service: ? Author Type: Nurse Practitioner Type: Progress Notes Filed: 06/28/2024 10:32 Note Text: Subjective Cough Associated symptoms include headaches. Pertinent negatives include no chills, no ear pain, no sore throat and no myalgias. Headache Pertinent negatives include no fever. Anamika Juarez is a 43 year old male who presents with 1 or 2 days of cough, congestion, headache and sinus pressure. He denies fever. States he could not go to work today and his work requires him to have a note. He has not taken any medication today. States coworkers have been sick recently. Review of Systems Constitutional: Negative for chills and fever. HENT: Positive for congestion and sinus pain. Negative for ear pain and sore throat. Respiratory: Positive for cough. Cardiovascular: Negative. Gastrointestinal: Negative. Musculoskeletal: Negative for myalgias. Neurological: Positive for headaches. BP 122/78 Pulse 72 Temp 36.7 ?C (98 ?F) Resp 14 Wt 77.9 kg (171 lb 11.8 oz) BMI 24.64 kg/m? PAST MEDICAL HISTORY Diagnosis Date History of lung surgery 05/24/2017 right VATS surgery with resection of apical blebs, right upper lobe, mechanical pleurodesis, and insertion pain ball. Hyperlipidemia Pneumothorax Trigeminal neuralgia PAST SURGICAL HISTORY Procedure Laterality Date INGUINAL HERNIA REPAIR HX THORACOSCOPY SURG W PLEURODESIS Left 10/29/2015 L VATS with bleb resection, AND mechanical pleurodesis at [facility] by Dr. Hwang THORACOSCOPY SURG W PLEURODESIS Right 05/24/2017 surgery with resection of apical blebs, right upper lobe, mechanical pleurodesis, and insertion pain ball. ALLERGIES Patient has no known allergies. MEDICATIONS albuterol HFA (PROVENTIL HFA, VENTOLIN HFA) 90 mcg/actuation inhaler Inhale 2 Puffs as instructed every 4 hours as needed for wheezing/shortness of breath. lamoTRIgine orally disintegrating (LAMICTAL ODT) 50 mg disintegrating tablet Take 50 mg by mouth twice daily. (Patient not taking: Reported on 02/22/2023) atorvastatin (LIPITOR) 10 mg tablet Take 10 mg by mouth once daily. FAMILY HISTORY Problem Relation Age of Onset Diabetes Other Social History Tobacco Use Smoking status: Every Day Current packs/day: 0.50 Types: Cigarettes Smokeless tobacco: Former Quit date: 08/22/2015 Substance Use Topics Alcohol use: Yes Comment: occassional Drug use: No Objective Physical Exam Vitals and nursing note reviewed. Constitutional: General: He is not in acute distress. Appearance: Normal appearance. He is not ill-appearing. HENT: Nose: Nose normal. Mouth/Throat: Mouth: Mucous membranes are moist. Pharynx: Oropharynx is clear. Uvula midline. No oropharyngeal exudate or posterior oropharyngeal erythema. Cardiovascular: Rate and Rhythm: Normal rate and regular rhythm. Heart sounds: Normal heart sounds. Pulmonary: Effort: Pulmonary effort is normal. No respiratory distress. Breath sounds: Normal breath sounds. No wheezing or rales. Musculoskeletal: Cervical back: Neck supple. Lymphadenopathy: Cervical: No cervical adenopathy. Skin: General: Skin is warm and dry. Findings: No erythema or rash. Neurological: Mental Status: He is alert. ASSESSMENT/PLAN: 1. Viral URI with cough - ICD9: 465.9, ICD10: J06.9 - Discussed viral etiology and rationale for treatment. - Symptomatic treatment with prn analgesia - Supportive care with fluids and rest - offered viral testing and medication for cough, patient states I'm not that worried about it. - note provided for employer - Follow-up with your PCP in 3-5 days if symptoms have not improved or sooner if symptoms worsen - Discussed red flags and need for immediate medical evaluation if any occur. - Discussed supportive care treatment with fluids, rest and analgesia. - Discussed expected course of illness Dariana Sanchez APRN.[facility] NoteHNO ID: [id number] Author: SATURNINO BARRAGAN APRN.[facility] Service: ? Author Type: Nurse Practitioner Type: Progress Notes Filed: 03/29/2024 13:05 Note Text: Patient came in with complaints of terrible pain in his lower pelvic and penis area. Patient says he is unable to produce any urine. Patient says if he can get some out its only a dribble here or there. Patient says it has been getting worse over the last several days. Patient is being referred to the ER for more thorough evaluation. Patient was agreeable and wants to take himself.[facility]11-07-20[facility] History of Present illness Narrative* Saturnino Barragan APRN.[facility] - 03/29/2024 1:04 PM EST Patient came in with complaints of terrible pain in his lower pelvic and penis area. Patient says he is unable to produce any urine. Patient says if he can get some out its only a dribble here or there. Patient says it has been getting worse over the last several days. Patient is being referred to the ER for more thorough evaluation. Patient was agreeable and wants to take himself. documented in this encounterOhio State Health System10-29-2024 Telephone encounter Note * Telephone Encounter - Angelica Littlejohn LPN - 03/20/2024 8:12 AM EDT Patient given results and verbalized understanding of instructions given. Need note for today TUBE FILLER approved, will be up front for pt. Angelica Littlejohn LPN [facility]-29-[facility] Miscellaneous Notes* Telephone Encounter - Angelica Littlejohn LPN - 03/20/2024 8:12 AM EDT Patient given results and verbalized understanding of instructions given. Need note for today TUBE FILLER approved, will be up front for pt. Angelica Littlejohn LPN * Telephone Encounter - Elbert Galdamez APRN.CNP - 03/20/2024 7:07 AM EDT Please notify xray negative. I will send prednisone to pharmacy. F/u with pcp if s/s persist. documented in this encounterOhio State Health System10-29-2024 Telephone encounter Note * Telephone Encounter - Elbert Galdamez APRN.CNP - 03/20/2024 7:07 AM EDT Please notify xray negative. I will send prednisone to pharmacy. F/u with pcp if s/s persist. [facility] History of Present illness Narrative* Brandon Atwood, RT(R) - 03/19/2024 7:20 PM EDT Radiology Service Progress Note PATIENT NAME: Anamika Juarez DATE OF SERVICE: March 19, 2024 TIME: 7:12 PM PATIENT IDENTITY VERIFICATION COMPLETED USING TWO (2) IDENTIFIERS: Name and Date of confirmedby patient verbally. FALL SCREENING: Has the patient had 2 falls in the last year or 1 fall with injury or currently using an Ambulatory Assistive Device (Walker, Cane, Wheelchair, Crutches, etc.)? No PATIENT GENDER DATA: Male PATIENT RELEVANT IMPLANT DATA REVIEWED: Not Applicable PATIENT PRESENTS WITH AN IMPLANTABLE OR ATTACHED COUNTER STACKER: No RADIOLOGY DEPARTMENT: General X-ray: Exam(s) Completed: Rib X-Ray: Left PERIPHERAL IV DATA: Not applicable SIGNED BY: RT Rekha(R) March 19, 2024 7:12 PM documented in this encounterOhio State Health System10-28-2024 NoteHNO ID: [id number] Author: BRANDON ATWOOD RT(Ray) Service: Radiology Author Type: Technologist Type: Progress Notes Filed: 03/19/2024 19:19 Note Text: Radiology Service Progress Note PATIENT NAME: Anamika Juarez DATE OF SERVICE: March 19, 2024 TIME: 7:12 PM PATIENT IDENTITY VERIFICATION COMPLETED USING TWO (2) IDENTIFIERS: Name and Date of confirmed by patient verbally. FALL SCREENING: Has the patient had 2 falls in the last year or 1 fall with injury or currently using an Ambulatory Assistive Device (Walker, Cane, Wheelchair, Crutches, etc.)? No PATIENT GENDER DATA: Male PATIENT RELEVANT IMPLANT DATA REVIEWED: Not Applicable PATIENT PRESENTS WITH AN IMPLANTABLE OR ATTACHED COUNTER STACKER: No RADIOLOGY DEPARTMENT: General X-ray: Exam(s) Completed: Rib X-Ray: Left PERIPHERAL IV DATA: Not applicable SIGNED BY: RT Rekha(R) March 19, 2024 7:12 [facility]10-28-2024 NoteHNO ID: [id number] Author: ELBERT GALDAMEZ APRN.[employer] Service: ? Author Type: Nurse Practitioner Type: Progress Notes Filed: 03/20/2024 07:40 Note Text: Subjective HPI HPI Anamika Juarez is a 43 year old male who presents today for CC of left rib pain. This started 4 days ago. Has tried otc medication for relief. Symptoms are worsened by nothing. Risk factors hx of collapsed lungs. Seen in ER 1 day ago, xray negative. smoker. .Patient presents with: Pain: LT rib pain x 4 days PAST MEDICAL HISTORY Diagnosis Date History of lung surgery 05/24/2017 right VATS surgery with resection of apical blebs, right upper lobe, mechanical pleurodesis, and insertion pain ball. Hyperlipidemia Pneumothorax Trigeminal neuralgia PAST SURGICAL HISTORY Procedure Laterality Date INGUINAL HERNIA REPAIR HX THORACOSCOPY SURG W PLEURODESIS Left 10/29/2015 L VATS with bleb resection, AND mechanical pleurodesis at [facility] by Dr. Hwang THORACOSCOPY SURG W PLEURODESIS Right 05/24/2017 surgery with resection of apical blebs, right upper lobe, mechanical pleurodesis, and insertion pain ball. ALLERGIES Patient has no known allergies. MEDICATIONS albuterol HFA (PROVENTIL HFA, VENTOLIN HFA) 90 mcg/actuation inhaler Inhale 2 Puffs as instructed every 4 hours as needed for wheezing/shortness of breath. lamoTRIgine orally disintegrating (LAMICTAL ODT) 50 mg disintegrating tablet Take 50 mg by mouth twice daily. (Patient not taking: Reported on 02/22/2023) atorvastatin (LIPITOR) 10 mg tablet Take 10 mg by mouth once daily. FAMILY HISTORY Problem Relation Age of Onset Diabetes Other Social History Tobacco Use Smoking status: Every Day Current packs/day: 0.50 Types: Cigarettes Smokeless tobacco: Former Quit date: 08/22/2015 Substance Use Topics Alcohol use: Yes Comment: occassional Drug use: No Review of Systems Constitutional: Negative for fever. HENT: Negative for congestion, ear pain, nosebleeds and sore throat. Respiratory: Positive for shortness of breath. Negative for cough and wheezing. Cardiovascular: Positive for chest pain (rib). Musculoskeletal: Negative for neck pain. Objective Blood pressure 142/90, pulse 78, temperature 37.2 ?C (99 ?F), temperature source Tympanic, resp. rate 14, weight 76 kg (167 lb 8.8 oz), SpO2 97%. Physical Exam Constitutional: General: He is not in acute distress. Appearance: He is not toxic-appearing or diaphoretic. HENT: Head: Normocephalic and atraumatic. Cardiovascular: Rate and Rhythm: Normal rate and regular rhythm. Heart sounds: Normal heart sounds, S1 normal and S2 normal. Pulmonary: Effort: Pulmonary effort is normal. Breath sounds: Normal breath sounds. Chest: Neurological: Mental Status: He is alert and oriented to person, place, and time. Gait: Gait is intact. ASSESSMENT/PLAN: 1. Rib pain on left side - ICD9: 786.50, ICD10: R07.81 No xray resulted by end of day, negative my read Order steroids if negative Work note provided F/u with pcp if s/s persist - XR RIBS/CHEST 3V AP RIB/OBLS/CXR LEFT IMPRESSION: No discrete acute rib fracture. No radiographic findings to suggest acute cardiopulmonary process. Dictated by : MD Elbert ESCAMILLA APRN.[facility]10-28-2024 History of Present illness Narrative* Elbert Galdamez APRN.[employer] - 03/19/2024 7:08 PM EDT Images from the original note were not included. Subjective HPI HPI Anamika Juarez is a 43 year old male who presents today for CC of left rib pain. This started 4 days ago. Has tried otc medication for relief. Symptoms are worsened by nothing. Risk factors hx of collapsed lungs. Seen in ER 1 day ago, xray negative. smoker. .Patient presents with: Pain: LT rib pain x 4 days PAST MEDICAL HISTORY Diagnosis Date History of lung surgery 05/24/2017 right VATS surgery with resection of apical blebs, right upper lobe, mechanical pleurodesis, and insertion pain ball. Hyperlipidemia Pneumothorax Trigeminal neuralgia PAST SURGICAL HISTORY Procedure Laterality Date INGUINAL HERNIA REPAIR HX THORACOSCOPY SURG W PLEURODESIS Left 10/29/2015 L VATS with bleb resection, & mechanical pleurodesis at [facility] by Dr. Hwang THORACOSCOPY SURG W PLEURODESIS Right 05/24/2017 surgery with resection of apical blebs, right upper lobe, mechanical pleurodesis, and insertion pain ball. ALLERGIES Patient has no known allergies. MEDICATIONS albuterol HFA (PROVENTIL HFA, VENTOLIN HFA) 90 mcg/actuation inhaler Inhale 2 Puffs as instructed every 4 hours as needed for wheezing/shortness of breath. lamoTRIgine orally disintegrating (LAMICTAL ODT) 50 mg disintegrating tablet Take 50 mg by mouth twice daily. (Patient not taking: Reported on 02/22/2023) atorvastatin (LIPITOR) 10 mg tablet Take 10 mg by mouth once daily. FAMILY HISTORY Problem Relation Age of Onset Diabetes Other Social History Tobacco Use Smoking status: Every Day Current packs/day: 0.50 Types: Cigarettes Smokeless tobacco: Former Quit date: 08/22/2015 Substance Use Topics Alcohol use: Yes Comment: occassional Drug use: No Review of Systems Constitutional: Negative for fever. HENT: Negative for congestion, ear pain, nosebleeds and sore throat. Respiratory: Positive for shortness of breath. Negative for cough and wheezing. Cardiovascular: Positive for chest pain (rib). Musculoskeletal: Negative for neck pain. Objective Blood pressure 142/90, pulse 78, temperature 37.2 C (99 F), temperature source Tympanic, resp. rate14, weight 76 kg (167 lb 8.8 oz), SpO2 97%. Physical Exam Constitutional: General: He is not in acute distress. Appearance: He is not toxic-appearing or diaphoretic. HENT: Head: Normocephalic and atraumatic. Cardiovascular: Rate and Rhythm: Normal rate and regular rhythm. Heart sounds: Normal heart sounds, S1 normal and S2 normal. Pulmonary: Effort: Pulmonary effort is normal. Breath sounds: Normal breath sounds. Chest: Neurological: Mental Status: He is alert and oriented to person, place, and time. Gait: Gait is intact. ASSESSMENT/PLAN: 1. Rib pain on left side - ICD9: 786.50, ICD10: R07.81 No xray resulted by end of day, negative my read Order steroids if negative Work note provided F/u with pcp if s/s persist - XR RIBS/CHEST 3V AP RIB/OBLS/CXR LEFT IMPRESSION: No discrete acute rib fracture. No radiographic findings to suggest acute cardiopulmonary process. Dictated by : MD Elbert ESCAMILLA APRN.HEALTH INSPECTOR FOOD documented in this encounterOhio State Health System12-29-2023 Discharge summary Author Gurdeep Andrade [facility] May 20, 2023 12:18pm Note Date/Time May 20, 2023 9:26[facility] Medical Records Department [address] [place] [address] Emergency Department Summary 05/20/23 MR#: [id number] Acct: [id number] Name: ANAMIKA JUAREZ Rep #:[id number] : 1980 42 From: Gurdeep Andrade MD PCP: Dr. Cali Mckeon MD Status:REG ER Location: ED HPI History of Present Illness Chief Complaint: Abd Pain Informant: patient Narrative Narrative: Patient presents with left lower quadrant and some left flank pain. Patient states that he is been ill for about a week. He has had all of it. He has had a cough had a sore throat he had nausea vomiting diarrhea muscle aches and fevers. His significant other was diagnosed with influenza A so he figured that is what was causing it. He states he felt like he was getting better but then last night he started to get pain on the left flank and left lower quadrant. No change in nausea. His last vomiting episode was last night. Diarrhea is improving somewhat. Never had blood in vomitus or stool. No history of kidney stones. No known diverticulitis. Nothing really makes symptoms better or worse. He has had bilateral hernias but he has no inguinal pain or swelling. [facility] Medical History Abrasion of right thumb Bone fracture Cellulitis of right thumb Headache, migraine History of pneumonia Pneumothorax Trigeminal neuralgia Home Medications TENS units #1 ea 12/16/21 [Rx Last Taken Unknown] atorvastatin 10 mg tablet (Lipitor) 10 mg PO QHS #30 tabs 07/05/22 [Rx Last Taken Unknown] Ventolin HFA 90 mcg/actuation aerosol inhaler (albuterol sulfate) 1 - 2 puff inhalation Q4H PRN PRN Wheezing #18 grams 10/08/22 [Rx Last Taken Unknown] dicyclomine 20 mg tablet 20 mg PO TID PRN abdominal pain #14 tabs 05/20/23 [Rx Last Taken Unknown] ondansetron 4 mg disintegrating tablet 4 mg PO Q8H PRN PRN Nausea #10 tabs 05/20/23 [Rx Last Taken Unknown] Allergy/AdvReac Type Severity Reaction Status Date / Time No Known Allergies Allergy Verified 12/29/23 08:47 Family History Mother Arthritis Heart disease Hypertension Severe allergy Grandmother Colon cancer Surgical History H/O hernia repair History of lung surgery History of tonsillectomy Social History household members: spouse current occupational status: employed current occupation: works at [employer] Smoking Status: Current every day smoker tobacco type: cigarettes Electronic Cigarette Use: not used alcohol intake: current alcohol intake frequency: holidays/special occasions only Alcohol type: wine and hard liquor substance use type: does not use what type of physical activity do you participate in: none do you feel safe at home: Yes ROS ROS ED ROS Narrative A complete review of systems was performed and is negative except as documented in the history of present illness. Some specific details below. Constitutional: Subjective fevers recently. EYE: No visual complaints or pain. ENT: No difficulty swallowing. He had a sore throat but that is gone. CV: No chest pain or palpitations. Respiratory: No dyspnea. But he did have a lot of nonproductive coughing. Thatis also improving. He does not feel short of breath. GI: Please see history of present illness. : No frequency dysuria or hematuria. He does note that his urine is darker but does not think it had blood. Musculoskeletal: No recent trauma. No pains. Skin: No rash. Nondiaphoretic. Neuro: No weakness or numbness. Endocrine: No polyuria or polydipsia. EXAM Physical Exam Narrative Exam Narrative: CONSTITUTIONAL: Patient is nontoxic in appearance. The patient looks comfortable. HEENT: No notable trauma. Mucous membranes dry I. No sinus tenderness. No exudate EYES: No icterus CARDIOVASCULAR: Regular rate. Regular rhythm. No notable murmur. No JVD. RESPIRATORY: No respiratory distress. Breathing is unlabored. No wheezes. No rhonchi. No rales. No pain with a deep breath. Patient has had pneumothoraces before but has normal exam. He did have pleurodesis on both sides. GASTROINTESTINAL: Not distended. Bowel sounds are normal. Minimal tenderness onthe left lower quadrant and slight left CVA tenderness. GENITOURINARY: No tenderness over the bladder. Mild left-sided CVA tenderness. No rash or skin changes MUSCULOSKELETAL: Atraumatic. No peripheral edema. No cord. No tenderness along the deep venous system. No asymmetry. NEUROLOGICAL: Patient is alert and appropriate. No focal deficit noted. SKIN: No noted rashes. No diaphoresis. PSYCHIATRIC: Patient is calm. Mood is appropriate. Const Vital Signs: 05/20/23 08:48 05/20/23 11:39 Temperature 98.3 F Temperature Source Temporal Pulse Rate 70 59 L Respiratory Rate 14 16 Blood Pressure 156/97 H 128/86 H Blood Pressure Mean 116 100 Pulse Ox 100 98 Oxygen Delivery Method Room Air Room Air MDM MDM MDM Narrative Medical decision making narrative: My independent interpretation of the CT of the abdomen shows no acute intra- abdominal process. Appendix is seen retrocecal without inflammation. Final reading does show some other changes but these appear more to be chronic and notrelated to his acute complaints. There was no CT evidence of acute abnormality. Patient's CBC is normal other than mildly high hemoglobin that might be due to abit of hemoconcentration. Patient's electrolytes show some mildly low potassium we will replace that orally here. We discussed dietary changes to help. Patient's glucose is mildly high at 124 but this should self-correct. Patient's urine is normal. Patient is feeling better. His viral studies were negative. But his significant other had influenza A and he has had symptoms for a week. I think this is likely related to this. This should resolve. I will write for some Zofran and Bentyl to be used as a as needed basis. We discussed reasons to return. Lab Data Attestation: I reviewed the patient's lab results. Labs: Laboratory Results - last 24 hr 05/20/23 05/20/23 09:25 10:20 WBC 6.2 RBC 4.89 Hgb 16.7 H Hct 45.3 MCV 92.6 MCH 34.2 H MCHC 36.9 H RDW Std Deviation 43.8 RDW Coeff of Larisa 12.7 Plt Count 189 MPV 10.3 Immature Gran % (Auto) 0.500 Neut % (Auto) 65.6 Lymph % (Auto) 25.2 [place] % (Auto) 7.0 Eos % (Auto) 1.5 Baso % (Auto) 0.2 Absolute Neuts (auto) 4.1 Absolute Lymphs (auto) 1.56 Nucleated RBC % 0 Sodium 138 Potassium 3.0 L Chloride 102 Carbon Dioxide 26.0 Anion Gap 10 BUN 8 Creatinine 0.58 L Estim Creat Clear Calc 144.32 Est GFR (MDRD) Af Amer 195 Est GFR (MDRD) Non-Af 161 BUN/Creatinine Ratio 13.7 Glucose 124 H Calcium 8.2 L Urine Color Yellow Urine Clarity Clear Urine pH 8.0 Ur Specific [place] 1.010 Urine Protein 15 H Urine Glucose (UA) Normal Urine Ketones Negative Urine Occult Blood 10 H Urine Nitrite Negative Urine Bilirubin Negative Urine Urobilinogen 1 H Ur Leukocyte Esterase 25 H Urine RBC 0-5 SEEN Urine WBC 0-5 SEEN Ur Squamous Epith Cells 0 SEEN Urine Bacteria 0 SEEN Urine Mucus 0 SEEN Radiography Diagnostic Testing: Clinical Impression(s) from Imaging Studies Abdomen/Pelvis CT 05/20/23 09:22 IMPRESSION: 1. No CT evidence of acute abnormality in the abdomen and pelvis. 2. 2 small hypodense lesions in segment 4 the liver are too small to confirm cystic or solid. ACR White Paper guidelines (Jackson et al. JACR 2017; 14(11):9664-2073.) suggest the following. For patients with a low risk of malignancy, no further follow-up is necessary. For patients with high risk of malignancy (known malignancy with a propensity to metastasize to the liver, cirrhosis, and/or other hepatic risk factors), recommend follow-up abdominal CT or MR in 6 months. 3. 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 Electronically Signed: Shaq Cifuentes MD at 10:10 EST Reading Location ID and State: [facility] / [place] , Service support , Discharge Plan Triage Chief Complaint: Abd Pain ED Provider: Gurdeep Andrade Dx/Rx/DC Orders Clinical Impression: Influenza-like illness, Exposure to influenza, Abdominal pain Instructions: ED Abdominal Pain Unkn Cause Male... Prescriptions: New dicyclomine 20 mg tablet 20 mg PO TID PRN (Reason: abdominal pain) Qty: 14 0RF ondansetron [ondansetron] 4 mg tablet,disintegrating 4 mg PO Q8H PRN PRN (Reason: Nausea) Qty: 10 0RF No Action (DME) TENS units Device See Rx Instructions .Route Qty: 1 0RF Rx Instructions: As directed albuterol sulfate [Ventolin HFA] 90 mcg/actuation HFA aerosol inhaler 1 - 2 puff inhalation Q4H PRN PRN (Reason: Wheezing) Qty: 18 0RF atorvastatin [Lipitor] 10 mg tablet 10 mg PO QHS Qty: 30 5RF Primary Care Provider: Cali Mckeon Referrals: Cali Mckeon MD [Primary Care Provider] - 3-5 Days if not improving Disposition Disposition: Home, Self Care What to do if you have Problems For any increased pain, shortness of breath, bleeding, nausea or vomiting, chestpain, or any unexpected problems, contact your Primary Care Provider. Call [facility] ([phone]) or report to the closest Emergency Room. Call 911 if necessary. 05/20/23 1218 <Electronically signed by Gurdeep Andrade MD> Cosigner Signature (if applicable): CC: Dr. Cali Mckeon MD ~ Signed [facility] Work Phone: 1(161) 321-222210-05-2023 Miscellaneous Notes* Telephone Encounter - Mariluz Howard MA - 02/24/2023 11:48 AM EDT Pt was notified of the results. Pt verbalized understanding. Mariluz Howard MA * Telephone Encounter - Elbert Galdamez APRN.CNP - 02/24/2023 11:07 AM EDT Message sent, if needs any additional paperwork needs to see pcp. * Telephone Encounter - Johana Eugene RN - 02/24/2023 8:56 AM EDT Patient calls to report that his employer needs an actual return to work date on the letter that was given to patient in for illness on 02/22/2023 . Patient is asking to return on Tuesday02/28/23 and asking for date to be added to letter and uploaded to . Johana Eugene RN documented in this encounterOhio State Health System10-03-2023 History of Present illness Narrative* Dolores Gonzalez RT(R) - 02/22/2023 12:50 PM EDT Radiology Service Progress Note PATIENT NAME: Anamika Juarez DATE OF SERVICE: February 22, 2023 TIME: 12:44 PM PATIENT IDENTITY VERIFICATION COMPLETED USING TWO (2) IDENTIFIERS: Name and Date of confirmedby patient verbally. FALL SCREENING: Has the patient [...] 22, 2023 12:44 PM documented in this encounterOhio State Health System05-01-[address] Vicente [facility] September 20, 2022 9:32am Note Date/Time September 20, 2022 7:50am [facility] Medical Records Department [address] [place] [id number] Emergency Department Summary 09/20/22 MR#: [id number] Acct: [id number] Name: ANAMIKA JUAREZ Rep #:[id number] : 1980 41 From: Jua nDavid Vicente DO PCP: Dr. Cali Mckeon MD Status:REG ER Location: ED HPI History of Present Illness Chief Complaint: Headache Narrative Narrative: 41-year-old male with history of migraine presenting with headache. He states it started yesterday and he felt more like it was a tension headache and he felta strain in his muscles in his neck. He had his significant other of his neck and shoulders and he states that headache pain did start to ease up and he was pain-free at about 430 this morning. When he got up to drink coffee he noted the headache returned. It was more severe. He now has light sensitivity. He denies sound sensitivity. Denies any head trauma. Patient has had imaging of his brain in the past which includes MRI and MRA. He notes that these were beennormal. Patient does have a history of trigeminal neuralgia as well. He is notcomplaining of facial pain today. [facility] Medical History Bone fracture Headache, migraine History of pneumonia Pneumothorax Trigeminal neuralgia Home Medications TENS units #1 ea 12/16/21 [Rx Last Taken Unknown] arm brace (Wrist Brace) #1 ea 12/16/21 [Rx Last Taken Unknown] atorvastatin 10 mg tablet (Lipitor) 10 mg PO QHS #30 tabs 07/05/22 [Rx Last Taken Unknown] Allergy/AdvReac Type Severity Reaction Status Date / Time No Known Allergies Allergy Verified 09/20/22 07:25 Family History Mother Arthritis Heart disease Hypertension Severe allergy Grandmother Colon cancer Surgical History H/O hernia repair History of lung surgery History of tonsillectomy Social History household members: spouse current occupational status: employed current occupation: works at [employer] Smoking Status: Current every day smoker tobacco type: cigarettes Electronic Cigarette Use: not used alcohol intake: current alcohol intake frequency: holidays/special occasions only Alcohol type: wine and hard liquor substance use type: does not use what type of physical activity do you participate in: none do you feel safe at home: Yes ROS ROS ED Constitutional Constitutional ED: Denies chills, fever(s) or sweats Eyes Eyes: Denies blurry vision or change in vision ENT ENT ED: Denies ear pain or sore throat Cardiovascular Cardiovascular: Denies chest pain, palpitations or racing heartbeat Respiratory/Chest Respiratory/Chest: Denies cough, dyspnea or sputum Gastrointestinal Gastrointestinal: Denies abdominal pain, constipation, diarrhea, nausea or vomiting Genitourinary Genitourinary ED: Denies dysuria, hematuria or urinary frequency Musculoskeletal Musculoskeletal: Denies arthralgias, myalgias or neck pain Integumentary Denies abscess, Abrasions or rash Neurologic Neurologic: Reports headache(s); Denies paresthesias or weakness Psychiatric Psychiatric: Denies anxiety, depression, suicidal ideation or suicidal thoughts Endocrine Endocrinology: Denies polydipsia or polyuria EXAM Physical Exam Const Vital Signs: 09/20/22 07:26 Temperature 97.8 F Temperature Source Temporal Pulse Rate 64 Respiratory Rate 18 Blood Pressure 143/103 H Blood Pressure Mean 116 Pulse Ox 100 Oxygen Delivery Method Room Air Positive well nourished General Appearance ED: NAD; Negative for pallor HEENT Reports normocephalic Eyes PERRL and EOMs intact bilaterally Neck no lymphadenopathy and supple Neck Narrative: Left-sided tenderness to palpation in the left paraspinal musculature of the cervical spine. no midline deformity or step-off. Resp normal respiratory effort Effort and Inspection: Negative for retractions Cardio regular rate and regular rhythm Neuro oriented x3 and CN's II-XII intact bilaterally Sensorium / Orientation: awake and alert Speech: speech normal Motor Exam: strength 5/5 throughout Psych mental status grossly normal Skin General Skin Exam: Negative for jaundice or pallor MDM MDM MDM Narrative Medical decision making narrative: Patient presenting with headache. He has history of migraine headaches. He hadimaging in the past. No bleeding is edematous today. Patient was given Reglan,Benadryl, Toradol. Was given a liter normal saline. Will reevaluate. 9:32 AM the patient was reevaluated. He states he feels much better. He request to be discharged home. Return precautions were discussed. Impression: 1. Headache Discharge Plan Triage Chief Complaint: Headache ED Provider: Juan David Vicente Dx/Rx/DC Orders Instructions: ED Headache Unspecified Prescriptions: No Action (DME) TENS units Device See Rx Instructions .Route Qty: 1 0RF Rx Instructions: As directed (DME) Wrist Brace Misc See Rx Instructions .Route Qty: 1 0RF Rx Instructions: As directed atorvastatin [Lipitor] 10 mg tablet 10 mg PO QHS Qty: 30 5RF Primary Care Provider: Cali Mckeon Referrals: Cali Mckeon MD [Primary Care Provider] - Disposition Disposition: Home, Self Care What to do if you have Problems For any increased pain, shortness of breath, bleeding, nausea or vomiting, chestpain, or any unexpected problems, contact your Primary Care Provider. Call [facility] ([phone]) or report to the closest Emergency Room. Call 911 if necessary. 09/20/22 0932 <Electronically signed by Juan David Vicente DO> Cosigner Signature (if applicable): CC: Dr. Cali Mckeon MD ~ Signed [facility] Work Phone: 1(463) 906-636203-14-2023 History of Present illness Narrative* Elbert Galdamez, REGISTERED NURSE MATERNITY.HEALTH INSPECTOR FOOD - 08/03/2022 2:56 PM EDT Subjective HPI HPI Anamika Juarez is a 41 year old male who presents today for CC of cough, congestion, sob. Thisstarted over 1 week ago/tx pos for covid. [...] with bleb resection, & mechanical pleurodesis at [facility] by Dr. Hwang THORACOSCOPY SURG W PLEURODESIS [...] chest. Dictated by : MD Elbert CABRERA APRN.HEALTH INSPECTOR FOOD documented in this encounterOhio State Health System03-14-2023 History of Present illness Narrative* Dolores Gonzalez, RT(R) - 08/03/2022 2:20 PM EDT Radiology Service Progress Note PATIENT NAME: Anamika Juarez DATE OF SERVICE: August 03, 2022 TIME: 2:19 PM PATIENT IDENTITY VERIFICATION COMPLETED USING TWO (2) IDENTIFIERS: Name and Date of confirmedby patient verbally. FALL SCREENING: Has the patient had 2 falls in the last year or 1 fall with injury or currently using an Ambulatory Assistive Device (Walker, Cane, Wheelchair, Crutches, etc.)? No PATIENT GENDER DATA: Male PATIENT RELEVANT IMPLANT DATA REVIEWED: Yes RADIOLOGY DEPARTMENT: General X-ray: Exam(s) Completed: Chest X-Ray PERIPHERAL IV DATA: Not applicable SIGNED BY: RT Disha(Ray) August 03, 2022 2:19 PM documented in this encounterOhio State Health System03-09-2023 Miscellaneous Notes* Telephone Encounter - Migdalia Howard LPN - 07/29/2022 8:50 AM EST Patient notified and verbalized understanding of instructions given.Migdalia Howard LPN * Telephone Encounter - Elbert Galdamez APRN.CNP - 07/29/2022 8:12 AM EST You tested positive for COVID-19. Follow the [...] longer than 5 days. documented in this encounterOhio State Health System03-08-2023 History of Present illness Narrative* Orlando May MD - 07/28/2022 7:23 AM EST Patient presents with: Cough: Congestion, ST, APARICIO, [...] pain, shortness of breath, and lethargy; in theER if severe. - COVID WITH FLUA+B, ROUTINE 2. Oral lesion - ICD9: 528.9, ICD10: K13.70 Acute lesion from vomiting or illness vs neoplasm or lymphoid aggregate. Advised to have the lesion rechecked once feeling better; he expresses understanding. Orlando May MD documented in this encounterOhio State Health System08-23-2022 Instructions* Patient Instructions* Valeriano KIANNA Burnett.HEALTH INSPECTOR FOOD - 01/12/2022 7:51 AM EDT How to Manage Common Symptoms Associated with COVID for Adults Fever- Fever is a temperature over 100.4 F and can occur when the body is fighting an infection. Tohelp treat a fever: Drink plenty of fluids [...] your chest such as Vicks, which can helpreduce cough. Try cough drops. Avoid smoking and other strong odors or perfumes. Try breathing exercises to keep your lungs open and clear. Take a big deep breath through your noseand hold for 5 seconds before slowly releasing. [...] of water every 10-15 minutes and increase astolerated. You can try sucking an ice cube [...] or concerning to you. documented in this encounterOhio State Health System08-23-2022 History of Present illness Narrative* Valeriano Burnett APRN.CNP - 01/12/2022 7:48 AM EDT Subjective HPI Nontoxic-appearing male presents urgent care [...] with bleb resection, & mechanical pleurodesis at [facility] by Dr. Hwang THORACOSCOPY SURG W PLEURODESIS [...] kg (166 lb 6.4 oz) SpO2 99% BMI23.88 kg/m Review of Systems Constitutional: Positive for [...] to immediately proceed to emergency room for anynew, worsening, or symptoms lasting longer than anticipated. The patient's clinical presentation isotherwise unremarkable at this time. Based on exam and clinical finding, the patient is stable for discharge. Plan of care was discussed with patient. Patient verbalizes understanding and agrees to plan of care. This note was generated using Jumio software. It may contain errors in wording, punctuation, or spelling. Valeriano Burnett APRN.HEALTH INSPECTOR FOOD documented in this encounterOhio State Health System07-25-2022 Hospital Discharge instructions Patient Education 12/14/2021 10:02:43 [...] spine cause the pain. it is usually causedby an injury, whether known or not, to [...] your side with your knees bent up towardsyour chest and a pillow between your knees. [...] not use a heating pad at bedtime. Sleepingwith a heating pad can lead to skin [...] are taking other medicines. You may use gibr-auo-miysvdq medicine to control pain, unless another pain medicine was prescribed.If you have chronic conditions like diabetes, liver or kidney disease, stomach ulcers, gastrointestinal bleeding, or are taking blood thinner medicines. Be careful if you are given pain medicines, narcotics, or medicine for muscle spasm. They can causedrowsiness, and can affect your coordination, reflexes, and judgment. Do not drive or operate heavyPicRate.[employer]Axiom Educationy. Follow-up care Follow up with your healthcare [...] or as directed by your healthcare provider [phone] [employer]. [address] [place], [place] [address]. All rights reserved. This information is not intended as a substitute for professional medical care. Always follow yourhealthcare professional's instructions. Follow Up Care 12/14/2021 08:56:22 With:PATRICIA SARAVIA DO Address: [address] [place] [phone]- [phone] When:2-4 days With:Follow up with primary care provider Address:Unknown When:2-4 days [facility] 07-25-2022 Note Discharge Instructions Thank you for allowing [facility] to assist you with your healthcare needs. The following is importantdischarge information regarding your hospital visit. Diagnosis from [...] SARAVIA DO When Within 2-4 days Where: [address] [place] [phone] Follow Up with Follow up with primary care provider When Within 2-4 days Allergies NKA Medications Please ask your primary doctor or pharmacist before taking any other medication not listed, including over the counter drugs, herbal medications, vitamins and or supplements as they may interact withyour home medications. What How Much When Why Instructions Last Dose New acetaminophen-hydrocodone ([place] 325- 5 mg oral tablet) 1 tab(s) [...] spine cause the pain. it is usually causedby an injury, whether known or not, to [...] your side with your knees bent up towardsyour chest and a pillow between your knees. [...] not use a heating pad at bedtime. Sleepingwith a heating pad can lead to skin [...] are taking other medicines. You may use qfln-wue-nxrnpxr medicine to control pain, unless another pain medicine was prescribed.If you have chronic conditions like diabetes, liver or kidney disease, stomach ulcers, gastrointestinal bleeding, or are taking blood thinner medicines. Be careful if you are given pain medicines, narcotics, or medicine for muscle spasm. They can causedrowsiness, and can affect your coordination, reflexes, and judgment. Do not drive or operate heavymyDrugCostsy. Follow-up care Follow up with your healthcare [...] or as directed by your healthcare provider [phone] [employer]. [address] [place] [address], [place] [address]. All rights reserved. This information is not intended as a substitute for professional medical care. Always follow yourhealthcare professional's instructions. Additional Information VACCINATE! IT SAVES LIVES! Members of the community who have not yet received the COVID-19 vaccine and would like to receive it can visit one of [facility] vaccine clinics. There are many vaccine clinic locations within the [facility]. For locations and available times, please visit [email or web address]. It is important to note that some COVID mobile vaccine clinics are held outdoors and may be canceled in rainy orstormy conditions. To learn more about pediatric vaccinations (ages 5-11), we invite you to visit the [facility] webpage. [email or web address] learn more about the COVID-19 vaccine, we invite you to visit the [place] website for a list of frequently asked questions. [email or web address] [place] [facility] Patient Portal Access Instructions: Stay connected with your healthcare team and access your personal medical information anytime with the [employer] Patient Portal. If you would like a full copy of your medical records please contact the [facility] Medical Records Department Tuesday through Tuesday between 8a.m. and 4:30p.m. Please follow the directions below to access the portal: 1.Access the email account you provided upon registration to the hospital.2.Look for an invitation email from [facility].3.Open the email and access the invitation link: Accept Invitation to [employer]4.Fill in the required nowak to create your account. Sign into [email or web address] with your username and password that you [...] you will allow to register on the [place] [facility] Patient Portal for access to your information. You can also access the [employer] Patient Portal on the [email or web address]. Simply click on Health Records under [employer] and then click on the [facility]bi logo. HOW TO SAFELY DISPOSE OF PRESCRIPTION MEDICATIONS Please use one of the following methods to safely dispose of your unused medications. 1.Use a drug disposal kit: the drug disposal pouch allows you to safely discard your old and unuseddrugs. Ask your nurse to give you one when you are discharged.2.Visit a local take-back location: Many local pharmacies and police departments have programs that collect old and unwanted prescriptiondrugs. Call your local pharmacy or go to [email or web address] Orientation/8V0Sh5d to find one close to you.3.Make use of household items: Use cat litter or old coffee grounds to dispose medications if other options arenot available. Mix your drugs with these household products, seal them in an airtight container andthrow it into the garbage. Call [facility]: [phone] to be sure your drugs can be [...] drowsiness, such as benzodiazepines, also known as benzos,including diazepam and alprazolam, muscle relaxants or sleep aids. Never sell or share prescriptionopioids. This is illegal. Store opioids in a [...] aware that I should contact my doctor. Patient/Banquet Lead Signature: Date/Time: Relationship to Patient: Witness Name/Signature: Date/Time: [facility]07-25-2022 Note ORIGINAL EXAMINATION: AP lateral obliques 5 [...] Sign Date: 12/14/2021 10:10:21 AM Ordering Provider: [facility]07-25-2022 Note ORIGINAL EXAMINATION: AP lateral obliques 5 [...] Sign Date: 12/14/2021 10:10:21 AM Ordering Provider: [facility]12-29-2017 History of Past illness Narrative* Problem Noted Date Resolved Date Spontaneous pneumothorax 05/20/2017 018 documented as of this encounter (statuses as of 01/12/2022) [place] [address]-29-2017 History of Past illness Narrative* Problem Noted Date Resolved Date Spontaneous pneumothorax 05/20/2017 018 documented as of this encounter (statuses as of 07/28/2022) [facility]12-29-2017 History of Past illness Narrative* Problem Noted Date Resolved Date Spontaneous pneumothorax 05/20/2017 018 documented as of this encounter (statuses as of 07/29/2022) [facility]12-[facility] History of Past illness Narrative* Problem Noted Date Resolved Date Spontaneous pneumothorax 05/20/2017 018 documented as of this encounter (statuses as of 08/03/2022) [address]29-2017 History of Past illness Narrative* Problem Noted Date Diagnosed Date Resolved Date Spontaneous pneumothorax 05/20/201710/2017 documented as of this encounter (statuses as of 02/25/2023) [facility] complaint+Reason for visit Narrative* Chief Complaint work concerns Reason for Visit Immunization decline d Moderate major depression Craniofacial pain Smoker [facility] Work Phone: Chief complaint+Reason for visit Narrative* Chief Complaint work concerns headache Reason for Visit Immunization decline d Moderate major depression Craniofacial pain Smoker [facility] Work Phone: Evaluation + Plan note No data available for this section [facility] Evaluation note* Diagnosis Viral illness- Primary Unspecified viral infection, in conditions classified elsewhere and of unspecified site documented in this encounter [facility] note* Diagnosis Onset Date Resolution Status Immunization declined noneac tive Moderate major depression no neactive Craniofacial pain noneactive Smoker noneactive [facility] Work Phone: Evaluation note* Diagnosis Influenza-like illness- Primary Influenza with other respiratory manifestations Oral lesion Other and unspecified diseases of the oral soft tissues documented in this encounter [facility] note* Diagnosis Sinobronchitis- Primary Unspecified sinusitis (chronic) Acute cough documented in this encounter [facility] noteNo assessment information [facility]WSouth[facility] Work Phone: Evaluation note* Diagnosis Rib pain on left side- Primary Chest pain, unspecified documented in this encounter [facility] note* Diagnosis Dysuria- Primary [facility] Diagnosis Viral URI with cough- Primary Acute upper respiratory infections of unspecified site [facility]* Diagnosis Viral illness- Primary Unspecified viral infection, in conditions classified elsewhere and of unspecified site Mild intermittent asthma without complication Unspecified asthma documented in this encounter [facility] note* Diagnosis Influenza-like illness- Primary Influenza with other respiratory manifestations documented in this encounter [facility] note* Diagnosis Viral gastroenteritis Intestinal infection due to other organism, not elsewhere classified documented in this encounter [facility] note* Diagnosis Vomiting and diarrhea- Primary Vomiting alone [facility] Diagnosis Mild intermittent asthma with acute exacerbation (HCC)- Primary Unspecified asthma, with exacerbation documented in this encounter [facility] Discharge instructionsAmbulatory Orders* Pain Management Location: None Selected [facility] Work Phone: Rexheg for referral (narrative)* Diagnostic Procedure Only (Urgent) - Pending Review Specialty Diagnoses / Procedures Referred By Karen meneses Referred To Contact XR IMAGING Diagnoses Rib pain on left side Procedures XR RIBS/CHEST 3V AP RIB/OBLS/CXR LEFT RADEX RIBS UNI W/POSTEROANT CH MINIMUM 3 VIEWS Elbert Galdamez APRN.[employer] [address] [place] [address] [place] [address] Referral ID Status Reason Start Date Expiration Date Visits Requested Visits Authorized [id number] Pending Review Auto-Generat ed Referral 4 04/18/2025 1 1 [facility] for referral (narrative)No reason for referral information availableWSouthview Medical [facility] Work Phone: Relkzm for visit Narrative* Diagnostic Procedure Only (Routine) - Closed Specialty Diagnoses / Procedures Referred By Karen meneses Referred To Contact Radiology / [facility] [address] [facility] Diagnoses room 5 Procedures XR CHEST Self [facility] [address] [place] [address] Referral ID Status Reason Start Date Expiration Date Visits Re quested Visits Authorized [id number] Closed 08/03/2022 05/22/2023 1 1 [facility] for visit Narrative* Diagnostic Procedure Only (Urgent) - Pending Review Specialty Diagnoses / Procedures Referred By Karen meneses Referred To Contact XR IMAGING Diagnoses Rib pain on left side Procedures XR RIBS/CHEST 3V AP RIB/OBLS/CXR LEFT RADEX RIBS UNI W/POSTEROANT CH MINIMUM 3 VIEWS Elbert Galdamez APRN.[employer] [address] [place] [address] [place] [address] Referral ID Status Reason Start Date Expiration Date Visits Requested Visits Authorized [id number] Pending Review Auto-Generat ed Referral 4 04/18/2025 1 1 [facility] Summary Purpose Family History No Family History Records Found Relationship Condition Age at Onset Recorded Date/T luke mother Arthritis Unknown Cardiac disease Unknown Hypertension Unknown Severe allergy Unknown grandmother Malignant neoplasm of colon Unknown Advance Directives No Advanced Directives Records Found Advance Directive Response Recorded Date/ Time Living Will No June 04 3:48am Power of Call Centre Supervisor No June 04, 2021 3:48am Advance Directive Response Recorded Date/ Time Living Will No September 20, 2022 8: 00am Power of Call Centre Supervisor No September 20, 2022 8:00am Advance Directive Response Recorded Date/ Time Living Will No May 20 8:53am Power of Call Centre Supervisor No May 20, 2023 8:53am Advance Directive Response Recorded Date/ Time Do you have a Healthcare Power of Call Centre Supervisor? No November 16, 2024 12:38pm Health Concerns Infection Onset Date Last Indicated Resolved Time COVID-19 Rule-Out 07/28/2022 07/28/2022 Infection Onset Date Last Indicated Resolved Time COVID-19 Confirmed 07/28/2022 07/28/2022 Chief Complaint and Reason for Visit Chief Complaint ABD Chief Complaint Admit Date CP November 16, 2024 12:1 0pm Additional Source Comments (unrecognized sect ion and content) No Status Records FoundNo Status Records FoundNo Status Records FoundNo Status Records FoundNo Status Records Found INFORMATION SOURCE (unrecogn ized section and content) DATE CREATED AUTHOR 11/14/2017 [facility] DATE CREATED AUTHOR AUTHOR'S ORGANIZ ATION 11/14/2017 [facility] DATE CREATED AUTHOR AUTHOR'S ORGANIZ ATION 01/15/2022 [facility] ([place]) DATE CREATED AUTHOR AUTHOR'S ORGANIZ ATION 11/14/2024 [facility] DATE CREATED AUTHOR AUTHOR'S ORGANIZ ATION 11/23/2024 [facility] Care Team (unrecognized sect ion and content) Care Team Personnel Name: PHYSICIAN, NONE Position: Physician Member Role: Primary Care Physician Care Team Related Persons Name: CARO JUAREZ Address: Home [address] [place] [address] Source Comments (unrecognize d section and content) In the event this informatio n is protected by the Federal Confidentiality of Alcohol and Drug Abuse Patient Records regulations: The Federal rules restrict any use of the information to criminally investigate or prosecute any alcohol or drug abuse patient.[facility] the event this information is protected by the Federal Confidentiality of Alcohol and Drug Abuse Patient Records regulations: The Federal rules restrict any use of the information to criminally investigate or prosecute any alcohol or drug abuse patient.[facility] System[facility] the event this information is protected by the Federal Confidentiality of Alcohol and Drug Abuse Patient Records regulations: The Federal rules restrict any use of the information to criminally investigate or prosecute any alcohol or drug abuse patient.[facility] SystemIn the event this information is protected by the Federal Confidentiality of Alcohol and Drug Abuse Patient Records regulations: The Federal rules restrict any use of the information to criminally investigate or prosecute any alcohol or drug abuse patient.[facility] SystemIn the event this information is protected by the Federal Confidentiality of Alcohol and Drug Abuse Patient Records regulations: The Federal rules restrict any use of the information to criminally investigate or prosecute any alcohol or drug abuse patient.[facility] SystemIn the event this information is protected by the Federal Confidentiality of Alcohol and Drug Abuse Patient Records regulations: The Federal rules restrict any use of the information to criminally investigate or prosecute any alcohol or drug abuse patient.[facility] SystemIn the event this information is protected by the Federal Confidentiality of Alcohol and Drug Abuse Patient Records regulations: The Federal rules restrict any use of the information to criminally investigate or prosecute any alcohol or drug abuse patient.[facility] SystemIn the event this information is protected by the Federal Confidentiality of Alcohol and Drug Abuse Patient Records regulations: The Federal rules restrict any use of the information to criminally investigate or prosecute any alcohol or drug abuse patient.[facility] SystemIn the event this information is protected by the Federal Confidentiality of Alcohol and Drug Abuse Patient Records regulations: The Federal rules restrict any use of the information to criminally investigate or prosecute any alcohol or drug abuse patient.[facility] SystemIn the event this information is protected by the Federal Confidentiality of Alcohol and Drug Abuse Patient Records regulations: The Federal rules restrict any use of the information to criminally investigate or prosecute any alcohol or drug abuse patient.[facility] SystemIn the event this information is protected by the Federal Confidentiality of Alcohol and Drug Abuse Patient Records regulations: The Federal rules restrict any use of the information to criminally investigate or prosecute any alcohol or drug abuse patient.[facility] SystemIn the event this information is protected by the Federal Confidentiality of Alcohol and Drug Abuse Patient Records regulations: The Federal rules restrict any use of the information to criminally investigate or prosecute any alcohol or drug abuse patient.[facility] SystemIn the event this information is protected by the Federal Confidentiality of Alcohol and Drug Abuse Patient Records regulations: The Federal rules restrict any use of the information to criminally investigate or prosecute any alcohol or drug abuse patient.[facility] SystemIn the event this information is protected by the Federal Confidentiality of Alcohol and Drug Abuse Patient Records regulations: The Federal rules restrict any use of the information to criminally investigate or prosecute any alcohol or drug abuse patient.[facility] SystemIn the event this information is protected by the Federal Confidentiality of Alcohol and Drug Abuse Patient Records regulations: The Federal rules restrict any use of the information to criminally investigate or prosecute any alcohol or drug abuse patient.[facility] SystemIn the event this information is protected by the Federal Confidentiality of Alcohol and Drug Abuse Patient Records regulations: The Federal rules restrict any use of the information to criminally investigate or prosecute any alcohol or drug abuse patient.[facility] SystemIn the event this information is protected by the Federal Confidentiality of Alcohol and Drug Abuse Patient Records regulations: The Federal rules restrict any use of the information to criminally investigate or prosecute any alcohol or drug abuse patient.[facility] SystemIn the event this information is protected by the Federal Confidentiality of Alcohol and Drug Abuse Patient Records regulations: The Federal rules restrict any use of the information to criminally investigate or prosecute any alcohol or drug abuse patient.[facility] Reason for Visit (unrecogniz ed section and content) Reason Comments Head Congestion cough and bodyaches x this am Reason Comments Cough Congestion, ST, APARICIO, bodyaches, chills, fever x last night Reason Comments Results Reason Comments Cough Chest congestion, + Covid Dx 07/28/2022. Reason Comments Return To Work Letter Reason Comments Pain LT rib pain x 4 days Specialty Diagnoses / Procedures Referred By Contac t Referred To Contact [facility] / [facility] Diagnoses Left rib pain Procedures EST SAME DAY Self [facility] [address] [place] [address] Referral ID Status Reason Start Date Expiration Date Visits Requested Visits Authorized [id number] New Request Financial Clearance Required - Self Pay 4 06/17/2024 1 1 Reason Comments Erroneous encounter-disregard Reason Comments Dysuria X4 days Reason Comments Cough Head Congestion Headache Reason Comments Nausea & Vomiting Diarrhea, nausea, x 1.5 days Cough, chest congestion Reason Comments Vomiting Cough, lightheaded, dizziness, APARICIO x1 day Reason Comments Nausea & Vomiting Diarrhea x 2 days Reason Comments Nausea & Vomiting Nausea, vomiting and stomach hurts x 1 day Reason Comments Asthma sob x 2 days Care Teams (unrecognized sec tion and content) Lap Hand Tool Relationship Specialty Start Date End Date [place] [address] [place], [place] [id number] PCP - General Optometry 05/20/17 Team Status: Active Member Role Status Dates No Primary Care Physician Family Provider Active Dr. Cali Mckeon MD Primary Care Provider Active Team Status: Inactive Member Role Status Dates Dr. Cali Mckeon MD Primary Care Pro vider, Attending Provider, Referring Provider Active Team Status: Inactive Member Role Status Dates Dr. Cali Mckeon MD Primary Care Provider Active Dr. Juan David Vicente DO Emergency Provider Active Team Status: Inactive Member Role Status Dates Dr. Cali Mckeon MD Primary Care Provider Active Dr. Gurdeep Andrade MD Emergency Provider Active Lap Hand Tool Relationship Specialty Start Date End Date Cali Mckeon MD [address] [place], [place] [id number] PCP - General Internal Medicine 03/19/24 Lap Hand Tool Relationship Specialty Start Date End Date Cali Mckeon MD [address] [place], [place] [id number] PCP - General Internal Medicine 03/19/24 Lap Hand Tool Relationship Specialty Start Date End Date Cali Mckeon MD [address] [place], [place] [id number] PCP - General Internal Medicine 03/19/24 Lap Hand Tool Relationship Specialty Start Date End Date Cali Mckeon MD [address] [place] [address] PCP - General Internal Medicine 03/19/24 Lap Hand Tool Relationship Specialty Start Date End Date Cali Mckeon MD [address] [place] [address] PCP - General Internal Medicine 03/19/24 Lap Hand Tool Relationship Specialty Start Date End Date Cali Mckeon MD [address] [place] [address] PCP - General Internal Medicine 03/19/24 Lap Hand Tool Relationship Specialty Start Date End Date Cali Mckeon MD [address] [place] [address] PCP - General Internal Medicine 03/19/24 Lap Hand Tool Relationship Specialty Start Date End Date Cali Mckeon MD [address] [place] [address] PCP - General Internal Medicine 03/19/24 Lap Hand Tool Relationship Specialty Start Date End Date Cali Mckeon MD [address] [place] [address] PCP - General Internal Medicine 03/19/24 Team Status: Active Member Role/Relationship Status Dates Dr. Cali Mckeon MD Primary Care Provider Active Team Status: Inactive Member Role/Relationship Status Dates Dr. Cali Mckeon MD Primary Care Provider Active Start: November 16, 2024 End: November 16, 2024 Dr. Maximilian Gaspar MD Emergency Provider Active Start: November 16, 2024 End: November 16, 2024 Goals (unrecognized section and content) Goals may be documented in a n alternate section FOR RECORDS PERTAINING TO PATIENTS WHO ARE [...] BE BASED ON THE PRIMARY CLINICAL RECORDS. [facility] [employer] [facility]. provides no warranty or guarantee of the accuracy or completeness of information in this document.
[2024-12-27 07:54] LABS: Mucous, Urine 0 SEEN /hpf (<or=2+); Red Blood Cells-Urine 0 SEEN /hpf (0-5); Squamous Epithelial Cells - UA 0 SEEN /hpf (0-5)
[2024-12-27 07:57] LABS: Magnesium 2.1 mg/dL (1.5-2.2)
[2024-12-27 08:15] LABS: Color, Urine Yellow (Yellow); Glucose, Dipstick Normal (Normal); Ketone-Dipstick Negative (Negative); Leukocyte Esterase-Dipstick Negative /ul (Negative); Nitrite-Dipstick Negative (Negative); Occult Blood-Urine Negative /ul (Negative); Protein-Dipstick 15 mg/dl (Negative); Specific Gravity, Urine 1.015 (1.002-1.030); Urine Bilirubin Dipstick Negative (Negative)
[2024-12-27 08:50] VITALS: BP 158/103; PULSE 51; RESP 18; TEMP 36.8; O2SAT 100
== END 2024-12-27 08:56 | disposition home or self-care (01) ==
PROVIDERS: Emergency Provider Emergency Medicine; PCP Internal Medicine; Visit Provider Emergency Medicine
DX: R10.9 Unspecified abdominal pain (principal); R11.2 Nausea with vomiting, unspecified; E87.6 Hypokalemia; R73.9 Hyperglycemia, unspecified; F17.210 Nicotine dependence, cigarettes, uncomplicated; R19.7 Diarrhea, unspecified
CPT/HCPCS: 74177; 80053; 81001; 83690; 83735; 85025; 96361; 96374; 99284; Q9967; A4216; J2405